=== PATIENT | male | born 1965 | race Caucasian/White ===

== ENCOUNTER 2017-04-25 07:21 | Day surgery (SDC) | payer MEDICAID, SELFPAY ==
[2017-04-25] VITALS (7 sets, daily range): BP systolic 104–134; BP diastolic 58–91; PULSE 74–91; RESP 16–19; TEMP 36.6–36.7; O2SAT 92–96; BMI 34.9
--- NOTE | 2017-04-25 | IMM_PTH ---
PATIENT: MARLINE KHAN LOC: EN U#:[id number] AGE/SX: 51/M ROOM: RE04/25/[address]: Dr. Chris Yanez MD : 1965 BED: DIS: 04/25/2017 SPEC #: [id number] RECD: 04/26/17 11:34 STATUS: LENNIE REKaroline #: [id number] JOSE: 04/25/17 00:[address]: Chris Yanez DEPT: IMMUNOHISTOCHEMISTRY RECD BY: Kaykay Real ENTERED: 04/26/17 11:36 SP TYPE: IMMUNO OTHR DR: No Primary Care Phys Tissues: B - Stomach, NOS Procedures: H Pylori (initial) PHYSICIAN & INSTITUTION [place] [id number] SPECIMEN INFORMATION: Tissue Source: B ? Biopsy of antrum Clinical Info: Duodenal ulcer Specimen Number: [id number] CPT code: 36394 METHODOLOGY: Deparaffinized sections of prefer/formalin-fixed tissue or PAP/DQ stained slides are incubated with monoclonal/polyclonal antibodies/oligonucleotide probes. Localization is made via biotin free immunoperoxidase method. Appropriate controls are performed and reacted as expected. Results on target cell population are indicated in the following table: RESULTS: ANTIBODY / CLONE RESULT Block B H Pylori (polyclonal) negative These tests were developed and their performance characteristics determined by [facility]. They may not have been cleared or approved by the U.S. Food and Drug Administration. The FDA has determined that such clearance or approval is not necessary. INTERPRETATION: B. Antrum, biopsy: Negative for Helicobacter pylori organisms. AM:temi 04/26/17
--- NOTE | 2017-04-25 08:46 | H&P.OPEN ---
Past Medical/Surgical History - Planned Operation Planned Operative Procedure/s: EGD Date of Operative Procedure: 04/25/17 Permit Signed: No S.O.S: No Is This Patient Having a Total Joint: No - Previous Hospitalizations/Surgeries HX Hospitalizations: Yes HX of Surgeries: HOSPITALIZED FOR LUNG COLLAPSE HAD CHEST TUBE 2014. ANAL CYST/FISSURE I&D X3. JAW FX 1998. COLONOSCOPY/EGD 02/19. LEFT KNEE ARTHROSCOPY, MENISCUS 04/07/2017, [facility] Any Problems With Anesthesia: No You/Your Family Experience Fever (Hyperthermia) With Anes: No Cholinesterase deficiency: No - Cardiovascular Hx Chest Pain within Last 2 months: No Hx of Irregular Heartbeat and/or Afib: No Hx Heart Attack: No Hx Congestive Heart Failure: No Hx Rheumatic Fever: No Hx Hypertension: No Hx Internal Defibrillator: No Hx Pacemaker: No Hx Cardiac Catheterization: No Hx Cardiac Surgery/Stents/Etc.: No Hx Stress Test: No HX Edema: No Hx Pain in Legs when Walking/Leg Cramps: No - . - Respiratory Chronic Cough: No HX of Shortness of Breath: Yes - SLIGHTLY SOB WITH 2 FLIGHTS OF STAIRS Hoarseness: No Hx Chronic Obstructive Pulmonary Disease (COPD): No Hx Asthma: No Hx Emphysema: No Hx Sleep Apnea: No CPAP: No Hx Oxygen Use at Home: No Hx Respiratory Tract Infection/Cold (presently): No Do You Snore Loudly (louder than talking or can be heard): No Do You Often Feel Tired/ Fatigued/ Sleepy Dring Daytime?: No Has Anyone Observed You Stop Breathing During Sleep?: No Result (for STOP score): Negative Hx Smoking: Yes - 1/2 PPD FOR 21 YRS Smoking Status: Current every day smoker - Gastrointestinal Hx Gastroesophageal Reflux: Yes Controlled With Meds: No - NO MEDS Hx Gastrointestinal Disorders: Yes - DIVERTICULITIS, POLYP Hx Gastrointestinal Bleed: No Hx Ulcer: Yes - 02/2017 Hx Hiatal Hernia: No Difficulty Chewing/Swallowing: No Recent Onset of Swallowing Problems: No Special diet followed at home: Yes - WT LOSS, Hx Unplanned Weight Loss of 20#: No HX Unplanned Weight Gain of 20#: No - Neurological Hx Seizures: No HX Syncope/Blackout Spells/Unconsciousness: No Hx CVA/Stroke: No Hx Transient Ischemic Attacks (TIA): No Hx Multiple Sclerosis: No Hx Parkinson's Disease: No Hx Head/Neck Injury: No Hx Headaches: No Hx Back Injury/Pain: Yes - LOWER BACK PAIN PRN Recent Onset of Speech Difficulty: No Restless Legs: No Does patient have nerve stimulator: No Patient instructed to have device shut off: No Rep notified?: No - Blood Disorder Hx Leukemia: No Bleeding Tendencies: No Hx Deep Vein Thrombosis: No Hx High Cholesterol: No Blood Transmitted Disease: No Hx Hepatitis: No Hx Cirrhosis: No Hx Anemia: No Hx Blood Disorders: No - Genitourinary Hx Renal Disease: No - Musculoskeletal Hx Arthritis: Yes - KNEES Hx Rheumatoid Arthritis: No Hx Gout: No Recent Onset of an Orthopedic Problem: Yes - RECENT SURGERY,KNEE - Endocrine Hx Diabetes: No Thyroid Disease: No Hx Steroid Therapy: Yes - INJECTION KNEE 5 MONTHS AGO - Psycho/Social Hx Substance Use: No - MARIJUNA USE IN THE PAST/LAST USED 2 YRS AGO Hx Alcohol Use: Yes - FORMER ALCOHOLIC , QUIT 2015 Hx Anxiety: Yes Hx Depression: Yes Mental Illness: No Hx Dementia: No - Miscellaneous Hx Cancer: No Recent Exposure to Contagious Disease: No Active MRSA: No Hx of C-Diff: No Any Loose Teeth: No Additional information pertinent to anesthesia:: PHONE INTERVIEW Allergies No Known Allergies Allergy (Verified 04/20/17 16:06) Home Medications Medication Instructions Recorded NK [NK] 04/20/17 - Discharge Is Pt Admitted From a Residential, or a Skilled Nursing: No Who Could Help: GIRLFRIEND After D/C, Where Do you Plan to Go: Return Home - Physical Exam General: Alert, Oriented x3 Neck: No JVD Lungs: Normal air movement Cardiovascular: Regular rate, Regular Rhythm Abdomen: Soft, Non Tender, Non-Distended Vital Signs Temp Pulse Resp BP Pulse Ox 97.8 F 91 18 134/85 H 96 04/25/17 07:39 04/25/17 07:39 04/25/17 07:39 04/25/17 07:39 04/25/17 07:39 Oxygen Delivery Method Room Air Weight: 286 lb 13.142 oz Body Mass Index (BMI) 34.9 Assessment/Plan 51-year-old male with duodenal ulcer 1. The patient had a recent EGD and during that EGD he was noted to have a duodenal ulcer. He was placed on PPI and Carafate and presents today for follow-up EGD to ensure that this ulcer has resolved. 2. I explained endoscopy in detail to the patient. I explained the risks including but not limited to stroke or heart attack with anesthesia, perforation of the GI tract, bleeding, infection. I explained that any of these could necessitate further emergency surgery. The patient understands and all questions were answered sufficiently. The patient wishes to proceed with procedure. Chris Yanez MD Pager: [facility] [address], [facility] [address] [place] [address] Office: Surgery Risks - Colonoscopy Risks Include but are not Limited To: Risks include but are not limited to: Bleeding, perforation requiring further surgery, inability to complete colonoscopy requiring barium enema.
--- NOTE | 2017-04-25 09:05 | EGD_PTH ---
PATIENT: MARLINE KHAN LOC: EN U#:[id number] AGE/SX: 51/M ROOM: RE04/25/[address]: Dr. Chris Yanez MD : 1965 BED: DIS: 04/25/2017 SPEC #: [id number] RECD: 04/25/17 15:06 STATUS: LENNIE VLADIMIR #: [id number] JOSE: 04/25/17 09:[address]: Chris Yanez DEPT: SURGICAL PATHOLOGY RECD BY: Uday Simon ENTERED: 04/25/17 15:07 SP TYPE: EGD BIOPSY OTHR DR: No Primary Care Phys Tissues: A - Duodenum, NOS B - Gastric mucous membrane Procedures: Surgery Specimen Level IV HEADER OPERATION: EGD with biopsy PRE-OP DIAGNOSIS: History of duodenal ulcer TISSUE SUBMITTED: A ? Biopsy of duodenum, B ? Biopsy of antrum for H. pylori and path MICROSCOPIC DIAGNOSIS A. Duodenum, biopsy: Focal acute duodenitis. B. Gastric antrum, biopsy: Gastritis. AM:temi 04/26/17 COMMENT A. There is focal duodenitis in an area suspicious for mucosal ulceration. There is no evidence of dysplasia. Clinical correlation is suggested. B. The results of immunohistochemistry for Helicobacter pylori will be reported separately ([id number]). MICROSCOPIC DESCRIPTION Slides are reviewed. B. Sections show small collections and groups of plasma cells in the mucosa. Active inflammation is not present. These findings are consistent with mild chronic gastritis. GROSS DESCRIPTION A - Received in fixative is one container labeled with the patient's name and designated duodenal biopsy. The specimen consists of multiple irregular fragments of light dawson soft tissue that in aggregate measure 1.5 x 0.5 x 0.1 cm. The specimen is totally submitted in one cassette. B - Received in fixative is one container labeled with the patient's name and designated biopsy of antrum for H. pylori and path. The specimen consists of multiple irregular fragments of light dawson soft tissue that in aggregate measure 0.5 x 0.3 x 0.1 cm. The specimen is totally submitted in one cassette. / JOSIANE:temi 04/25/17 TC:2 CPT: 22481 x2
--- NOTE | 2017-04-25 09:15 | OP.PCM_ITS ---
Problem List (1) Duodenal ulcer Status: Acute Report of Operation Date of Procedure: 04/25/17 Pre-Operative Diagnosis: History of duodenal ulcer Post-Operative Diagnosis: Duodenal ulcer Surgery/Procedure Performed:: EGD with biopsies Description of Surgical Findings:: The patient still had inflamed tissue in the second portion of duodenum but the base of the ulcer has healed. The patient also reports that he stopped taking his omeprazole after the first month and the discomfort has returned recently. Specimen's removed: 1. Biopsies of duodenal ulcer. 2. Antrum biopsy Description of Procedure: The major risks and benefits associated with the procedure were explained to the patient in detail. The patient verbalized understanding and agreement with the same. The patient was then placed in the left lateral decubitus position. IV sedation was started by anesthesia. The endoscope was then advanced under direct visualization over the tongue, into the esophagus , stomach and duodenum. It was slowly withdrawn and the mucosa was carefully evaluated. The second portion of the duodenum was evaluated and the ulcer was located. The base of the ulcer has fully healed but there was still some inflamed tissue in this area. This was biopsied several times with cold forceps. Antegrade and retrograde views of the stomach were normal and did not reveal a hiatal hernia or ulceration. Gastric folds were normal. A biopsy of the antrum was performed with cold forceps. The scope was then withdrawn through the GE junction and careful examination did not demonstrate any mucosal abnormalities. No evidence of Goodson's esophagus was apparent. Careful examination of the remainder of the esophagus was normal. The scope was then withdrawn from the patient and the procedure terminated. It was well tolerated and there were no immediate complications. Recommendations: I have recommended the patient continue his PPI for at least a year. I have sent a new prescription with several refills. The base of the ulcer is healing but I did biopsy the surrounding area. If this is normal he can continue PPIs.
== END 2017-04-25 10:00 | disposition home or self-care (01) ==
LOC: EN 07:22 → AC 07:23
PROVIDERS: Visit Provider Surgery
PROC: 0DJ08ZZ Inspection of Upper Intestinal Tract, Via Natural or Artificial Opening Endoscopic (ICD-10-PCS; CPT 43235; principal; 2017-04-25 08:25)
DX: K26.3 Acute duodenal ulcer without hemorrhage or perforation (principal); K29.80 Duodenitis without bleeding; K29.70 Gastritis, unspecified, without bleeding; R06.00 Dyspnea, unspecified; M17.0 Bilateral primary osteoarthritis of knee; F41.9 Anxiety disorder, unspecified; F32.9 Major depressive disorder, single episode, unspecified; K21.9 Gastro-esophageal reflux disease without esophagitis; Z87.19 Personal history of other diseases of the digestive system; Z87.898 Personal history of other specified conditions; F17.210 Nicotine dependence, cigarettes, uncomplicated
CPT/HCPCS: 43239; 88305; 88342; J7120

== ENCOUNTER → 2017-08-22 09:03 | Outpatient (CLI) | payer MEDICAID, SELFPAY ==
--- NOTE | 2017-08-22 09:06 | RAD_ITS ---
STUDY: X-RAY - LEFT KNEE REASON FOR EXAM: Pain, swelling. TECHNIQUE: 4 view(s) of the knee. COMPARISON: None. FINDINGS: Normal visualized distal femur. Normal visualized proximal tibia and fibula. Normal proximal tibiofibular articulation. There is joint space narrowing of the medial femorotibial compartment. Normal lateral femorotibial compartment. There is mild lateral tilt of the patella. There is a small joint effusion. RAD/Knee 4 or More Views IMPRESSION: Arthrosis of the medial femorotibial compartment. Mild lateral tilt of the patella. Small joint effusion. Electronically Signed: Josh Guo MD at 12:24 EDT Tel , Service support ,
== END ==
PROVIDERS: Visit Provider Orthopaedic Surgery
DX: M25.562 Pain in left knee (principal)
CPT/HCPCS: 73564

== ENCOUNTER → 2017-12-04 09:32 | Outpatient (CLI) | payer MEDICAID, SELFPAY ==
--- NOTE | 2017-12-04 09:35 | MRI_ITS ---
STUDY: MRI LEFT KNEE REASON FOR EXAM: Increased pain after arthroscopy 04/07/2017. TECHNIQUE: Standardized fat and water weighted pulse sequences were obtained in all 3 orthogonal planes. COMPARISON: Radiographs 08/22/2017. FINDINGS: There is attrition of the posterior horn of the medial meniscus consistent with partial medial meniscectomy with signal alteration of the posterior horn of the medial meniscus extending to the free margin (proton-density sagittal images 8-11), either scarring or recurrent medial meniscal tear, and a complex signal alteration of the body of the medial meniscus (T2 coronal images 13-17), suggestive of recurrent medial meniscal tear since this appears separate from the partial meniscectomy site. There is arthrosis of the medial femorotibial compartment with marginal osteophytes and chondral loss (T2 sagittal image 9). There is mild subchondral bone edema of the medial femoral condyle (T2 coronal images 13-16), a stress phenomenon. Normal medial collateral ligamentous complex (MCL). Normal distal semimembranosus, gracilis and semitendinosus tendons. Normal lateral meniscus. Normal hyaline cartilage of the lateral femorotibial compartment. Normal lateral femoral condyle and tibial plateau. Normal proximal tibiofibular articulation. Normal lateral collateral (fibular) ligament. Normal popliteus tendon. Normal biceps femoris tendon. Normal anterior cruciate ligament (ACL). Normal posterior cruciate ligament (PCL). There is mild lateral tilt of the patella without patellar subluxation (T2 axial image 12). Normal hyaline cartilage of the patellofemoral compartment. Normal medial and lateral patellar retinaculum. Normal visualized quadriceps tendon. There is mild proximal patellar tendinosis (T2 sagittal images 14, 15). Normal Hoffa's fat pad. There is a small joint effusion. There is a small popliteal cyst (T2 sagittal images 3-9). The otherwise visualized osseous structures are unremarkable. MRI/Lower Ext Joint Only (Routine) IMPRESSION: Partial medial meniscectomy with signal alteration of the body of the medial meniscus suggestive of recurrent medial meniscal tear. Arthrosis of the medial femorotibial compartment. Mild subchondral bone edema of the medial femoral condyle, a stress phenomenon. Mild proximal patellar tendinosis. Mild lateral tilt of the patella. Small joint effusion. Small popliteal cyst. Electronically Signed: Josh Guo MD at 10:03 EDT Tel , Service support ,
== END ==
PROVIDERS: Referring Provider Orthopaedic Surgery; Visit Provider Orthopaedic Surgery
DX: M23.307 Other meniscus derangements, unspecified meniscus, left knee (principal)
CPT/HCPCS: 73721

== ENCOUNTER 2017-12-12 12:53 | Outpatient (RCR) | payer MEDICAID, SELFPAY ==
--- NOTE | 2017-12-12 16:20 | HP.OTFCE_ITS ---
HP OT Functional Capacity Eval - Task Lift Floor (Occasional 1-33% of Day): 50 lbs Floor (Frequent 34-66% of Day): 10 lbs Floor (Constant 67-100% of Day): negligibe Floor PDL: Light Knee (Occasional 1-33% of Day): 50 lbs Knee (Frequent 34-66% of Day): 20 lbs Knee (Constant 67-100% of Day): negligible Knee PDL: Light Waist (Occasional 1-33% of Day): 50 Waist (Frequent 34-66% of Day): 25 lbs Waist (Constant 67-100% of Day): negligible Waist PDL: Light Shoulder (Occasional 1-33% of Day): 55 lbs Shoulder (Frequent 34-66% of Day): 25 lbs Shoulder (Constant 67-100% of Day): negligible Shoulder PDL: Light Overhead (Occasional 1-33% of Day): 40 Overhead (Frequent 34-66% of Day): 20 Overhead (Constant 67-100% of Day): negligible Overhead PDL: Sedentary-Light Comments: Due to increased compensations with higher weight and repetitive movements it would not be reccomened that Ab completes frequent lifting tasks at this time as body mechanics poor. - Work Activity/Posture Bending: Frequent Ability (34-66% of day) Squatting: Occasional Ability (1-33% of day) Kneeling: Occasional Ability (1-33% of day) Reaching out: Frequent Ability (34-66% of day) Reaching up: Frequent Ability (34-66% of day) Sitting: Frequent Ability (34-66% of day) Walking: Occasional Ability (1-33% of day) Comments: antaglic gait noted. Standing: Occasional Ability (1-33% of day) Comments: need for breaks. - Reference Duration Sedentary Sedentary Light Light Light Medium Medium Medium Heavy Very Heavy Heavy Occasional (0-33% of day) Frequent (34-66% of day) Constant (67-100% of day) 10 # Negligible Negligible 15 # 8 # Negligible 20 # 10# Negli. 35 # 18 # 7 # 50 # 25 # 10 # 75 # 100 # >100 # 38 # 50 # >50 # 15 # 20 # >20 # - Patient Information Height: 1.93 m Weight:: 294 kg Hand Dominance: R BP (Medication Use/Usual Values per pt report): no - Medical History Medical History Including Restrictions: Per Pt. report no medical restrictions given to get by her doctor. No paperwork provided from doctor. - Diagnoses Diagnoses: Current: L knee athroscopy in April 2017. PMHx: L knee pain, tobacco use, h/o DVT, ADHD, bipolar, vitamin D. - Symptoms Symptoms: Main symptoms include of pain with movement of eversion of ankle combined with internal roation of L foot. - Pain Pain: I take pain pills all the time.. Completed Destiny questionarrie in which Pt. scored a 62 which a score of 30 or higher indicates poor pyschodynamics. When provided with KitchIn faces chart he appears to more accurately rate pain. Pain testing indicates inconsistencies. - Work History Work History: Per Pt. report over the last few years months has help multiple jobs. 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 - Behavioral Behavioral: My knee not getting no better. It's like it detroiating.I'm supposed to prop my legs up but I don't. I'm supposed to take some special medications but haven't taken for like two years. I've had some anxiety attacks in the last couple months. ..I'm starting to get Alziheimer I think... Later discussed that he has plenty of pills but does not take many. Further noted that - ADLS ADLS: Lives with with apartment, on second floor, with 20 steps to get to top. Still completing all steps to caitlyn nd out of apartment. Noted completed steps at least 1x a day. Lives alone in apartment with [employer]. Completed all ADl and most IADLS including grocery shopping while at times riding scooter, driving. Drives with R LE. - Physical Examination Physical Examination: Resting. HR 85 bpm. O2 97%. calculated aerobic limiting factor: 143 bpm. ROM: Completed goniometer measurements of BUE: shoulder flexion: R 0-121, L 0- 151. Shoulder ext. R 0-37, L 0-36. Shoulder abduction: R 0-141, L 0-56. BLE Had to measure through jeans due to inability to Pt. to raise jeans about knees: Knee flexion: froms tanding position: R 0-90 - limited by weakness and soft tissue, L 0-94 limited by weakness and soft tissue. knee flexion in prone: R 0- 94, L 0-92. knee ext from sitting position: R 90-178, L 90-179. __vitals post laying in prone: -BP 152/100, easily came down after chaging psoitioning. Strength: Shoulder Flexion: R 5/5, L 5/5. shoulder ER : R 5/5, L 5/5. Shoulder IR : R 5/5, L 5/5. shoulder abduction:: R 5/5, L 5/5. biceps load:: R 5/5, L 5/5. LE. hip flexors: : R 5/5, L 5/5. knee flexion: : R 5/5, L 5/5. knee extension: : R 5/5, L 5/5. hip adduction: : R 5/5, L 5/5. hip Abduction: : R 5/5, L 5/5. plantar flexion: R 5/5, L 5/5 Right Welding Robot Operator Strength Average: 109.33 Left Welding Robot Operator Strength Average: 104.66 Right Lateral Pinch Average: 24.33 Left Lateral Pinch Average: 23.00 Right Tripod Pinch Average: 22.66 Left Tripod Pinch Average: 18.66 Sensation: B hands through monofilament is intact and results are as follows and WNL-WFL: R 2nd 3.22, 3rd 3.22, 4th 3.22, 5th 3.22, thumb 3.61. L 2nd 2.83, 3rd 2.83, 4th 283, 5th 2.83, thumb 2.83. No numbness or tingling noted around L knee. Noted some tenderness with palpation but no primance or jumping with palpation of L knee about lateral menicus and joint spaces to anterior knee. Fine Motor: Fine motor control is intact. Completed Purdue Pegboard test and results for an average of three trials is as follows: R : 11. L: 14. Both: 10. assembly: 4 Balance: Completed funtional gait assessment in which he score a 14/30 which is below lowest standard for age of 25/30. This potentially indicates a greater chance f falling. Completed assessment without use of cane. Antaglic gait noted throughout session and limited change in speed noted. Additionally, completed functional reach test with average of three trials averaging 43.5 inches. This indicates he is at less risk of fall than indicated through functional gait assessment. There is potentially that due to fear of further injury during gait Pt. was more cautious when completing dynamic test rather than staic assessment of fx reach test. HR 105. 02 95 - Non Material Handling Activities Bendinx, 10 x, 10 fast. Completed no cane with fair body mechanics. Decreased spinal alignment. Knees move from neutral to hyperext. position with movements. Did not not any grimace or verbalize additional pain. Percieved Pain: 3-4/10. Pain appeared to be accurate with use of scale rating. Squattinx, 10x, 10x fast. Completed with fair- poor body mechanics. With increased repitiation increased compensations noted of forward trunk flexion to offset L LE weakness and pain. Noted pain 5/10 going on 08/13. Increased SOB noted. Completed Vitals: HR 109, O2 95. Kneeling: completed 6 x. use of foam peice under R Reaching out/up: Reaching out: about to reach out with no stoping 70 seconds. Reaching up: 3x, about to reach up for 45 seconds for total of about 40 reps. Walking: Walked total 12 mins straight with period sof standing while completing various tasks around the gym. Completed almost all walking tasks with no use of cane. Antalgic gait noted and decrease speed of ambulation additionally noted. Standing: stood about 30 mins off/on with walking and balance related tasks throughout session. Sitting: Able to sit for 45 mins and noted sitting most comofrtable position. Pain 2/10 Climbing Stairs: 40 stairs with use of 1x handrails and mix between one foot to alternating foot pattern. Used a mix of B UE and L UE to promote ascending and decending of stairs. BP 123/89. HR 118. O2 96 %. Pain /10 - Dynamic Occasional Lifting Capacity Floor Lift: 5x 10 lbs - some compensations noted. Poor body mechanics of trunk and spinal alignment. No compliants or grimance noted during task. 1x 50 lbs - able to able completed weight but due to increased compensations would not reccommend to exceed frequent weight of 10 lbs. HR 118. 02 96. BP 151/86. Pain noted 3 going on . Knee Lift: freq 5x 20 lbs, 1x 50 lbs for occassional. Would not reccomend 50 lbs for occassional use as increased compensations noted and poor body mechnics displayed. Waist Lift: Max weight 50 lbs; frequent weight of. HR 110. 02 97. BP 130/83 Shoulder Lift: 55 lbs. fair mechanics Overhead Lift: 127/54. HR 121. 02 97 Carryin [address]. no reccommended due to safety concerns and antaglic gait. Comments: BP at end of session: BP 105/79. 02 97%
--- NOTE | 2017-12-12 16:20 | HP.OTFCE.D ---
FCE D/C Summary - Discharge MARLINE Ciro KHAN was seen for a one time visit for an FCE on 12/12/17 and is discharged.
--- NOTE | 2017-12-28 09:49 | HP.OTFCE_ITS ---
HP OT Functional Capacity Eval - Task Lift Floor (Occasional 1-33% of Day): 25 lbs Floor (Frequent 34-66% of Day): 10 lbs Floor (Constant 67-100% of Day): negligibe Floor PDL: Light Knee (Occasional 1-33% of Day): 40 lbs Knee (Frequent 34-66% of Day): 20 lbs Knee (Constant 67-100% of Day): 8 lbs Knee PDL: Light-Medium Waist (Occasional 1-33% of Day): 40 lbs Waist (Frequent 34-66% of Day): 20 lbs Waist (Constant 67-100% of Day): 8 lbs Waist PDL: Light-Medium Shoulder (Occasional 1-33% of Day): 40 lbs Shoulder (Frequent 34-66% of Day): 20 lbs Shoulder (Constant 67-100% of Day): 10 lbs Shoulder PDL: Light-Medium Overhead (Occasional 1-33% of Day): 40 lbs Overhead (Frequent 34-66% of Day): 20 lbs Overhead (Constant 67-100% of Day): 8 lbs Overhead PDL: Light-Medium Comments: Due to increased compensations with higher weight and repetitive movements it would not be recommended that Ab completes consisent repetitive lifting tasks at this time as compensations, mechanical deficits, and safety concerns are observed. - Work Activity/Posture Bending: Occasional Ability (1-33% of day) Squatting: Occasional Ability (1-33% of day) Kneeling: No Ablility (0% of day) Comments: Has able to complete but should avoid due to mechanical deficits observed. Reaching out: Frequent Ability (34-66% of day) Reaching up: Frequent Ability (34-66% of day) Sitting: Frequent Ability (34-66% of day) Walking: Occasional Ability (1-33% of day) Comments: antaglic gait noted. Standing: Occasional Ability (1-33% of day) Comments: need for breaks. - Reference Duration Sedentary Sedentary Light Light Light Medium Medium Medium Heavy Very Heavy Heavy Occasional (0-33% of day) Frequent (34-66% of day) Constant (67-100% of day) 10 # Negligible Negligible 15 # 8 # Negligible 20 # 10# Negli. 35 # 18 # 7 # 50 # 25 # 10 # 75 # 100 # >100 # 38 # 50 # >50 # 15 # 20 # >20 # - Patient Information Height: 1.93 m Weight:: 294 kg Hand Dominance: R BP (Medication Use/Usual Values per pt report): no - Medical History Medical History Including Restrictions: Per Pt. report no medical restrictions given to get by him by doctor. No paperwork provided from doctor or patient. - Diagnoses Diagnoses: Per Pt. Report: Current: L knee athroscopy in April 2017. Per Pt. report: PMHx: L knee pain, tobacco use, h/o DVT, ADHD, bipolar, vitamin D. - Symptoms Symptoms: Main symptoms include of pain with movement of eversion of ankle combined with internal rotation of L foot per Pt. report. Patient demonstrated movement and noted that movement a lot of pain. That movement is not typically movement needed for functional mobility tasks of walking. Pt. further noted increased pain with repetitive movement task of walking for sustain periods of time. These movements are necessary for functional movements need to complete mobility tasks. - Pain Pain: I take pain pills all the time.. Completed Destiny questionaries? in which Pt. scored a 62 which a score of 30 or higher indicates the risk of a higher potential of Pt. exhibiting poor psychodynamics. When provided with wongs zimmerman faces pain scale he appeared to more accurately rate pain. Pain testing indicates increased potential for inconsistencies. - Work History Work History: Per Pt. report over the last few years months has held multiple [email or web address] obs. He is currently unemployed. 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 - Behavioral Behavioral: My knee not getting no better. It's like it deteriorating. I'm supposed to prop my legs up but I don't. I'm supposed to take some special medications but haven't taken for like two years. I've had some anxiety attacks in the last couple months. ...I'm starting to get Alzheimer I think... Later discussed that he has plenty of pills but does not take many and then stated ? I have to take pain medications all the time because by knee gets so bad.? - ADLS ADLS: Lives with significant other in apartment. Significant other is currently getting CDL and often driving for work related tasks. Apartment is located on second floor, with 20 steps to get to door. When asked about stairs he noted very hard and I can hardly do them. He then explained he is still completing all steps in and out of apartment. Noted he is completing steps at least 1x a day and once in apartment he has FFSU. He is not exercising regularly and explained he has not regularly been completing past PT exercises from rehabilitation. He further explained he does not need to complete yardwork at this time. Completes all ADLs and most IADLS including grocery shopping while at times riding scooter. Exampled via Functional Activities Questionnaire he is unable to put groceries away but exhibited needed range of motion to place groceries overhead. Additionally, he noted on functional capacity questionnaire that he is able to drive for 1-2 hours. He notes he still is driving and drove himself to the appointment today. Drives with Johana PHAM. - Physical Examination Physical Examination: Satnam arrived for an FCE on 12/12/17. The purpose of this FCE was to determine the functional ability that Ab exhibits post arthroscopy of L knee. He arrived using assistive device of straight cane. This was deemed that this was not necessary throughout evaluation with OT present to help gain a more accurate understanding of correct functional ability. Ab started the evaluation with a resting HR 85 bpm, O2 97%. This further determines the aerobic limiting calculated of: 143 bpm. The aerobic limiting factor is the safe heart rate that Ab could obtain during session without of exerting himself to unsafe range. Therapist checked Ab?s heart rate throughout the session to ensure. His heart rate was consistent throughout session and did not exceed aerobic limiting factor. Please review the documentation provided for further detail on results of FCE. ROM: Completed goniometer measurements of BUE: shoulder flexion: R 0-121, L 0- 151. Shoulder ext. R 0-37, L 0-36. Shoulder abduction: R 0-141, L 0-56. BLE Had to measure through jeans due to inability to Pt. to raise jeans about knees: Knee flexion: from standing position: R 0-90 - limited by soft tissue, L 0-94 limited by weakness and soft tissue. knee flexion in prone: R 0-94, L 0-92. knee ext from sitting position: R 90-178, L 90-179. -vitals -BP 152/100, easily came down after changing positioning from prone to supine. Strength: Shoulder Flexion: R 5/5, L 5/5. shoulder ER : R 5/5, L 5/5. Shoulder IR : R 5/5, L 5/5. shoulder abduction: R 5/5, L 5/5. biceps load: R 5/5, L 5/5. LE. hip flexors: R 5/5, L 5/5. knee flexion: R 5/5, L 5/5. knee extension: R 5/5, L 5/5. hip adduction: R 5/5, L 5/5. hip Abduction: R 5/5, L 5/5. plantar flexion: R 5/5, L 5/5 Right Diesel Truck Technician Strength Average: 109.33 Right Diesel Truck Technician Strength Percentile: above 90th Left Diesel Truck Technician Strength Average: 104.66 Left Diesel Truck Technician Strength Percentile: above 90th Right Lateral Pinch Average: 24.33 Right Lateral Pinch Percentile: 90th Left Lateral Pinch Average: 23.00 Left Lateral Pinch Percentile: 90th Right Tripod Pinch Average: 22.66 Right Tripod Pinch Percentile: above 75th Left Tripod Pinch Average: 18.66 Left Tripod Pinch Percentile: above 50th Sensation: Completed testing touch sensation of B hands through monofilament test. Normal is 2.83, decreased light touch between 3.22-3.61. Sensation is intact and results are as follows: R 2nd 3.22, 3rd 3.22, 4th 3.22, 5th 3.22, thumb 3.61. L 2nd 2.83, 3rd 2.83, 4th 283, 5th 2.83, thumb 2.83. No numbness or tingling noted around L knee. Noted some tenderness with palpation but no grimance or jumping with palpation of L knee around lateral menicus and within joint spaces to anterior knee. Fine Motor: Fine motor control is intact. Completed Purdue Pegboard test and results for an average of three trials is as follows: R : 11 percentile: 1st. L: 14 percentile: 10th. Both: 10 percentile: 3rd. assembly: 4 percentile: Below 1st. Talked throughout entire task. Decreased attention to task with cues needed to maintain concentration. Balance: Static Balance: Completed functional reach test with average of three trials averaging 43.5 inches. Tjis indicated static functional balance is intact compared to same aged peers. Dynamic Balance: Completed funtional gait assessment in which he score a 14/30 which is below two standard deviations for age. This indicate the potentially of the patient having a greater risk of falling and some decreased dynamic balnce. No functional loss of balance noted during assessment. Completed assessment without use of a/d. Antaglic gait noted throughout session and limited change in speed observed. Noted is to be getting brace for knee but no brace on or brought to evaluation. HR 105. 02 95 - Non Material Handling Activities Bendinx, 10 x, 10 fast. Completed with no cane and with fair body mechanics. Decreased spinal alignment noted. Mechanical changes observed as knees move from neutral to hyperext. position with movements. No pain behaviors observed with no grimace or verbalization of change of pain or any additional pain. Pt. perceived Pain: 3-4/10. Pain appeared to be accurate with use of scale rating. Squattinx, 10x, 10x fast. Completed with fair- poor body mechanics. With increased repetition increased compensations noted of forward trunk flexion to offset L LE weakness and pain. Noted pain 5/10 going on 6/10. Increased SOB noted. Completed Vitals: HR 109, O2 95. Kneeling: completed 6 x kneels to L LE and need for UE assistance. Able to obtain full kneeling position. Requested for foam piece under R knee. Mechanical changes and deficits noted with lateral leaning to move from kneel to upright position. Compensations of holding breath and then need for foam piece under R knee. Due to mechanical changes he should not complete repetitive kneeling tasks. Reaching out/up: Reaching out: Able to complete reaching out with not stopping 70 seconds. No mechanical deficits noted. Some mechanical changes noted of decrease spinal alignment. Completed from standing position. Reaching up: 3x, about to reach up for 45 seconds for total of about 40 reps. Completed with no mechanical changes and ability to complete overhead reach. Increased SOB noted but increased exertion noted. Completed from standing position. Walking: Walked total 12 mins straight with brief, 10-15 seconds, periods of standing while completing various tasks around the gym. Per Functional Activities Questionnaire, Ab noted he can only complete standing/walking tasks 5-10 mins per day. Completed all ambulation tasks without use of a/d as observed that he was not continuously using straight cane during walk back to facility and likely would not be able to use if returning to work. Antalgic gait with R lateral lean noted and decrease speed during ambulation observed. Compensatory and mechanical deficits observed throughout task. He did use cane to walk 340 feet to and from therapy room. Antalgic gait noted with cane as well. HR 105 during task. Standing: Satnam completed 30 mins standing task with ambulation tasks completed throughout standing ability. Per Functional Activities Questionnaire, Ab noted he can only complete standing/walking tasks 5-10 mins per day. Completed equal weight bearing throughout tasks but observable weight shifting to R and L LE when needed was observed. No increase in pain noted by Pt. and pain remain 3-4/10. Sitting: Satnam exhibited the ability to sit for 45 mins during FCE session and noted sitting is most comfortable position. Pt. perceived pain 2/10. Climbing Stairs: Satnam completed 40 stairs with use of 1x handrails and mix between two foot step to alternating foot pattern for ascending and descending of stairs. Less than 7 mins to complete task. Antalgic gait noted to R LE. Exhibited some increased in SOB. Required UE assistance for task. Slight increase in pain from 3 to 4/10 pain per Pt. report with use of functional pain scale. No pain behaviors of grimace of wincing noted during task. BP 123/89. HR 118. O2 96 %. Pain 4/10 - Dynamic Occasional Lifting Capacity Floor Lift: 1x 50 lbs -peak weight. Able to able completed weight but due to increased compensations would not recommend completing due to increased mechanical deficits and changes. 1x25 lbs with minimal compensations. Some mechanical deficits observed. Compensations of holding breath noted. . 5x 10 lbs - some compensations noted. Poor body mechanics of decreased trunk and spinal alignment. No complaints or grimace noted during task. No a/d used for task. HR 118. 02 96. BP 151/86. Pain noted 3 going on 10. Knee Lift: 1x 50 lbs for peak weight. Would not recommend 50 lbs for occasional use as increased compensations noted and poor body mechanics displayed. 1x 40 lbs. For occasional weight. Some mechanical changes noted. Mechanical changes of decreased spinal alignment noted. 5x 20 lbs. Completed at frequent level. Some mechanical changes noted. Increased compensations. No a/d used for task. Waist Lift: 1x50 lbs max weight. 1x40 occasional. Increased SOB noted. Mechanical changes observed. No additional pain behaviors of grimace noted. 5x20 lbs frequent. Increased SOB noted. Minimal mechanical deficits and changes observed. No a/d used for task. HR 110. 02 97. BP 130/83 Shoulder Lift: 1x 55 lbs peak weight. 1x40 lbs - occasional. Fair body mechanics observed. Slight mechanical changes and compensations noted. 5x 20 lbs. Fair body mechanics observed. Slight mechanical deficits noted as fatigue increased throughout session. Increased compensations of decreased spinal alignment. No a/d used for task. Overhead Lift: 1x 40 lbs occasional lift. Increased mechanical changes and deficits noted. Increased holding breath as well as cervical flexion to complete task. Pain rated 4/10. . 5x 20 lbs frequently. Fair body mechanics. Mechanical changes noted with decrease spinal alignment. No a/d used for task. . 127/54. HR 121. 02 97 Carrying: Carried 10 ft but increased compensations noted with box. No a/d used for task. Increased lateral leaning and shift to hold box over R LE. Need to stop prior to completing 20 feet due to safety concerns and increasing antalgic gait noted to both L and R. This would not be recommended due to safety concerns at this time. Comments: BP at end of session: BP 105/79. 02 97%. Pt. rated pain at 3-4/10.
== END 2017-12-12 19:00 | disposition home or self-care (01) ==
LOC: OT 12:53
PROVIDERS: Family Provider Internal Medicine; PCP Internal Medicine; Visit Provider Orthopaedic Surgery
DX: M25.562 Pain in left knee (principal); Z98.890 Other specified postprocedural states
CPT/HCPCS: 97750

== ENCOUNTER → 2019-09-24 13:04 | Outpatient (CLI) | payer MEDICAID, SELFPAY ==
[2018-11-19 10:37] VITALS: BMI 36.1
--- NOTE | 2019-09-24 13:04 | RAD_ITS ---
STUDY: X-RAY - RIGHT KNEE REASON FOR EXAM: Pain. TECHNIQUE: 4 view(s) of the knee. COMPARISON: None. FINDINGS: Normal visualized distal femur. Normal visualized proximal tibia and fibula. Normal proximal tibiofibular articulation. There is mild joint space narrowing of the medial femorotibial compartment. Normal lateral femorotibial compartment. Normal patellofemoral articulation. The soft tissue structures are unremarkable. RAD/Knee 4 or More Views IMPRESSION: Mild arthrosis of the medial femorotibial compartment. Electronically Signed: Josh Guo MD at 15:07 EDT Tel , Service support ,
--- NOTE | 2019-09-24 13:04 | RAD_ITS ---
STUDY: X-RAY - LEFT KNEE REASON FOR EXAM: Pain. TECHNIQUE: 4 view(s) of the knee. COMPARISON: Radiographs 08/22/2017. FINDINGS: Normal visualized distal femur. Normal visualized proximal tibia and fibula. Normal proximal tibiofibular articulation. There is severe joint space narrowing of the medial femorotibial compartment, increased since the prior study. Normal lateral femorotibial compartment. There are minimal marginal osteophytes of the patella without joint space narrowing of the patellofemoral articulation. The soft tissue structures are unremarkable. RAD/Knee 4 or More Views IMPRESSION: Arthrosis of the medial femorotibial compartment. Electronically Signed: Josh Guo MD at 15:07 EDT Tel , Service support ,
== END ==
PROVIDERS: PCP Internal Medicine; Referring Provider Orthopaedic Surgery; Visit Provider Orthopaedic Surgery
DX: M25.561 Pain in right knee (principal); M25.562 Pain in left knee
CPT/HCPCS: 73564

== ENCOUNTER → 2019-09-25 10:56 | Outpatient (CLI) | payer MEDICAID, SELFPAY ==
[2019-09-25 10:34] VITALS: BMI 36.1
[2019-09-25 12:39] LABS: Absolute Lymphocyte Count 1.49 X10^3/uL (0.83-4.51); Absolute Neutrophil Count 6.1 X10^3/uL (2.0-7.7); Basophil# 0.03 X10^3/uL; Basophil% 0.4 % (0-1); Eosinophils% 2.4 % (0-5); Hemoglobin 16.1 g/dL (13.0-16.5); Lymphocyte # 1.49 X10^3/ul (4.0); Lymphocyte % 17.5 % (19-41); Mean Corp Hgb Conc 31.6 g/dL (32-36); Mean Corpuscular Hgb 27.9 pg (27.0-32.0); Mean Corpuscular Volume 88.2 fL (80-94); Mean Platelet Vol. 11.5 fl (6.2-12.0); Monocyte# 0.65 X10^3/uL; Monocyte% 7.6 % (0-10); NRBC Flagged by Analyzer 0 % (0-5); Neutrophil # 6.07 X10^3/uL (2.7-7.7); Neutrophil % 71.3 % (47-70); Platelet Count 194 K/mm3 (150-450); RBC Distribution Width CV 13.9 % (11.6-14.6); RBC Distribution Width SD 44.7 fl (35.1-43.9); Red Blood Count 5.78 M/mm3 (4.6-6.2); White Blood Count 8.5 K/mm3 (4.4-11.0)
[2019-09-25 13:03] LABS: ALB/GLOB Ratio 0.8 RATIO (0.9-2.4); AST(SGOT) 17 U/L (15-37); Alanine Aminotransfer ALT/SGPT 45 U/L (16-61); Albumin, Serum 3.3 g/dL (3.2-5.0); Alkaline Phosphatase 124 U/L (45-117); Anion Gap 1 (5-15); BUN 18 mg/dL (7-18); BUN/Creat Ratio 19.9 RATIO (10-20); Calcium,Total 8.9 mg/dL (8.5-10.1); Chloride 104 mmol/L (98-107); Cholesterol 193 mg/dL (200); Creatinine, Serum 0.91 mg/dL (0.70-1.30); EST Glomerular Filtration Rate 93 mL/min (>60); Est Glom Filt Rate - Afr Amer 113 mL/min (>60); Globulin 3.9 g/dL (2.2-4.2); Glucose 131 mg/dL (74-106); High Density Lipoprotein 50 mg/dL; Potassium 4.1 mmol/L (3.5-5.1); Protein, Total 7.2 g/dL (6.4-8.2); Sodium Level 137 mmol/L (136-145); T4 Free Direct 1.14 ng/dL (0.76-1.46); Thyroid Stim Hormone (TSH) 1.19 uIU/mL (0.358-3.74); Triglycerides 153 mg/dL; Very Low Density Lipoprotein 31 mg/dL (5-40)
== END ==
PROVIDERS: PCP Internal Medicine; Referring Provider Internal Medicine; Visit Provider Internal Medicine
DX: F41.9 Anxiety disorder, unspecified (principal); F31.9 Bipolar disorder, unspecified; E78.5 Hyperlipidemia, unspecified; I10 Essential (primary) hypertension
CPT/HCPCS: 36415; 80053; 80061; 84439; 84443; 85025

== ENCOUNTER 2019-10-15 11:39 | Outpatient (RCR) | payer MEDICAID, SELFPAY ==
[2019-09-24 13:40] VITALS: BMI 36.1
[2019-09-25 10:34] VITALS: BMI 36.1
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
--- NOTE | 2020-01-06 18:12 | HP.PT.NRP ---
MARLINE KHAN was seen in my office for initial evaluation on 10/15/19. The following Plan of Care was established for this patient: Initial Frequency: 2-3x /Week Initial Duration: 4-6 Weeks Patient/Client Instruction: Educate patient on: Condition, Plan of Care, Risk Factors, Benefits of Fitness Program For the Purpose of:: To improve self management Therapeutic Exercise to Include: Strength training, Endurance training, Coordination, Flexibilty training, Gait and locomotor training, Neuromotor development, In an aquatic setting, Dynamic Lumbar Stabilization For the Purpose of:: To decrease pain, To increase ROM, To improve muscle performance and motor function, To increase tolerance to activity/condition/position, To improve ability of physical actions for home/community/work/leisure, To improve gait and locomotor functions This patient was last seen in our office 10/15/19. Pertinent comments regarding their Physical therapy will appear below: This patient has not returned to Physical Therapy and is appropriate to return to MD for further follow-up as needed. At this point I will be discontinuing this patient from physical therapy. I would be happy to see this patient again in the future if found appropriate by the physician. Thank you! Savannah Wang, PT, Cert MDT
== END 2019-10-15 19:00 | disposition home or self-care (01) ==
LOC: PT 11:39
PROVIDERS: PCP Internal Medicine; Referring Provider Orthopaedic Surgery; Visit Provider Orthopaedic Surgery
DX: M17.0 Bilateral primary osteoarthritis of knee (principal)
CPT/HCPCS: 97162

== ENCOUNTER → 2020-04-02 10:43 | Outpatient (CLI) | payer MEDICAID, SELFPAY ==
[2020-04-02 10:03] VITALS: BMI 39.8
[2020-04-02 10:46] LABS: Bacteria 0 SEEN /hpf (None Seen); Mucous, Urine 0 SEEN /hpf (<or=2+); Red Blood Cells-Urine 0 SEEN /hpf (0-5); Squamous Epithelial Cells - UA 0 SEEN /hpf (0-5); White Blood Cells 0 SEEN /hpf (0-5)
--- NOTE | 2020-04-02 11:45 | RAD_ITS ---
STUDY: X-RAY CHEST REASON FOR EXAM: Male, 54 years old. Trouble breathing for months -- hx collapsed lung 2018 TECHNIQUE: PA and lateral views of the chest. COMPARISON: None. FINDINGS: The lungs are clear and expanded. There is no demonstrated pleural abnormality. Normal size heart. Normal mediastinum and marianela. Normal visualized pulmonary arteries. Normal visualized aortic arch and descending thoracic aorta. There are degenerative changes of the visualized thoracic spine. Normal visualized ribs, clavicles, and shoulders. There is no demonstrated abnormality of the visualized soft tissue structures of the upper abdomen. RAD/Chest PA and Lateral IMPRESSION: No acute abnormality is seen. Electronically Signed: Medardo Boudreaux MD at 15:06 EST , Service support ,
[2020-04-02 12:22] LABS: Color, Urine Yellow (Yellow); Glucose, Dipstick 1000 mg/dl (Normal); Ketone-Dipstick 5 mg/dl (Negative); Leukocyte Esterase-Dipstick Negative /ul (Negative); Nitrite-Dipstick Negative (Negative); Occult Blood-Urine Negative /ul (Negative); Protein-Dipstick Negative (Negative); Specific Gravity, Urine 1.015 (1.002-1.030); Urine Bilirubin Dipstick Negative (Negative); Urine Clarity Clear (Clear); Urine Urobilinogen Normal (Normal)
[2020-04-02 12:25] LABS: Absolute Lymphocyte Count 1.59 X10^3/uL (0.83-4.51); Absolute Neutrophil Count 6.1 X10^3/uL (2.0-7.7); Basophil# 0.03 X10^3/uL; Basophil% 0.3 % (0-1); Eosinophil# 0.17 X10^3/uL; Hemoglobin 16.9 g/dL (13.0-16.5); Lymphocyte # 1.59 X10^3/ul (4.0); Lymphocyte % 18.4 % (19-41); Mean Corp Hgb Conc 32.5 g/dL (32-36); Mean Corpuscular Hgb 27.8 pg (27.0-32.0); Mean Corpuscular Volume 85.5 fL (80-94); Mean Platelet Vol. 11.8 fl (6.2-12.0); Monocyte# 0.67 X10^3/uL; Monocyte% 7.8 % (0-10); NRBC Flagged by Analyzer 0 % (0-5); Neutrophil % 70.8 % (47-70); Platelet Count 241 K/mm3 (150-450); RBC Distribution Width CV 13.3 % (11.6-14.6); RBC Distribution Width SD 41.1 fl (35.1-43.9); Red Blood Count 6.08 M/mm3 (4.6-6.2); White Blood Count 8.6 K/mm3 (4.4-11.0)
[2020-04-02 12:58] LABS: ALB/GLOB Ratio 0.9 RATIO (0.9-2.4); AST(SGOT) 20 U/L (15-37); Alanine Aminotransfer ALT/SGPT 46 U/L (16-61); Albumin, Serum 3.6 g/dL (3.2-5.0); Alkaline Phosphatase 161 U/L (45-117); Anion Gap 6 (5-15); BUN 22 mg/dL (7-18); BUN/Creat Ratio 17.7 RATIO (10-20); Calcium,Total 9.1 mg/dL (8.5-10.1); Chloride 103 mmol/L (98-107); Cholesterol 223 mg/dL (200); Creatinine, Serum 1.24 mg/dL (0.70-1.30); EST Glomerular Filtration Rate 65 mL/min (>60); Est Glom Filt Rate - Afr Amer 78 mL/min (>60); Globulin 4.2 g/dL (2.2-4.2); Glucose 397 mg/dL (74-106); High Density Lipoprotein 47 mg/dL; PSA,Total - Annual Screen 0.32 ng/mL (0.00-4.00); Potassium 4.5 mmol/L (3.5-5.1); Protein, Total 7.8 g/dL (6.4-8.2); Sodium Level 135 mmol/L (136-145); Thyroid Stim Hormone (TSH) 0.69 uIU/mL (0.358-3.74); Triglycerides 328 mg/dL; Very Low Density Lipoprotein 66 mg/dL (5-40)
[2020-04-03 09:29] LABS: Hemoglobin A1c 8.6 % (3.8-5.6)
== END ==
PROVIDERS: PCP Internal Medicine; Referring Provider Nurse Practitioner Family; Visit Provider Nurse Practitioner Family
DX: R06.00 Dyspnea, unspecified (principal); R30.0 Dysuria; R35.0 Frequency of micturition; R73.09 Other abnormal glucose
CPT/HCPCS: 71046; 80053; 80061; 81001; 83036; 84153; 84443; 85025; 87086; 87088; 87635; U0005; G0103; U0003

== ENCOUNTER 2020-06-07 11:37 | Inpatient (IN) | payer MEDICAID, SELFPAY ==
[2020-04-28 09:25] VITALS: BMI 37.8
[2020-06-07] VITALS (7 sets, daily range): BP systolic 126–152; BP diastolic 65–110; PULSE 82–112; RESP 13–19; TEMP 35.7–36.9; O2SAT 98–100; BMI 34.1; BMI 34.8; BMI 34.9
--- NOTE | 2020-06-07 12:02 | ED.VIS.GEN ---
History of Present Illness Chief Complaint: Shortness of Breath Informant: Patient Narrative: 54-year-old male with history of diabetes which was recently diagnosed and is on Metformin presenting with scrotal infection. He states this has been present for about a month but has been getting worse. Patient was seen by his primary doctor previously when he was started on diabetic medication. He has not told his primary physician that he had scrotal pain. Patient's A1c was over 8. Patient states that he has been taking his Metformin at home. He states his glucometer is not working and always reads high. He states he has plans to have this replaced. Patientn states he does have polyuria and polydipsia. Patient states that he was started on Chantix about a month ago and is now not smoking any cigarettes. He states that his leg swelling and shortness of breath have improved dramatically. Patient denies of fever, chills. He does admit to some nausea and difficulty eating. He is able to tolerate soup and some fluids. Past Medical History - Allergies and Home Meds Allergies/Adverse Reactions: Allergies No Known Allergies Allergy (Verified 06/07/20 11:40) Past Medical History: - - Diabetes, bipolar disorder, ADHD, anxiety, hyperlipidemia, hypertension, alcohol abuse, vascular disease, DVT, adrenal disorder, diverticulitis Surgical History: - - Anal fistula, history of mandibular surgery, pneumothorax Lives: Spouse/ Significant Other Smoking Status: Former smoker Alcohol: None Drugs: None - Family History Maternal Family History: Family History (Last Reviewed 04/28/20 @ 09:24 by Martha Olson) Father Diabetes Alcohol abuse Hypertension Sister Diabetes Review of Systems General: Denies: Chills, Fever, Sweats Eyes: Denies: Visual changes - bilaterally, Diplopia ENT: Denies: Rhinorrhea, Sore throat Cardiovascular: Denies: Chest pain, Palpitations Respiratory: Reports: Dyspnea - Improved. Denies: Cough Gastrointestinal: Reports: Nausea. Denies: Abdominal pain, Vomiting Genitourinary: Denies: Dysuria, Hematuria Musculoskeletal: Denies: Myalgias, Arthralgias Skin: Reports: Rash - Scrotum Neurological: Denies: Headache, Weakness, Numbness Endocrine: Reports: Polyuria, Polydipsia Hematologic: Denies: Easy bruising, Easy bleeding Physical Exam Vital Signs/Narrative: Vital Signs Temp Pulse Resp BP Pulse Ox 06/07/20 11:38 96.3 F L 112 H 19 H 134/110 H 98 Inital Vital Signs reviewed: Yes General: Well nourished, No Acute Distress Head: Normocephalic, Atraumatic Eyes: Perrl, EOMI ENT: Moist mucous membranes, No rhinorrhea Cardiovascular: Regular rhythm, Tachycardia Abdomen: Soft, Nontender Extremities: Nontender. Negative for: No edema Skin: Normal color, - - Scrotal erythema and edema. Penis is also erythematous and slightly swollen. Minimally tender to palpation. No crepitance needed. Neurological: Alert, Oriented x3, Cranial nerves II-XII grossly intact Psychological: Normal affect, Normal Mood Diagnostic/Tx/Re-eval Clinical Impression(s) from Imaging Studies Chest X-Ray 06/07/20 12:09 IMPRESSION: Normal x-ray examination of the chest. Electronically Signed: Jesus Castillo MD at 14:14 EDT , Service support , Abdomen/Pelvis CT 06/07/20 12:10 IMPRESSION: No acute or significant abnormality in the abdomen and pelvis. No gross scrotal abnormality. No gross abscess or inflammatory process. See comments above regarding atypical findings related to the left posterior perineum beyond the anus. Electronically Signed: Jesus Castillo MD at 14:13 EDT , Service support , Laboratory Data 06/07/20 06/07/20 06/07/20 12:15 12:20 12:20 WBC 7.4 RBC 5.50 Hgb 16.0 Hct 46.6 MCV 84.7 MCH 29.1 MCHC 34.3 RDW Std Deviation 42.6 RDW Coeff of Lauro 13.8 Plt Count 194 MPV 11.2 Immature Gran % (Auto) 0.900 Neut % (Auto) 66.7 Lymph % (Auto) 19.1 [place] % (Auto) 11.7 H Eos % (Auto) 0.8 Baso % (Auto) 0.8 Absolute Neuts (auto) 4.9 Absolute Lymphs (auto) 1.42 Nucleated RBC % 0 Sodium 133 L Potassium 3.8 Chloride 97 L Carbon Dioxide 17.0 L Anion Gap 19 H BUN 15 Creatinine 1.21 Estim Creat Clear Calc 86.68 Est GFR (MDRD) Af Amer 80 Est GFR (MDRD) Non-Af 67 BUN/Creatinine Ratio 12.4 Glucose 474 H* Lactic Acid Calcium 9.6 Magnesium 2.3 Total Bilirubin 0.70 AST 8 L ALT 24 Alkaline Phosphatase 154 H Troponin I < 0.015 Total Protein 7.3 Albumin 3.3 Globulin 4.0 Albumin/Globulin Ratio 0.8 L Urine Color Urine Clarity Urine pH Ur Specific [place] Urine Protein Urine Glucose (UA) Urine Ketones Urine Occult Blood Urine Nitrite Urine Bilirubin Urine Urobilinogen Ur Leukocyte Esterase Urine RBC Urine WBC Ur Squamous Epith Cells Urine Bacteria Urine Mucus Ethyl Alcohol Acetone Level POC Glucose 476 H* 06/07/20 06/07/20 06/07/20 12:20 12:20 12:20 WBC RBC Hgb Hct MCV MCH MCHC RDW Std Deviation RDW Coeff of Lauro Plt Count MPV Immature Gran % (Auto) Neut % (Auto) Lymph % (Auto) [place] % (Auto) Eos % (Auto) Baso % (Auto) Absolute Neuts (auto) Absolute Lymphs (auto) Nucleated RBC % Sodium Potassium Chloride Carbon Dioxide Anion Gap BUN Creatinine Estim Creat Clear Calc Est GFR (MDRD) Af Amer Est GFR (MDRD) Non-Af BUN/Creatinine Ratio Glucose Lactic Acid 0.2 L Calcium Magnesium Total Bilirubin AST ALT Alkaline Phosphatase Troponin I Total Protein Albumin Globulin Albumin/Globulin Ratio Urine Color Urine Clarity Urine pH Ur Specific [place] Urine Protein Urine Glucose (UA) Urine Ketones Urine Occult Blood Urine Nitrite Urine Bilirubin Urine Urobilinogen Ur Leukocyte Esterase Urine RBC Urine WBC Ur Squamous Epith Cells Urine Bacteria Urine Mucus Ethyl Alcohol < 3.0 Acetone Level LARGE H POC Glucose 06/07/20 12:26 WBC RBC Hgb Hct MCV MCH MCHC RDW Std Deviation RDW Coeff of Lauro Plt Count MPV Immature Gran % (Auto) Neut % (Auto) Lymph % (Auto) [place] % (Auto) Eos % (Auto) Baso % (Auto) Absolute Neuts (auto) Absolute Lymphs (auto) Nucleated RBC % Sodium Potassium Chloride Carbon Dioxide Anion Gap BUN Creatinine Estim Creat Clear Calc Est GFR (MDRD) Af Amer Est GFR (MDRD) Non-Af BUN/Creatinine Ratio Glucose Lactic Acid Calcium Magnesium Total Bilirubin AST ALT Alkaline Phosphatase Troponin I Total Protein Albumin Globulin Albumin/Globulin Ratio Urine Color Yellow Urine Clarity Clear Urine pH 6.0 Ur Specific [place] 1.015 Urine Protein 15 H Urine Glucose (UA) 1000 H Urine Ketones 150 H Urine Occult Blood Negative Urine Nitrite Negative Urine Bilirubin Negative Urine Urobilinogen Normal Ur Leukocyte Esterase Negative Urine RBC 0 SEEN Urine WBC 0 SEEN Ur Squamous Epith Cells 0 SEEN Urine Bacteria 0 SEEN Urine Mucus 0 SEEN Ethyl Alcohol Acetone Level POC Glucose - Medical Decision Making 54-year-old male with new onset of diabetes recently this month presenting with scrotal erythema and pain. Patient states this is been worsening over the last month. He has not seen his PCP. He states that his glucometer is broken and only reads high. Patient does admit to polyuria and polydipsia. Patient states his shortness of breath and leg edema has improved. He is also states he quit smoking and is not drinking alcohol anymore. On exam patient does have erythema and slight edema to the perineum, scrotum, penis. CT of the abdomen pelvis does not show any sign of Cristhian's gangrene. Patient's lab work shows white blood cell count 7.4, hemoglobin 16, hematocrit 46.6, platelets 194. Sodium 133, potassium 3.8, CO2 17, anion gap 19, GFR normal. Lactic acid 0.2. UA shows 1000 glucose as well as 150 urine ketones. Patient has serum acetone that is large. CT abdomen pelvis does also identify possible thickening of the bowels and radiopaque densities in the left perineum of uncertain significance. Patient was given a liter of fluids and his blood second blood glucose was still he did elevated at 476. His only dropped from 486. Patient was discussed with hospitalist and he recommended 10 units of insulin lispro which was given. Patient was also given another liter of IV fluids. For patient's scrotal erythema and swelling he was given a dose of Ancef 2 mg IV as well as ketoconazole to the area. At this time I do not believe the patient would benefit from an insulin drip and neither does the hospitalist. The hospitalist will follow his blood sugars and anion gap on the floor. Blood cultures are pending. Patient is in stabilized condition on admission. Impression: 1. Scrotal cellulitis 2. Diabetic ketoacidosis ED Disposition - Plan for ED Patient: Disposition: Acute Care [facility]
--- NOTE | 2020-06-07 12:09 | RAD_ITS ---
STUDY: X-RAY CHEST REASON FOR EXAM: Male, 54 years old. dyspnea TECHNIQUE: Single AP portable view of the chest. COMPARISON: 03/25/2020 FINDINGS: The lungs are clear and expanded. There is no demonstrated pleural abnormality. Normal size heart. Normal mediastinum and marianela. Normal visualized pulmonary arteries. Normal visualized aortic arch and descending thoracic aorta. Normal visualized thoracic spine. Normal visualized ribs, clavicles, and shoulders. There is no demonstrated abnormality of the visualized soft tissue structures of the upper abdomen. RAD/Chest 1 View (Portable) IMPRESSION: Normal x-ray examination of the chest. Electronically Signed: Jesus Castillo MD at 14:14 EDT , Service support ,
--- NOTE | 2020-06-07 12:09 | EKG12_ITS ---
Test Reason : Blood Pressure : / mmHG Vent. Rate : 094 BPM Atrial Rate : 094 BPM P-R Int : 144 ms QRS Dur : 090 ms QT Int : 328 ms P-R-T Axes : -16 -18 043 degrees QTc Int : 410 ms Normal sinus rhythm Normal ECG Confirmed by MEHRDAD RIOS MD ([id number]), restaurant expeditor PRIYANKA TAYLOR ([id number] on 06/10/2020 7:51:46 AM Referred By: ADRIAN Confirmed By:MEHRDAD RIOS MD
--- NOTE | 2020-06-07 12:10 | CT_ITS ---
STUDY: CT ABDOMEN AND PELVIS WITH CONTRAST REASON FOR EXAM: Male, 54 years old. scrotal pain RADIATION DOSAGE (If Supplied By Facility): CTDIvol = ( 16.20 ) mGy, DLP = ( 1623.61 ) mGycm TECHNIQUE: Transaxial images were obtained from the dome of the diaphragm to the symphysis pubis without oral contrast. IV 100mL Isovue-370 was administered. Sagittal and coronal images were reconstructed. Individualized dose optimization techniques were used for this CT. COMPARISON: None. FINDINGS: The visualized lung bases are unremarkable. The visualized portions of the heart are within normal limits. Normal liver. Normal gallbladder and extrahepatic biliary system. There are multiple benign calcified granulomata of the spleen. Normal pancreas. Normal bilateral adrenal glands. Normal right kidney. Normal left kidney. Evaluation of the GI tract is limited by absence of oral contrast. Cannot exclude stomach wall thickening. No dilated loops of bowel or evidence for obstruction. Cannot exclude segmental thickening of the sun of the small or large bowel. Cannot exclude enteritis or colitis. Moderate diffuse fecal retention. Appendix within normal limits. Normal abdominal aorta. Normal inferior vena cava. Normal retroperitoneum. Normal urinary bladder. Normal visualized prostate gland. There is a left-sided inguinal hernia containing adipose tissue. No gross abnormality seen of the visualized scrotum or anterior peritoneum however, radiopaque densities are seen extending into the left posterior perineum, and dorsal to the anus, of uncertain origin or significance-visualization by physical exam recommended-foreign bodies not excluded. Normal osseous structures. CT/Abdomen/Pelvis W IV Cont ONLY IMPRESSION: No acute or significant abnormality in the abdomen and pelvis. No gross scrotal abnormality. No gross abscess or inflammatory process. See comments above regarding atypical findings related to the left posterior perineum beyond the anus. Electronically Signed: Jesus Castillo MD at 14:13 EDT , Service support ,
[2020-06-07 12:20] LABS: Bedside Glucose 476 mg/dL (70-110)
[2020-06-07 12:30] LABS: Bacteria 0 SEEN /hpf (None Seen); Mucous, Urine 0 SEEN /hpf (<or=2+); Red Blood Cells-Urine 0 SEEN /hpf (0-5); Squamous Epithelial Cells - UA 0 SEEN /hpf (0-5); White Blood Cells 0 SEEN /hpf (0-5)
[2020-06-07] MEDS: 0.9% Normal Saline 1,000 ML 999 ML IV ×3 (12:32→14:44)
[2020-06-07 12:36] LABS: Absolute Lymphocyte Count 1.42 X10^3/uL (0.83-4.51); Absolute Neutrophil Count 4.9 X10^3/uL (2.0-7.7); Basophil# 0.06 X10^3/uL; Basophil% 0.8 % (0-1); Eosinophil# 0.06 X10^3/uL; Eosinophils% 0.8 % (0-5); Hematocrit 46.6 % (40-54); Lymphocyte # 1.42 X10^3/ul (4.0); Lymphocyte % 19.1 % (19-41); Mean Corp Hgb Conc 34.3 g/dL (32-36); Mean Corpuscular Hgb 29.1 pg (27.0-32.0); Mean Corpuscular Volume 84.7 fL (80-94); Mean Platelet Vol. 11.2 fl (6.2-12.0); Monocyte# 0.87 X10^3/uL; Monocyte% 11.7 % (0-10); NRBC Flagged by Analyzer 0 % (0-5); Neutrophil # 4.94 X10^3/uL (2.7-7.7); Neutrophil % 66.7 % (47-70); Platelet Count 194 K/mm3 (150-450); RBC Distribution Width CV 13.8 % (11.6-14.6); RBC Distribution Width SD 42.6 fl (35.1-43.9); White Blood Count 7.4 K/mm3 (4.4-11.0)
[2020-06-07 12:36] LABS: Color, Urine Yellow (Yellow); Glucose, Dipstick 1000 mg/dl (Normal); Leukocyte Esterase-Dipstick Negative /ul (Negative); Nitrite-Dipstick Negative (Negative); Occult Blood-Urine Negative /ul (Negative); Protein-Dipstick 15 mg/dl (Negative); Specific Gravity, Urine 1.015 (1.002-1.030); Urine Bilirubin Dipstick Negative (Negative); Urine Clarity Clear (Clear); Urine Urobilinogen Normal (Normal)
[2020-06-07 12:39] LABS: Ketone-Dipstick 150 mg/dl (Negative)
[2020-06-07 12:56] LABS: Alcohol, Blood (Medical)-Serum < 3.0 mg/dL
[2020-06-07 13:02] LABS: ALB/GLOB Ratio 0.8 RATIO (0.9-2.4); AST(SGOT) 8 U/L (15-37); Alanine Aminotransfer ALT/SGPT 24 U/L (16-61); Albumin, Serum 3.3 g/dL (3.2-5.0); Alkaline Phosphatase 154 U/L (45-117); Anion Gap 19 (5-15); BUN 15 mg/dL (7-18); BUN/Creat Ratio 12.4 RATIO (10-20); Calcium,Total 9.6 mg/dL (8.5-10.1); Chloride 97 mmol/L (98-107); Creatinine, Serum 1.21 mg/dL (0.70-1.30); EST Glomerular Filtration Rate 67 mL/min (>60); Est Glom Filt Rate - Afr Amer 80 mL/min (>60); Estimated Creatinine Clearance 86.68 ml/min; Glucose 474 mg/dL (74-106); Lactic Acid 0.2 mmol/L (0.4-1.9); Magnesium 2.3 mg/dL (1.6-2.6); Potassium 3.8 mmol/L (3.5-5.1); Protein, Total 7.3 g/dL (6.4-8.2); Sodium Level 133 mmol/L (136-145)
[2020-06-07] MEDS: Cefazolin 1 GM/50 ML BAG IV ×2 (13:46→22:02)
[2020-06-07 13:55] LABS: Bedside Glucose 486 mg/dL (70-110)
--- NOTE | 2020-06-07 13:55 | CON.PCM_ITS ---
Reason for Consult Date of Consultation: 06/07/20 Reason for Consultation: Scrotal redness History of Present Illness: The patient is a 54 year old M with PMH as below presents from home with scrotal redness. This been going on for about a month but he came in today because it was not getting any better. He denies any pain or excoriation or purulence. He denies any fevers or chills at home or shortness of breath. Does have some polydipsia and polyuria secondary to his new onset diabetes that he has been started on Metformin for as an outpatient. Despite having this issue for about a month he has not followed up with his PCP as an outpatient for it and decided to come to the ER instead. Lab work in the ER demonstrates no leukocytosis and he remains afebrile while I am he does have a blood sugar of 474 with an anion gap of 19 and a CO2 of 17. Past Medical History Past Medical History (Chronic Problems): Chronic Problems (Last Reviewed 04/28/20 @ 09:24 by Martha Olson) Shortness of breath (Chronic) Type 2 diabetes mellitus (Chronic) Anxiety and depression (Chronic) Hyperlipidemia (Chronic) Left knee pain (Chronic) Bipolar 1 disorder (Chronic) ADHD (Chronic) ADD (attention deficit disorder) (Chronic) Anxiety (Chronic) High cholesterol (Chronic) High blood pressure (Chronic) Alcohol abuse (Chronic) Vascular disease (Chronic) Back problem (Chronic) Arthritis (Chronic) Adrenal disorder (Chronic) Diverticulitis of duodenum (Chronic) Diverticular disease (Chronic) Medical History: Medical History (Last Reviewed 04/28/20 @ 09:24 by Martha Olson) Bipolar 1 disorder (Chronic) F31.9 ADHD (Chronic) F90.9 ADD (attention deficit disorder) (Chronic) F98.8 Anxiety (Chronic) F41.9 High cholesterol (Chronic) E78.00 High blood pressure (Chronic) I10 Alcohol abuse (Chronic) F10.10 Vascular disease (Chronic) I99.9 Blood clot in vein (Resolved) I82.90 Back problem (Chronic) M53.9 Arthritis (Chronic) M19.90 Adrenal disorder (Chronic) E27.9 Diverticulitis of duodenum (Chronic) K57.12 EUA (Acute) 11/26/2015 ligation of intershincteric tract (Acute) Diverticular disease (Chronic) K57.90 Allergies No Known Allergies Allergy (Verified 06/07/20 11:40) Home Medications: Ambulatory Orders Medication Instructions Recorded aspirin 81 mg tablet,delayed 81 mg PO QDAY 08/22/17 release acetaminophen 325 mg capsule 325 mg PO Q6H 11/19/18 cholecalciferol (vitamin D3) 50 2,000 unit PO DAILY 11/19/18 mcg (2,000 unit) capsule multivitamin 1 cap PO DAILY 11/19/18 trazodone 100 mg tablet 300 mg PO DAILY PRN tab 09/24/19 aripiprazole 5 mg tablet 10 mg PO DAILY tab 09/25/19 duloxetine 30 mg capsule,delayed 30 mg PO BID #180 cap 09/25/19 release omeprazole 20 mg capsule,delayed 20 mg PO DAILY #90 cap 09/25/19 release losartan 50 mg tablet See Rx Instructions .ROUTE 03/18/20 .COMPLEX #90 tab albuterol sulfate 90 mcg/actuation 2 puff INHALATION Q6H PRN #8.5 g 04/02/20 aerosol inhaler tamsulosin 0.4 mg capsule 0.4 mg PO QHS #90 cap 04/02/20 varenicline 0.5 mg (11)-1 mg (42) See Rx Instructions PO PER PKG DIR 04/02/20 tablets in a dose pack #53 tab rosuvastatin 20 mg tablet 20 mg PO DAILY #90 tab 04/03/20 blood sugar diagnostic See Rx Instructions .MEDSUPPLY 04/28/20 #100 ea blood-glucose meter See Rx Instructions .MEDSUPPLY #1 04/28/20 ea cane See Rx Instructions .ROUTE 04/28/20 .MEDSUPPLY #1 ea lancets 28 gauge See Rx Instructions .MEDSUPPLY 04/28/20 #200 ea metformin 750 mg tablet,extended 750 mg PO BID #180 tab 04/28/20 release 24 hr blood-glucose meter See Rx Instructions .ROUTE 05/08/20 .MEDSUPPLY #1 ea Surgical History: Surgical History (Last Reviewed 04/28/20 @ 09:24 by Martha Olson) [id number] K60.3 History of mandibular surgery Z98.890 Pneumothorax J93.9 Surgical History: - - Anal fistula, history of mandibular surgery, pneumothorax Lives: Spouse/ Significant Other Smoking Status: Former smoker Alcohol: None Drugs: None Review of Systems Constitutional: Denies: Chills, Fever, Weight Change HEENT: Denies: Head Aches, Sinus Congestion, Sinus Drainage Cardiovascular: Denies: Chest Pain, Palpitations Respiratory: Denies: Cough, Shortness of breath at rest, Sputum production Gastrointestinal: Denies: Abdominal Pain, Nausea, Vomiting Genitourinary: Reports: - - Scrotal redness. Denies: Dysuria Musculoskeletal: Denies: Joint Pain, Joint Tenderness Skin: Denies: Rash, Wounds Neurological: Denies: Numbness, Tingling, Focal weakness Psychiatric: Denies: Anxiety, Depression Endocrine: Reports: Polydipsia, Polyuria Hematologic/ Lymphatic: Denies: Easy Bruising, Easy Bleeding - Physical Exam Vitals/I&O's: Vital Signs Temp Pulse Resp BP Pulse Ox 96.3 F L 112 H 19 H 134/110 H 98 06/07/20 12:08 06/07/20 12:08 06/07/20 12:08 06/07/20 12:08 06/07/20 12:08 Oxygen Delivery Method Room Air Weight: 280 lb 3.32 oz Body Mass Index (BMI) 34.1 Finger Stick Blood Glucose 486 Intake and Output for Last 24 Hours 06/05/20 06/06/20 06/07/20 23:59 23:59 23:59 Intake Total 1000 / 1000 Balance 1000 / 1000 General: Alert, Oriented x3, Cooperative, No apparent distress HEENT: Atraumatic, PERRLA, EOMI, Normocephalic Oral: Moist Mucosa Neck: Supple, No JVD Lungs: Clear to auscultation, Normal air movement, No rhonchi, No wheeze, No rales Cardiovascular: Regular rate, Regular Rhythm, Normal S1, Normal S2, No murmurs Abdomen: Soft, Non Tender, Non-Distended, No Hepato-splenomegaly, Obese Extremities: No edema, Capillary Refill Less than 3 Seconds Skin: No breakdown, - - Scrotal redness with no excoriation, no open wounds or purulence, no abscesses noted Neurological: Neuro grossly intact, Sensory exam intact to light touch and pain Psych/Mental Status: Normal Affect, Appropriate Laboratory Results 06/07/20 12:15: POC Glucose 476 H* 06/07/20 12:20: WBC 7.4, RBC 5.50, Hgb 16.0, Hct 46.6, MCV 84.7, MCH 29.1, MCHC 34.3, RDW Std Deviation 42.6, RDW Coeff of Lauro 13.8, Plt Count 194, MPV 11.2, Immature Gran % (Auto) 0.900, Neut % (Auto) 66.7, Lymph % (Auto) 19.1, [place] % (Auto) 11.7 H, Eos % (Auto) 0.8, Baso % (Auto) 0.8, Absolute Neuts (auto) 4.9, Absolute Lymphs (auto) 1.42, Nucleated RBC % 0 06/07/20 12:20: Sodium 133 L, Potassium 3.8, Chloride 97 L, Carbon Dioxide 17.0 L, Anion Gap 19 H, BUN 15, Creatinine 1.21, Estim Creat Clear Calc 86.68, Est GFR (MDRD) Af Amer 80, Est GFR (MDRD) Non-Af 67, BUN/Creatinine Ratio 12.4, Glucose 474 H*, Calcium 9.6, Magnesium 2.3, Total Bilirubin 0.70, AST 8 L, ALT 24, Alkaline Phosphatase 154 H, Troponin I < 0.015, Total Protein 7.3, Albumin 3.3, Globulin 4.0, Albumin/Globulin Ratio 0.8 L 06/07/20 12:20: Acetone Level LARGE H 06/07/20 12:20: Lactic Acid 0.2 L 06/07/20 12:20: Ethyl Alcohol < 3.0 06/07/20 12:26: Urine Color Yellow, Urine Clarity Clear, Urine pH 6.0, Ur Specific [place] 1.015, Urine Protein 15 H, Urine Glucose (UA) 1000 H, Urine Ketones 150 H, Urine Occult Blood Negative, Urine Nitrite Negative, Urine Bilirubin Negative, Urine Urobilinogen Normal, Ur Leukocyte Esterase Negative, Urine RBC 0 SEEN, Urine WBC 0 SEEN, Ur Squamous Epith Cells 0 SEEN, Urine Bacteria 0 SEEN, Urine Mucus 0 SEEN 06/07/20 13:43: POC Glucose Pending Current Medications Cefazolin Sodium () 1 gm in 50 mls @ 100 mls/hr IV X1 ONE Stop: 06/07/20 13:59 Last Admin: 06/07/20 13:46 Dose: 100 mls/hr Documented by: Sodium Chloride () 1,000 mls @ 999 mls/hr IV .Q1H1M ONE Stop: 06/07/20 14:47 Assessment/Plan All Active Problems (Last Reviewed 04/28/20 @ 09:24 by Martha Olson) Blood clot in vein (Resolved) Duodenal ulcer (Acute) Screen for colon cancer (Acute) EUA (Acute) ligation of intershincteric tract (Acute) 1. Scrotal cellulitis versus fungal infection -Continue with Ancef as well as topical nystatin cream -CT of the abdomen and pelvis is pending read by radiology though per my evaluation it appears normal with no signs of abscess or intra-abdominal process 2. Hyperglycemia setting of type 2 diabetes/obesity -We will start him on sliding scale insulin, I did request that the ER give him 10 units of insulin -Continue with Accu-Cheks AC at bedtime and a sliding scale insulin. We will also start him on long-acting insulin this evening -Continue with IV fluids -Did have a discussion with him about lifestyle modification, will likely need to be consulted with a dietitian as he still drinks soda -Stated that his glucometer was broken because it kept reading high 3. HTN/HLD -Blood pressure is stable -We will continue with his home blood pressure medication -Continue with statin -Continue with aspirin 4. Anxiety/depression -Stable -Continue with Abilify and Cymbalta 5. GERD -Stable -Continue with PPI 6. BPH -Stable -Continue with Flomax DVT: Lovenox
[2020-06-07] MEDS: Insulin Lispro 100 UNIT/ML INSULN.PEN 10 UNIT SC (14:03)
[2020-06-07] MEDS: Ketoconazole Cream 1 APPLIC TOPICAL (14:04)
--- NOTE | 2020-06-07 14:25 | PCM.HP.STD ---
History of Present Illness Date of Admission: 06/07/20 Chief Complaint: Scrotal redness The patient is a 54 year old M with PMH as below presents from home with scrotal redness. This been going on for about a month but he came in today because it was not getting any better. He denies any pain or excoriation or purulence. He denies any fevers or chills at home or shortness of breath. Does have some polydipsia and polyuria secondary to his new onset diabetes that he has been started on Metformin for as an outpatient. Despite having this issue for about a month he has not followed up with his PCP as an outpatient for it and decided to come to the ER instead. Lab work in the ER demonstrates no leukocytosis and he remains afebrile while I am he does have a blood sugar of 474 with an anion gap of 19 and a CO2 of 17. Past Medical History Past Medical History (Chronic Problems): Chronic Problems (Last Reviewed 04/28/20 @ 09:24 by Martha Olson) Shortness of breath (Chronic) Type 2 diabetes mellitus (Chronic) Anxiety and depression (Chronic) Hyperlipidemia (Chronic) Left knee pain (Chronic) Bipolar 1 disorder (Chronic) ADHD (Chronic) ADD (attention deficit disorder) (Chronic) Anxiety (Chronic) High cholesterol (Chronic) High blood pressure (Chronic) Alcohol abuse (Chronic) Vascular disease (Chronic) Back problem (Chronic) Arthritis (Chronic) Adrenal disorder (Chronic) Diverticulitis of duodenum (Chronic) Diverticular disease (Chronic) Medical History: Medical History (Last Reviewed 04/28/20 @ 09:24 by Martha Olson) Bipolar 1 disorder (Chronic) F31.9 ADHD (Chronic) F90.9 ADD (attention deficit disorder) (Chronic) F98.8 Anxiety (Chronic) F41.9 High cholesterol (Chronic) E78.00 High blood pressure (Chronic) I10 Alcohol abuse (Chronic) F10.10 Vascular disease (Chronic) I99.9 Blood clot in vein (Resolved) I82.90 Back problem (Chronic) M53.9 Arthritis (Chronic) M19.90 Adrenal disorder (Chronic) E27.9 Diverticulitis of duodenum (Chronic) K57.12 EUA (Acute) 11/26/2015 ligation of intershincteric tract (Acute) Diverticular disease (Chronic) K57.90 Allergies No Known Allergies Allergy (Verified 06/07/20 11:40) Home Medications: Ambulatory Orders Medication Instructions Recorded aspirin 81 mg tablet,delayed 81 mg PO QDAY 08/22/17 release acetaminophen 325 mg capsule 325 mg PO Q6H 11/19/18 cholecalciferol (vitamin D3) 50 2,000 unit PO DAILY 11/19/18 mcg (2,000 unit) capsule multivitamin 1 cap PO DAILY 11/19/18 trazodone 100 mg tablet 300 mg PO DAILY PRN tab 09/24/19 aripiprazole 5 mg tablet 10 mg PO DAILY tab 09/25/19 duloxetine 30 mg capsule,delayed 30 mg PO BID #180 cap 09/25/19 release omeprazole 20 mg capsule,delayed 20 mg PO DAILY #90 cap 09/25/19 release losartan 50 mg tablet See Rx Instructions .ROUTE 03/18/20 .COMPLEX #90 tab albuterol sulfate 90 mcg/actuation 2 puff INHALATION Q6H PRN #8.5 g 04/02/20 aerosol inhaler tamsulosin 0.4 mg capsule 0.4 mg PO QHS #90 cap 04/02/20 varenicline 0.5 mg (11)-1 mg (42) See Rx Instructions PO PER PKG DIR 04/02/20 tablets in a dose pack #53 tab rosuvastatin 20 mg tablet 20 mg PO DAILY #90 tab 04/03/20 blood sugar diagnostic See Rx Instructions .MEDSUPPLY 04/28/20 #100 ea blood-glucose meter See Rx Instructions .MEDSUPPLY #1 04/28/20 ea cane See Rx Instructions .ROUTE 04/28/20 .MEDSUPPLY #1 ea lancets 28 gauge See Rx Instructions .MEDSUPPLY 04/28/20 #200 ea metformin 750 mg tablet,extended 750 mg PO BID #180 tab 04/28/20 release 24 hr blood-glucose meter See Rx Instructions .ROUTE 05/08/20 .MEDSUPPLY #1 ea Surgical History: Surgical History (Last Reviewed 04/28/20 @ 09:24 by Martha Olson) [id number] K60.3 History of mandibular surgery Z98.890 Pneumothorax J93.9 Surgical History: - - Anal fistula, history of mandibular surgery, pneumothorax Lives: Spouse/ Significant Other Smoking Status: Former smoker Tobacco Use: Cigarettes Alcohol: None Drugs: None - *Family History Maternal Family History: Family History (Last Reviewed 04/28/20 @ 09:24 by Martha Olson) Father Diabetes Alcohol abuse Hypertension Sister Diabetes Review of Systems Constitutional: Denies: Chills, Fever, Weight Change HEENT: Denies: Head Aches, Sinus Congestion, Sinus Drainage Cardiovascular: Denies: Chest Pain, Palpitations Respiratory: Denies: Cough, Shortness of breath at rest, Sputum production Gastrointestinal: Denies: Abdominal Pain, Nausea, Vomiting Genitourinary: Reports: - - Scrotal redness. Denies: Dysuria Musculoskeletal: Denies: Joint Pain, Joint Tenderness Skin: Denies: Rash, Wounds Neurological: Denies: Numbness, Tingling, Focal weakness Psychiatric: Denies: Anxiety, Depression Endocrine: Reports: Polydipsia, Polyuria Hematologic/ Lymphatic: Denies: Easy Bruising, Easy Bleeding VTE Information - Inpt Only VTE Present on Admission: No - Physical Exam Vitals/I&O's: Vital Signs Temp Pulse Resp BP Pulse Ox 98.5 F 87 14 126/79 H 100 06/07/20 14:00 06/07/20 14:00 06/07/20 14:00 06/07/20 14:00 06/07/20 14:00 Oxygen Delivery Method Room Air Weight: 280 lb 3.32 oz Body Mass Index (BMI) 34.1 Finger Stick Blood Glucose 486 Intake and Output for Last 24 Hours 06/05/20 06/06/20 06/07/20 23:59 23:59 23:59 Intake Total 1000 / 1000 Balance 1000 / 1000 General: Alert, Oriented x3, Cooperative, No apparent distress HEENT: Atraumatic, PERRLA, EOMI, Normocephalic Oral: Moist Mucosa Neck: Supple, No JVD Lungs: Clear to auscultation, Normal air movement, No rhonchi, No wheeze, No rales Cardiovascular: Regular rate, Regular Rhythm, Normal S1, Normal S2, No murmurs Abdomen: Soft, Non Tender, Non-Distended, No Hepato-splenomegaly, Obese Extremities: No edema, Capillary Refill Less than 3 Seconds Skin: No breakdown, - - Scrotal redness with no excoriation, no open wounds or purulence, no abscesses noted Neurological: Neuro grossly intact, Sensory exam intact to light touch and pain Psych/Mental Status: Normal Affect, Appropriate Laboratory Results 06/07/20 12:15: POC Glucose 476 H* 06/07/20 12:20: WBC 7.4, RBC 5.50, Hgb 16.0, Hct 46.6, MCV 84.7, MCH 29.1, MCHC 34.3, RDW Std Deviation 42.6, RDW Coeff of Lauro 13.8, Plt Count 194, MPV 11.2, Immature Gran % (Auto) 0.900, Neut % (Auto) 66.7, Lymph % (Auto) 19.1, [place] % (Auto) 11.7 H, Eos % (Auto) 0.8, Baso % (Auto) 0.8, Absolute Neuts (auto) 4.9, Absolute Lymphs (auto) 1.42, Nucleated RBC % 0 06/07/20 12:20: Sodium 133 L, Potassium 3.8, Chloride 97 L, Carbon Dioxide 17.0 L, Anion Gap 19 H, BUN 15, Creatinine 1.21, Estim Creat Clear Calc 86.68, Est GFR (MDRD) Af Amer 80, Est GFR (MDRD) Non-Af 67, BUN/Creatinine Ratio 12.4, Glucose 474 H*, Calcium 9.6, Magnesium 2.3, Total Bilirubin 0.70, AST 8 L, ALT 24, Alkaline Phosphatase 154 H, Troponin I < 0.015, Total Protein 7.3, Albumin 3.3, Globulin 4.0, Albumin/Globulin Ratio 0.8 L 06/07/20 12:20: Acetone Level LARGE H 06/07/20 12:20: Lactic Acid 0.2 L 06/07/20 12:20: Ethyl Alcohol < 3.0 06/07/20 12:26: Urine Color Yellow, Urine Clarity Clear, Urine pH 6.0, Ur Specific [place] 1.015, Urine Protein 15 H, Urine Glucose (UA) 1000 H, Urine Ketones 150 H, Urine Occult Blood Negative, Urine Nitrite Negative, Urine Bilirubin Negative, Urine Urobilinogen Normal, Ur Leukocyte Esterase Negative, Urine RBC 0 SEEN, Urine WBC 0 SEEN, Ur Squamous Epith Cells 0 SEEN, Urine Bacteria 0 SEEN, Urine Mucus 0 SEEN 06/07/20 13:43: POC Glucose 486 H* Current Medications Sodium Chloride () 1,000 mls @ 999 mls/hr IV .Q1H1M ONE Stop: 06/07/20 14:47 Assessment/Plan All Active Problems (Last Reviewed 04/28/20 @ 09:24 by Martha Olson) Blood clot in vein (Resolved) Duodenal ulcer (Acute) Screen for colon cancer (Acute) EUA (Acute) ligation of intershincteric tract (Acute) 1. Scrotal cellulitis versus fungal infection -Continue with Ancef as well as topical nystatin cream -CT of the abdomen and pelvis is pending read by radiology though per my evaluation it appears normal with no signs of abscess or intra-abdominal process 2. Hyperglycemia with anion gap metabolic acidosis in the setting of type 2 diabetes/obesity -We will start him on sliding scale insulin, I did request that the ER give him 10 units of insulin -Continue with Accu-Cheks AC at bedtime and a sliding scale insulin. We will also start him on long-acting insulin this evening -Continue with IV fluids -Did have a discussion with him about lifestyle modification, will likely need to be consulted with a dietitian as he still drinks soda -Stated that his glucometer was broken because it kept reading high 3. HTN/HLD -Blood pressure is stable -We will continue with his home blood pressure medication -Continue with statin -Continue with aspirin 4. Anxiety/depression -Stable -Continue with Abilify and Cymbalta 5. GERD -Stable -Continue with PPI 6. BPH -Stable -Continue with Flomax DVT: Lovenox Inpatient E&M: 37951 Init Hosp L3
[2020-06-07] MEDS: 0.9% Normal Saline 1,000 ML 125 ML IV (16:08)
[2020-06-07] MEDS: Insulin Lispro 100 UNIT/ML INSULN.PEN SC ×2 (16:12→21:55)
[2020-06-07 17:45] LABS: Bedside Glucose 229 mg/dL (70-110)
[2020-06-07] MEDS: DULoxetine Hcl 30 MG Capsule PO (21:52)
[2020-06-07] MEDS: Tamsulosin HCl 0.4 MG Capsule PO (21:52)
[2020-06-07] MEDS: Atorvastatin Calcium 40 MG Tablet PO (21:53)
[2020-06-07] MEDS: Nystatin/Triamcin Cream Tube 1 APPLIC TOPICAL (21:57)
[2020-06-07] MEDS: traZODone 100 MG Tablet 300 MG PO (22:06)
[2020-06-07 22:11] LABS: Bedside Glucose 337 mg/dL (70-110)
[2020-06-08] MEDS: 0.9% Normal Saline 1,000 ML 125 ML IV ×2 (01:09→09:22)
[2020-06-08 02:51] VITALS: BP 111/63; PULSE 77; RESP 18; TEMP 37; O2SAT 97
[2020-06-08] MEDS: Cefazolin 1 GM/50 ML BAG IV ×2 (06:17→13:28)
[2020-06-08] MEDS: Insulin Lispro 100 UNIT/ML INSULN.PEN SC (06:19)
[2020-06-08 06:41] LABS: Bedside Glucose 307 mg/dL (70-110)
[2020-06-08 06:43] LABS: Absolute Lymphocyte Count 1.43 X10^3/uL (0.83-4.51); Absolute Neutrophil Count 2.7 X10^3/uL (2.0-7.7); Basophil# 0.03 X10^3/uL; Basophil% 0.6 % (0-1); Eosinophil# 0.14 X10^3/uL; Eosinophils% 2.8 % (0-5); Hematocrit 37.7 % (40-54); Hemoglobin 12.8 g/dL (13.0-16.5); Lymphocyte # 1.43 X10^3/ul (4.0); Mean Corpuscular Hgb 29.3 pg (27.0-32.0); Mean Corpuscular Volume 86.3 fL (80-94); Mean Platelet Vol. 11.1 fl (6.2-12.0); Monocyte# 0.58 X10^3/uL; Monocyte% 11.8 % (0-10); NRBC Flagged by Analyzer 0 % (0-5); Neutrophil # 2.71 X10^3/uL (2.7-7.7); Platelet Count 133 K/mm3 (150-450); RBC Distribution Width CV 14.3 % (11.6-14.6); RBC Distribution Width SD 43.9 fl (35.1-43.9); Red Blood Count 4.37 M/mm3 (4.6-6.2); White Blood Count 4.9 K/mm3 (4.4-11.0)
[2020-06-08 07:03] LABS: Anion Gap 13 (5-15); BUN 10 mg/dL (7-18); BUN/Creat Ratio 11.5 RATIO (10-20); Calcium,Total 8.3 mg/dL (8.5-10.1); Chloride 102 mmol/L (98-107); Creatinine, Serum 0.87 mg/dL (0.70-1.30); EST Glomerular Filtration Rate 97 mL/min (>60); Est Glom Filt Rate - Afr Amer 118 mL/min (>60); Estimated Creatinine Clearance 120.56 ml/min; Glucose 293 mg/dL (74-106); Potassium 3.3 mmol/L (3.5-5.1); Sodium Level 137 mmol/L (136-145)
[2020-06-08] MEDS: Pantoprazole Sodium 20 MG Tablet PO (08:23)
[2020-06-08] MEDS: Aspirin E.C. 81 MG Tablet PO (08:24)
[2020-06-08] MEDS: DULoxetine Hcl 30 MG Capsule PO (08:24)
[2020-06-08] MEDS: Losartan Potassium 50 MG Tablet PO (08:24)
[2020-06-08] MEDS: ARIPiprazole 10 MG Tablet PO (08:24)
[2020-06-08] MEDS: Enoxaparin 40 MG/0.4 ML Syringe SC (08:24)
[2020-06-08] MEDS: Nystatin/Triamcin Cream Tube 1 APPLIC TOPICAL (08:32)
[2020-06-08 08:34] VITALS: BP 114/71; PULSE 94; RESP 16; TEMP 36.4; O2SAT 93
[2020-06-08 11:00] LABS: Bedside Glucose 457 mg/dL (70-110)
--- NOTE | 2020-06-08 11:04 | CASEMGMT ---
KAYLIE ALVARENGA Assessment: Face to Face with pt for initial transition planning/care coordination assessment. RN COLETTE introduced self and role at [facility], pt voices understanding and consents to assessment. Pt is A/O x4 and answers all questions appropriately at this time. Pt lying in bed in no distress.Care providers, pharmacy, and demographics verified/updated. Admitting Dx: Hyperglycemia and scrotal cellulitis PCP: [facility]: Pt states he does not have any specialists but needs one so he/she can write that the patient cannot work. Pt requests list of doctors. Provided pt with this at this time. [facility]erred [facility]acy: [facility] Insurance: [facility] Prescription Benefit: yes LW/HPOA: Pt denies having and denies information regarding AD. LNOK: Sig other Danni Snow Living Arrangements: Pt lives with sig other in a second story apt with greater than 10 steps to enter with railing. Pt is I in ADL's and denies concerns at home. Transportation: Pt states he does drive, denies concerns with transportation. DME/HHC/SNF: Pt states he has a BGM and his sig other is bringing it in today. Pt requesting a cane, spoke with Dr. Philip who states has already gave script for rx. Pt states he has had HH in [facility] in the past but no SNF stays. Spoke with patient regarding if he was to be sent home on insulin if he would like SN to come to his home for education. Pt states he cannot do this as his sig other is a intermodal truck driver and he is not ever home. Pt denies need for instructions. States his sig other used to work at a [employer]. Pt states he is I in BGM but it is reading [place]. Pt states no concerns with going home at time of dc. Pt states no further concerns/needs. CM to follow. Advised pt to ask CM if any further question/concerns/needs arise, voices understanding. Pt Goal: Plan:
[2020-06-08] MEDS: Insulin Lispro 100 UNIT/ML INSULN.PEN 20 UNIT SC (11:13)
--- NOTE | 2020-06-08 13:48 | PCM.DC ---
You will use the following diet at home:: Calorie/Carbohydrate Controlled (specify 1200, 1400, etc) - 1800 adriana Your food should be the consistency of: Regular Your liquids should be the consistency of: Regular/Thin Discharge Activity: Return to Normal Activity Weight Bearing Status: Full weight bearing Allergies/Adverse Reactions: Allergies No Known Allergies Allergy (Verified 06/07/20 11:40) Medications to take at Discharge aspirin 81 mg tablet,delayed release 81 mg PO QDAY 08/22/17 acetaminophen 325 mg capsule 325 mg PO Q6H 11/19/18 cholecalciferol (vitamin D3) 50 mcg (2,000 unit) capsule 2,000 unit PO DAILY 11/19/18 multivitamin 1 cap PO DAILY 11/19/18 trazodone 100 mg tablet 300 mg PO DAILY PRN tab 09/24/19 aripiprazole 5 mg tablet 10 mg PO DAILY tab 09/25/19 duloxetine 30 mg capsule,delayed release 30 mg PO BID #180 cap 09/25/19 omeprazole 20 mg capsule,delayed release 20 mg PO DAILY #90 cap 09/25/19 losartan 50 mg tablet See Rx Instructions .ROUTE .COMPLEX #90 tab 03/18/20 albuterol sulfate 90 mcg/actuation aerosol inhaler 2 puff INHALATION Q6H PRN #8.5 g 04/02/20 tamsulosin 0.4 mg capsule 0.4 mg PO QHS #90 cap 04/02/20 varenicline 0.5 mg (11)-1 mg (42) tablets in a dose pack See Rx Instructions PO PER PKG DIR #53 tab 04/02/20 rosuvastatin 20 mg tablet 20 mg PO DAILY #90 tab 04/03/20 blood sugar diagnostic See Rx Instructions .MEDSUPPLY #100 ea 04/28/20 blood-glucose meter See Rx Instructions .MEDSUPPLY #1 ea 04/28/20 cane See Rx Instructions .ROUTE .MEDSUPPLY #1 ea 04/28/20 lancets 28 gauge See Rx Instructions .MEDSUPPLY #200 ea 04/28/20 blood-glucose meter See Rx Instructions .ROUTE .MEDSUPPLY #1 ea 05/08/20 Fluconazole [Diflucan] 100 mg PO DAILY #7 tab 06/08/20 Insulin Glargine [Lantus (BKC)] 20 units SC BIDCM #5 pen 06/08/20 Metformin HCl 1,000 mg PO BID #60 tablet 06/08/20 Nystatin/Triamcin Cream [Mycolog] 1 applic TOPICAL BID #30 gm 06/08/20 Pen Needle, Diabetic [Pen [place]] 1 each MC BID #100 dis.needle 06/08/20 The following prescriptions were given: Fluconazole [Diflucan] 100 mg PO DAILY #7 tab Transmission Status: Pending to [facility] Insulin Glargine [Lantus (BKC)] 20 units SC BIDCM #5 pen Transmission Status: Pending to [facility] Metformin HCl 1,000 mg PO BID #60 tablet Transmission Status: Pending to [facility] Nystatin/Triamcin Cream [Mycolog] 1 applic TOPICAL BID #30 gm Transmission Status: Received by [facility] Pen Needle, Diabetic [Pen [place]] 1 each MC BID #100 dis.needle Transmission Status: Pending to [facility] Primary Care Physician: Alexandre Don MD [Primary Care Provider] - Please follow up with your Primary Care Physician in: in one week-call for appointment Test Results: Test results from this visit will be discussed in further detail at your follow-up appointment, if applicable.
[2020-06-08] MEDS: Potassium Chloride Oral Tablet 20 MEQ PO (13:50)
[2020-06-08 13:52] VITALS: BP 121/63; PULSE 89; RESP 16; TEMP 36.9; O2SAT 94
--- NOTE | 2020-06-08 14:54 | NURSING ---
showed sig other and pt how to give insulin injection. pt sog other did give this injection.
--- NOTE | 2020-06-08 18:32 | PCM.DC.SUM ---
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 #3 bipolar disorder #4 chronic depression Cellulitis of the scrotum was ruled out - Secondary Discharge Diagnosis Chronic Problems: Chronic Problems (Last Reviewed 04/28/20 @ 09:24 by Martha Olson) Shortness of breath (Chronic) Type 2 diabetes mellitus (Chronic) Anxiety and depression (Chronic) Hyperlipidemia (Chronic) Left knee pain (Chronic) Bipolar 1 disorder (Chronic) ADHD (Chronic) ADD (attention deficit disorder) (Chronic) Anxiety (Chronic) High cholesterol (Chronic) High blood pressure (Chronic) Alcohol abuse (Chronic) Vascular disease (Chronic) Back problem (Chronic) Arthritis (Chronic) Adrenal disorder (Chronic) Diverticulitis of duodenum (Chronic) Diverticular disease (Chronic) Hospital Course and Treatment Operations: None Procedures: None Summary of Care Provided: The patient is a 54 year old M was seen in the emergency room at [facility] with a chief complaint of scrotal erythema and pain, he complained it had been worsening over the past month, he has not seen his PCP. Patient was recently diagnosed as having type [address] of the abdomen pelvis does not show any sign of significant abnormality in the abdomen and pelvis, no gross scrotal abnormality was noted, there is no evidence of abscess or inflammatory process going on scrotum. Patient's blood sugar was elevated at 474, anion gap was elevated at 19, patient had a large amount of acetone present. Patient's urinalysis was remarkable for a high level of glucose and ketones. There was also noted to be urine protein present. Patient was admitted to [facility], he was placed on IV antibiotics due to concerns of cellulitis of the scrotum, blood sugars were addressed with sliding scale insulin, patient was however only placed on a small amount of Lantus insulin initially. During the time of my examination on 06/08/2020, I did not feel the patient had scrotal cellulitis, I felt that his scrotal redness and odor was more due to mycotic infection of the scrotum and perineal area. Patient was not able to be trained to give himself insulin injections, his significant other was trained however and she appeared comfortable with this. On 06/08/2020, patient was seen and examined: On examination he appeared his stated age. Vital signs as documented. Skin warm and dry, there is noted to be some redness over the scrotum and evidence of an odor on examination from the area. There did not appear to be any severe edema in the scrotal area.. Neck without JVD, neck was supple, trachea midline, thyroid was normal. Lungs clear bilaterally, normal air movement was noted. Heart exam notable for regular rhythm, normal sounds and absence of murmurs, rubs or gallops. Abdomen unremarkable and without evidence of organomegaly, masses, or abdominal aortic enlargement. Bowel sounds are present, abdomen is not distended. Extremities nonedematous, no cyanosis was noted, no clubbing was noted. Neuro: Cranial nerves II through XII are grossly intact, no focal motor deficits were noted, sensation to light touch and pinprick intact, motor exam 5/5 throughout. Psych: Patient is alert and oriented x3, he does not appear anxious or depressed, he does not appear agitated. Patient was felt to be stable for discharge on 06/08/2020, I contacted his PCPs office and they stated that the patient had not been following up at the office and had been missing appointments. Patient was instructed to see his PCP within a week of discharge. - Physical Exam Vitals/I&O's: Vital Signs Temp Pulse Resp BP Pulse Ox 98.4 F 89 16 121/63 H 94 06/08/20 13:52 06/08/20 13:52 06/08/20 13:52 06/08/20 13:52 06/08/20 13:52 Oxygen Delivery Method Room Air Weight: 129.9 kg Body Mass Index (BMI) 34.8 Finger Stick Blood Glucose 486 Intake and Output for Last 24 Hours 06/06/20 06/07/20 06/08/20 23:59 23:59 23:59 Intake Total 3100 / 4600 5833.33 / 5833.33 Output Total 450 / 950 1750 / 1750 Balance 2650 / 3650 4083.33 / 4083.33 Laboratory Results 06/07/20 21:49: POC Glucose 337 H 06/08/20 06:10: WBC 4.9, RBC 4.37 L, Hgb 12.8 L, Hct 37.7 L, MCV 86.3, MCH 29.3, MCHC 34.0, RDW Std Deviation 43.9, RDW Coeff of Lauro 14.3, Plt Count 133 L, MPV 11.1, Immature Gran % (Auto) 0.800, Neut % (Auto) 55.0, Lymph % (Auto) 29.0, [place] % (Auto) 11.8 H, Eos % (Auto) 2.8, Baso % (Auto) 0.6, Absolute Neuts (auto) 2.7, Absolute Lymphs (auto) 1.43, Nucleated RBC % 0 06/08/20 06:10: Sodium 137, Potassium 3.3 L, Chloride 102, Carbon Dioxide 22.0, Anion Gap 13, BUN 10, Creatinine 0.87, Estim Creat Clear Calc 120.56, Est GFR (MDRD) Af Amer 118, Est GFR (MDRD) Non-Af 97, BUN/Creatinine Ratio 11.5, Glucose 293 H, Calcium 8.3 L 06/08/20 06:15: POC Glucose 307 H 06/08/20 10:54: POC Glucose 457 H* Discharge Activity: Return to Normal Activity Weight Bearing Status: Full weight bearing Home Medications: Medications to take at Discharge aspirin 81 mg tablet,delayed release 81 mg PO QDAY 08/22/17 acetaminophen 325 mg capsule 325 mg PO Q6H 11/19/18 cholecalciferol (vitamin D3) 50 mcg (2,000 unit) capsule 2,000 unit PO DAILY 11/19/18 multivitamin 1 cap PO DAILY 11/19/18 trazodone 100 mg tablet 300 mg PO DAILY PRN tab 09/24/19 aripiprazole 5 mg tablet 10 mg PO DAILY tab 09/25/19 duloxetine 30 mg capsule,delayed release 30 mg PO BID #180 cap 09/25/19 omeprazole 20 mg capsule,delayed release 20 mg PO DAILY #90 cap 09/25/19 losartan 50 mg tablet See Rx Instructions .ROUTE .COMPLEX #90 tab 03/18/20 albuterol sulfate 90 mcg/actuation aerosol inhaler 2 puff INHALATION Q6H PRN #8.5 g 04/02/20 tamsulosin 0.4 mg capsule 0.4 mg PO QHS #90 cap 04/02/20 varenicline 0.5 mg (11)-1 mg (42) tablets in a dose pack See Rx Instructions PO PER PKG DIR #53 tab 04/02/20 rosuvastatin 20 mg tablet 20 mg PO DAILY #90 tab 04/03/20 blood sugar diagnostic See Rx Instructions .MEDSUPPLY #100 ea 04/28/20 blood-glucose meter See Rx Instructions .MEDSUPPLY #1 ea 04/28/20 cane See Rx Instructions .ROUTE .MEDSUPPLY #1 ea 04/28/20 lancets 28 gauge See Rx Instructions .MEDSUPPLY #200 ea 04/28/20 blood-glucose meter See Rx Instructions .ROUTE .MEDSUPPLY #1 ea 05/08/20 Fluconazole [Diflucan] 100 mg PO DAILY #7 tab 06/08/20 Insulin Glargine [Lantus (BKC)] 20 units SC BIDCM #5 pen 06/08/20 Metformin HCl 1,000 mg PO BID #60 tablet 06/08/20 Nystatin/Triamcin Cream [Mycolog] 1 applic TOPICAL BID #30 gm 06/08/20 Pen Needle, Diabetic [Pen [place]] 1 each MC BID #100 dis.needle 06/08/20 Following Prescriptions Were Given to Patient: Fluconazole [Diflucan] 100 mg PO DAILY #7 tab Transmission Status: Received by [facility] Insulin Glargine [Lantus (BKC)] 20 units SC BIDCM #5 pen Transmission Status: Received by [facility] Metformin HCl 1,000 mg PO BID #60 tablet Transmission Status: Received by [facility] Nystatin/Triamcin Cream [Mycolog] 1 applic TOPICAL BID #30 gm Transmission Status: Received by [facility] Pen Needle, Diabetic [Pen [place]] 1 each MC BID #100 dis.needle Transmission Status: Received by [facility] Primary Care Physician: Alexandre Don MD [Primary Care Provider] - Please follow up with your Primary Care Physician in: in one week-call for appointment Disposition: Home Minutes spent on discharge:: 32 Patient Condition:: Stable Medical Necessity - Tobacco Use Smoking Status: Former smoker Tobacco Use: Cigarettes Meaningful Use Info Meaningful Use Diagnoses (Choose all that apply): None applicable Inpatient E&M: 76206 [facility]
== END 2020-06-08 15:10 | disposition home or self-care (01) | DRG 420 ==
LOC: ED 12:53 → MS3 14:07
PROVIDERS: Admitting Provider Family Medicine; Emergency Provider Student in an Organized Health Care Education/Training Program; PCP Internal Medicine; Visit Provider Internal Medicine
DX: E11.10 Type 2 diabetes mellitus with ketoacidosis without coma (principal); E78.00 Pure hypercholesterolemia, unspecified; E66.9 Obesity, unspecified; Z68.34 Body mass index [BMI] 34.0-34.9, adult; B48.8 Other specified mycoses; E78.5 Hyperlipidemia, unspecified; F31.9 Bipolar disorder, unspecified; F98.8 Other specified behavioral and emotional disorders with onset usually occurring in childhood and adolescence; F41.9 Anxiety disorder, unspecified; I10 Essential (primary) hypertension; K21.9 Gastro-esophageal reflux disease without esophagitis; I99.9 Unspecified disorder of circulatory system; N40.0 Benign prostatic hyperplasia without lower urinary tract symptoms; F90.9 Attention-deficit hyperactivity disorder, unspecified type; E27.9 Disorder of adrenal gland, unspecified; F10.10 Alcohol abuse, uncomplicated; K57.90 Diverticulosis of intestine, part unspecified, without perforation or abscess without bleeding; M19.90 Unspecified osteoarthritis, unspecified site; Z87.19 Personal history of other diseases of the digestive system; Z79.899 Other long term (current) drug therapy; Z79.84 Long term (current) use of oral hypoglycemic drugs; Z79.82 Long term (current) use of aspirin; Z86.718 Personal history of other venous thrombosis and embolism
CPT/HCPCS: 36415; 71045; 74177; 80048; 80053; 81001; 82009; 82077; 82962; 83605; 83735; 84484; 85025; 87040; 93005; 99284; J7030; Q9967; A4216

== ENCOUNTER 2020-06-10 13:55 | Outpatient (RCR) | payer MEDICAID, SELFPAY ==
[2020-06-07 15:09] VITALS: BMI 34.8
== END 2020-08-11 23:59 ==
LOC: IMMUN 13:55
PROVIDERS: PCP Internal Medicine; Visit Provider Family Medicine
DX: Z23 Encounter for immunization (principal)
CPT/HCPCS: 0001A; 0002A; 91300

== ENCOUNTER → 2020-09-21 10:36 | Outpatient (CLI) | payer MEDICAID, SELFPAY ==
[2020-09-21 10:21] VITALS: BMI 35.3
[2020-09-21 12:27] LABS: Absolute Lymphocyte Count 1.62 X10^3/uL (0.83-4.51); Absolute Neutrophil Count 6.7 X10^3/uL (2.0-7.7); Basophil# 0.04 X10^3/uL; Basophil% 0.4 % (0-1); Eosinophil# 0.21 X10^3/uL; Eosinophils% 2.3 % (0-5); Hematocrit 51.7 % (40-54); Hemoglobin 16.7 g/dL (13.0-16.5); Lymphocyte # 1.62 X10^3/ul (0.83-4.51); Lymphocyte % 17.5 % (19-41); Mean Corp Hgb Conc 32.3 g/dL (32-36); Mean Corpuscular Volume 86.6 fL (80-94); Mean Platelet Vol. 11.4 fl (6.2-12.0); Monocyte# 0.67 X10^3/uL; Monocyte% 7.2 % (0-10); NRBC Flagged by Analyzer 0 % (0-5); Neutrophil % 72.2 % (47-70); Platelet Count 242 K/mm3 (150-450); RBC Distribution Width SD 40.6 fl (35.1-43.9); Red Blood Count 5.97 M/mm3 (4.6-6.2); White Blood Count 9.3 K/mm3 (4.4-11.0)
[2020-09-21 12:37] LABS: Anion Gap 7 (5-15); BUN 16 mg/dL (7-18); BUN/Creat Ratio 16.4 RATIO (10-20); Calcium,Total 9.5 mg/dL (8.5-10.1); Chloride 108 mmol/L (98-107); Creatinine, Serum 0.97 mg/dL (0.70-1.30); EST Glomerular Filtration Rate 85 mL/min (>60); Est Glom Filt Rate - Afr Amer 103 mL/min (>60); Glucose 110 mg/dL (74-106); Potassium 4.4 mmol/L (3.5-5.1); Sodium Level 140 mmol/L (136-145)
[2020-09-21 12:50] LABS: Hemoglobin A1c 5.7 % (3.8-5.6)
[2020-09-21 15:40] LABS: Microalbumin:Creatinine Ratio 53.2 mg/g CRE (<30 mg/g CRE)
== END ==
PROVIDERS: PCP Internal Medicine; Visit Provider Internal Medicine
DX: L02.91 Cutaneous abscess, unspecified (principal); E11.9 Type 2 diabetes mellitus without complications
CPT/HCPCS: 36415; 80048; 82043; 82570; 83036; 85025

== ENCOUNTER → 2021-09-16 | Outpatient (CLI) | payer MEDICAID, SELFPAY ==
[2021-09-16 12:01] LABS: Absolute Lymphocyte Count 1.61 X10^3/uL (0.83-4.51); Absolute Neutrophil Count 6.4 X10^3/uL (2.0-7.7); Basophil# 0.03 X10^3/uL; Basophil% 0.3 % (0-1); Eosinophils% 2.2 % (0-5); Hematocrit 49.4 % (40-54); Hemoglobin 16.3 g/dL (13.0-16.5); Lymphocyte # 1.61 X10^3/ul (0.83-4.51); Mean Corpuscular Hgb 27.8 pg (27.0-32.0); Mean Corpuscular Volume 84.3 fL (80-94); Mean Platelet Vol. 11.8 fl (6.2-12.0); Monocyte# 0.69 X10^3/uL; Monocyte% 7.7 % (0-10); NRBC Flagged by Analyzer 0 % (0-5); Neutrophil # 6.39 X10^3/uL (2.7-7.7); Neutrophil % 71.4 % (47-70); Platelet Count 188 K/mm3 (150-450); RBC Distribution Width CV 13.2 % (11.6-14.6); Red Blood Count 5.86 M/mm3 (4.6-6.2)
[2021-09-16 12:39] LABS: ALB/GLOB Ratio 0.9 RATIO (0.9-2.4); AST(SGOT) 16 U/L (15-37); Alanine Aminotransfer ALT/SGPT 37 U/L (16-61); Albumin, Serum 3.6 g/dL (3.2-5.0); Alkaline Phosphatase 111 U/L (45-117); Anion Gap 5 (5-15); BUN 20 mg/dL (7-18); BUN/Creat Ratio 19.6 RATIO (10-20); Calcium,Total 9.3 mg/dL (8.5-10.1); Chloride 108 mmol/L (98-107); Cholesterol 153 mg/dL (200); Creatinine, Serum 1.02 mg/dL (0.70-1.30); EST Glomerular Filtration Rate 81 mL/min (>60); Est Glom Filt Rate - Afr Amer 98 mL/min (>60); Globulin 3.8 g/dL (2.2-4.2); Glucose 107 mg/dL (74-106); High Density Lipoprotein 54 mg/dL; Potassium 4.2 mmol/L (3.5-5.1); Protein, Total 7.4 g/dL (6.4-8.2); Sodium Level 140 mmol/L (136-145); Thyroid Stim Hormone (TSH) 1.03 uIU/mL (0.358-3.74); Triglycerides 144 mg/dL; Very Low Density Lipoprotein 29 mg/dL (5-40)
== END | disposition home or self-care (01) ==
LOC: BIMLAB 10:09
PROVIDERS: PCP Internal Medicine; Referring Provider Physician Assistant; Visit Provider Physician Assistant
DX: I10 Essential (primary) hypertension (principal); E11.9 Type 2 diabetes mellitus without complications; E78.5 Hyperlipidemia, unspecified
CPT/HCPCS: 36415; 80053; 80061; 84443; 85025

== ENCOUNTER → 2021-09-17 | Outpatient (CLI) | payer MEDICAID, SELFPAY ==
--- NOTE | 2021-09-17 08:20 | RAD_ITS ---
STUDY: X-RAY - RIGHT KNEE REASON FOR EXAM: Male, 56 years old. Right knee pain anteromedial TECHNIQUE: 4 view(s) of the knee. 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 Normal visualized proximal tibia and fibula. Normal proximal tibiofibular articulation. There is severe degenerative arthrosis of the medial femorotibial compartment with severe joint space narrowing. Normal lateral femorotibial compartment. Normal patellofemoral articulation. The soft tissue structures are unremarkable. RAD/Knee 4 or More Views IMPRESSION: Severe medial compartment arthrosis with a new subchondral defect in the articular surface of the medial femur not seen on the previous study suggesting osteochondritis dissecans. No demonstrated fracture Electronically Signed: Nitin Carroll MD at 10:00 EDT ,
== END | disposition home or self-care (01) ==
LOC: RAD 08:14
PROVIDERS: PCP Internal Medicine; Referring Provider Internal Medicine; Visit Provider Internal Medicine
DX: M25.561 Pain in right knee (principal)
CPT/HCPCS: 73564

== ENCOUNTER 2021-11-29 11:49 | Outpatient (RCR) | payer MEDICAID, SELFPAY ==
--- NOTE | 2021-11-29 14:05 | HP.PTEVAL_ITS ---
Patient's Visit Information MARLINE KHAN is a 56 year old M referred to Physical Therapy by LUKE Goins with a diagnosis of R knee pain. Date of Evaluation: 11/29/21 Physical Therapist: Howie Powers PT, ATC - Visit Plan Frequency: 2-3x /Week Duration: 4-6 Weeks Plan: R LE stretching and strengthening, balance and prorio, core stab ex', bike, and HEP - Subjective Pt reports his R knee has been sore for 2-3 years. Pt reports his pain had an insidious onset in nature. Pt notes he has had no Dx tests. Pt reports he has had no treatments for his R knee at this time. Pt reports his R LE often goes numb from the knee down which he believes is due to LBP. Pt notes his R knee occasionally will lock up on him, or give out on him. Pt reports he has stairs that lead up to his apartment, approximately 20 of them, which are very difficult to negotiate. 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 3/10 pain at rest, 9/10 pain at worst - Pain R knee Pain Intensity (Out of 10): 3 Pain Intensity Range: 9 - Objective Neuro: B LE sensation is WNL to light touch. B patellar reflex= 1/3. Girth at joint line: L knee 50 cm, R knee 51 cm. Palpation: sig crepitus with AROM. No pain upon palpation. ROM: L knee 0-10-125; R knee 0-15-115 degrees. MMT: L kne e flex= 30, ext= 33 #F; R knee flex= 20, ext= 34 #F. Special testing: pos apley compression test - Balance/Special Test Scores Lower Extremity Functional Score: 25 - Goals Goal 1:: Decrease R knee pain x 50% to aid with sleep Goal Time Frame: 4-6 Weeks Goal 2:: Increase R knee strength x 5#F to aid with stair negotiation Goal Time Frame: 4-6 Weeks Goal 3:: I with HEP Goal Time Frame: 4-6 Weeks - Rehabilitation Potential Physical Therapy Diagnosis: Pt has R knee pain, weakness, and limited ROM secondary to DJD Rehabilitation Potential: Good - Anticipated Interventions Patient/Client Instruction: Educate patient on: Condition, Plan of Care For the Purpose of:: To improve self management Therapeutic Exercise to Include: Strength training, Endurance training, Balance training, Dynamic Lumbar Stabilization, Holley Exercises For the Purpose of:: To decrease pain, To increase ROM, To improve muscle performance and motor function Thank you for the opportunity to evaluate your patient. For Medicare and Medicare HMO plans, please review the plan of care and approve it. It will need to be FAXED BACK to us at [phone] for Medicare purposes. For Medicare only, by signing this I certify the plan of care. Please let me know if there are questions or concerns regarding this plan of care. Physician Signature: Date:
== END 2021-11-29 19:00 | disposition home or self-care (01) ==
LOC: PT 11:49
PROVIDERS: PCP Internal Medicine; Referring Provider Physician Assistant; Visit Provider Physician Assistant
DX: M25.561 Pain in right knee (principal)
CPT/HCPCS: 97161

== ENCOUNTER → 2022-06-14 | Outpatient (CLI) | payer MEDICAID, SELFPAY ==
--- NOTE | 2022-06-14 14:25 | PFTCOMP ---
COMPLETE PULMONARY FUNCTION TEST INTERPRETATION Brief HPI: Patient is a 56-year-old male, currently under the care of Debby Martinez, who presents to [facility] for complete pulmonary function tests secondary to diagnosis of dyspnea. Respiratory therapist reports good effort and reproducible results. Interpretation: Forced expiration spirometry shows a moderate large airways obstructive ventilatory defect with an FEV1 of 60% predicted. There is a significant bronchodilator response in FVC and FEV1 by strict ATS criteria. Spirograms are of good quality and plateau slowly, indicating slowly emptying areas of the lungs. The respiratory flow volume loop shows decreased expiratory flow rates at all lung volumes consistent with airway obstruction. Lung volumes by body plethysmography show a normal total lung capacity at 9.09 L, 111% predicted. All other lung volumes are increased symmetrically. Diffusion capacity by carbon monoxide is normal at 100% predicted. The airway resistance is elevated. No previous pulmonary function tests were available for review. Impression: Partially reversible moderate large airways obstructive ventilatory defect with relatively preserved lung volumes and diffusion capacity
== END | disposition home or self-care (01) ==
LOC: PSN 07:46
PROVIDERS: PCP Internal Medicine; Referring Provider Physician Assistant; Visit Provider Physician Assistant
DX: R06.02 Shortness of breath (principal); Z72.0 Tobacco use
CPT/HCPCS: 94060; 94726; 94729

== ENCOUNTER 2022-09-13 13:29 | Outpatient (RCR) | payer MEDICAID, SELFPAY | END 2022-10-03 23:59 | LOC: NS 13:29 | PROVIDERS: PCP Internal Medicine; Referring Provider Orthopaedic Surgery; Visit Provider Orthopaedic Surgery | DX: Z71.3 Dietary counseling and surveillance (principal); E11.9 Type 2 diabetes mellitus without complications; E66.01 Morbid (severe) obesity due to excess calories; Z68.41 Body mass index [BMI] 40.0-44.9, adult | CPT/HCPCS: 97802 ==

== ENCOUNTER → 2023-08-24 | Outpatient (CLI) | payer MEDICAID, SELFPAY ==
[2023-08-24 12:23] LABS: Absolute Lymphocyte Count 1.29 X10^3/uL (0.83-4.51); Basophil# 0.04 X10^3/uL; Basophil% 0.4 % (0-1); Eosinophil# 0.28 X10^3/uL; Eosinophils% 2.7 % (0-5); Hematocrit 53.6 % (40-54); Hemoglobin 17.4 g/dL (13.0-16.5); Lymphocyte # 1.29 X10^3/ul (0.83-4.51); Lymphocyte % 12.4 % (19-41); Mean Corp Hgb Conc 32.5 g/dL (32-36); Mean Corpuscular Hgb 27.6 pg (27.0-32.0); Mean Corpuscular Volume 85.1 fL (80-94); Mean Platelet Vol. 11.6 fl (6.2-12.0); Monocyte# 0.77 X10^3/uL; Monocyte% 7.4 % (0-10); NRBC Flagged by Analyzer 0 % (0-5); Neutrophil # 7.99 X10^3/uL (2.7-7.7); Neutrophil % 76.4 % (47-70); Platelet Count 226 K/mm3 (150-450); RBC Distribution Width CV 13.9 % (11.6-14.6); RBC Distribution Width SD 42.7 fl (35.1-43.9); White Blood Count 10.4 K/mm3 (4.4-11.0)
[2023-08-24 12:42] LABS: Vitamin B12 420 pg/mL (211-911); Vitamin D,25 Hydroxy 45.6 ng/mL
[2023-08-24 13:15] LABS: Microalbumin,Random Urine 78.3 mg/L (NO RANGE EST.)
[2023-08-24 13:38] LABS: ALB/GLOB Ratio 0.9 RATIO (0.9-2.4); AST(SGOT) 21 U/L (15-37); Alanine Aminotransfer ALT/SGPT 31 U/L (16-61); Albumin, Serum 3.7 g/dL (3.2-5.0); Alkaline Phosphatase 136 U/L (45-117); Anion Gap 10 (5-15); BUN 22 mg/dL (7-18); BUN/Creat Ratio 16.3 RATIO (10-20); Calcium,Total 9.4 mg/dL (8.5-10.1); Chloride 106 mmol/L (98-107); Cholesterol 222 mg/dL (200); Creatinine, Serum 1.35 mg/dL (0.70-1.30); EST Glomerular Filtration Rate 58 mL/min (>60); Est Glom Filt Rate - Afr Amer 70 mL/min (>60); Glucose 117 mg/dL (74-106); High Density Lipoprotein 49 mg/dL; Protein, Total 7.7 g/dL (6.4-8.2); Sodium Level 137 mmol/L (136-145); Thyroid Stim Hormone (TSH) 2.02 uIU/mL (0.358-3.74); Triglycerides 251 mg/dL; Very Low Density Lipoprotein 50 mg/dL (5-40)
== END | disposition home or self-care (01) ==
PROVIDERS: PCP Nurse Practitioner Family; Visit Provider Nurse Practitioner Family
DX: E11.9 Type 2 diabetes mellitus without complications (principal); Z13.220 Encounter for screening for lipoid disorders; E55.9 Vitamin D deficiency, unspecified; E53.8 Deficiency of other specified B group vitamins
CPT/HCPCS: 36415; 80053; 80061; 82043; 82306; 82607; 84443; 85025

== ENCOUNTER → 2024-12-02 | Outpatient (CLI) | payer MEDICAID, SELFPAY ==
--- OUTSIDE RECORDS SUMMARY | 2024-11-28 09:34 | XMS RPT_ITS ---
Author Name Auto Generated Organization [facility] Care Team Providers Care Rn Coronary Care [facility] Name Role Phone BEN F[employer] SERVICE VENDING DRIVER-PHOTO COLORER, JANNET Primary Care Unavai lable MICHAEL JOEL DO Attending Unavailable BEN F[employer] SERVICE VENDING DRIVER-PHOTO COLORER, JANNET Primary Care Unavai lable [facility] , JANNET Attending MICHAEL Frias DO Attending Unavailable BEN F[employer] SERVICE VENDING DRIVER-PHOTO COLORER, JANNET Primary Care Unavai lable BEN F[employer] SERVICE VENDING DRIVER-PHOTO COLORER, JANNET Attending Unavai lable BEN F[employer] SERVICE VENDING DRIVER-PHOTO COLORER, JANNET Primary Care Unavai lable BEN F[employer] SERVICE VENDING DRIVER-PHOTO COLORER, JANNET Attending Unavai lable BEN F[employer] SERVICE VENDING DRIVER-PHOTO COLORER, JANNET Primary Care Unavai lable BEN F[employer] SERVICE VENDING DRIVER-PHOTO COLORER, JANNET Attending Unavai lable BEN F[employer] SERVICE VENDING DRIVER-PHOTO COLORER, JANNET Primary Care Unavai lable PROBLEMS DATE TYPE CONDITION / CODE ATTENDING STATUS [facility] 10/14/2024 Unknown Chronic obstruct santino pulmonary disease with (acute) exacerbation / J44.1(ICD-10) [facility] DO, JANNET Active [facility] PROCEDURES No Procedure Records Found RESULTS XR CHEST 1 VIEW Observed: 10/14/2024 10:57 AM Status: F Source: [facility] ORIGINAL EXAMINATION: ONE XRAY VIEW OF THE CHEST 10/14/2024 10:58 am COMPARISON: None. HISTORY: ORDERING SYSTEM PROVIDED HISTORY: Reason for Exam: coug, sob FINDINGS: The heart is normal in size and there is no vascular congestion present. No infiltrate or pleural fluid seen. No acute osseous finding. IMPRESSION: No acute process. Interpreted by: Mauricio Sutton MD Preliminary Report By: Mauricio Sutton MD Electronically signed By Mauricio Sutton MD Dictated Date: 10/14/2024 11:21:37 AM Prelim Date: 10/14/2024 11:22:24 AM Sign Date: 10/14/2024 11:22:24 AM Ordering Provider[facility]/O CONTRAST Observed: 08/19/2024 4:00 PM Status: F Source: [facility] ORIGINAL EXAMINATION: LOW DOSE SCREENING CT OF THE CHEST WITHOUT CONTRAST08/19/2024 4:33 pm TECHNIQUE: Low dose lung cancer screening CT of the chest was performed without the administration of intravenous contrast. Multiplanar reformatted images are provided for review. Automated exposure control, iterative reconstruction, and/or weight based adjustment of the mA/kV was utilized to reduce the radiation dose to as low as reasonably achievable. COMPARISON: None. HISTORY: ORDERING SYSTEM PROVIDED HISTORY: Reason for Exam: 44-ioqm-cxen history. 6FT 2IN 290LB WHITE MALE. FORMER SMOKER. 27 PACK YEARS. SOB, NO FAMILY HX FINDINGS: The heart is normal in size. Mild coronary artery atherosclerotic calcifications. Nonaneurysmal thoracic aorta with normal branch pattern of the great vessels. The main pulmonary artery is dilated and measures 3.0 cm. No lymphadenopathy is visible on this unenhanced exam. Calcified mediastinal and right hilar lymph nodes likely sequela of granulomatous disease. No suspicious findings seen in the visualized portion of the abdomen. The abdomen is not evaluated in detail. The trachea and mainstem bronchi are patent. No pulmonary consolidation. Moderate upper lobe predominant centrilobular emphysema. There are scattered areas of mild pleural and parenchymal scarring especially at the anterior portion of the right middle lobe.. There is minimal bronchial wall thickening seen within the bilateral lower lobe bronchi. No focal consolidation. There is a 2 mm right middle lobe nodule (series 3, image 88). There is a 2 mm nodule seen abutting the right minor fissure in the right middle lobe (series 3, image 57). Subpleural right middle lobe nodule anteriorly measures 3 mm (series 3, image 57). Calcified granulomas seen within the right middle lobe. No pneumothorax or pleural effusion. No aggressive osseous lesions visible. Multiple remote appearing right rib deformities. Mild degenerative changes are present in the spine. No acute soft tissue abnormality. IMPRESSION: Small right middle lobe nodules measuring up to 3 mm.. For patients with appropriate lung cancer risk, annual CT screening is recommended. Minimal bilateral lower lobe bronchial wall thickening, findings may be seen with bronchiolitis. Moderate emphysema. Coronary artery atherosclerosis. Information below is for Lung nodule tracking purposes: Nodule: S3 BLN Other Findings: P-CAC Change: Na Recall : 1yr scr Recall Type: LDCT LungRads: 2s I have personally reviewed the images of this examination and agree with the resident's findings and interpretation. Interpreted by: Mg Mccoy Preliminary Report By: Valencia Colin Electronically signed By Mg Mccoy Dictated Date: 08/21/2024 8:33:34 AM Prelim Date: 08/21/2024 9:04:02 AM Sign Date: 08/21/2024 9:04:02 AM Ordering Provider: JANNET CONTRERAS [facility] Collected: 07/30/2024 3:52 PM Status: F Source: [facility] TYPE CODE TESTS RESULT OUT OF RANGE REFERENCE UNITS LAB GLU(LOINC) Glucose Level 114 High 70-105 mg/dL LAB NA(LOINC) Sodium Level 141 136-145 mmol/L LAB K(LOINC) Potassium Level 4.3 3.5-5.1 mmol/L LAB CL(LOINC) Chloride 106 98-107 mmol/L LAB CO2(LOINC) CO2 25 22-29 mmol/L LAB EBAL(LOINC) Electrolyte Balance 10.0 4.0-15.0 mEq/L LAB BUN(LOINC) BUN 23 High 7-18 mg/dL LAB CRE(LOINC) Creatinine Lvl (s) 1.08 0.67-1.17 mg/dL LAB BC(LOINC) BUN/Creatinine Ratio 21 7-27 ratio LAB CA(LOINC) Calcium Lvl 9.4 8.4-10.2 mg/dL LAB PROT(LOINC) Total Protein 7.0 6.4-8.2 G/dL LAB ALB(LOINC) Albumin Level 3.6 3.5-5.0 G/dL LAB GLB(LOINC) Globulin 3.4 2.7-4.4 G/dL LAB AG(LOINC) A/G Ratio 1.1 1.1-2.5 ratio LAB BILT(LOINC) Bili Total 0.2 0.2-1.0 mg/dL Result Comment: Use of this assay is not recommended for patients undergoing treatment with eltrombopag due to the potential for falsely elevated results. LAB AP(LOINC) Alk Phos 135 40-135 U/L LAB AST(LOINC) AST/SGOT 13 10-40 U/L LAB ALT(LOINC) ALT/SGPT 23 16-63 U/L Performed By: #### CMP, GFR, LIPID, A1C #### [address] [address] .GFR Collected: 07/30/2024 3:52 PM Status: F Source: [facility] TYPE CODE TESTS RESULT OUT OF RANGE REFERENCE UNITS LAB eGFR(LOINC) Estimated Glomerular Filtration Rate 80 ml/min/1. 73sqm Result Comment: Stages of Chronic Kidney Disease (CKD) Stage Description eGFR(ml/min/1.73 sq.m.) CKD 1 Normal kidney function or >=90 normal kindney function with possible kidney damage (ex. Proteinuria) CKD 2 Kidney damage with mild loss 60-89 of kidney function CKD 3a Mild to moderate loss of kidney 45-59 function CKD 3b Moderate to severe loss of 30-44 of kindey function CKD 4 Severe loss of kidney function 15-29 CKD 5 Kidney failure <15 Note: (go live 2024) the eGFR calculation was updated to the 2020 CKD-EPI creatinine equation without a race factor to calculate the eGFR results. Performed By: #### CMP, GFR, LIPID, A1C #### [address] [address] LIPID Collected: 07/30/2024 3:52 PM Status: F Source: [facility] TYPE CODE TESTS RESULT OUT OF RANGE REFERENCE UNITS LAB CHOL(LOINC) Cholesterol 179 0-200 mg/dL Result Comment: Cholesterol Reference Interval: Less than 200 Desirable 200-239 Borderline high risk 240 and above High risk LAB TRIG(LOINC) Triglycerides 246 High 0-150 mg/dL Result Comment: Triglyceride Reference Interval: Less than 150 Normal 150-199 Borderline high risk 200-499 High risk 500 or higher Very high risk LAB HD(LOINC) HDL Cholesterol 50 40-60 mg/dL LAB LDL(LOINC) LDL Cholesterol 80 0-130 mg/dL Performed By: #### CMP, GFR, LIPID, A1C #### [address] [address] A1C Collected: 3:52 PM Status: F Source: [facility] TYPE CODE TESTS RESULT OUT OF RANGE REFERENCE UNITS LAB A1C(LOINC) Hgb A1c 6.4 4.3-6.4 % LAB eAG(LOINC) Est Avg Glucose 137 mg/dL Result Comment: Estimated Av erage Glucose calculated by equation ((28.7xA1C)- 46.7) Estimated average glucose (eAG) is a calculated value from Hemoglobin A1C and is ambulatory services representative of the average blood glucose level in the last 2-3 month period. Normal range: less than 114 mg/dL Performed By: #### CMP, GFR, LIPID, A1C #### [address] [address] PSA Collected: 02/26/2024 11:08 AM Status: F Source: [facility] TYPE CODE TESTS RESULT OUT OF RANGE REFERENCE UNITS LAB PSA(LOINC) Prostate Specific Antigen 0.91 0.00-4.00 ng/mL Performed By: #### LIPID, GF R, PSA, CMP #### [address] [address] CMP Collected: 02/26/2024 11:08 AM Status: F Source: [facility] TYPE CODE TESTS RESULT OUT OF RANGE REFERENCE UNITS LAB GLU(LOINC) Glucose Level 219 High 70-105 mg/dL LAB NA(LOINC) Sodium Level 134 Low 136-145 mmol/L LAB K(LOINC) Potassium Level 4.5 3.5-5.1 mmol/L LAB CL(LOINC) Chloride 101 98-107 mmol/L LAB CO2(LOINC) CO2 22 22-29 mmol/L LAB EBAL(LOINC) Electrolyte Balance 11.0 4.0-15.0 mEq/L LAB BUN(LOINC) BUN 20 High 7-18 mg/dL LAB CRE(LOINC) Creatinine Lvl (s) 1.28 0.70-1.30 mg/dL Result Comment: Testing perf ormed on Siemens Dimension EXL analyzer using a modified kinetic Tanya technique. LAB BC(LOINC) BUN/Creatinine Ratio 16 7-27 ratio LAB CA(LOINC) Calcium Lvl 9.4 8.4-10.2 mg/dL LAB PROT(LOINC) Total Protein 7.4 6.4-8.2 G/dL LAB ALB(LOINC) Albumin Level 3.9 3.5-5.0 G/dL LAB GLB(LOINC) Globulin 3.5 G/dL LAB AG(LOINC) A/G Ratio 1.1 1.1-2.5 ratio LAB BILT(LOINC) Bili Total 0.6 0.2-1.0 mg/dL Result Comment: Use of this assay is not recommended for patients undergoing treatment with eltrombopag due to the potential for falsely elevated results. LAB AP(LOINC) Alk Phos 158 High 40-135 U/L LAB AST(LOINC) AST/SGOT 10 10-40 U/L LAB ALT(LOINC) ALT/SGPT 21 16-63 U/L Performed By: #### LIPID, GF R, PSA, CMP #### [address] [address] .GFR Collected: 4 11:08 AM Status: F Source: [facility] TYPE CODE TESTS RESULT OUT OF RANGE REFERENCE UNITS LAB GFRAA(LOINC) GFR 70 ml/min/1. 73sqm Result Comment: GFR Population mean for , Non- Americans Ages 20-29 = 116 mL/min/1.73 sq.m. Ages 30-39 = 107 mL/min/1.73 sq.m. Ages 40-49 = 99 mL/min/1.73 sq.m. Ages 50-59 = 93 mL/min/1.73 sq.m. Ages 60-69 = 85 mL/min/1.73 sq.m. Ages 70+ = 75 mL/min/1.73 sq.m. Chronic Kidney Disease: Less than 60 mL/min/1.73 square meters End Stage Renal Disease: Less than 15 mL/min/1.73 square meters LAB GFRNO(LOINC) GFR Non- 58 ml/min/1. 73sqm Result Comment: GFR Population mean for , Non- Americans Ages 20-29 = 116 mL/min/1.73 sq.m. Ages 30-39 = 107 mL/min/1.73 sq.m. Ages 40-49 = 99 mL/min/1.73 sq.m. Ages 50-59 = 93 mL/min/1.73 sq.m. Ages 60-69 = 85 mL/min/1.73 sq.m. Ages 70+ = 75 mL/min/1.73 sq.m. Chronic Kidney Disease: Less than 60 mL/min/1.73 square meters End Stage Renal Disease: Less than 15 mL/min/1.73 square meters Performed By: #### LIPID, GF R, PSA, CMP #### [address] [address] LIPID Collected: 02/26/2024 11:08 AM Status: F Source: [facility] TYPE CODE TESTS RESULT OUT OF RANGE REFERENCE UNITS LAB CHOL(LOINC) Cholesterol 189 0-200 mg/dL Result Comment: Cholesterol Reference Interval: Less than 200 Desirable 200-239 Borderline high risk 240 and above High risk LAB TRIG(LOINC) Triglycerides 160 High 0-150 mg/dL Result Comment: Triglyceride Reference Interval: Less than 150 Normal 150-199 Borderline high risk 200-499 High risk 500 or higher Very high risk LAB HD(LOINC) HDL Cholesterol 61 High 40-60 mg/dL LAB LDL(LOINC) LDL Cholesterol 96 0-130 mg/dL Performed By: #### LIPID, GF R, PSA, CMP #### [address] [place], [place] [address] ALLERGIES No Allergies Records Found ENCOUNTERS ADMIT/DISCHARGE ACCOUNT NUMBER ADMITTING ENCOUNTER CLASS LOC ATION SOURCE 11/28/2024 [id number] [facility] 10/14/2024/ 5 [id number] [facility] 09/23/2024/ 5 [id number] [facility] 08/19/2024/ 5 [id number] [facility] 07/30/2024/ 5 [id number] [facility] 02/26/2024/ 4 [id number] [facility] PAYERS ENCOUNTER GUARANTOR PAYER SUBSCRIBER SOURCE 11/28/2024 MARLINE CARD: [id number] [address] [address]~[email or web address]-SULLIVANel: () Primary Insurance:[facility]y Number: [id number] Date:3432-64-80Gukr Name:O [address] [address]AQ: MARLINE SCHAEFERB: [id number] [address]Rlc: (HP) () [facility] 10/14/2024 MARLINE SCHAEFERB: [id number] [address] [address]~[email or web address]: (HP) Primary Insurance:[facility] HOSPITALE INSOHIO STATE EAST HOSPITALolicy Number: [id number] Date:2988-41-52Yxoh Name:[address] [place] [address]HC: MARLINE SCHAEFERB: [id number] [address]Nnz: (HP) (WP) [facility] 09/23/2024 MARLINE Tanner SILVANOB: [address] [address]~[email or web address] [email or web address]: (HP) Primary Insurance:CARESOURCE INSCOPolicy Number: [id number] Date:7561-46-00Rjzs Name:PADILLA SUN [address] [place] [address]TV: MARLINE Tanner ERINDOB: [id number] [address] [address]Zjd: (HP) (WP) [facility] 08/19/2024 MARLINE Tanner ERINDOB: [address] [address]Kuw: (HP) Primary Insurance:CARESOURCE INSCOPolicy Number: [id number] Date:3718-33-62Tgnz Name:PADILLA SUN [address] [place] [address]TW: MARLINE Tanner ERINDOB: [id number] [address] [address]Tjm: (HP) (WP) [facility] 07/30/2024 MARLINE Tanner ERINDOB: [address] [address]Heh: (HP) Primary Insurance:CARESOURCE INSCOPolicy Number: [id number] Date:9936-26-17Wzpb Name:PADILLA SUN [address] [place] [address]BY: MARLINE Tanner SILVANOB: [id number] [address]Ddt: (HP) (WP) [facility] 02/26/2024 MARLINE CARD: [id number] [address] [address]Efx: (HP) Primary Insurance:MCFARLAND INSCOPolicy Number: [id number] Date:4296-81-56Xopy Name:[employer] P[employer] [address] [address] [address]ZS: MARLINE CARD: [id number] [address] [address]Jmp: (HP) () [facility] 02/26/2024 Secondary Insurance:CARESOURCE MEDICAIDPolicy Number: [id number] Date:7226-41-11Bhcw Name:[address], [place] [address]YY: MARLINE CARD: [id number] [address] [address]Qcl: (HP) () [facility]
== END | disposition home or self-care (01) ==
PROVIDERS: PCP Nurse Practitioner Family; Referring Provider Internal Medicine Critical Care Medicine; Visit Provider Internal Medicine Critical Care Medicine
DX: J44.9 Chronic obstructive pulmonary disease, unspecified (principal)
CPT/HCPCS: 94060; 94726; 94729

== ENCOUNTER 2025-01-18 13:13 | Observation (INO) | payer MEDICAID, SELFPAY ==
[2025-01-18] VITALS (14 sets, daily range): BP systolic 123–143; BP diastolic 77–119; PULSE 86–103; RESP 12–22; TEMP 36.6–36.9; O2SAT 88–96; BMI 35.4; BMI 36.3
--- NOTE | 2025-01-18 13:41 | EKG12_ITS ---
Test Reason : Blood Pressure : */* mmHG Vent. Rate : 92 BPM Atrial Rate : 92 BPM P-R Int : 198 ms QRS Dur : 84 ms QT Int : 348 ms P-R-T Axes : 63 -9 53 degrees QTcB Int : 430 ms Normal sinus rhythm Normal ECG Confirmed by GABRIEL SMALL, MEHRDAD ([id number]), managing editor AMBAR ROSADO ([id number]) on 01/20/2025 9:09:31 AM Referred By: Confirmed By: MEHRDAD RIOS MD
--- NOTE | 2025-01-18 13:42 | EX.ED.DYSGE1 ---
HPI History of Present Illness Chief Complaint: General Illness Detail of Chief Complaint: Thirst and frequent urination Informant: patient Narrative Narrative: Patient presents with thirst and frequent urination ongoing for at least 2 months. Patient now concerned because he has poor memory and has lost his wallet. He has had some intermittent nausea and vomiting. Patient states he is passed out from time to time. States that he recently saw his urologist and told him he was spilling large amounts of glucose in his urine. Patient is a known diabetic and takes metformin 1000 mg daily and takes Trulicity once a week. Denies fever or recent illness. [facility] Medical History (Updated 01/18/25 @ 15:[address] Jj Garcias, DO) Depression Diabetes Former smoker Bilateral primary osteoarthritis of knee Chronic knee pain Hypertension Abscess Bipolar 1 disorder ADHD ADD (attention deficit disorder) Anxiety High cholesterol High blood pressure Alcohol abuse Vascular disease Blood clot in vein Back problem Arthritis Adrenal disorder Diverticulitis of duodenum EUA ligation of intershincteric tract Diverticular disease Home Medications ?Medication ?Instructions ?Recorded ?Last Taken ?Type aspirin 81 mg tablet,delayed 81 mg PO QDAY 08/22/17 01/17/25 History release (Yohan Low Dose Aspirin) blood sugar diagnostic (FreeStyle #100 ea 04/28/20 Unknown Rx Lite Strips) cane #1 ea 04/28/20 Unknown Rx Onetouch verio flex strips #200 ea 06/24/20 Unknown Rx tamsulosin 0.4 mg capsule (Flomax) 0.4 mg PO QHS #90 caps 10/01/20 01/17/25 Rx lancets 28 gauge (FreeStyle #200 ea 06/08/21 Unknown Rx Lancets) lancets 33 gauge (OneTouch Delica #200 ea 06/08/21 Unknown Rx Lancets) pen needle, diabetic 32 gauge x #200 ea 09/16/21 Unknown Rx rosuvastatin 20 mg tablet 20 mg PO DAILY #90 tabs 09/16/21 01/17/25 Rx losartan 50 mg tablet See Rx Instructions .Route 02/22/22 01/17/25 Rx .COMPLEX #90 tabs omeprazole 20 mg capsule,delayed See Rx Instructions .Route 08/04/22 01/17/25 Rx release .COMPLEX #90 caps metformin 1,000 mg tablet 1,000 mg PO BID #180 tabs 08/15/22 01/17/25 Rx bupropion HCl 150 mg tablet,12 hr 150 mg PO BID #180 TABLETS 08/16/22 01/17/25 Rx sustained-release dulaglutide 1.5 mg/0.5 mL 1.5 mg (0.5 mL) subcut QWEEK #2 mL 08/19/22 01/17/25 Rx subcutaneous pen injector duloxetine 60 mg capsule,delayed 60 mg PO QDAY 09/04/24 01/17/25 History release hydroxyzine HCl 50 mg tablet 50 mg PO QDAY PRN anxiety 09/04/24 01/17/25 History budesonide-formoterol HFA 160 2 puff inhalation BID 01/18/25 01/17/25 History mcg-4.5 mcg/actuation aerosol inhaler (Symbicort) dulaglutide subcut QWEEK 01/18/25 01/17/25 History Allergy/AdvReac Type Severity Reaction Status Date / Time No Known Allergies Allergy Verified 01/18/25 13:14 Family History Father Diabetes Alcohol abuse Hypertension Sister Diabetes Surgical History History of mandibular surgery Pneumothorax [id number] Social History Smoking Status: Former smoker alcohol intake: current alcohol intake frequency: a few times a month substance use type: does not use ROS ROS ED Review of Systems ROS Unobtainable: other Constitutional Constitutional ED: Reports lethargy; Denies chills, fever(s), sweats or weight loss Eyes Eyes: Denies blurry vision, change in vision or diplopia ENT ENT ED: Denies rhinorrhea or sore throat Cardiovascular Cardiovascular: Reports chest pain and racing heartbeat; Denies orthopnea Respiratory/Chest Respiratory/Chest: Denies cough, dyspnea, dyspnea on exertion, orthopnea or sputum Gastrointestinal Gastrointestinal: Reports nausea, vomiting and other Details: Increased thirst ; Denies abdominal pain or diarrhea Genitourinary Genitourinary ED: Reports urinary frequency; Denies dysuria or hematuria Musculoskeletal Musculoskeletal: Denies arthralgias, back pain, myalgias or neck pain Integumentary Denies abscess, Abrasions or rash Neurologic Neurologic: Denies headache(s) or weakness Psychiatric Psychiatric: Denies anxiety, depression or suicidal thoughts Endocrine Endocrinology: Denies polydipsia, polyphagia or polyuria Hematologic/Lymphatic Hematologic/Lymphatic: Denies easy bleeding, easy bruising or lymphadenopathy Allergic/Immunologic Allergic/Immunologic ED: Denies mouth swelling, tongue swelling or urticaria EXAM Physical Exam Const Vital Signs: 01/18/25 13:14 01/18/25 13:34 Temperature 98.1 F Temperature Source Oral Pulse Rate 103 H Respiratory Rate 22 H Respiratory Pattern Normal Blood Pressure 132/77 H Blood Pressure Mean 95 Pulse Ox 96 Oxygen Delivery Method Room Air Positive well nourished and well developed General Appearance ED: well developed and NAD HEENT Reports TM's clear and moist mucous membranes normocephalic and atraumatic; Negative for trauma or tenderness Tympanic Membrane ED: Yes TM's clear Eyes PERRL and EOMs intact bilaterally General Eye ED: Negative for pale conjunctiva or scleral icterus Neck no lymphadenopathy, supple and no JVD General: Negative for tenderness Chest Wall inspection of chest normal and palpation of chest normal Chest: Negative for tenderness Resp normal respiratory effort and clear to auscultation bilaterally Effort and Inspection: Negative for respiratory distress or pain with movement Auscultation: Negative for rhonchi, wheezes or diminished lung sounds Cardio regular rhythm, S1 normal heart sound, S2 normal heart sound and no murmurs; Negative for regular rate Rate: tachycardic Peripheral Pulses: pulses 2+ throughout GI normal to inspection, nondistended, normoactive bowel sounds, soft to palpation, non-tender, non-distended and no masses Back/Spine no CVA tenderness and no thoracic nor lumbar tenderness Extremity normal to inspection General Extremety ED: Negative for edema General Extremity: Negative for edema Neuro oriented x3, CN's II-XII intact bilaterally, no sensory deficits noted and gait normal Sensorium / Orientation: awake, alert, oriented to person, oriented to place and oriented to time Motor Exam: strength 5/5 throughout and strength abnormal Psych mental status grossly normal Skin no rashes or lesions noted and no wounds MDM MDM MDM Narrative Medical decision making narrative: Patient presents with increased thirst and increased urination. He is a type II diabetic. He has been taking his metformin and Trulicity apparently. He denies recent illness otherwise. CBC with differential obtained showed a white count of 9.7. Hemoglobin was 16 and platelet count was 219. Chemistries showed a low sodium of 125 with potassium 5.6 and chloride of 88. BUN was 37 and creat 1.21. Glucose was 807. LFTs were normal. Beta hydroxybutyrate was elevated 0.8. Urinalysis without signs of infection but did show 1000 glucose being spilled. Initial fingerstick blood sugar on arrival just read high. Patient was ordered 15 units of regular insulin subcu. Lab Data Attestation: I reviewed the patient's lab results. Labs: Laboratory Results - last 24 hr 01/18/25 01/18/25 01/18/25 13:34 13:45 13:50 WBC 9.7 RBC 5.72 Hgb 16.0 Hct 45.8 MCV 80.1 MCH 28.0 MCHC 34.9 RDW Std Deviation 36.5 RDW Coeff of Lauro 12.7 Plt Count 219 MPV 11.1 Immature Gran % (Auto) 0.700 Neut % (Auto) 66.7 Lymph % (Auto) 18.2 L [place] % (Auto) 9.2 Eos % (Auto) 4.7 Baso % (Auto) 0.5 Absolute Neuts (auto) 6.4 Absolute Lymphs (auto) 1.76 Nucleated RBC % 0 Sodium 125 L Potassium 5.6 H Chloride 88 L Carbon Dioxide 21.6 Anion Gap 15 BUN 37 H Creatinine 1.21 H Estim Creat Clear Calc 98.71 Est GFR (MDRD) Non-Af 69 BUN/Creatinine Ratio 30.2 H Glucose 807 H* Calcium 10.2 Total Bilirubin 0.46 AST 22 ALT 28 Alkaline Phosphatase 173 H Total Protein 7.2 Albumin 4.2 Globulin 3.1 Albumin/Globulin Ratio 1.4 b-Hydroxybutyric mmol/L 0.8 H Urine Color Yellow Urine Clarity Clear Urine pH 6.0 Ur Specific [place] 1.010 Urine Protein Negative Urine Glucose (UA) 1000 H Urine Ketones 5 H Urine Occult Blood Negative Urine Nitrite Negative Urine Bilirubin Negative Urine Urobilinogen Normal Ur Leukocyte Esterase Negative Urine RBC 0 SEEN Urine WBC 0 SEEN Ur Squamous Epith Cells 0 SEEN Urine Bacteria 0 SEEN Urine Mucus 0 SEEN POC Glucose > 500 H* EKG Initial EKG: Attestation: I personally reviewed and interpreted this EKG as follows: Comments: Sinus rhythm with rate of 92 bpm with no acute ST segment change Discharge Plan Dx/Rx/DC Orders Clinical Impression: Hyperglycemia, Dehydration, Hyponatremia, Hyperkalemia Disposition Disposition: Acute Care Hospital [facility]
[2025-01-18] MEDS: 0.9% Normal Saline (1000mL) 1,000 ML 1000 ML IV (13:43)
[2025-01-18 13:55] LABS: Hematocrit 45.8 % (40-54); Hemoglobin 16.0 g/dL (13.0-16.5); Immature Granulocytes Count 0.070 X10^3/uL (0.0-0.0); Mean Corp Hgb Conc 34.9 g/dL (32-36); Mean Corpuscular Volume 80.1 fL (80-94); Mean Platelet Vol. 11.1 fl (6.2-12.0); NRBC Flagged by Analyzer 0 % (0-5); Platelet Count 219 K/mm3 (150-450); RBC Distribution Width CV 12.7 % (11.6-14.6); RBC Distribution Width SD 36.5 fl (35.1-43.9); Red Blood Count 5.72 M/mm3 (4.6-6.2); White Blood Count 9.7 K/mm3 (4.4-11.0)
[2025-01-18 13:55] LABS: Mucous, Urine 0 SEEN /hpf (<or=2+); Red Blood Cells-Urine 0 SEEN /hpf (0-5); Squamous Epithelial Cells - UA 0 SEEN /hpf (0-5)
[2025-01-18 13:56] LABS: Color, Urine Yellow (Yellow); Glucose, Dipstick 1000 mg/dl (Normal); Ketone-Dipstick 5 mg/dl (Negative); Leukocyte Esterase-Dipstick Negative /ul (Negative); Nitrite-Dipstick Negative (Negative); Occult Blood-Urine Negative /ul (Negative); Protein-Dipstick Negative (Negative); Specific Gravity, Urine 1.010 (1.002-1.030); Urine Bilirubin Dipstick Negative (Negative)
--- OUTSIDE RECORDS SUMMARY | 2025-01-18 14:05 | XMS RPT_ITS | CCD ---
Author Organization [facility]ini[facility] Care Team Providers Care Stewardesses Teacher Name Role Phone JACK AGUIAR Unavailable Unavailable JACK AGUIAR Unavailable Unavailable WILVER ORONA Unavailable Unavailable IMCA Unavailable Unavailable ISHMAEL SALVADOR Unavailable Unavailable NO FAMILY DOCTOR, NO FAMILY DOCTOR Primary Care Unavailable ARLEEN FULLER Attending Unavailable NICK BRADSHAW Attending Unavailable NO FAMILY DOCTOR, NO FAMILY DOCTOR Primary Care Unavailable NICK BRADSHAW Attending Unavailable NO FAMILY DOCTOR, NO FAMILY DOCTOR Primary Care Unavailable Abdon Dugan Primary Care Unav ailable Nick Bradshaw Attending MarybethvaAbdon Collado Primary Care Unav ailable Alexandre Don Primary Care Provider Dr. Alexandre Don Primary Care Provider [phone] Dr. Alexandre Don Referring Provider [phone] John PAREDES NP-C Roxanne Attending Provider [phone] LUKE Martinez Attending Provider Unavailab Dr. Alexandre Suarez Primary Care Provider [phone] Dr. Alexandre Don Referring Provider [phone] John PAREDES NP-C Roxanne Attending Provider [phone] Dr. Alexandre Don Primary Care Provider [phone] LUKE Martinez Referring Provider Unavailab LUKE Esparza Other Provider Unavailable Dr. Washington Addison Attending Provider Dr. Alexandre Don Referring Provider Clark PRODUCTION CONTROL PEGBOARD CLERK, PRODUCTION CONTROL PEGBOARD CLERK-C Roxanne Attending Provider Dr. Abdon Joseph Attending Provider Dr. Paul Rich Attending Provider 1([facility])[phone] ROXANNE CLARK Primary Care Physician Nuria PT, Verito Unavailable Unavailable CHRIS HERNANDEZ MD Attending Unavailable CLARK, SENIOR ORACLE DBA-C ROXANNE Primary Care Unavailable BEN FISHER SPEAR-CEMENT KILN OPERATOR, JANNET Primary Care Physician Clark PRODUCTION CONTROL PEGBOARD CLERK-C, Roxanne Primary Care Provider Clark PRODUCTION CONTROL PEGBOARD CLERK-C, Roxanne Referring Provider 1([facility])[phone] Juliocesar Quinones DO Attending Provider John PRODUCTION CONTROL PEGBOARD CLERK-C, Roxanne Primary Care Physician 1([facility])[phone] Dr. Juliocesar Quinones DO Attending Physician 1([facility])[phone] Dr. Juliocesar Quinones DO Referring Provider 1([facility])[phone] BEN PRODUCTION CONTROL PEGBOARD CLERK-C, JANNET Primary Care Physician BEN FISHER SPEAR-CEMENT KILN OPERATOR, JANNET Primary Care Unavai lable ZINA ESTEVES DO Attending Unavailable BEN FISHER SPEAR-CEMENT KILN OPERATOR, JANNET Primary [facility] Attending Unavailable ZINA ESTEVES DO Attending Unavailable BEN FISHER SPEAR-CEMENT KILN OPERATOR, JANNET Primary Care Unavai lable BEN FISHER SPEAR-CEMENT KILN OPERATOR, JANNET Attending Unavai lable BEN FISHER SPEAR-CEMENT KILN OPERATOR, JANNET Primary Care Unavai lable BEN FISHER SPEAR-CEMENT KILN OPERATOR, JANNET Attending Unavai lable BEN FISHER SPEAR-CEMENT KILN OPERATOR, JANNET Primary Care Unavai lable BEN FISHER SPEAR-CEMENT KILN OPERATOR, JANNET Attending Unavai lable BEN FISHER SPEAR-CEMENT KILN OPERATOR, JANNET Primary Care Unavai lable ANNIE LEWIS Attending Unavailab le John, Roxanne Referring Unavailable Juliocesar Quinones Attending Unavailable John, Roxanne Primary Care Unavailable BEN, JANNET Primary Care Unavailable Juliocesar Quinones Attending Unavailable Juliocesar Quinones Referring Unavailable JANNET CONTRERAS Primary Care Unavailable Juliocesar Quinones Attending Unavailable Juliocesar Quinones Referring Unavailable Allergies Allergy Classification Reported Allergen(s) Allergy Type Date of Onset Reaction(s) Facility (3 sources) QUEtiapine; Translations: [QUETIAPINE FUMARATE] Drug Allergy 12-15-2017 [facility], [place] Medications Current Medications Medication Drug Class(es) Dates Sig (Normalized) Sig (Original) 0.5 ML tirzepatide 10 MG/ML Auto-Injector [Mounjaro] (1 source) Start: 02-26-2024 inject 1 dose by subcutaneous injection every week Mounjaro 5 mg/0.5 mL subcutaneous solution Dose : 5 mg =, Subcutaneous, qWeek, rotate injection sites, # 2 mL, 1 Refill(s), Pharmacy: [facility] [place], 192.7, cm, 02/26/24 9:56:00 EST, Height, kg, 02/26/24 9:56:00 EST, Dosing Weight Start Date: 02/26/24 Status: Ordered Quantity: 2.0 Unit: mL Repeat number: 2 Tylenol (13 sources) Start: 02-26-2024 Tylenol Oral, 0 Refill(s) Start Date: 02/26/24 Status: Ordered Medication Dispense Status: Completed Total Allowed Fills: 1 Fills Dispensed: 0 Start: 02-26-2024 Tylenol Oral, 0 Refill(s) Start Date: 02/26/24 Status: Ordered Repeat number: 1 Start: 07-28-2022 End: 09-04-2024 take 1 tablet by mouth every eight hours as needed for pain Acetaminophen (Pain Relief (Acetaminophen)) 650 mg tablet extended release Discontinued 650 mg PO Q8H as needed for fever or pain 90 July 28, 2022 12:00am September 04, 2024 11:06am Start: 11-19-2018 take 1 capsule by mo uth every six hours acetaminophen 325 mg / oxyCODONE hydrochloride 5 mg oral tablet (1 source) Opioid Agonist Start: 09-24-2023 End: 09-26-2023 take 1 tablet by mouth every six hours as needed for pain Percocet 5 mg-325 mg oral tablet Dose = 1 tab(s), Oral, q6h, PRN for pain, X 2 day(s), # 8 tab(s), 0 Refill(s), Closed blow-out fracture of left orbital floor, 135.8 Start Date: 09/24/23 Stop Date: 09/26/23 Status: Ordered [id number] 200 actuat albuterol 0.09 mg/actuat metered dose inhaler (20 sources) beta2-Adrenergi c Agonist Start: 09-04-2024 Start: 09-16-2021 End: 12-21-2021 Start: 09-16-2021 End: 12-21-2021 take 1 puff(s) by inhalation every six hours Albuterol Sulfate (Ventolin Hfa) 90 mcg/actuation HFA aerosol inhaler Active 2 PUFF INHALATION EVERY 6 HOURS 8.December 21, 2021 11:12am Start: 11-19-2018 End: 07-21-2020 Albuterol Sulfate (Ventolin Hfa) 90 mcg/actuation HFA aerosol inhaler Discontinued 2 NMA INHALATION EVERY 6 HOURS as needed for shortness of breath or wheezing 8.5 April 02, 2020 11:29am July 21, 2020 2:23pm Start: 11-19-2018 End: 07-21-2020 take 1 puff(s) by inhalation every six hours Albuterol Sulfate (Ventolin Hfa) 90 mcg/actuation HFA aerosol inhaler Discontinued 2 PUFF INHALATION EVERY 6 HOURS 8.5 April 02, 2020 11:29am July 21, 2020 2:23pm albuterol MDI (90 mcg/inh) CFC free inhalation aerosol (1 source) Start: 10-14-2024 take 2 puff(s) by inhalation every six hours as needed for wheezing albuterol MDI (90 mcg/inh) CFC free inhalation aerosol 2 puff(s), Inhalation, q6hr, PRN as needed for wheezing, # 18 gram(s), 0 Refill(s) Start Date: 10/14/24 Status: Ordered Medication Dispense Status: Completed Quantity: 18.0 Unit: g Total Allowed Fills: 1 Fills Dispensed: 0 ARIPiprazole 10 mg oral tablet (12 sources) Atypical Antipsychotic Start: 11-18-2019 take 1 tablet by mouth once daily ARIPiprazole (ABILIFY) 10 MG tablet Take 10 mg by mouth daily 0 11/18/2019 Active Start: 09-25-2019 take 2 tablets by mo uth once daily Start: 09-25-2019 take 10 mg by mouth once daily Aripiprazole Active 10 MG PO DAILY September 25, 2019 10:28am Start: 01-02-2018 End: 09-25-2019 take 1 tablet by mouth once daily Aripiprazole 5 mg tablet Discontinued 5 mg PO DAILY January 02, 2018 12:00am September 25, 2019 10:30am Aspirin (13 sources) Platelet Aggregation Inhibitor, Nonsteroidal Anti-inflammatory Drug Start: 02-26-2024 aspirin 0 Refill( s) Start Date: 02/26/24 Status: Ordered Medication Dispense Status: Completed Total Allowed Fills: 1 Fills Dispensed: 0 Start: 02-26-2024 aspirin 0 Refi ll(s) Start Date: 02/26/24 Status: Ordered Repeat number: 1 Start: 08-22-2017 take 81 mg by mouth once daily A SPIRIN 81 PO Take 81 mg by mouth daily Leg pain 0 Active Budesonide-Formoterol (3 sources) Corticosteroid, beta2-Adrenergic Agonist Start: 07-28-2022 Start: 07-28-2022 Budesonide-For moterol (Symbicort) 80-4.5 mcg/actuation HFA aerosol inhaler Active 2 NMA INHALATION TWICE A DAY 10.2 2 July 28, 2022 12:00am Start: 07-28-2022 take 1 puff(s) by in halation twice daily Budesonide-Formoterol (Symbicort) 80-4.5 mcg/actuation HFA aerosol inhaler Active 2 PUFF INHALATION TWICE A DAY 10.2 July 28, 2022 12:00am 12 hr buPROPion hydrochlorid e 150 mg extended release oral tablet (14 sources) Aminoketone Start: 08-16-2022 take 1 tablet by oleksandr th twice daily Start: 05-23-2022 End: 08-16-2022 take 1 tablet by mouth once daily, then take 1 tablet by mouth twice daily, then take 1 tablet by mouth every eight hours, then take 6 tablets by mouth once in the evening Bupropion Hcl 150 mg tablet sustained-release 12 hr Discontinued 0 .ROUTE .COMPLEX 180 0 May 23, 2022 8:45am August 16, 2022 12:02pm Tobacco abuse Tobacco use take 1 tablet by mouth daily for 3 days then INCREASE to 1 twice a day --SEPARATE DOSE BY AT LEAST 8 HOURS WITH SECOND DOSE NO LATER THAN 6 PM. STOP SMOKING AFTER FIRST WEEK OF TREATMENT. Start: 05-23-2022 End: 08-16-2022 take 1 tablet by mouth once daily, then take 1 tablet by mouth twice daily, then take 1 tablet by mouth every eight hours, then take 6 tablets by mouth once in the evening Bupropion Hcl Discontinued 0 .ROUTE .COMPLEX 180 May 23, 2022 8:45am August 16, 2022 12:02pm take 1 tablet by mouth daily for 3 days then INCREASE to 1 twice a day --SEPARATE DOSE BY AT LEAST 8 HOURS WITH SECOND DOSE NO LATER THAN 6 PM. STOP SMOKING AFTER FIRST WEEK OF TREATMENT. Start: 12-21-2021 End: 05-23-2022 Bupropion Hcl (Wellbutrin Sr ) 150 mg tablet sustained-release 12 hr Discontinued 150 mg PO TWICE A DAY 180 0 February 24, 2022 12:13pm May 23, 2022 8:46am Tobacco abuse Tobacco use Smoking Cessation Start 150mg for 3 day then increase to twice a day. Separate dose by at least 8 hours, second dose no later than 6pm. Stop smoking after first week of treatment. BuPROPion (Eqv-Wellbutrin SR ) 150 mg/12 hours oral tablet, extended release (5 sources) Start: 07-31-2024 End: 01-27-2025 BuPROPion (Eqv-Wellbutrin SR ) 150 mg/12 hours oral tablet, extended release Dose : 150 mg = 1 tab(s), Oral, BID, # 180 tab(s), 1 Refill(s), Pharmacy: [facility] [place], 188, cm, 07/31/24 14:53:00 EDT, Height, kg, 07/31/24 14:53:00 EDT, Dosing Weight Start Date: 07/31/24 Stop Date: 01/27/25 Status: Ordered Medication Dispense Status: Completed Quantity: 180.0 Unit: tab(s) Total Allowed Fills: 2 Fills Dispensed: 0 Start: 07-31-2024 End: 01-27-2025 BuPROPion (Eqv-Wellbutrin SR ) 150 mg/12 hours oral tablet, extended release Dose : 150 mg = 1 tab(s), Oral, BID, # 180 tab(s), 1 Refill(s), Pharmacy: [facility] [place], 188, cm, 07/31/24 14:53:00 EDT, Height, kg, 07/31/24 14:53:00 EDT, Dosing Weight Start Date: 07/31/24 Stop Date: 01/27/25 Status: Ordered Quantity: 180.0 Unit: tab(s) Repeat number: 2 Start: 05-06-2024 End: 08-04-2024 BuPROPion (Eqv-Wellbutrin SR ) 150 mg/12 hours oral tablet, extended release Dose : 150 mg = 1 tab(s), Oral, BID, # 180 tab(s), 0 Refill(s), Pharmacy: [facility] [place], 190, cm, 05/06/24 10:11:00 EST, Height, kg, 05/06/24 10:11:00 EST, Dosing Weight Start Date: 05/06/24 Stop Date: 08/04/24 Status: Ordered Quantity: 180.0 Unit: tab(s) Repeat number: 1 Start: 02-26-2024 End: 05-26-2024 BuPROPion (Eqv-Wellbutrin SR ) 150 mg/12 hours oral tablet, extended release Dose : 150 mg = 1 tab(s), Oral, BID, # 180 tab(s), 0 Refill(s), Pharmacy: [facility] [place], 192.7, cm, 02/26/24 9:56:00 EST, Height, kg, 02/26/24 9:56:00 EST, Dosing Weight Start Date: 02/26/24 Stop Date: 05/26/24 Status: Ordered Quantity: 180.0 Unit: tab(s) Repeat number: 1 Cane (3 sources) Start: 04-28-2020 Cane Active 0 .ROUTE .MEDSUPPLY 1 April 28, 2020 1:00am As directed Cane device (2 sources) Start: 04-28-2020 Cane device Active 0 .ROUTE .MEDSUPPLY 1 0 April 28, 2020 1:00am Pain in left knee As directed cholecalciferol 0.05 mg oral capsule (5 sources) Vitamin D Start: 11-19-2018 take 1 capsule by mouth once daily diclofenac sodium 0.01 mg/mg topical gel (3 sources) Nonsteroidal Anti-inflammatory Drug Start: 07-28-2022 DULoxetine 60 mg delayed release oral capsule (20 sources) Serotonin and Norepinephrine Reuptake Inhibitor Start: 02-26-2024 End: 01-27-2025 take 1 capsule by mouth once daily Start: 09-25-2019 End: 09-04-2024 take 1 capsule by mouth twice daily Duloxetine 30 mg capsule,delayed release(DR/EC) Discontinued 30 mg PO TWICE A DAY 180 3 September 25, 2019 10:49am September 04, 2024 11:07am Start: 04-04-2018 End: 09-25-2019 take 1 capsule by mouth once daily Duloxetine 30 mg capsule,delayed release(DR/EC) Discontinued 30 mg PO DAILY April 04, 2018 1:00am September 25, 2019 10:51am Fish Oils (1 source) Start: 02-26-2024 End: 05-26-2024 Fish Oil 1000 mg oral capsule Dose : 1,000 mg = 1 cap(s), Oral, Daily, # 90 cap(s), 0 Refill(s), Pharmacy: [facility] [place], 192.7, cm, 02/26/24 9:56:00 EST, Height, kg, 02/26/24 9:56:00 EST, Dosing Weight Start Date: 02/26/24 Stop Date: 05/26/24 Status: Ordered Quantity: 90.0 Unit: cap(s) Repeat number: 1 Fluticasone-Umeclidin -Vilanter (2 sources) Anticholinergic, Corticosteroid, beta2-Adrenergic Agonist Start: 09-04-2024 Start: 09-04-2024 Fluticasone-Um eclidin-Vilanter (Trelegy Ellipta) 100-62.5-25 mcg blister with device Active 1 NMA INHALATION daily September 04, 2024 12:00am 120 actuat formoterol fumarate 0.005 mg/actuat / mometasone furoate 0.1 mg/actuat metered dose inhaler (1 source) Corticosteroid, beta2-Adrenergic Agonist Start: 09-04-2024 hydrOXYzine hydrochloride 50 mg oral tablet (7 sources) Antihistamine Start: 08-13-2024 take 1 tablet by mouth once daily as needed for anxiety Start: 05-06-2024 hydrOXYzine hy drochloride 50 mg oral tablet Dose : 50 mg = 1 tab(s), Oral, Daily, PRN as needed for anxiety, # 30 tab(s), 1 Refill(s), Pharmacy: [facility] [place], Anxiety, 190, cm, 05/06/24 10:11:00 EST, Height, kg, 05/06/24 10:11:00 EST, Dosing Weight Start Date: 05/06/24 Status: Ordered Quantity: 30.0 Unit: tab(s) Repeat number: 2 Indications: Anxiety disorder, unspecified; Start: 02-26-2024 hydrOXYzine hy drochloride 50 mg oral tablet Dose : 50 mg = 1 tab(s), Oral, Daily, PRN as needed for anxiety, # 30 tab(s), 1 Refill(s), Pharmacy: [facility] [place], Anxiety, 192.7, cm, 02/26/24 9:56:00 EST, Height, kg, 02/26/24 9:56:00 EST, Dosing Weight Start Date: 02/26/24 Status: Ordered Quantity: 30.0 Unit: tab(s) Repeat number: 2 Indication: Anxiety disorder, unspecified loratadine 10 mg oral tablet (13 sources) Start: 07-31-2024 End: 10-29-2024 take 1 tablet by mouth once daily Start: 02-26-2024 End: 05-26-2024 Claritin 24 Hour Allergy 10 mg oral tablet Dose : 10 mg = 1 tab(s), Oral, qDay, # 90 tab(s), 0 Refill(s), Pharmacy: [facility] [place], 192.7, cm, 02/26/24 9:56:00 EST, Height, kg, 02/26/24 9:56:00 EST, Dosing Weight Start Date: 02/26/24 Stop Date: 05/26/24 Status: Ordered Quantity: 90.0 Unit: tab(s) Repeat number: 1 Start: 06-01-2017 End: 09-24-2019 take 1 tablet by mouth once daily Loratadine 10 mg tablet Discontinued 10 mg PO DAILY January 02, 2018 12:00am September 24, 2019 1:38pm meloxicam 15 mg oral tablet (3 sources) Nonsteroidal Anti-inflammatory Drug Start: 08-15-2022 take 1 tablet by mouth once daily Mometasone-Formote rol (Dulera) 100-5 mcg/actuation HFA aerosol inhaler (1 source) Start: 09-04-2024 Mometasone-Formot ur (Dulera) 100-5 mcg/actuation HFA aerosol inhaler Active 2 NMA INHALATION TWICE A DAY September 04, 2024 12:00am Multiple Vitamins-Minerals (MULTIVITAMIN ADULT PO) (3 sources) take 1 tablet by mouth once daily Multiple Vitamins-Minerals (MULTIVITAMIN ADULT PO) Take 1 tablet by mouth daily supplement 0 Active multivitamin capsule (3 sources) Start: 11-19-2018 take 1 capsule by mouth once daily multivitamin capsule Active 1 CAP PO DAILY November 19, 2018 12:00am Multivitamin capsule (2 sources) Start: 11-19-2018 Start: 11-19-2018 Multivitamin c apsule Active 1 NMA PO DAILY November 19, 2018 12:00am 24 hr nicotine 0.875 mg/hr transdermal system (2 sources) Cholinergic Nicotinic Agonist Start: 02-26-2024 apply 1 dose transdermal route once daily Nicoderm CQ patch 14-7mg TAPER (Disch Rx) Dose = 1 patch(es), Transdermal, Daily, # 56 patch(es), 0 Refill(s), see Order Comments for use directions, Pharmacy: [facility], Smoker, 192.7, cm, 02/26/24 9:56:00 EST, Height, kg, 02/26/24 9:56:00 EST, Dosing Weight Start Date: 02/26/24 Status: Ordered Quantity: 56.0 Unit: patch(es) Repeat number: 1 Indication: Nicotine dependence, unspecified, uncomplicated Start: 02-26-2024 End: 03-04-2024 apply 1 dose transdermal route once daily NicoDerm CQ 21 mg/24 hr transdermal patch Dose = 1 patch(es), Transdermal, Daily, Begin 14 mg taper after 1 week., X 7 day(s), # 7 patch(es), 0 Refill(s), Pharmacy: [facility], Smoker, 192.7, cm, 02/26/24 9:56:00 EST, Height, kg, 02/26/24 9:56:00 EST, Dosing Weight Start Date: 02/26/24 Stop Date: 03/04/24 Status: Ordered Quantity: 7.0 Unit: patch(es) Repeat number: 1 Indication: Nicotine dependence, unspecified, uncomplicated Pen Needle, Diabetic (15 sources) Start: 09-16-2021 Pen Needle, Di abetic Active 1 EACH MC TWICE A DAY September 16, 2021 9:38am use with insulin twice a day Start: 06-08-2021 End: 09-16-2021 Pen Needle, Diabetic Discont inued 1 EACH MC TWICE A DAY June 08, 2021 10:18am September 16, 2021 9:38am use with insulin twice a day Start: 11-18-2020 End: 06-08-2021 Pen Needle, Diabetic Discont inued 1 EACH MC TWICE A DAY November 18, 2020 12:02pm June 08, 2021 10:18am use with insulin twice a day Start: 06-24-2020 End: 11-18-2020 Pen Needle, Diabetic Discont inued 1 EACH MC TWICE A DAY June 24, 2020 12:27pm November 18, 2020 12:02pm use with insulin twice a day Start: 06-08-2020 End: 06-24-2020 Pen Needle, Diabetic Discont inued 1 EACH MC TWICE A DAY June 08, 2020 12:00am June 24, 2020 12:27pm use with insulin twice a day predniSONE 50 mg oral tablet (6 sources) Start: 10-15-2024 End: 10-20-2024 predniSONE 50 mg oral tablet Dose : 50 mg = 1 tab(s), Oral, qDay, Take with food, X 5 day(s), # 5 tab(s), 0 Refill(s), 10/20/24 7:00:00 AM EDT Start Date: 10/15/24 Stop Date: 10/20/24 Status: Ordered Medication Dispense Status: Completed Quantity: 5.0 Unit: tab(s) Total Allowed Fills: 1 Fills Dispensed: 0 Start: 01-02-2018 End: 11-19-2018 take 1 tablet by mouth once daily Prednisone 20 mg tablet Discontinued 20 mg PO DAILY January 02, 2018 12:00am November 19, 2018 10:35am Symbicort 160 mcg-4.5 mcg/inh Inhaler (1 source) Start: 09-26-2024 End: 03-20-2026 take 1 dose by inhalation twice daily Symbicort 160 mcg-4.5 mcg/inh Inhaler Dose = 2 puff(s), Inhalation, BID, # 10.3 gram(s), 5 Refill(s), Pharmacy: [facility] [place], 188, cm, 09/23/24 7:07:00 EDT, Height, kg, 09/23/24 7:07:00 EDT, Dosing Weight Start Date: 09/26/24 Stop Date: 03/20/26 Status: Ordered Medication Dispense Status: Completed Quantity: 10.3 Unit: g Total Allowed Fills: 6 Fills Dispensed: 0 traMADol hydrochloride 50 mg oral tablet (3 sources) Opioid Agonist Start: 07-28-2022 take 1 tablet by mouth every twelve hours as needed for pain Trelegy Ellipta 100 mcg-62.5 mcg-25 mcg/inh inhalation powder (5 sources) Start: 09-25-2024 take 1 dose by inhalation once daily Trelegy Ellipta 100 mcg-62.5 mcg-25 mcg/inh inhalation powder Dose = 1 puff(s), Inhalation, qDay, at the same time every day, # 1 EA, 5 Refill(s), Pharmacy: [facility] [place], COPD without exacerbation, 188, cm, 09/23/24 7:07:00 EDT, Height, kg, 09/23/24 7:07:00 EDT, Dosing Weight Start Date: 09/25/24 Status: Ordered Medication Dispense Status: Completed Quantity: 1.0 Unit: EA Total Allowed Fills: 6 Fills Dispensed: 0 Indications: Chronic obstructive pulmonary disease, unspecified; Start: 09-23-2024 take 1 dose by inhal ation once daily Trelegy Ellipta 100 mcg-62.5 mcg-25 mcg/inh inhalation powder Dose = 1 puff(s), Inhalation, qDay, at the same time every day, # 1 EA, 5 Refill(s), Pharmacy: [facility] [place], COPD without exacerbation, 188, cm, 09/23/24 7:07:00 EDT, Height, kg, 09/23/24 7:07:00 EDT, Dosing Weight Start Date: 09/23/24 Status: Ordered Quantity: 1.0 Unit: EA Repeat number: 6 Indications: Chronic obstructive pulmonary disease, unspecified; Start: 05-06-2024 take 1 dose by inhal ation once daily Trelegy Ellipta 100 mcg-62.5 mcg-25 mcg/inh inhalation powder Dose = 1 puff(s), Inhalation, qDay, at the same time every day, # 1 EA, 5 Refill(s), Pharmacy: [facility], COPD without exacerbation, 190, cm, 05/06/24 10:11:00 EST, Height, kg, 05/06/24 10:11:00 EST, Dosing Weight Start Date: 05/06/24 Status: Ordered Quantity: 1.0 Unit: EA Repeat number: 6 Indications: Chronic obstructive pulmonary disease, unspecified; Start: 02-26-2024 take 1 dose by inhal ation once daily Trelegy Ellipta 100 mcg-62.5 mcg-25 mcg/inh inhalation powder Dose = 1 puff(s), Inhalation, qDay, at the same time every day, # 1 EA, 5 Refill(s), Pharmacy: [facility], COPD without exacerbation, 192.7, cm, 02/26/24 9:56:00 EST, Height, kg, 02/26/24 9:56:00 EST, Dosing Weight Start Date: 02/26/24 Status: Ordered Quantity: 1.0 Unit: EA Repeat number: 6 Indication: Chronic obstructive pulmonary disease, unspecified Zinc (5 sources) Start: 02-26-2024 Zinc 0 Refill( s) Start Date: 02/26/24 Status: Ordered Medication Dispense Status: Completed Total Allowed Fills: 1 Fills Dispensed: 0 Start: 02-26-2024 Zinc 0 Refill( s) Start Date: 02/26/24 Status: Ordered Repeat number: 1 Completed/Discontinued Medications Medication Drug Class(es) Dates Sig (Normalized) Sig (Original) acetaminophen 325 mg / HYDROcodone bitartrate 5 mg oral tablet (5 sources) Opioid Agonist Start: 01-02-2018 End: 02-21-2018 Hydrocodone-Acetami nophen 5-325 mg tablet Discontinued 1 {tbl} PO Q4H 0 January 02, 2018 12:00am February 21, 2018 11:05am Start: 01-02-2018 End: 02-21-2018 take 1 tablet by mouth every four hours Hydrocodone-Acetaminophen Discontinued 1 TABLET PO Q4H January 02, 2018 12:00am February 21, 2018 11:05am amoxicillin 875 mg oral tablet (5 sources) Penicillin-class Antibacterial Start: 01-02-2018 End: 02-21-2018 take 1 tablet by mouth twice daily Amoxicillin 875 mg tablet Discontinued 875 mg PO TWICE A DAY January 02, 2018 12:00am February 21, 2018 11:04am Blood-Glucose Meter (3 sources) Start: 05-08-2020 End: 06-24-2020 Blood-Glucose Meter Discontinued 0 .ROUTE .MEDSUPPLY 1 May 08, 2020 1:00am June 24, 2020 9:06am Check blood glucose daily for type 2 diabetes mellitus Blood-Glucose Meter (Freestyle Lite Meter) kit (5 sources) Start: 04-28-2020 End: 06-24-2020 Blood-Glucose Meter (Freestyle Lite Meter) kit Discontinued 0 .MEDSUPPLY 1 0 April 28, 2020 1:00am June 24, 2020 9:06am Type 2 diabetes mellitus with hyperglycemia As directed, check blood glucose daily for type 2 DM Start: 04-28-2020 End: 06-24-2020 Blood-Glucose Meter (Freesty le Lite Meter) kit Discontinued 0 .MEDSUPPLY 1 April 28, 2020 1:00am June 24, 2020 9:06am As directed, check blood glucose daily for type 2 DM Blood-Glucose Meter kit (2 sources) Start: 05-08-2020 End: 06-24-2020 Blood-Glucose Meter kit Discontinued 0 .ROUTE .MEDSUPPLY 1 0 May 08, 2020 1:00am June 24, 2020 9:06am Type 2 diabetes mellitus without complications Check blood glucose daily for type 2 diabetes mellitus cephalexin 500 mg oral tablet (5 sources) Cephalosporin Antibacterial Start: 09-21-2020 End: 12-15-2020 take 1 tablet by mouth three times daily Cephalexin 500 mg tablet Discontinued 500 mg PO THREE TIMES A DAY 21 September 21, 2020 12:00am December 15, 2020 9:57am doxycycline hyclate 100 mg oral tablet (5 sources) Tetracycline-class Drug Start: 09-21-2020 End: 12-15-2020 take 1 tablet by mouth twice daily Doxycycline Hyclate 100 mg tablet Discontinued 100 mg PO TWICE A DAY 14 September 21, 2020 12:00am December 15, 2020 9:57am 0.5 ml dulaglutide 3 mg/ml auto-injector (20 sources) GLP-1 Receptor Agonist Start: 07-31-2024 inject 0.5 mL by subcutaneous injection every week Trulicity Pen 1.5 mg/0.5 mL subcutaneous solution Dose : 1.5 mg = 0.5 mL, Subcutaneous, qWeek, rotate injection sites, # 2 mL, 5 Refill(s), Pharmacy: [facility], Type 2 diabetes mellitus, 188, cm, 07/31/24 14:53:00 EDT, Height, kg, 07/31/24 14:53:00 EDT, Dosing Weight Start Date: 07/31/24 Status: Ordered Medication Dispense Status: Completed Quantity: 2.0 Unit: mL Total Allowed Fills: 6 Fills Dispensed: 0 Indications: Type 2 diabetes mellitus without complications; Start: 05-22-2024 inject 0.5 mL by sub cutaneous injection every week Trulicity Pen 0.75 mg/0.5 mL subcutaneous solution Dose : 0.75 mg = 0.5 mL, Subcutaneous, qWeek, # 2 mL, 2 Refill(s), 0.5 mL/Pen, Pharmacy: [facility] [place], 188, cm, 07/31/24 14:53:00 EDT, Height, kg, 07/31/24 14:53:00 EDT, Dosing Weight Start Date: 07/31/24 Status: Ordered Medication Dispense Status: Completed Quantity: 2.0 Unit: mL Total Allowed Fills: 3 Fills Dispensed: 0 Start: 02-24-2022 End: 08-19-2022 Start: 12-15-2020 End: 02-24-2022 Dulaglutide 0.75 mg/0.5 mL p en injector Discontinued 0.75 mg SC EVERY WEEK 2 October 08, 2021 2:51pm February 24, 2022 12:13pm Start: 06-24-2020 End: 12-15-2020 Dulaglutide (Trulicity) 1.5 mg/0.5 mL pen injector Discontinued 1.5 mg SC EVERY WEEK 2 October 22, 2020 1:17pm December 15, 2020 10:26am fluconazole 100 mg oral tablet (5 sources) Azole Antifungal Start: 06-08-2020 End: 07-21-2020 take 1 tablet by mouth once daily Fluconazole 100 MG tablet Discontinued 100 mg PO DAILY 7 0 June 08, 2020 12:00am July 21, 2020 2:24pm gabapentin 300 mg oral capsule (5 sources) Anti-epileptic Agent Start: 01-02-2018 End: 09-24-2019 take 1 capsule by mouth three times daily Gabapentin 300 mg capsule Discontinued 300 mg PO THREE TIMES A DAY January 02, 2018 12:00am September 24, 2019 1:38pm glimepiride 2 mg oral tablet (10 sources) Sulfonylurea Start: 06-24-2020 End: 03-16-2021 take 1 tablet by mouth once daily Glimepiride 2 mg tablet Discontinued 2 mg PO DAILY 60 1 October 12, 2020 10:55am March 16, 2021 11:14am 3 ml insulin glargine 100 unt/ml pen injector (20 sources) Insulin Analog Start: 08-04-2022 End: 09-04-2024 Insulin Glargine (Lantus Solostar U-100 Insulin) 100 unit/mL (3 mL) insulin pen Discontinued 0 .ROUTE .COMPLEX 12 0 August 04, 2022 11:28am September 04, 2024 11:07am inject 15 units subcutaneously once daily Start: 02-24-2022 End: 08-04-2022 Insulin Glargine 100 unit/mL (3 mL) insulin pen Discontinued 15 U SC DAILY 13.5 90 1 February 24, 2022 12:12pm August 04, 2022 11:28am Start: 12-21-2021 End: 02-24-2022 Insulin Glargine 100 unit/mL (3 mL) insulin pen Discontinued 15 U SC TWICE DAILY WITH MEALS 27 90 1 December 21, 2021 10:55am February 24, 2022 12:13pm Start: 12-21-2021 End: 12-21-2021 Insulin Glargine 100 unit/mL (3 mL) insulin pen Discontinued 18 U SC TWICE DAILY WITH MEALS December 21, 2021 10:42am December 21, 2021 10:56am Start: 06-08-2020 End: 07-01-2020 Insulin Glargine 100 UNITS/M L insulin pen Discontinued 20 U SC TWICE DAILY WITH MEALS 5 0 June 08, 2020 12:00am July 01, 2020 12:45pm start on 06/09/20 Start: 06-08-2020 End: 12-21-2021 Insulin Glargine 100 unit/mL (3 mL) insulin pen Discontinued 20 U SC TWICE DAILY WITH MEALS 36 90 3 December 02, 2021 12:08pm December 21, 2021 10:42am losartan potassium 50 mg oral tablet (20 sources) Angiotensin 2 Receptor Nicholas Start: 09-25-2019 End: 01-27-2025 take 1 tablet by mouth once daily Losartan 50 mg tablet Discontinued 0 .ROUTE .COMPLEX 90 1 August 31, 2021 5:57pm February 22, 2022 12:18pm take 1 tablet by mouth once daily Melox/Doxepin/[place] nta/Dextro/Lid (5 sources) Start: 02-28-2018 End: 11-07-2018 Melox/Doxepin/Amant a/Dextro/Lid Discontinued TD 0 February 28, 2018 1:00am November 07, 2018 5:51pm Start: 02-28-2018 End: 11-07-2018 Melox/Doxepin/Amanta/Dextro/ Lid Discontinued TD February 28, 2018 1:00am November 07, 2018 5:51pm Meloxicam 0.5%/Doxepin 3%/Amantadine 3%/ Dextromethorphan 2%/Lidocaine 2% (5 sources) Start: 11-07-2018 End: 09-24-2019 Meloxicam 0.5%/Doxepin 3%/Amantadine 3%/ Dextromethorphan 2%/Lidocaine 2% Discontinued TOPICAL 0 November 07, 2018 12:00am September 24, 2019 1:38pm Start: 11-07-2018 End: 09-24-2019 Meloxicam 0.5%/Doxepin 3%/Am antadine 3%/ Dextromethorphan 2%/Lidocaine 2% Discontinued TOPICAL November 07, 2018 12:00am September 24, 2019 1:38pm metFORMIN hydrochloride 1000 mg oral tablet (20 sources) Biguanide Start: 06-08-2020 End: 01-27-2025 take 1 tablet by mouth twice daily Metformin 1,000 mg tablet Discontinued 1000 mg PO TWICE A DAY 180 3 July 12, 2021 9:35am August 15, 2022 9:28am Start: 04-28-2020 End: 06-08-2020 take 1 tablet by mouth twice daily Metformin 750 mg tablet extended release 24 hr Discontinued 750 mg PO TWICE A DAY 180 April 28, 2020 10:43am June 08, 2020 1:17pm Start: 04-03-2020 End: 04-28-2020 take 1 tablet by mouth twice daily Metformin 500 mg tablet extended release 24 hr Discontinued 500 mg PO TWICE A DAY 180 April 03, 2020 1:00am April 28, 2020 10:44am take 1 tablet by oleksandr th twice daily at mealtime metFORMIN (GLUCOPHAGE) 500 MG tablet Indications: DM Take 500 mg by mouth 2 times daily (with meals) Indications: DM 0 Active nystatin 347909 unt/ml / triamcinolone acetonide 1 mg/ml topical cream (10 sources) Polyene Antifungal, Corticosteroid Start: 06-08-2020 End: 07-21-2020 Nystatin-Triamcinolone 100,000-0.1 unit/g-% cream Discontinued 1 NMA TOPICAL TWICE A DAY 30 0 June 24, 2020 12:26pm July 21, 2020 2:26pm apply to scrotal areas twice a day for one week Please contact the information source for Protocol details. Start: 06-08-2020 End: 07-21-2020 Nystatin-Triamcinolone Disco ntinued 1 APPLIC TOPICAL TWICE A DAY June 24, 2020 12:26pm July 21, 2020 2:26pm apply to scrotal areas twice a day for one week omeprazole 20 mg delayed release oral capsule (20 sources) Proton Pump Inhibitor Start: 04-25-2017 End: 01-27-2025 take 1 capsule by mouth once daily Omeprazole 20 mg capsule,delayed release(DR/EC) Discontinued 20 mg PO DAILY 90 3 June 08, 2021 10:19am August 04, 2022 11:28am take 20 mg by mouth once daily O MEPRAZOLE PO Take 20 mg by mouth daily GERD- whole in stomach 0 Active Pen Needle, Diabetic 1 EACH needle (2 sources) Start: 06-08-2020 End: 06-24-2020 Pen Needle, Diabetic 1 EACH needle Discontinued 1 NMA MC TWICE A DAY 100 0 June 08, 2020 12:00am June 24, 2020 12:27pm use with insulin twice a day QUEtiapine 50 mg oral tablet (5 sources) Atypical Antipsychotic Start: 01-02-2018 End: 11-19-2018 take 1 tablet by mouth twice daily Quetiapine 50 mg tablet Discontinued 50 mg PO TWICE A DAY January 02, 2018 12:00am November 19, 2018 10:35am rosuvastatin calcium 20 mg oral tablet (20 sources) HMG-CoA Reductase Inhibitor Start: 04-03-2020 End: 01-27-2025 take 1 tablet by mouth once daily Rosuvastatin 20 mg tablet Discontinued 20 mg PO DAILY 90 October 01, 2020 10:17am September 16, 2021 10:03am simvastatin 40 mg oral tablet (8 sources) HMG-CoA Reductase Inhibitor Start: 11-19-2018 End: 09-22-2020 take 1 tablet by mouth at bedtime Simvastatin 40 mg tablet Discontinued 40 mg PO AT BEDTIME November 19, 2018 12:00am April 03, 2020 11:14am tamsulosin hydrochloride 0.4 mg oral capsule (12 sources) alpha-Adrenergic Nicholas Start: 07-01-2019 End: 10-01-2020 take 1 capsule by mouth at bedtime Tamsulosin (Flomax) 0.4 mg capsule Discontinued 0.4 mg PO AT BEDTIME 90 April 02, 2020 1:00am October 01, 2020 10:17am Tirzepatide (2 sources) Start: 07-28-2022 End: 08-19-2022 Tirzepatide (Mounjaro) 5 mg/0.5 mL pen injector Discontinued 5 mg SC EVERY WEEK 2 July 28, 2022 4:13pm August 19, 2022 3:54pm Type 2 diabetes mellitus Type 2 diabetes mellitus without complications Start: 07-01-2022 End: 07-28-2022 Tirzepatide (Mounjaro) 5 mg/ 0.5 mL pen injector Discontinued 5 mg SC EVERY WEEK 2 July 01, 2022 12:00am July 28, 2022 4:16pm Type 2 diabetes mellitus Type 2 diabetes mellitus without complications Tirzepatide (Mounjaro) 5 mg/ 0.5 mL pen injector (4 sources) Start: 07-28-2022 End: 08-19-2022 Tirzepatide (Mounjaro) 5 mg/ 0.5 mL pen injector Discontinued 5 mg SC EVERY WEEK 2 1 July 28, 2022 4:13pm August 19, 2022 3:54pm Type 2 diabetes mellitus Type 2 diabetes mellitus without complications Start: 07-28-2022 End: 08-19-2022 Tirzepatide (Mounjaro) 5 mg/ 0.5 mL pen injector Discontinued 5 MG SC EVERY WEEK 2 July 28, 2022 4:13pm August 19, 2022 3:54pm Start: 07-01-2022 End: 07-28-2022 Tirzepatide (Mounjaro) 5 mg/ 0.5 mL pen injector Discontinued 5 mg SC EVERY WEEK 2 July 01, 2022 12:00am July 28, 2022 4:16pm Type 2 diabetes mellitus Type 2 diabetes mellitus without complications Start: 07-01-2022 End: 07-28-2022 Tirzepatide (Mounjaro) 5 mg/ 0.5 mL pen injector Discontinued 5 MG SC EVERY WEEK 2 July 01, 2022 12:00am July 28, 2022 4:16pm traZODone hydrochloride 100 mg oral tablet (7 sources) Serotonin Reuptake Inhibitor Start: 09-24-2019 End: 09-04-2024 take 3 tablets by mouth once daily as needed Trazodone 100 mg tablet Discontinued 300 mg PO DAILY as needed for Insomnia September 24, 2019 12:00am September 04, 2024 11:08am Start: 09-24-2019 take 300 mg by mouth once linda y Trazodone Active 300 MG PO DAILY September 24, 2019 12:00am take 1 tablet by oleksandr th once daily traZODone (DESYREL) 100 MG tablet Take 100 mg by mouth nightly 0 Active varenicline 1 mg oral tablet (20 sources) Partial Cholinergic Nicotinic Agonist Start: 04-02-2020 End: 06-24-2020 take 1 tablet by mouth once Varenicline Tartrate (Chantix Starting Month Box) 0.5 mg (11)- 1 mg (42) tablets,dose pack Discontinued 0 PO per package directions 53 0 April 02, 2020 1:00am June 24, 2020 8:48am PO PER PKG DIR Start: 10-21-2019 End: 11-19-2019 take 1 tablet by mouth twice daily, then take 1 tablet by mouth once Varenicline Tartrate (Chantix Continuing Month Box) 1 mg tablet Discontinued 1 mg PO TWICE A DAY 56 October 21, 2019 12:00am November 19, 2019 9:09am Start: 09-25-2019 End: 11-19-2019 take 1 tablet by mouth once Varenicline Tartrate (Pettit tix Starting Month Box) 0.5 mg (11)- 1 mg (42) tablets,dose pack Discontinued 0 PO per package directions 53 September 25, 2019 12:47pm November 19, 2019 9:09am PO PER PKG DIR Problems Active Problems Problem Classification Problem Date Documented Da te Episodic/Chronic Alcohol-related disorders (5 sources) Alcohol abuse; Translations: [Alcohol abuse, uncomplicated] 06-07-2020 Chronic Anxiety disorders (17 sources) Anxiety; Translations: [Anxiety disorder, unspecified] Chronic Attention-deficit, conduct, and disruptive behavior disorders (5 sources) Attention deficit hyperactivity disorder; Translations: [Attention-deficit hyperactivity disorder, unspecified type] 06-07-2020 Chronic Chronic obstructive pulmonary disease and bronchiectasis (15 sources) Chronic obstructive lung disease; Translations: [Chronic obstructive pulmonary disease, unspecified] Onset: 07-28-2022 Chronic Diabetes mellitus without complication (15 sources) Type 2 diabetes mellitus; Translations: [Type 2 diabetes mellitus without complications] Chronic Disorders of lipid metabolism (19 sources) Hypercholesterolemia; Translations: [Pure hypercholesterolemia, unspecified] 12-18-2019 Chronic Disorders usually diagnosed in infancy, childhood, or adolescence (5 sources) Attention deficit hyperactivity disorder, predominantly inattentive type; Translations: [Other specified behavioral and emotional disorders with onset usually occurring in childhood and adolescence] 06-07-2020 Chronic Diverticulosis and diverticulitis (10 sources) Diverticula of intestine; Translations: [Diverticulosis of intestine, part unspecified, without perforation or abscess without bleeding] 01-02-2018 Chronic Esophageal disorders (8 sources) Gastroesophageal reflux disease; Translations: [GERD (gastroesophageal reflux disease)] 12-18-2019 Chronic Essential hypertension (20 sources) Hypertensive disorder; Translations: [Essential (primary) hypertension] Chronic Gastroduodenal ulcer (except hemorrhage) (5 sources) Ulcer of duodenum; Translations: [Duodenal ulcer, unspecified as acute or chronic, without hemorrhage or perforation] 04-25-2017 Chronic Hyperplasia of prostate (1 source) Benign prostatic hyperplasia with lower urinary tract symptoms; Translations: [BPH with obstruction/lower urinary tract symptoms] Onset: 5 Chronic Mood disorders (12 sources) Bipolar disorder; Translations: [Bipolar I disorder] Onset: 8 01-24-2020 Chronic Osteoarthritis (12 sources) Osteoarthritis; Translations: [Arthritis] Onset: 0 01-24-2020 Chronic Osteoarthritis (2 sources) Osteoarthritis of left knee joint; Translations: [Unilateral primary osteoarthritis, left knee] Onset: 9 01-24-2020 Other circulatory disease (5 sources) Vascular disorder; Translations: [Unspecified disorder of circulatory system] 06-07-2020 Episodic Other diseases of kidney and ureters (1 source) Other obstructive and reflux uropathy; Translations: [BPH with obstruction/lower urinary tract symptoms] Onset: 5 Episodic Other endocrine disorders (5 sources) Disorder of adrenal gland; Translations: [Disorder of adrenal gland, unspecified] 06-07-2020 Chronic Other injuries and conditions due to external causes (1 source) Injury of head; Translations: [Unspecified injury of head, initial encounter] Onset: 4 Episodic Other lower respiratory disease (5 sources) Dyspnea; Translations: [Shortness of breath] 04-28-2020 Episodic Other nervous system disorders (1 source) Other chronic pain Onset: 8 Chronic Other non-traumatic joint disorders (9 sources) Pain in unspecified knee; Translations: [Chronic knee pain] 03-16-2021 Episodic Other non-traumatic joint disorders (6 sources) Knee pain 09-22-2016 Episodic Other non-traumatic joint disorders (1 source) Pain in left knee; Translations: [Left knee pain] 01-02-2018 Episodic Other non-traumatic joint disorders (2 sources) Pain in left knee; Translations: [Pain in left knee] Onset: 8 01-24-2020 Other nutritional; endocrine; and metabolic disorders (3 sources) Morbid obesity; Translations: [Morbid obesity due to excess calories] 12-16-2019 Chronic Other nutritional; endocrine; and metabolic disorders (3 sources) Severe obesity; Translations: [Class 3 severe obesity due to excess calories without serious comorbidity with body mass index (BMI) of 40.0 to 44.9 in adult] Onset: 0 12-18-2019 Chronic Other nutritional; endocrine; and metabolic disorders (5 sources) Body mass index 30+ - obesity 02-26-2024 Chronic Other screening for suspected conditions (not mental disorders or infectious disease) (5 sources) Patient encounter status; Translations: [Encounter for screening for malignant neoplasm of colon] 04-25-2017 Episodic Phlebitis; thrombophlebitis and thromboembolism (5 sources) Venous thrombosis; Translations: [Acute embolism and thrombosis of unspecified vein] 06-07-2020 Episodic Pleurisy; pneumothorax; pulmonary collapse (6 sources) Pneumothorax 09-22-2016 Episodic Residual codes; unclassified (2 sources) Other general symptoms and signs; Translations: [Other general symptoms and signs] Onset: 9 Episodic Residual codes; unclassified (1 source) Tobacco use; Translations: [Tobacco use disorder] 02-24-2022 Episodic Screening and history of mental health and substance abuse codes (4 sources) Ex-smoker 05-06-2024 Episodic Skin and subcutaneous tissue infections (5 sources) Abscess; Translations: [Cutaneous abscess, unspecified] 09-21-2020 Episodic Skull and face fractures (3 sources) Closed fracture of orbital floor; Translations: [Fracture of orbital floor, left side, initial encounter for closed fracture] Onset: 4 Episodic Spondylosis; intervertebral disc disorders; other back problems (9 sources) Dorsalgia, unspecified; Translations: [Low back pain] Onset: 8 12-18-2019 Episodic Sprains and strains (1 source) Sprain of right ankle; Translations: [Sprain of unspecified ligament of right ankle, initial encounter] Onset: 4 Episodic Substance-related disorders (6 sources) Nicotine dependence, unspecified, uncomplicated; Translations: [Nicotine dependence] Onset: 8 01-24-2020 Chronic Unclassified (1 source) Unknown / UNK(Unknown) Onset: 7 Unclassified (3 sources) Unilateral primary osteoarthritis, left knee; Translations: [Unilateral primary osteoarthritis, left knee] Onset: 9 Unclassified (2 sources) Effusion, left knee; Translations: [Effusion, left knee] Onset: 8 Unclassified (1 source) Oth tear of medial meniscus, current injury, r knee, init Onset: 9 Unclassified (1 source) Varus deformity, not elsewhere classified, left knee Onset: 8 Unclassified (3 sources) Pain in left knee; Translations: [Pain in left knee] Onset: 8 Unclassified (14 sources) Patient encounter status 02-26-2024 Past or Other Problems Problem Classification Problem Date Documented Date Episodic/Chronic Joint disorders and dislocations; trauma-related (3 sources) Other tear of medial meniscus, current injury, left knee, sequela; Translations: [Tear of medial meniscus of knee] Onset: 04-07-2017 01-24-2020 Episodic Other aftercare (1 source) assisted (current) use of aspirin Onset: 08-01-2017 Episodic Other injuries and conditions due to external causes (1 source) Personal history of other (healed) physical injury and trauma Onset: 02-13-2018 Episodic Other nervous system disorders (1 source) Other acute postprocedural pain Onset: 08-01-2017 Episodic Residual codes; unclassified (2 sources) Insomnia; Translations: [Insomnia] Onset: 01-24-2020 01-24-2020 Episodic Unclassified (1 source) LEFT KNEE PROBLEMS/CAR Onset: 12-18-2016 Unclassified (5 sources) [facility] 10-04-2021 Comment on above: 11/26/2015 Unclassified (5 sources) ligation of intershincteric tract 10-04-2021 Results Test Name Value Interpretation Reference Range Facility [facility] 12-30-2024 CNOV Office Visit (GRAY ) MARLINE KHAN ([id number]) 1965 M Date Time Provider Department 12/30/24 1:45 PM ANNIE LEWIS During your visit today, we recorded the following information about you: Weight Height 131.5 kg 1.905 m Annie Lewis MD 12/30/2024 1:37 PM Signed Marline Khan is a 59 year old male who presents with follow-up he has a lot of the frequency and urgency to go every 10 minutes sometimes 5 times at night says the flow is good he has no incontinence his glucose is over thousand there is no blood in his urine no white cells. Prostate is pretty small 10 g we will go ahead and get a PSA free PSA last when I see was in 2019 he was 0.51 we will also do a flow test then decide he may need a cystoscopy etc. Review of Systems- Reviewed and otherwise non-contributory. Ht 190.5 cm (6' 3) Wt 131.5 kg (290 lb) BMI 36.25 kg/m? PAST MEDICAL HISTORY Diagnosis Date Abnormal foot finding Podiatry Bipolar disorder (HCC) [facility] Cyst of skin Sebaceous, hx/infection Diverticulitis Duodenal ulcer Dr. 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 Salmeron (Neurology) Tobacco use Varicose veins Dr. Ferreira (Vasc Surgeon-[facility]) PAST SURGICAL HISTORY Procedure Laterality Date PAST SURGICAL HISTORY OF 1998 metal plate chin PAST SURGICAL HISTORY OF 1997 pilonidal cyst PAST SURGICAL HISTORY OF 2013 right cheek cystic mass excision PAST SURGICAL HISTORY OF 07/2013 fistulomoty for perirectal fistula PAST SURGICAL HISTORY OF 04/07/2017 left knee arthroscopy, medial menisectomy and chondroplasty TONSILLECTOMY HX Current Outpatient Medications Medication Sig Dispense Refill simvastatin (ZOCOR) 40 mg tablet Take 1 tablet by mouth daily at bedtime. For cholesterols. 90 tablet 3 omeprazole (PRILOSEC) 20 mg capsule Take 1 capsule by mouth once daily. 30 capsule 11 tamsulosin ER (FLOMAX) 0.4 mg Take 1 capsule by mouth daily at bedtime. 30 capsule 5 ferrous sulfate (IRON) 325 mg (65 mg iron) tablet Take 325 mg by mouth daily with breakfast. cholecalciferol (VITAMIN D-3) 2,000 unit tablet Take 2,000 Units by mouth once daily. OTC NUTRITIONAL SUPPLEMENT White kidney palacios OTC NUTRITIONAL SUPPLEMENT Bladder formula COMPOUNDED PRESCRIPTION Regamol 500mg Take 1 tablet once daily. 1 Each 0 ARIPiprazole (ABILIFY) 5 mg tablet Take 1 tablet by mouth once daily. albuterol HFA (VENTOLIN HFA) 90 mcg/actuation inhaler Inhale 2 Puffs as instructed every 4 hours as needed. 1 Inhaler 1 traZODone (DESYREL) 100 mg tablet Take 100 mg by mouth daily at bedtime. DULoxetine (CYMBALTA) 30 mg capsule Take 30 mg by mouth once daily. c.vinegr/ap.pect/gymn/B6/min32 (APPLE CIDER VINEGAR DIET ORAL) Take 1 capsule by mouth once daily. cyanocobalamin, vitamin B-12, (VITAMIN B12 ORAL) Take 1 capsule by mouth once daily. qivzwgld-kyl-FM-lycopen-lutein (CENTRUM SILVER MEN) 300-600-300 mcg tab Take 1 tablet by mouth once daily. aspirin, enteric coated (ASPIRIN, ENTERIC COATED) 81 mg EC tablet Take 81 mg by mouth once daily. acetaminophen (TYLENOL) 325 mg cap Take by mouth. No current facility-administered medications for this visit. 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 Annie Lewis MD This note was generated with voice recognition software and may contain errors, including spelling, grammar, syntax and misrecognition of what was dictated, that are not fully corrected. Allergies As of Date: 12/30/2024 Noted Allergy Reaction SEROQUEL (QUETIAPINE FUMARATE) 12/15/2017 14 - Other: See Comments Comments: Drowsy Date Reviewed: 12/30/2024 Reviewed by: Tana Ramires LPN - Fully Assessed Reason for Visit: Urinary Frequency [1086] Primary Visit Diagnosis:BPH with obstruction/lower urinary tract symptoms [N40.1, N13.8] Order(s):UA DIP, URINE (POC) [5597004] Order #: [id number]. #:[id number] SPECIFIC ANTIGEN, FREE AND TOTAL [SQPSATF] Order #: [id number] FUTURE Prescriptions as of 12/30/2024 - simvastatin (ZOCOR) 40 mg tablet Take 1 tablet by mouth daily at bedtime. For cholesterols. - omeprazole (PRILOSEC) 20 mg capsule Take 1 capsule by mouth once daily. - tamsulosin ER (FLOMAX) 0.4 mg Take 1 capsule by mouth daily at bedtime. - ferrous sulfate (IRON) 325 mg (65 mg iron) tablet Take 325 mg by mouth daily with breakfast. - cholecalciferol (VITAMIN D-3) 2,000 unit tablet Take 2,000 Units by mouth once daily. - OTC NUTRITIONAL SUPPLEMENT White kidney palacios - OTC NUTRITIONAL SUPPLEMENT Bladder formula - (more content not included)... [facility] XR CHEST 1 VIEWon 10-14-2024 XR CHEST 1 VIEW ORIGINAL EXAMINATION: ONE XRAY VIEW OF THE CHEST 10/14/2024 10:58 am COMPARISON: None. HISTORY: ORDERING SYSTEM PROVIDED HISTORY: Reason for Exam: coug, sob FINDINGS: The heart is normal in size and there is no vascular congestion present. No infiltrate or pleural fluid seen. No acute osseous finding. IMPRESSION: No acute process. Interpreted by: Nicky Sutton MD Preliminary Report By: Nicky Sutton MD Electronically signed By Nicky Sutton MD Dictated Date: 10/14/2024 11:21:37 AM Prelim Date: 10/14/2024 11:22:24 AM Sign Date: 10/14/2024 11:22:24 AM Ordering Provider: JANNET MEHTA [facility] Pulmonary Visit Reporton Pulmonary Visit Report [facility] of [address] [place] [address] OFFICE VISIT Date of Service: 09/04/24 MR#: [id number] Acct: [id number] Name: MARLINE KHAN Rep #: [id number] : 1965 Provider: Dr. Juliocesar Quinones DO Age/Sex: 59/M Location: [facility] [place].PMW Status: Signed Assessment and Plan Assessment and Plan (1) COPD (chronic obstructive pulmonary disease): Status: Chronic Plan: The patient did have pulmonary function studies in June 2022 which demonstrated a partially reversible moderate large airways obstructive ventilatory defect. The patient has smoked cigarettes since that time, indicating that he quit completely 1 month ago. At this time, recommend obtaining follow-up PFTs along with a 6-minute walk test. However, the patient is already on a triple therapy inhaler regimen, which will be continued without change. He will be provided with an albuterol rescue inhaler to be utilized every 4 hours as needed for additional symptom relief. (2) Nicotine dependence in remission: Status: Chronic Plan: Ongoing tobacco cessation is strongly recommended. The patient indicated that he had a recent CAT scan of his chest completed at [facility] within the last 1 month, which apparently demo nstrated a small 3 to 4 mm nodule. That imaging study was never forwarded to our office. Therefore, we will reach out to obtain the outside imaging study, which will be reviewed at his follow-up visit. Regardless, the patient is a candidate for yearly low-dose CT imaging of the chest. Orders: Orders Simple Pulmonary Exercise Test 09/17/24 J44.9 - Chronic obstructive pulmonary disease, unspecified PFT Complete - DLCO, Spirometry b/a bronchodilators, lung volumes 09/11/24 J44.9 - Chronic obstructive pulmonary disease, unspecified Medications: New albuterol sulfate 90 mcg/actuation administer with spacer 2 puffs inhalation Q4H PRN 8.5 grams 3RF shortness of breath or wheezing HPI HPI Comments Details: The patient is a 59-year-old male who presents to the clinic today in referral for the evaluation of COPD. The patient has an approximate [id number]-yews smoking history, but indicated that he quit completely approximately 1 month ago. In addition, the patient readily admitted that he was vaping as well for the last 2 to 3 years, in addition to smoking combustible cigarettes. The patient did not grow up in a smoking household. He does report the presence of exertional shortness of breath, but denies any chest tightness, wheezing or cough. 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 He does not currently keep any animals as pets in his home environment. Pulmonary function studies completed in June 2022 demonstrated the presence of a partially reversible moderate large airways obstructive ventilatory defect. Accordingly, the patient is currently being maintained on Trelegy Ellipta. He does not have access to an albuterol rescue inhaler. He indicated that his PCP recently completed a CT scan of his chest through [facility], which apparently demonstrated a small, 3 to 4 mm nodule. However, that imaging study was never forwarded to our office for review. Intake Vital Signs 09/13/22 14:46 09/04/24 06:56 Height 6 ft 4 in 6 ft 4 in Weight: 298 lb BMI 36.2 BP 145/72 H Blood Pressure Location Lt brachial Position Sitting Respiration 18 Pulse 90 Pulse Source Monitor Temp 97.4 F L Temperature Source Temporal Artery Pulse Oximetry (%) 95 Oxygen Delivery Method room air Intake Visit Reasons: COPD Chief Complaint: bilateral knees Cost Recovery Technician Required: No Accompanied by: Self Allergies No Known Allergies Allergy (Verified 07/28/22 15:36) Medications ???Medication ???Instructions ???Recorded ???Confirmed ???Type aspirin 81 mg tablet,delayed 81 mg PO QDAY 08/22/17 09/04/24 Hi story release (Yohan Low Dose Aspirin) acetaminophen 325 mg capsule 325 mg PO Q6H 11/19/18 09/04/24 Hi story cholecalciferol (vitamin D3) 50 2,000 unit PO DAILY 11/19/1809/04 History mcg (2,000 unit) capsule multivitamin 1 cap PO DAILY 11/19/18 09/04/24 H istory aripiprazole 5 mg tablet 10 mg PO DAILY 09/25/19 09/04/24 H istory blood sugar diagnostic (FreeStyle #100 ea 04/28/20 08/15/22 Rx Lite Strips) cane #1 ea 04/28/20 08/15/22 Rx Onetouch verio flex strips #200 ea 06/24/20 08/15/22 Rx tamsulosin 0.4 mg capsule (Flomax) 0.4 mg PO QHS #90 caps 10/01/20 09/04/24 Rx lancets 28 gauge (FreeStyle #200 ea 06/08/21 08/15/22 Rx Lancets) lancets 33 gauge (OneTouch Delica #200 ea 06/08/21 08/15/22 Rx Lancets) pen needle, diabetic 32 gauge x #200 ea 09/16/21 08/15/22 Rx rosuvastatin 20 mg tablet 20 mg PO DAILY #90 tabs 09/16/21 0 09/04/ (more content not included)... Normal [facility] CT THORAX SCREENING W/O CONT RASTon 08-21-2024 CT THORAX SCREENING W/O CONTRAST ORIGINAL EXAMINATION: LOW DOSE SCREENING CT OF [...] ORDERING SYSTEM PROVIDED HISTORY: Reason for Exam: 96-[id number]-rnmc history. 6FT 2IN 290LB WHITE MALE. FORMER [...] 08/21/2024 9:04:02 AM Ordering Provider: JANNET CONTRERAS [facility] .GFRon 07-30-2024 Estimated Glomerular Filtration Rate 80 ml/min/1.73sqm [facility] Comment on above: Result Comment: Stages of Chronic Kidney Disease [...] calculate the eGFR results. Performed By: #### C MP, GFR, LIPID, A1C #### [address] [address] A1Con 07-30-2024 Glucose [Mass/Vol] 137 mg/dL Normal [facility] Comment on above: Result Comment: Sharyn mated Average Glucose calculated by equation ((28.7xA1C)-46.7) Estimated average glucose (eAG) is a calculated value from Hemoglobin A1C and is territory service representative of the average blood glucose level in the last 2-3 month period. Normal range: less than 114 mg/dL Performed By: #### C MP, GFR, LIPID, A1C #### [address] [address] HbA1c (Bld) [Mass fraction] 6.4 % Normal 4.3-6.4 [facility] Comment on above: Performed By: #### C MP, GFR, LIPID, A1C #### [address] [address] CMPon 07-30-2024 Albumin Level 3.6 G/dL Normal 3.5-5.0 [facility] Comment on above: Performed By: #### C MP, GFR, LIPID, A1C #### [address] [address] Albumin/Globulin [Mass ratio] 1.1 {ratio} Normal 1.1-2.5 [facility] Comment on above: Performed By: #### C MP, GFR, LIPID, A1C #### [address] [address] ALP [Catalytic activity/Vol] 135 U/L Normal 40-135 [facility] Comment on above: Performed By: #### C MP, GFR, LIPID, A1C #### [address] [address] ALT [Catalytic activity/Vol] 23 U/L Normal 16-63 [facility] Comment on above: Performed By: #### C MP, GFR, LIPID, A1C #### [address] [address] AST [Catalytic activity/Vol] 13 U/L Normal 10-40 [facility] Comment on above: Performed By: #### C MP, GFR, LIPID, A1C #### [address] [address] Bili Total 0.2 mg/dL Normal 0.2-1.0 [facility] Comment on above: Result Comment: Use of this assay is not recommended for patients undergoing treatment with eltrombopag due to the potential for falsely elevated results. Performed By: #### C MP, GFR, LIPID, A1C #### [address] [address] BUN/Creatinine Ratio 21 ratio Normal 7-27 [facility] Comment on above: Performed By: #### C MP, GFR, LIPID, A1C #### [address] [address] Calcium [Mass/Vol] 9.4 mg/dL Normal 8.4-10.2 [facility] Comment on above: Performed By: #### C MP, GFR, LIPID, A1C #### [address] [address] Chloride [Moles/Vol] 106 mmol/L Normal 98-107 [facility] Comment on above: Performed By: #### C MP, GFR, LIPID, A1C #### [address] [address] CO2 [Moles/Vol] 25 mmol/L Normal 22-29 [facility] Comment on above: Performed By: #### C MP, GFR, LIPID, A1C #### [address] [address] Creatinine [Mass/Vol] 1.08 mg/dL Normal 0.67-1.17 [facility] Comment on above: Performed By: #### C MP, GFR, LIPID, A1C #### [address] [address] Electrolyte Balance 10.0 mEq/L Normal 4.0-15.0 [facility] Comment on above: Performed By: #### C MP, GFR, LIPID, A1C #### [address] [address] Globulin 3.4 G/dL Normal 2.7-4.4 [facility] Comment on above: Performed By: #### C MP, GFR, LIPID, A1C #### [address] [address] Glucose [Mass/Vol] 114 mg/dL High 70-105 [facility] Comment on above: Performed By: #### C MP, GFR, LIPID, A1C #### [address] [address] Potassium [Moles/Vol] 4.3 mmol/L Normal 3.5-5.1 [facility] Comment on above: Performed By: #### C MP, GFR, LIPID, A1C #### [address] [address] Sodium [Moles/Vol] 141 mmol/L Normal 136-145 [facility] Comment on above: Performed By: #### C MP, GFR, LIPID, A1C #### [facility] [address] [place], [place] [address] Total Protein 7.0 G/dL Normal 6.4-8.2 [facility] Comment on above: Performed By: #### C MP, GFR, LIPID, A1C #### [facility] [address] [place], [place] [address] Urea nitrogen [Mass/Vol] 23 mg/dL High 7-18 [facility] Comment on above: Performed By: #### C MP, GFR, LIPID, A1C #### [facility] [address] [place], [place] [address] LABORATORYOrdered By: SYSTEM SYSTEM on 07-30-2024 Albumin BCP dye [Mass/Vol] 3.6 G/dL Normal 3.5 - 5.0 G/dL AO ADM SS Albumin/Globulin [Mass ratio] 1.1 {ratio} Normal 1.1 - 2.5 ratio AO ADM SS ALP [Catalytic activity/Vol] 135 U/L Normal 40 - 135 U/L AO ADM SS ALT With P-5'-P [Catalytic activity/Vol] 23 U/L Normal 16 - 63 U/L AO ADM SS AST With P-5'-P [Catalytic activity/Vol] 13 U/L Normal 10 - 40 U/L AO ADM SS Bilirubin [Mass/Vol] 0.2 mg/dL Normal 0.2 - 1.0 mg/dL AO ADM SS Comment on above: Interpretive Data: U se of this assay is not recommended for patients undergoing treatment with eltrombopag due to the potential for falsely elevated results. Calcium [Mass/Vol] 9.4 mg/dL Normal 8.4 - 10. 2 mg/dL AO ADM SS Chloride [Moles/Vol] 106 mmol/L Normal 98 - 107 mmol/L AO ADM SS CO2 [Moles/Vol] 25 mmol/L Normal 22 - 29 mmol/L AO ADM SS Creatinine [Mass/Vol] 1.08 mg/dL Normal 0.67 - 1.17 mg/dL AO ADM SS Electrolyte Balance 10.0 mEq/L Normal 4.0 - 15.0 mEq/L AO ADM SS Estimated Glomerular Filtration Rate 80 ml/min/1.73sqm Invalid Interpretation Code AO Chemistry S Comment on above: Interpretive Data: Stages of Chronic Kidney Disease (CKD) Stage [...] race factor to calculate the eGFR results. Globulin 3.4 G/dL Normal 2.7 - 4.4 G/dL AO ADM SS Glucose [Mass/Vol] 114 mg/dL High 70 - 105 mg/dL AO ADM SS Glucose [Mass/Vol] 137 mg/dL Invalid Interpretation Code AO Chemistry S Comment on above: Interpretive Data: E stimated average glucose (eAG) is a calculated value from Hemoglobin A1C and is territory service representative of the average blood glucose level in the last 2-3 month period. Normal range: less than 114 mg/dL HbA1c (Bld) [Mass fraction] 6.4 % Normal 4.3 - 6.4 % AO ADM SS Potassium [Moles/Vol] 4.3 mmol/L Normal 3.5 - 5.1 mmol/L AO ADM SS Protein [Mass/Vol] 7.0 G/dL Normal 6.4 - 8.2 G/dL AO ADM SS Sodium [Moles/Vol] 141 mmol/L Normal 136 - 145 mmol/L AO ADM SS Urea nitrogen [Mass/Vol] 23 mg/dL High 7 - 18 mg/dL AO ADM SS Urea nitrogen/Creatinin e [Mass ratio] 21 ratio Normal 7 - 27 ratio AO ADM SS LABORATORYOrdered By: Agapito Michele on 07-30-2024 Cholesterol [Mass/Vol] 179 mg/dL Normal 0 - 200 mg/dL AO ADM SS Comment on above: Interpretive Data: C holesterol Reference Interval: Less than 200 Desirable 200-239 Borderline high risk 240 and above High risk Cholesterol in HDL [Mass/Vol] 50 mg/dL Normal 40 - 60 mg/dL AO ADM SS Cholesterol in LDL [Mass/Vol] 80 mg/dL Normal 0 - 130 mg/dL AO ADM SS Triglyceride [Mass/Vol] 246 mg/dL High 0 - 150 mg/dL AO ADM SS Comment on above: Interpretive Data: T riglyceride Reference Interval: Less than 150 Normal 150-199 Borderline high risk 200-499 High risk 500 or higher Very high risk LIPIDon 07-30-2024 Cholesterol [Mass/Vol] 179 mg/dL Normal 0-200 [facility] Comment on above: Result Comment: Chol esterol Reference Interval: Less than 200 Desirable 200-239 Borderline high risk 240 and above High risk Performed By: #### C MP, GFR, LIPID, A1C #### [address] [address] Cholesterol in HDL [Mass/Vol] 50 mg/dL Normal 40-60 [facility] Comment on above: Performed By: #### C MP, GFR, LIPID, A1C #### [address] [address] Cholesterol in LDL [Mass/Vol] 80 mg/dL Normal 0-130 [facility] Comment on above: Performed By: #### C MP, GFR, LIPID, A1C #### [address] [address] Triglyceride [Mass/Vol] 246 mg/dL High 0-150 [facility] Comment on above: Result Comment: Trig lyceride Reference Interval: Less than 150 Normal 150-199 Borderline high risk 200-499 High risk 500 or higher Very high risk Performed By: #### C MP, GFR, LIPID, A1C #### [address] [address] .GFRon 02-26-2024 GFR 70 ml/min/1.73sqm Normal [facility] Comment on above: Result Comment: GFR Population mean for , [...] 15 mL/min/1.73 square meters Performed By: #### L IPID, GFR, PSA, CMP #### [address] [address] GFR Non- 58 ml/min/1.73sqm Normal [facility] Comment on above: Result Comment: GFR Population mean for , [...] 15 mL/min/1.73 square meters Performed By: #### L IPID, GFR, PSA, CMP #### [address] [address] CMPon 02-26-2024 Albumin Level 3.9 G/dL Normal 3.5-5.0 [facility] Comment on above: Performed By: #### L IPID, GFR, PSA, CMP #### [address] [address] Albumin/Globulin [Mass ratio] 1.1 {ratio} Normal 1.1-2.5 [facility] Comment on above: Performed By: #### L IPID, GFR, PSA, CMP #### [address] [address] ALP [Catalytic activity/Vol] 158 U/L High 40-135 [facility] Comment on above: Performed By: #### L IPID, GFR, PSA, CMP #### [address] [address] ALT [Catalytic activity/Vol] 21 U/L Normal 16-63 [facility] Comment on above: Performed By: #### L IPID, GFR, PSA, CMP #### [address] [address] AST [Catalytic activity/Vol] 10 U/L Normal 10-40 [facility] Comment on above: Performed By: #### L IPID, GFR, PSA, CMP #### [address] [address] Bili Total 0.6 mg/dL Normal 0.2-1.0 [facility] Comment on above: Result Comment: Use of this assay is not recommended for patients undergoing treatment with eltrombopag due to the potential for falsely elevated results. Performed By: #### L IPID, GFR, PSA, CMP #### [place] [address] BUN/Creatinine Ratio 16 ratio Normal 7-27 [facility] Comment on above: Performed By: #### L IPID, GFR, PSA, CMP #### [address] [address] Calcium [Mass/Vol] 9.4 mg/dL Normal 8.4-10.2 [facility] Comment on above: Performed By: #### L IPID, GFR, PSA, CMP #### [address] [address] Chloride [Moles/Vol] 101 mmol/L Normal 98-107 [facility] Comment on above: Performed By: #### L IPID, GFR, PSA, CMP #### [address] [address] CO2 [Moles/Vol] 22 mmol/L Normal 22-29 [facility] Comment on above: Performed By: #### L IPID, GFR, PSA, CMP #### [address] [address] Creatinine [Mass/Vol] 1.28 mg/dL Normal 0.70-1.30 [facility] Comment on above: Result Comment: Test ing performed on Siemens Dimension EXL analyzer using a modified kinetic Tanya technique. Performed By: #### L IPID, GFR, PSA, CMP #### [address] [address] Electrolyte Balance 11.0 mEq/L Normal 4.0-15.0 [facility] Comment on above: Performed By: #### L IPID, GFR, PSA, CMP #### [address] [address] Globulin 3.5 G/dL Normal [facility] Comment on above: Performed By: #### L IPID, GFR, PSA, CMP #### [address] [address] Glucose [Mass/Vol] 219 mg/dL High 70-105 [facility] Comment on above: Performed By: #### L IPID, GFR, PSA, CMP #### [address] [address] Potassium [Moles/Vol] 4.5 mmol/L Normal 3.5-5.1 [facility] Comment on above: Performed By: #### L IPID, GFR, PSA, CMP #### [address] [address] Sodium [Moles/Vol] 134 mmol/L Low 136-145 [facility] Comment on above: Performed By: #### L IPID, GFR, PSA, CMP #### [address] [address] Total Protein 7.4 G/dL Normal 6.4-8.2 [facility] Comment on above: Performed By: #### L IPID, GFR, PSA, CMP #### [address] [address] Urea nitrogen [Mass/Vol] 20 mg/dL High 7-18 [facility] Comment on above: Performed By: #### L IPID, GFR, PSA, CMP #### [address] [address] LABORATORYOrdered By: SYSTEM SYSTEM on 02-26-2024 Albumin BCP dye [Mass/Vol] 3.9 G/dL Normal 3.5 - 5.0 G/dL AO ADM SS Albumin/Globulin [Mass ratio] 1.1 {ratio} Normal 1.1 - 2.5 ratio AO ADM SS ALP [Catalytic activity/Vol] 158 U/L High 40 - 135 U/L AO ADM SS ALT With P-5'-P [Catalytic activity/Vol] 21 U/L Normal 16 - 63 U/L AO ADM SS AST With P-5'-P [Catalytic activity/Vol] 10 U/L Normal 10 - 40 U/L AO ADM SS Bilirubin [Mass/Vol] 0.6 mg/dL Normal 0.2 - 1.0 mg/dL AO ADM SS Comment on above: Interpretive Data: U se of this assay is not recommended for patients undergoing treatment with eltrombopag due to the potential for falsely elevated results. Calcium [Mass/Vol] 9.4 mg/dL Normal 8.4 - 10. 2 mg/dL AO ADM SS Chloride [Moles/Vol] 101 mmol/L Normal 98 - 107 mmol/L AO ADM SS CO2 [Moles/Vol] 22 mmol/L Normal 22 - 29 mmol/L AO ADM SS Creatinine [Mass/Vol] 1.28 mg/dL Normal 0.70 - 1.30 mg/dL AO ADM SS Comment on above: Interpretive Data: T esting performed on Siemens Dimension EXL analyzer using a modified kinetic Tayna technique. Electrolyte Balance 11.0 mEq/L Normal 4.0 - 15.0 mEq/L AO ADM SS GFR/1.73 sq M.predicted among blacks MDRD (S/P/Bld) [Vol rate/Area] 70 ml/min/1.73sqm Invalid Interpretation Code AO Chemistry S Comment on above: Interpretive Data: GFR Population mean for , Non- Americans Ages 20-29 = 116 mL/min/1.73 sq.m. Ages 30-39 = 107 mL/min/1.73 sq.m. Ages 40-49 = 99 mL/min/1.73 sq.m. Ages 50-59 = 93 mL/min/1.73 sq.m. Ages 60-69 = 85 mL/min/1.73 sq.m. Ages 70+ = 75 mL/min/1.73 sq.m. Chronic Kidney Disease: Less than 60 mL/min/1.73 square meters End Stage Renal Disease: Less than 15 mL/min/1.73 square meters GFR/1.73 sq M.predicted among non-blacks MDRD (S/P/Bld) [Vol rate/Area] 58 ml/min/1.73sqm Invalid Interpretation Code AO Chemistry S Comment on above: Interpretive Data: GFR Population mean for , Non- Americans Ages 20-29 = 116 mL/min/1.73 sq.m. Ages 30-39 = 107 mL/min/1.73 sq.m. Ages 40-49 = 99 mL/min/1.73 sq.m. Ages 50-59 = 93 mL/min/1.73 sq.m. Ages 60-69 = 85 mL/min/1.73 sq.m. Ages 70+ = 75 mL/min/1.73 sq.m. Chronic Kidney Disease: Less than 60 mL/min/1.73 square meters End Stage Renal Disease: Less than 15 mL/min/1.73 square meters Globulin 3.5 G/dL Invalid Interpretation Code AO ADM SS Glucose [Mass/Vol] 219 mg/dL High 70 - 105 mg/dL AO ADM SS Potassium [Moles/Vol] 4.5 mmol/L Normal 3.5 - 5.1 mmol/L AO ADM SS Prostate specific Ag [Mass/Vol] 0.91 ng/mL Normal 0.00 - 4.00 ng/mL AO ADM SS Protein [Mass/Vol] 7.4 G/dL Normal 6.4 - 8.2 G/dL AO ADM SS Sodium [Moles/Vol] 134 mmol/L Low 136 - 145 mmol/L AO ADM SS Urea nitrogen [Mass/Vol] 20 mg/dL High 7 - 18 mg/dL AO ADM SS Urea nitrogen/Creatinin e [Mass ratio] 16 ratio Normal 7 - 27 ratio AO ADM SS LABORATORYOrdered By: Afua Espinoza on 02-26-2024 Cholesterol [Mass/Vol] 189 mg/dL Normal 0 - 200 mg/dL AO ADM SS Comment on above: Interpretive Data: C holesterol Reference Interval: Less than 200 Desirable 200-239 Borderline high risk 240 and above High risk Cholesterol in HDL [Mass/Vol] 61 mg/dL High 40 - 60 mg/dL AO ADM SS Cholesterol in LDL [Mass/Vol] 96 mg/dL Normal 0 - 130 mg/dL AO ADM SS Triglyceride [Mass/Vol] 160 mg/dL High 0 - 150 mg/dL AO ADM SS Comment on above: Interpretive Data: T riglyceride Reference Interval: Less than 150 Normal 150-199 Borderline high risk 200-499 High risk 500 or higher Very high risk LIPIDon 02-26-2024 Cholesterol [Mass/Vol] 189 mg/dL Normal 0-200 [facility] Comment on above: Result Comment: Chol esterol Reference Interval: Less than 200 Desirable 200-239 Borderline high risk 240 and above High risk Performed By: #### L IPID, GFR, PSA, CMP #### [address] [address] Cholesterol in HDL [Mass/Vol] 61 mg/dL High 40-60 [facility] Comment on above: Performed By: #### L IPID, GFR, PSA, CMP #### [address] [address] Cholesterol in LDL [Mass/Vol] 96 mg/dL Normal 0-130 [facility] Comment on above: Performed By: #### L IPID, GFR, PSA, CMP #### [address] [address] Triglyceride [Mass/Vol] 160 mg/dL High 0-150 [facility] Comment on above: Result Comment: Trig lyceride Reference Interval: Less than 150 Normal 150-199 Borderline high risk 200-499 High risk 500 or higher Very high risk Performed By: #### L IPID, GFR, PSA, CMP #### [address] [address] PSAon 02-26-2024 Prostate Specific Antigen 0.91 ng/mL Normal 0.00-4.00 [facility] Comment on above: Performed By: #### L IPID, GFR, PSA, CMP #### [address] [address] [address] HEAD OR BRAIN W/O CONTRAS Ton 09-24-2023 CT HEAD OR BRAIN W/O CONTRAST ORIGINAL EXAMINATION: CT OF THE HEAD WITHOUT CONTRAST 09/24/2023 8:37 am TECHNIQUE: CT of the head was performed without the administration of intravenous contrast. Automated exposure control, iterative reconstruction, and/or weight based adjustment of the mA/kV was utilized to reduce the radiation dose to as low as reasonably achievable. COMPARISON: None. HISTORY: ORDERING SYSTEM PROVIDED HISTORY: Reason for Exam: INJURY FINDINGS: BRAIN/VENTRICLES: There is no acute intracranial hemorrhage, mass effect or midline shift. No abnormal extra-axial fluid collection. The gustafson-white differentiation is maintained without evidence of an acute infarct. There is no evidence of hydrocephalus. ORBITS: The visualized portion of the orbits demonstrate no acute abnormality. SINUSES: The visualized paranasal sinuses and mastoid air cells demonstrate no acute abnormality. SOFT TISSUES/SKULL: No acute abnormality of the visualized skull or soft tissues. IMPRESSION: No acute intracranial abnormality. Interpreted by: Nicky Ramey MD Preliminary Report By: Nicky Ramey MD Electronically signed By Nicky Ramey MD Dictated Date: 09/24/2023 8:45:12 AM Prelim Date: 09/24/2023 8:45:37 AM Sign Date: 09/24/2023 8:45:37 AM Ordering Provider: CHRIS HERNANDEZ [facility] (CT) CT MAXILLOFACIAL W/O CONTRAS Ton 09-24-2023 CT MAXILLOFACIAL W/O CONTRAST ORIGINAL EXAMINATION: CT OF THE FACE WITHOUT CONTRAST 09/24/2023 8:37 am TECHNIQUE: CT of the face was performed without the administration of intravenous contrast. Multiplanar reformatted images are provided for review. Automated exposure control, iterative reconstruction, and/or weight based adjustment of the mA/kV was utilized to reduce the radiation dose to as low as reasonably achievable. COMPARISON: None HISTORY: ORDERING SYSTEM PROVIDED HISTORY: Reason for Exam: INJURY FINDINGS: FACIAL BONES: There is an inferior orbital wall blowout fracture with multiple fragments which are depressed, this measures 1.2 in the transverse dimension by 2 cm in the AP dimension, there is 6 mm of depression, there are no visible trapped intraorbital contents but the inferior rectus muscle is displaced inferiorly. There is blood in the left maxillary sinus. There is left orbital soft tissue swelling and some soft tissue air but no orbital hematoma. ORBITAL CONTENTS: The globes appear intact. The extraocular muscles, optic nerve sheath complexes and lacrimal glands appear unremarkable. No retrobulbar hematoma or mass is seen. SINUSES: There is no evidence of acute sinusitis, such as air fluid level. The mastoid air cells are clear. SOFT TISSUES: No superficial facial soft tissue swelling is seen. IMPRESSION: Inferior left orbital wall blowout fracture and soft tissue injury. Interpreted by: Nicky Ramey MD Preliminary Report By: Nicky Ramey MD Electronically signed By Nicky Ramey MD Dictated Date: 09/24/2023 8:45:53 AM Prelim Date: 09/24/2023 8:50:47 AM Sign Date: 09/24/2023 8:50:47 AM Ordering Provider: CHRISLIDA HERNANDEZ [facility] ([place]) XR ANKLE MINIMUM 3 VIEWS RIG HTon 09-24-2023 XR ANKLE MINIMUM 3 VIEWS RIGHT ORIGINAL EXAMINATION: THREE XRAY VIEWS OF THE RIGHT ANKLE 09/24/2023 8:36 am COMPARISON: None HISTORY: ORDERING SYSTEM PROVIDED HISTORY: Reason for Exam: injury FINDINGS: There is a tiny osseous fragment at the tip of the medial malleolus. No additional fractures or dislocation. There are mild scattered degenerative change, including calcaneal enthesopathy. There is soft tissue swelling about the ankle. No unexpected radiopaque foreign body. IMPRESSION: Question tiny avulsion fracture off the tip of the medial malleolus. Soft tissue swelling. Interpreted by: Rebeka Whalen MD Preliminary Report By: Rebeka Whalen MD Electronically signed By Rebeka Whalen MD Dictated Date: 09/24/2023 8:48:36 AM Prelim Date: 09/24/2023 8:51:21 AM Sign Date: 09/24/2023 8:51:21 AM Ordering Provider: CHRIS HERNANDEZ [facility] ([place]) Laboratory - Hematology and Cell countson 07-01-2022 HbA1c (Bld) [Mass fraction] 6.8 % 4.2-6.3 [facility] Laboratory - Hematology and Cell countson 02-24-2022 HbA1c (Bld) [Mass fraction] 6.1 % 4.2-6.3 [facility] Absolute lymphocyte counton 09-16-2021 Lymphocytes Auto (Unsp spec) [#/Vol] 1.61 10*3/uL 0.83-4.51 [facility] Work Phone: Basophil percentageon 2021 Basophils/100 WBC (Bld) 0.3 % 0-1 [facility] Work Phone: Bilirubin [Mass/Vol] 0.30 mg/dL 0.20-1.00 [facility] Work Phone: Comment on above: For patients on eltr ombopag therapy, use of Dimension [place] TBIL is not recommended. Chloride [Moles/Vol] 108 mmol/L 98-107 [facility] Work Phone: Cholesterol [Mass/Vol] 153 mg/dL <200 [facility] Work Phone: Comment on above: <200 mg/dL Desirable 200-240 mg/dL Borderline >240 mg/dL High Risk Eosinophils/100 WBC (Bld) 2.2 % 0-5 [facility] Work Phone: Glucose [Mass/Vol] 107 mg/dL 74-106 [facility] Work Phone: Comment on above: Fasting Glucose resu lt from 100 to 125 mg/dL suggests IMPAIRED HOMEOSTASIS per A.D.A. criteria. Neutrophils (Bld) [#/Vol] 6.4 10*3/uL 2.0-7.7 [facility] Work Phone: Neutrophils/100 WBC (Bld) 71.4 % 47-70 [facility] Work Phone: Potassium [Moles/Vol] 4.2 mmol/L 3.5-5.1 [facility] Work Phone: Protein [Mass/Vol] 7.4 g/dL 6.4-8.2 [facility] Work Phone: Sodium [Moles/Vol] 140 mmol/L 136-145 [facility] Work Phone: Triglyceride [Mass/Vol] 144 mg/dL <199 [facility] Work Phone: Comment on above: The drugs N-Acetylcy steine and Metamizole may falsely depress this assay.Serum Triglycerides Reference Interval Normal <150 mg/dL Borderline high 150 - 199 mg/dL High 200 - 499 mg/dL Very High > or = 500 mg/dL WBC (Bld) [#/Vol] 9.0 10*3/uL 4.4-11.0 [facility] Work Phone: Blood erythrocytes count (nu mber/volume)on 09-16-2021 RBC (Bld) [#/Vol] 5.86 10*6/uL 4.6-6.2 [facility] Work Phone: Blood hemoglobin measurement (mass/volume)on 09-16-2021 Hemoglobin (Bld) [Mass/Vol] 16.3 g/dL 13.0-16.5 [facility] Work Phone: Blood lymphocytes/100 leukoc yteson 09-16-2021 Lymphocytes/100 WBC (Bld) 18.0 % 19-41 [facility] Work Phone: Blood monocytes/100 leukocyt eson 09-16-2021 Monocytes/100 WBC (Bld) 7.7 % 0-10 [facility] Work Phone: Blood platelet mean volumeon 09-16-2021 Platelet mean volume (Bld) [Entitic vol] 11.8 fL 6.2-12.0 [facility] Work Phone: Determination of erythrocyte mean corpuscular volume (MCV)on 09-16-2021 MCV (RBC) [Entitic vol] 84.3 fL 80-94 [facility] Work Phone: Hematocrit Auto (Bld) [Volum e fraction]on 09-16-2021 Hematocrit (Bld) [Volume fraction] 49.4 % 40-54 [facility] Work Phone: [phone] Laboratory - Chemistry and C hemistry - challengeon 09-16-2021 ALP [Catalytic activity/Vol] 111 U/L 45-117 [facility] Work Phone: ALT [Catalytic activity/Vol] 37 U/L 16-61 [facility] Work Phone: CO2 [Moles/Vol] 27.0 mmol/L 21.0-32.0 [facility] Work Phone: Globulin (S) [Mass/Vol] 3.8 g/dL 2.2-4.2 [facility] Work Phone: Urea nitrogen/Creatinin e [Mass ratio] 19.6 mg/mg 10-20 [facility] Work Phone: Laboratory - Hematology and Cell countson 09-16-2021 Erythrocyte distribution width (RBC) [Entitic vol] 41.0 fL 35.1-43.9 [facility] Work Phone: Erythrocyte distribution width (RBC) [Ratio] 13.2 % 11.6-14.6 [facility] Work Phone: Immature granulocytes/100 WBC (Bld) 0.400 % 0.0-0.9 [facility] Work Phone: Comment on above: IG% - Immature Granu locytes (promyelocytes, myelocytes and metamyelocytes) > 1% indicates that a LEFT SHIFT is Present. MCH (RBC) [Entitic mass] 27.8 pg 27.0-32.0 [facility] Work Phone: Nucleated RBC/100 WBC (Bld) [Ratio] 0 % 0-5 [facility] Work Phone: HbA1c (Bld) [Mass fraction] 5.7 % 4.2-6.3 [facility] Work Phone: MCHC Auto (RBC) [Mass/Vol]on 09-16-2021 MCHC (RBC) [Mass/Vol] 33.0 g/dL 32-36 [facility] Work Phone: No Panel Informationon 09-16 Estimated GFR (MDRD) Amer 98 mL/min >60 [facility] Work Phone: Comment on above: GFR Calc Estimated GFR (MDRD) Non-Af Amer 81 mL/min >60 [facility] Work Phone: Comment on above: Non- GFR Calc Thyroid Stimulating Hormone (TSH) 1.03 uIU/mL 0.358-3.74 [facility] Work Phone: Platelets bldon 09-16-2021 Platelets (Bld) [#/Vol] 188 10*3/uL 150-450 [facility] Work Phone: Serum or plasma albumin donna urement (mass/volume)on 09-16-2021 Albumin [Mass/Vol] 3.6 g/dL 3.2-5.0 [facility] Work Phone: Serum or plasma albumin/glob ulin mass ratioon 09-16-2021 Albumin/Globulin [Mass ratio] 0.9 {ratio} 0.9-2.4 [facility] Work Phone: Serum or plasma calcium donna urement (mass/volume)on 09-16-2021 Calcium [Mass/Vol] 9.3 mg/dL 8.5-10.1 [facility] Work Phone: Serum or plasma cholesterol in HDL measurement (mass/volume)on 09-16-2021 Cholesterol in HDL [Mass/Vol] 54 mg/dL >40 [facility] Work Phone: Comment on above: The drugs N-Acetylcy steine and Metamizole may falsely depress this assay. Reference Range HDL <40 mg/dL Low HDL Cholesterol HDL >or= 60 mg/dL High HDL Cholesterol Serum or plasma cholesterol in VLDL measurement (mass/volume)on 09-16-2021 Cholesterol in VLDL [Mass/Vol] 29 mg/dL 5-40 [facility] Work Phone: Serum or plasma creatinine m easurement (mass/volume)on 09-16-2021 Creatinine [Mass/Vol] 1.02 mg/dL 0.70-1.30 [facility] Work Phone: Comment on above: The validity of the calculated GFR & GFRAA in patients over 70 years has not been determined. Clinical correlation is essential. Serum or plasma low density lipoprotein (LDL) cholesterol measurement (mass/volume)on 09-16-2021 Cholesterol in LDL [Mass/Vol] 70 mg/dL 0-130 [facility] Work Phone: Serum or plasma urea nitroge n measurement (mass/volume)on 09-16-2021 Urea nitrogen [Mass/Vol] 20 mg/dL 7-18 [facility] Work Phone: Thin prep Papanicolaou smear with manual screeningon 09-16-2021 Thin prep Papanicolaou smear with manual screening 16 U/L 15-37 [facility] Work Phone: Thin prep Papanicolaou smear with manual screening 5 5-15 [facility] Work Phone: Laboratory - Hematology and Cell countson 06-08-2021 HbA1c (Bld) [Mass fraction] 5.8 % 4.2-6.3 [facility] Work Phone: KNEE CMPLT, 4 OR MORE VIEWSo n 09-03-2019 KNEE CMPLT, 4 OR MORE VIEWS Patient Name: MARLINE KHAN STUDY: KNEE; COMPLT, 4 OR MORE VIEWS; Right; 09/03/2019 1:27 pm INDICATION: pain. ACCESSION NUMBER(S): [id number] ORDERING CLINICIAN: NICK BRADSHAW FINDINGS: Right knee weightbearing four views moderate medial joint space narrowing as well as patellofemoral arthritis no signs of fracture dislocation or other bony abnormalities Electronically signed by: NICK BRADSHAW MD [facility] 07-19-2019 [employer] (FAMPWS) MARLINE KHAN ([id number]) 1965 M Date Time Provider Department 07/19/19 ISHMAEL SALVADOR) [facility] During your visit today, we recorded the following information about you: Nicolasa Ward RN 07/19/2019 12:07 PM Signed Pt called, verified by name and birthdate. Pt wanted to make apt with nutritional therapist and wanted to know if he had referral. Verified referral is in [facility]. Transferred pt to [facility] to make apt Nicolasa Ward RN Allergies As of Date: 07/19/2019 Noted Allergy Reaction SEROQUEL (QUETIAPINE FUMARATE) 12/15/2017 14 - Other: See Comments Comments: Drowsy Date Reviewed: 01/02/2019 Reviewed by: Gloria Melo Ma - Fully Assessed Reason for Visit: Patient Question [8087] Prescriptions as of 07/19/2019 Sig: OMEPRAZOLE 20 MG CAPSULE,JAYSHREE* Take 1 capsule by mouth once * TAMSULOSIN 0.4 MG CAPSULE Take 1 capsule by mouth daily* FERROUS SULFATE 325 MG (65 MG* Take 325 mg by mouth daily wi* CHOLECALCIFEROL (VITAMIN D3) * Take 2,000 Units by mouth onc* OTC NUTRITIONAL SUPPLEMENT White kidney palacios OTC NUTRITIONAL SUPPLEMENT Bladder formula COMPOUNDED PRESCRIPTION Regamol 500mg Take 1 tablet o* ARIPIPRAZOLE 5 MG TABLET Take 1 tablet by mouth once d* ALBUTEROL SULFATE HFA 90 MCG/* Inhale 2 Puffs as instructed * SIMVASTATIN 40 MG TABLET Take 1 tablet by mouth daily * TRAZODONE 100 MG TABLET Take 100 mg by mouth daily at* DULOXETINE 30 MG CAPSULE,JAYSHREE* Take 30 mg by mouth once linda* APPLE CIDER VINEGAR DIET ORAL Take 1 capsule by mouth once * VITAMIN B12 ORAL Take 1 capsule by mouth once * FSBKXIGN-VDT-JRAKZ ACID 300 M* Take 1 tablet by mouth once d* ASPIRIN 81 MG TABLET,DELAYED * Take 81 mg by mouth once linda* ACETAMINOPHEN 325 MG CAPSULE Take by mouth. Problem List As Of Date 07/19/2019 Noted Resolved Varicose veins of both lower extremities [I83.9*11/20/2012 Unspecified venous (peripheral) insufficiency [*11/20/2012 Pain in limb [M79.609] 11/20/2012 03/31/2017 Callus of foot [L84] 03/20/2013 MMT (medial meniscus tear) [S83.249A] 04/23/2015 03/31/2017 Tear of PCL (posterior cruciate ligament) of kn*09/02/2015 Medial meniscus tear [S83.249A] 03/23/2017 More... Non morbid obesity [E66.9] 04/03/2017 Bipolar disorder (HCC) [F31.9] 04/03/2017 More... Tobacco use [Z72.0] Syncope [R55] More... Osteoarthritis [M19.90] Insomnia [G47.00] Duodenal ulcer [K26.9] More... Frequent urination [R35.0] Encounter Status:Closed by NICOLASA WARD RN on 07/19/19 Normal [facility] Established Visit (Orthopaed ic Surgery)on 07-09-2019 Established Visit (Orthopaedic Surgery) Chief Complaint LT knee Gelsyn #3 Patient here for his third Jellison injection left knee Before aspiration/injection, the risks and benefits of this procedure including infection, local skin irritation, skin atrophy, calcification, continued pain or discomfort, elevated blood sugar, burning failure to relieve pain, possible late infection were all discussed with the patient Postprocedure discomfort can be alleviated with additional medication, ice, elevation, and rest over the first 24 hours as recommended The patient verbalized understanding and wanted to proceed with planned procedure After informed consent was provided patient identification was confirmed and allergies were verified, the patient was appropriately as efficient on the hospital bed. The joint was prepped and draped in the usual sterile manner to provide a sterile environment. The skin was anesthetized with ethyl chloride spray. The aspiration/injection was performed with standard technique. The joint was injected with Jellison the left knee. The needle was withdrawn and the puncture site was secured with a Band-Aid The patient tolerated procedure well without complication Patient tolerated the injection well he is to follow-up in 6 weeks Active Problems Knee osteoarthritis (715.36) (M17.10) Rectal fissure (565.0) (K60.2) Surgical History History of Anal Fissurectomy Family History Denied: Family history of malignant neoplasm Social History Current smoker (305.1) (F17.200) Currently working No drug use Occasional alcohol use Allergies No Known Drug Allergies Recorded By: Bozena Bustamante; 12/23/2015 11:57:33 AM Animal dander Itching; Recorded By: Mayra Hernandez MA; 06/19/2019 12:09:15 PM Orders Knee osteoarthritis Administered: Gelsyn-3 16.8 MG/2ML Intra-articular Solution Prefilled Syringe Rx By: Nick Bradshaw;For: Knee osteoarthritis; Dose of 2 ML; Intra-articular; JUAN MANUEL = N; Administered by: Amarilis Lai INSPECTOR SEMICONDUCTOR WAFER: 07/09/2019 12:50:00 PM; Last Updated By: Amarilis Lai; 07/09/2019 12:50:24 PM Signatures Electronically signed by : Nick Bradshaw MD; Jul 09 2019 1:12PM EST (Author) Normal [employer] Initial Visit (Orthopaedic S urgery)on 07-02-2019 Initial Visit (Orthopaedic Surgery) Chief Complaint LT knee Gelsyn #2 Before aspiration/injection, the risks and benefits of this procedure including infection, local skin irritation, skin atrophy, calcification, continued pain or discomfort, elevated blood sugar, burning failure to relieve pain, possible late infection were all discussed with the patient Postprocedure discomfort can be alleviated with additional medication, ice, elevation, and rest over the first 24 hours as recommended The patient verbalized understanding and wanted to proceed with planned procedure After informed consent was provided patient identification was confirmed and allergies were verified, the patient was appropriately as efficient on the hospital bed. The joint was prepped and draped in the usual sterile manner to provide a sterile environment. The skin was anesthetized with ethyl chloride spray. The aspiration/injection was performed with standard technique. The joint was injected with Jellison the left knee. The needle was withdrawn and the puncture site was secured with a Band-Aid The patient tolerated procedure well without complication This note was prepared using voice recognition software. The details of this note are correct and have been reviewed, and corrected to the best of my ability. Some grammatical areas may persist related to the [employer] software Nick Bradshaw MD Active Problems Knee osteoarthritis (715.36) (M17.10) Rectal fissure (565.0) (K60.2) Surgical History History of Anal Fissurectomy Family History Denied: Family history of malignant neoplasm Social History Current smoker (305.1) (F17.200) Currently working No drug use Occasional alcohol use Allergies No Known Drug Allergies Recorded By: Bozena Bustamante; 12/23/2015 11:57:33 AM Animal dander Itching; Recorded By: Mayra Hernandez MA; 06/19/2019 12:09:15 PM Orders Knee osteoarthritis Administered: Gelsyn-3 16.8 MG/2ML Intra-articular Solution Prefilled Syringe Rx By: Nick Bradshaw;For: Knee osteoarthritis; Dose of 2 ML; Intra-articular; JUAN MANUEL = N; Administered by: Amarilis Lai INSPECTOR SEMIC[employer]UCTOR WAFER: 07/02/2019 12:52:00 PM; Last Updated By: Amarilis Lai; 07/02/2019 12:52:51 PM Signatures Electronically signed by : Nick Bradshaw MD; Jul 02 2019 1:11PM EST (Author) Normal [facility] [facility] Established Visit (Orthopaed ic Surgery)on 06-25-2019 Established Visit (Orthopaedic Surgery) Chief Complaint LT knee Gelsyn #1 Before aspiration/injection, the risks and benefits of this procedure including infection, local skin irritation, skin atrophy, calcification, continued pain or discomfort, elevated blood sugar, burning failure to relieve pain, possible late infection were all discussed with the patient Postprocedure discomfort can be alleviated with additional medication, ice, elevation, and rest over the first 24 hours as recommended The patient verbalized understanding and wanted to proceed with planned procedure After informed consent was provided patient identification was confirmed and allergies were verified, the patient was appropriately as efficient on the hospital bed. The joint was prepped and draped in the usual sterile manner to provide a sterile environment. The skin was anesthetized with ethyl chloride spray. The aspiration/injection was performed with standard technique. The joint was injected with Jellison the left knee. The needle was withdrawn and the puncture site was secured with a Band-Aid The patient tolerated procedure well without complication Patient tolerated the injection well return next week for repeat injection Active Problems Rectal fissure (565.0) (K60.2) Surgical History History of Anal Fissurectomy Family History Denied: Family history of malignant neoplasm Social History Current smoker (305.1) (F17.200) Currently working No drug use Occasional alcohol use Allergies No Known Drug Allergies Recorded By: Bozena Bustamante; 12/23/2015 11:57:33 AM Animal dander Itching; Recorded By: Mayra Hernandez MA; 06/19/2019 12:09:15 PM Orders Knee osteoarthritis Administered: Gelsyn-3 16.8 MG/2ML Intra-articular Solution Prefilled Syringe Rx By: Nick Bradshaw;For: Knee osteoarthritis; Dose of 2 ml; Intra-articular; JUAN MANUEL = N; Administered by: Amarilis Lai INSPECTOR SEMIC[employer]UCTOR WAFER: 06/25/2019 12:57:00 PM; Last Updated By: Amarilis Lai; 06/25/2019 12:58:16 PM Signatures Electronically signed by : Nick Bradshaw MD; Jun 25 2019 1:01PM EST (Author) Normal [facility] [employer] CNCOon 11-30-2017 CNCO Letter Text Wilver corey MDDes[place] Primary Fodj5294 [facility], [address] [place] [address] [phone] (fax)Member of [facility] Employer11/30/2017Abhenry Tanner [employer] [facility] [address] [address] are sending this letter in regards to your missed patient appointmentscheduled with Dr. Orona on November 30.Please contact our office at Option 1 (for appointmentrescheduling)Thank you,[facility] Normal [facility] Basic Metabolic Panelon 05-2 Anion gap molar conc 13 mmol/L Normal 10-20 [facility] Healthcare Comment on above: Performed By: #### 1 [id number] #### [facility] [address] [place] [address] Calcium mass conc 9.3 mg/dL Normal 8.6-10.3 [facility] Healthcare Comment on above: Performed By: #### 1 [id number] #### [facility] [address] [place] [address] Chloride molar conc 106 mmol/L Normal 98-107 [facility] Healthcare Comment on above: Performed By: #### 1 [id number] #### [facility] [address] [place] [address] Creatinine mass conc 0.96 mg/dL Normal 0.50-1.30 [facility] Comment on above: Performed By: #### 1 [id number] #### [facility] [address] [place] [address] GFR/1.73 sq M.predicted MDRD vol rate/area mL/min/{1.73_m2} Normal [facility] Healthcare Comment on above: Result Comment: Inte rpretation for Chronic Kidney Disease: Stages 1&2 >60 Healthy or potential kidney damage. Mild decrease of GFR. Stage 3 30-59 Moderate decrease of GFR. Stage 4 15-29 Severe decrease of GFR. Stage 5 <15 Kidney failure or on dialysis. Performed By: #### 1 [id number] #### [facility] [address] [place] [address] Glucose mass conc 85 mg/dL Normal 70-100 [facility] Comment on above: Performed By: #### 1 [id number] #### [facility] [address] [place] [address] HCO3 molar conc (Bld) 25 mmol/L Normal 21-32 [facility] Comment on above: Performed By: #### 1 [id number] #### [facility] [address] [place] [address] Potassium molar conc 4.0 mmol/L Normal 3.5-5.1 [facility] Comment on above: Performed By: #### 1 [id number] #### [facility] [address] [place] [address] Sodium molar conc 140 mmol/L Normal 136-145 [facility] Comment on above: Performed By: #### 1 [id number] #### [facility] [address] [place] [address] Urea nitrogen mass conc 17 mg/dL Normal 6-23 [facility] Comment on above: Performed By: #### 1 [id number] #### [facility] [address] [place] [address] Urea nitrogen/Creatinin e mass ratio 18 mg/mg Normal 5-25 [facility] Comment on above: Performed By: #### 1 [id number] #### [facility] [address] [place] [address] CBC With Differentialon - Basophils #/vol (Bld) 0.04 10*3/uL Normal 0.01-0.09 [facility] Comment on above: Performed By: #### 2 [id number] #### [facility] [address] [place] [address] Basophils/100 WBC (Bld) 0.4 % Normal 0.0-1.3 [facility] Comment on above: Performed By: #### 2 [id number] #### [facility] [address] [place] [address] Eosinophils #/vol (Bld) 0.17 10*3/uL Normal 0.01-0.46 [facility] Comment on above: Performed By: #### 2 [id number] #### [facility] [address] [place] [address] Eosinophils/100 WBC (Bld) 1.6 % Normal 0.0-6.7 [facility] Comment on above: Performed By: #### 2 [id number] #### [facility] [address] [place] [address] Erythrocyte distribution width Ratio (RBC) 13.8 % Normal 12.0-15.4 [facility] Comment on above: Performed By: #### 2 [id number] #### [facility] [address] [place] [address] Hematocrit Volume Fraction (Bld) 49.1 % Normal 38.4-54.9 [facility] Comment on above: Performed By: #### 2 [id number] #### [facility] [address] [place] [address] Hemoglobin mass conc (Bld) 16.5 g/dL Normal 12.8-17.7 [facility] Healthcare Comment on above: Performed By: #### 2 [id number] #### [facility] [address] [place] [address] Imm Grans Absolute 0.06 10*3/uL Normal 0.00-0.21 [facility] Comment on above: Performed By: #### 2 [id number] #### [facility] [address] [place] [address] Immature granulocytes #/vol (Bld) 0.6 % Normal [facility] Comment on above: Performed By: #### 2 [id number] #### [facility] [address] [place] [address] Lymphocytes #/vol (Bld) 1.85 10*3/uL Normal 0.40-2.84 [facility] Comment on above: Performed By: #### 2 [id number] #### [facility] [address] [place] [address] Lymphocytes/100 WBC (Bld) 17.3 % Normal 9.4-41.1 [facility] Comment on above: Performed By: #### 2 [id number] #### [facility] [address] [place] [address] MCH Entitic mass (RBC) 27.9 pg Normal 27.5-32.9 [facility] Healthcare Comment on above: Performed By: #### 2 [id number] #### [facility] [address] [place] [address] MCHC mass conc (RBC) 33.6 g/dL Normal 30.5-35.4 [facility] Healthcare Comment on above: Performed By: #### 2 [id number] #### [facility] [address] [place] [address] MCV Entitic volume (RBC) 83.1 fL Low 83.3-98.2 [facility] Healthcare Comment on above: Performed By: #### 2 [id number] #### [facility] [address] [place] [address] Monocytes #/vol (Bld) 0.99 10*3/uL Normal 0.25-1.33 [facility] Healthcare Comment on above: Performed By: #### 2 [id number] #### [facility] [address] [place] [address] Monocytes/100 WBC (Bld) 9.3 % Normal 3.0-16.2 [facility] Healthcare Comment on above: Performed By: #### 2 [id number] #### [facility] [address] [place] [address] Neutrophils Absolute 7.56 10*3/uL High 2.22-7.53 [facility] Healthcare Comment on above: Performed By: #### 2 [id number] #### [facility] [address] [place] [address] Neutrophils/100 WBC (Bld) 70.8 % Normal 46.2-79.1 [facility] Healthcare Comment on above: Performed By: #### 2 [id number] #### [facility] [address] [place] [address] NRBC Absolute 0.00 10*3/uL Normal [facility] Healthcare Comment on above: Performed By: #### 2 [id number] #### [facility] [address] [place] [address] NRBC Automated 0.0 /100{WBCs} Normal [facility] Healthcare Comment on above: Performed By: #### 2 [id number] #### [facility] [address] [place] [address] Platelet mean volume Entitic volume (Bld) 11.4 fL Normal 9.9-12.1 [facility] Healthcare Comment on above: Performed By: #### 2 [id number] #### [facility] [address] [place] [address] Platelets #/vol (Bld) 211 10*3/uL Normal 155-404 [facility] Healthcare Comment on above: Performed By: #### 2 [id number] #### [facility] [address] [place] [address] RBC #/vol (Bld) 5.91 10*6/uL Normal 4.08-6.37 [facility] Healthcare Comment on above: Performed By: #### 2 [id number] #### [facility] [address] [place] [address] RDW SD 41.8 fL Normal 39.3-48.6 [facility] Healthcare Comment on above: Performed By: #### 2 [id number] #### [facility] [address] [place] [address] WBC #/vol (Bld) 10.7 10*3/uL Normal 4.2-11.0 [facility] Healthcare Comment on above: Performed By: #### 2 [id number] #### [facility] [address] [place] [address] Culture, Blood Bacterialon 0 08-01-2017 Culture, Blood Bacterial BILL#: [id number] : 67 AGE: SEX: M AMBULATORY SOURCE: Blood COLLECTED: 08/01/17 18:21 ANTIBIOTICS AT JOSE.: RECEIVED : 08/01/17 23:26 SITE: SAME SOURCE R E S U L T S BLOOD CULTURE, BACTERIAL FINAL 08/06/17 23:42 No Growth at 1 days No Growth at 2 days No Growth at 3 days No Growth at 4 days NO GROWTH - FINAL REPORT Normal [facility] Healthcare Comment on above: Performed By: #### C XBLB #### [facility] [address] [place] [address] Culture, Blood Bacterial BILL#: [id number] : 67 AGE: SEX: M AMBULATORY SOURCE: Blood COLLECTED: 08/01/17 17:10 ANTIBIOTICS AT JOSE.: RECEIVED : 08/01/17 23:26 SITE: SAME SOURCE R E S U L T S BLOOD CULTURE, BACTERIAL FINAL 08/06/17 23:42 No Growth at 1 days No Growth at 2 days No Growth at 3 days No Growth at 4 days NO GROWTH - FINAL REPORT Normal [facility] Comment on above: Performed By: #### C XBLB #### [facility] [address] [place] [address] [id number] D Dimeron 08-01-2017 D Dimer 252 ng/mL FEU Normal =500 [facility] Comment on above: Result Comment: NOTE NEW REFERENCE RANGE AND UNITS OF 04/06/2017 The VTE Exclusion D-dimer assay is reported in ng/mL Fibrinogen Equivalent Units (FEU). This assay is indicated for use in conjunction with the Guidelines for Emergency Department Use of the VTE Exclusion D-Dimer clinical pretest probability assessment model to exclude deep vein thrombosis (DVT) and pulmonary embolism (PE) disease in outpatients suspected of DVT or PE. Per financial compliance manager's instructions for use, a value of less than 500 ng/mL (FEU) may help to exclude DVT and/or PE in outpatients when the assay is used with a clinical pretest probability assessment. Performed By: #### D DIMR #### [facility] [address] [place] [id number] ESR, Westergrenon 08-01-2017 ESR, Westergren 1 mm/h Normal 0-15 [facility] Comment on above: Performed By: #### 2 [id number] #### [facility] [address] [place] [address] [id number] KNEE 3 VIEWS LTon 08-01-2017 KNEE 3 VIEWS LT DATE OF EXAM: Aug 01 2017 5:32PM CLINICAL HISTORY/ Patient Name: MARLINE KHAN STUDY: KNEE 3 VIEWS LT; 08/01/2017 5:32 pm INDICATION: Non Trauma. Pain across the left knee anteriorly. COMPARISON: 01/23/2015 ACCESSION NUMBER(S): [id number] ORDERING CLINICIAN: RACHELLE LANDAVERDE FINDINGS: There is a small knee effusion, not significantly changed from 01/23/2015. No acute fracture or malalignment. There is mild tricompartmental osteoarthrosis, slightly progressed. CONCLUSION: IMPRESSION: Minimal progression of tricompartmental osteoarthrosis without acute osseous abnormality. Normal [facility] Uric Acidon 08-01-2017 Urate mass conc 6.7 mg/dL Normal 4.0-7.5 [facility] Comment on above: Performed By: #### 1 [id number] #### [facility] [address] [place] [address] ANES [place] 04-07-2017 ANES POST HNO ID: [id number] thor: Joe BenavidezSerruize: AnesthesiologyAuthor Type: AnesthesiologistType: Anesthesia PostOpFiled: 04/07/2017 1:05 PMNote Text:POST ANESTHESIA EVALUATION NOTESERVICE DATE: 04/07/2017SERVICE TIME: 1230DOB: 1965Vitals: 04/07/1809Temp: 36.5 ?C (97.7 ?F) 36.7 ?C (98.1 ?F) 36.5 ?C (97.7 ?F) 36.4 ?C (97.5?F) 04/07/1810P: 116/60 122/76 134/75 124/78 04/07/1810ulse: 77 79 79 76 04/07/1810Resp: 16 16 16 18 04/07/1810SpO2: 96% 96% 95% 98%Validated Vital Signs: YesPOST ANES STATUS: No apparent anesthetic complications. The patient isappropriately hydrated with stable respiratory and cardiovascular status.Patient has safe and adequate airway control. The patient has appropriatepain relief and no significant post operative nausea or vomiting. Thepatient has achieved baseline mental status.Further assessment by Anesthesia Service: NoneOther Remarks:SIGNATURE: Joe Benavidez MD PATIENT NAME: Marline KhanDATE: April 07, 2017 : 1:05 PM PAGER/CONTACT #: [phone] [facility] ANES PREOPon 04-07-2017 ANES PREOP HNO ID: [id number] thor: Joe BenavidezService: AnesthesiologyAuthor Type: AnesthesiologistType: Anesthesia PreOpFiled: 04/07/2017 8:43 AMNote Text: ANESTHESIOLOGY DAY OF SURGERY NOTESERVICE DATE: 04/07/2017SERVICE TIME: 8:42 AMDOB: 1965Procedure(s) (LRB):ARTHROSCOPY KNEE MENISCECTOMY MEDIAL OR LATERAL (Left)Surgeon(s):Jack AguiarEstimated body mass index is 35.34 kg/(m2) as calculated from thefollowing: Height as of this encounter: 193 cm (6' 3.98). Weight as of this encounter: 131.6 kg (290 lb 3.2 oz).Most recent hematocrit and potassium results:Hematocrit 47.8 03/31/2017Potassium 4.4 03/31/2017ANES DOS/PREOP NOTE: Vitals: 206797BG: 147/93Pulse: 96Resp: 18Temp: 36.5 ?C (97.7 ?F)TempSrc: Temporal ArterySpO2: 97%Weight: 131.6 kg (290 lb 3.2 oz)Height: 193 cm (6' 3.98)ACTIVE PROBLEM LISTVaricose Symptomatic [454.8]Unspecified Venous (Peripheral) InsufficiencyCallus of FootTear of Pcl (Posterior Cruciate Ligament) of KneeMedial Meniscus TearNon Morbid ObesityBipolar Disorder (Hcc)Tobacco UseSyncopeOsteoarthritisInsomni aPAST MEDICAL HISTORYDiagnosis Date- Abnormal foot finding Podiatry- Bipolar disorder (HCC) Was previously seen at [facility] in [place]- Cyst of skin Sebaceous, hx/infection- Diverticulitis- Tzughkn-er-dxx- HSV (herpes simplex virus) infection type 1/2- Insomnia- Non morbid obesity 04/03/2017- Osteoarthritis- Periodontal disease 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 Salmeron (Neurology)- Tobacco use- Varicose veins Dr. Ferreira ([facility] Surgeon-[facility])PAST SURGICAL HISTORYProcedure Laterality Date- PAST SURGICAL HISTORY OF 1998 metal plate chin- PAST SURGICAL HISTORY OF 1997 pilonidal cyst- PAST SURGICAL HISTORY OF 2013 right cheek cystic mass excision- PAST SURGICAL HISTORY OF 07/2013 fistulomoty for perirectal fistula- TONSILLECTOMY HXFAMILY HISTORYProblem Relation Age of Onset- pneumonia [OTHER] Father- varicose veins [OTHER] Father- Diabetes Sister- Congenital heart disease [OTHER] Sister- unknown [OTHER] MotherSocial History:Social HistorySubstance Use Topics- Smoking status: Current Every Day Smoker Packs/day: 0.50 Years: 21.00 Types: Cigarettes Start date: 03/06/1996- Smokeless tobacco: Never Used Comment: smokes E-cig AND cigarettes- Alcohol use No Comment: Jan current facility-administered medications on file prior to encounter.Current Outpatient Prescriptions on File Prior to Encounter:traZODone (DESYREL) 100 mg tablet Take 1 tablet by mouth daily at bedtime.Current Facility-Administered Medications:lactated ringers infusion 5-30 mL/hr INTRAVENOUS CONTINUOUS Yaz (Pa)Vetovitz Last Rate: 30 mL/hr at 04/07/17 0800 30 mL/hr at 04/07/17 0800ceFAZolin 3 g in sterile water 30 mL (ANCEF) 3 g INTRAVENOUS ONCE Yaz(Pa) VetovitzAllergies: ALLERGIESNo Known AllergiesDOS EXAM: Adequate NPO status: YesAnesthetic risks, benefits, alternatives, personnel and consent discussed:YesPatient agrees to proceed: YesPrevious Anesthesia: No history of adverse event.Airway Assessment: MP 2; Neck ROM: Full ROM without neurologic symptoms;Airway Evaluation: No significant abnormalitiesSymptoms of Sleep Apnea: NoneDentition: Teeth intactAdditional Physical Exam:Lungs: Patient health status unchanged since recent history and physical.See history and physical for exam findings.Cardiac: Patient health status unchanged since recent history andphysical. See history and physical for exam findings.Additional Pertinent Findings: N/ABlood Products: Not anticipated for this procedure.Anesthetic Plan: GenPain Management Plan: Parenteral or OralASA Class: 2Other Medical Problems:Chronic Beta Nicholas medication administered within 24 hours: N/AI have interviewed and examined the patient. I have reviewed the medicalrecord and/or the pre-anesthesia evaluation, pertinent labs, and testresults.Significant changes in the patient's condition since the History andPhysical, not otherwise documented in primary service progress notes: NoThis contains updated information obtained within 48 hours ofSurgery/Procedure.SIGNATURE: Joe Benavidez MD PATIENT NAME: Marline KhanDATE: April 07, 2017 : 8:42 AM CSN: [id number] [facility] NURSING PROGon 04-07-2017 NURSING PROG HNO ID: [id number] Author: Damien (Rn) KAYLIE Sheehan Service: Nursing Author Type: Registered Nurse Type: Nursing Progress Note Filed: 04/07/2017 8:06 AM Note Text: Pt ready for procedure. [facility] OPERATIVE NOon 04-07-2017 OPERATIVE NO HNO ID: [id number] thor: Jack Whitleye: Orthopaedic SurgeryAuthor Type: PhysicianType: Operative ReportFiled: 04/07/2017 10:44 AMNote Text:OPERATIVE/PROCEDURE REPORTLOG ID: [id number]/Procedure Date: 04/07/2017Incision/Procedure Start Time: 9:47 AMIncision Close/Procedure End Time: 10:30 AMSurgeon(s)/Proceduralist(s) and Chief Minister(s):Surgeon(s) and Role: * Jack Aguiar - PrimaryPhysician Chief Minister: Yaz Gunderson) VishalRegistered Nurse Shipping/Receiving Manager: Alix (Rn) BARBARA Carrrocedure(s):left knee, arthroscopic medial meniscectomy and chondroplasty, lateralproximal tibial chondroplasty.Anesthesia: General with Intraarticular analgesia.OPERATIVE INDICATIONS: This is a pleasant 51 year old year-old male, whohad an injury to the knee causing mechanical symptoms, recurrent swellingand pain. Patient attempted conservative management with activitymodification, medications, and an MRI reported a meniscus tear mediallywith some diffuse OA medially. I discussed with him multiple optionsincluding the risks, benefits, alternatives, and potential complicationsinvolving surgery and he wished to pursue surgical intervention.Procedure Details:On 04/07/2017, the patient was clearly identified in the preoperative areaand marked accordingly on the left knee by myself. He received 3g of Ancefin the IV within 1 hour incision or tourniquet. Patient was taken to theoperative suite and placed in the supine position. Anesthesia assumed careof the head and neck for the remainder of the case and began a generalanesthetic. All other bony landmarks were appropriately padded in standardfashion. The well lower extremity was placed in a semi-lithotomy position,again with neurovascular bundles appropriately padded. The surgical lowerextremity had a well-padded upper thigh tourniquet placed with Webrilpadding and set at 300 mmHg, but not yet inflated. After a betadine swab,the patient was provided a intra-articular injection with 50 mL of 0.2%ropivacaine plain and 2 mg of morphine sulfate at the superior lateralknee joint. Patient was then placed in a well-padded arthroscopic legholder. Patient was sterilely prepped and draped in standard fashion.Appropriate time-out was conducted and all in the room were in agreement,signed consent form was on the chart and images were available forviewing. The lower extremity was then exsanguinated with an Esmarchbandage and the tourniquet was applied at 300 mmHg. Next, the portalincisions were injected with 1% lidocaine with 1:100,000 epinephrine and0.2% ropivacaine for total of 10 mL. A stab incision was then made with an#11 blade at the inferolateral, parapatellar area and I entered into thejoint atraumatically with 1 pass with blunt trocar and camera. A stabincision was made at the superomedial joint for placement of an outflowcannulae. Arthroscopic diagnostic exam was completed that showed Pristinecartilage on the undersurface of the both medial and lateral patellarfacets as well as in the trochlea. I came down in the medial and lateralgutters, which were free of any debris. I entered into the medial jointline and under spinal needle identification, made my standard workingportal at the inferomedial, parapatellar tendon location. I entered inwith a hooked probe and explored the joint. The medial distal femoralcondyle was showing Grade I chondrosis and Grade II chondrosis. The medialtibial plateau surface appeared with Grade I chondrosis. The ACL and PCLwere found to be intact and rather campos. The lateral joint line showedPristine cartilage of the lateral distal femoral condyle. The lateraltibial plateau surface appeared with a large, full thickness flap off themedial side of the lateral joint surface. The remaining cartilageappeared in excellent shape. . I next identified a tear of the medialmeniscus; characterized as medial, chronic, complex, and through the midbody I worked my way with both arthroscopic biter tools as well as the4.5mm resector shaver and made a stable rim in the meniscus, without anyfragments or flaps noted. Again, the entire meniscus was taken to a stablebase without any further concerns. I did an appropriate chondroplasty ofthe medial compartment to smoothen out any areas of fibrillation andsmaller flaps which appeared unstable. The lateral, proximal tibia flapwas then shaved back to a stable shelf with excellent transition to thenormal surface. I then explored the three compartments one last time forany loose debris and suction irrigated.The arthroscopic fluid was suctioned out through the outflow cannula andthe arthroscopic portals were closed with 4-0 Biosyn suture in buriedfashion. Steri-Strips were applied to all 3 incision sites. Xeroformgauze, sterile 4 x 4 gauze, ABD and a thigh-high RADHA hose was applied forfinal bandage. Tourniquet was taken down. There were no complicationsduring the procedure. The patient was safely awoken and transferred to thePostanesthetic Care Unit in stable condition.Pre-Op/Pre-Procedure Diagnosis: Left knee, medial meniscus tear, medialjoint chondrosis.Post-Op/Post-Procedu re Diagnosis: Left knee, medial meniscus tear, medialjoint chondrosis, lateral tibial plateau chondrosis.Estimated Blood Loss: None.Specimens: NoneImplantable Devices: NoneDrains: NoneComplications: NoneI performed the entire procedure.SIGNATURE: Jack Aguiar MD PATIENT NAME: Marline WatersTE: April 07, 2017 : 10:37 AM PAGER/CONTACT #: [facility] PLAN OF CAREon 04-07-2017 PLAN OF CARE HNO ID: [id number] thor: Adele Hinton (Laboratory Asst)Service: (none)Author Type: TechnicianType: Plan of CareFiled: 04/07/2017 12:07 PMNote Text:LEAN COACH BEDSIDE DELIVERY SURVEY1. Patient to use [facility] Bedside Delivery - YES2. If fax, patient would like us to fax prescriptions to Pharmacy ofchoice a. Pharmacy: b. Location: c. Phone:3. Insurance card on file - YES4. Credit card for payment - YESPHARMACY BEDSIDE DELIVERY SERVICEPatient Name: Marline KhanMRN: [id number] marked outpatient medications were Filled at: [place] and delivered tothe patient's bedside to pharm p/uMedication ListSTART taking these medicationsX oxyCODONE-acetaminophen 5-325 mg tabletCommonly known as: PERCOCETTake 1 tablet by mouth every 4 hours as needed for Pain for up to 7 days.CONTINUE taking these medications MULTIVITAMIN ORAL * nicotine 14 mg/24 hrCommonly known as: NICODERMApply 1 Patch as directed every 24 hours. No smoking with patch. * nicotine 7 mg/24 hrCommonly known as: NICODERMApply 1 Patch as directed every 24 hours. traZODone 100 mg tabletCommonly known as: DESYRELTake 1 tablet by mouth daily at bedtime. * Notice: This list has 2 medication(s) that are the same as othermedications prescribed for you. Read the directions carefully, and askyour doctor or other care provider to review them with you.Adele Hinton (Laboratory Asst)PAGER: [phone] 2017 12:07 PM Normal [facility] PT EDon 04-07-2017 PT ED HNO ID: [id number] thor: Patricia (Rn) Ryan, RNService: (none)Author Type: Registered NurseType: Patient EducationFiled: 04/07/2017 12:14 PMNote Text:POST OP LEARNING RESPONSEINSTRUCTION PROVIDED TO: PatientMETHOD OF INSTRUCTION: Teach Back .Individual instructionWritten instruction - handoutsVerbal instructionPATIENT / FAMILY RESPONSE: Verbalizes understanding of: INFECTIONMANAGEMENT-Signs and symptoms of an infection and importance ofcontacting the physicianMEDICAL REGIMEN-Importance of following prescribed medical regimenMEDICATION PRESCRIBED-Accurate knowledge of prescribed medication prior todischargeMEDICATION SIDE EFFECTS-Side effects associated with the medication thatwarrant a call to the physicianPHYSICAL RESTRICTIONS-Physical restrictions and recommendations afterdischarge from the hospitalPOST-OPERATIVE INSTRUCTIONS-Correct actions to take to reducepostoperative complicationsFOLLOW-UP PLAN: Patient instructed to call with any further issuesFollow-up with Primary CareSUPPLEMENTAL MATERIAL: NoneREFERRAL (RECOMMENDATION): NoneElectronically Signed By: Patricia Davis, RN, BSN [facility] PT ED HNO ID: [id number] thor: Damien JohnsonRn) YG Sheehanervice: NursingAuthor Type: Registered NurseType: Patient EducationFiled: 04/07/2017 8:06 AMNote Text:PRE OP LEARNING ASSESSMENTPROCEDURE/SURGERY: SURGERY: Left knee arthroscopyREADINESS TO LEARNCOGNITIVE ABILITY: Alert and orientedMOTIVATION TO LEARN: EagerFAMILY SUPPORT: High - Very involved in pt carePATIENT LEARNS BEST BY: Written Instruction - Hand-outsVerbal InstructionFACTORS AFFECTING LEARNING: NonePHYSICAL LIMITATIONS AFFECTING LEARNING: NoneElectronically Signed By: Damien Sheehan RN In Department: [facility] NURSING PROGon 04-03-2017 NURSING PROG HNO ID: [id number] thor: Ramila English (Rn) YG Reyeservice: (none)Author Type: Registered NurseType: Nursing Progress NoteFiled: 04/03/2017 11:52 AMNote Text:PACC Nurse Progress NoteHistory AND Physical:PACC Visit Date: 03/31/17Labs Within Last 6 Months:CBC: Date 03/31/17BMP/CMP: Date 03/31/17Imaging Within Last 12 Months:MRIX-rayCardiac Testing:N/ANarrative:BMI 35Pre-op Considerations:N/AChart Check:Teena Reyes RNJanuary 2017 11:50 AM [facility] HOSPon 03-23-2017 HOSP Patient:Ab Khan AMRN: Height:6' 3.25(1.911 m)Weight:282 lb (127.914 kg)Outpatient Medications as of 04/07/17:MULTIVITAMIN ORALtraZODone (DESYREL) 100 mg tabletnicotine (NICODERM) 14 mg/24 hrnicotine (NICODERM) 7 mg/24 hrAdmission/Clinic Administered Medications as of 04/07/17:lactated ringers infusionceFAZolin 3 g in sterile water 30 mL (ANCEF)Problem List:Varicose Symptomatic [454.8] [I83.893]Unspecified venous (peripheral) insufficiency [I87.2]Callus of foot [L84]Tear of PCL (posterior cruciate ligament) of knee [S83.529A]Medial meniscus tear [S83.249A]Non morbid obesity [E66.9]Bipolar disorder (HCC) [F31.9]Tobacco use [Z72.0]Syncope [R55]Osteoarthritis [M19.90]Insomnia [G47.00]Allergies:No Known AllergiesDate Verified:04/07/17Lab ValuesLab Value Units Date High LowPOTA* 4.4 mmol/L 03/31/2017 5.1 3.7HEMA* 47.8 % 03/31/2017 51.0 39.0Progress Notes ([facility]):Ishmael Salvador MD 04/05/2017 1:43 PM SignedChief ComplaintPatient presents with:Jett Tanner Erin is a 51 year old male who presents here today for establishcare visit. Patient was previously seeing PCP at [facility]. Lastappointment was 2-3 months ago. Prior to that was seen in [place] by Dr. Smallwood.Was also seen yesterday by LENA Peña Podlogaugust for complaint of weight gain andwas advised to work on improved diet and exercise, referred to vault clerk, andordered thyroid studies.Patient has history of bipolar disorder and was being seen at the [facility], but has not been seen in years. Was on Invega and Depakote, but is nottaking now. Denies manic symptoms, patient states symptoms were typicallydepression. Denies thoughts of harming self or others at this time. 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 Aguiar on 04/07 for repair of lefttorn meniscus. Has already been cleared for procedure.Smokes 1/2 pack of cigarettes per day and would like help with cessation at thistime. Has failed chantix, nicotine patches, and gum in the past. 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 Salmeron (Neurology)- Tobacco use- Varicose veins Dr. Ferreira ([facility] Surgeon-[facility])Previous Surgical HistoryPAST SURGICAL HISTORYProcedure Laterality Date- PAST SURGICAL HISTORY OF 1998 metal plate chin- PAST SURGICAL HISTORY OF 1997 pilonidal cyst- PAST SURGICAL HISTORY OF 2013 right cheek cystic mass excision- PAST SURGICAL HISTORY OF 07/2013 fistulomoty for perirectal fistula- TONSILLECTOMY HXFamily HistoryFAMILY HISTORYProblem Relation Age of Onset- pneumonia [OTHER] Father- varicose veins [OTHER] Father- Diabetes Sister- Congenital heart disease [OTHER] Sister- unknown [OTHER] MotherPatient AllergiesALLERGIESNo Known AllergiesCurrent MedicationsCurrent Outpatient Prescriptions on File Prior to Visit:MULTIVITAMIN ORAL Take by mouth once daily.traZODone (DESYREL) 100 mg tablet Take 1 tablet by mouth daily at bedtime.No current facility-administered medications on file prior to visit.Social HistorySocial History Marital status: Single Spouse name: Years of education: Number of children:Social History Main Topics Smoking status: Current Every Day Smoker Packs/day: 0.50 Years: 21.00 Types: Cigarettes Start date: 03/06/1996 Smokeless status: Never Used Comment: smokes E-cig AND cigarettes Alcohol use: No Comment: Jan 2016 Drug use: Yes Special: Marijuana Comment: last used 2015 Sexual activity: Yes Partners with: Female control/protection: NoneReview of SymptomsREVIEW OF SYSTEMSGENERAL: No weight loss, malaise or feversNECK: Negative for lumps, goiter, pain and significant neck swellingRESPIRATORY: Negative for cough, hemoptysis, wheezing, COPD, dyspnea orshortness of breathCARDIOVASCULAR: Negative for chest pain, leg swelling, hypertension, CHF orpalpitationsGI: No nausea, vomiting, or diarrheaSKIN: Negative for lesions, rash, and itchingEXAM:BP 128/86 Pulse 88 Resp 16 Ht 191.1 cm (6' 3.25) Wt 127.9 kg (282 lb) BMI 35.01 kg/p1Eduktzn Appearance: Well appearing, alert, in no acute distress, well-hydrated,well nourished..Skin: Skin color, texture, turgor normal, no suspicious rashes or lesions.Lungs: Lungs clear to auscultation. No wheezing, rhonchi, rales.Heart: RRR without murmur, gallop, or rubs. No ectopy.Abdomen: Normal abdominal exam, Abdomen soft, non-tender. Bowel sounds normal.No masses, organomegaly.Extremities: varicose veins bilaterally, left worse than right.Health Maintenance ListPROSTATE CANCER SCREENING DISCUSSION due on 2016COLORECTAL CANCER SCREENING,SEE MODIFIER due on 2016DIABETES SCREEN due on 03/31/2020IPID SCREEN due on 01/11/2021TETANUS due on 02/12/2025ONE PNEUMOVAX PRIOR TO AGE 65 CompletedINFLUENZA CompletedData reviewedComponent Latest Ref Rng AND Units 03/31/2017WBC 3.70 - 11.00 k/uL 7.61RBC 4.20 - 6.00 m/uL 5.53Hemoglobin 13.0 - 17.0 g/dL 15.4Hematocrit 39.0 - 51.0 % 47.8MCV 80.0 - 100.0 fL 86.4MCH 26.0 - 34.0 pG 27.8MCHC 30.5 - 36.0 g/dL 32.2RDW-CV 11.5 - 15.0 % 13.4Platelet Count 150 - 400 k/uL 219MPV 9.0 - 12.7 fL 12.0Neut% % 69.9Abs Neut (ANC) 1.45 - 7.50 k/uL 5.32Lymph% % 17.2Abs Lymph 1.00 - 4.00 k/uL 1.31Mono% % 9.7Abs [place] <0.87 k/uL 0.74Eosin% % 2.8Abs Eosin <0.46 k/uL 0.21Baso% % 0.4Abs Baso <0.11 k/uL 0.03Nucleated Reds 0 /100 WBC 0.0Absolute nRBC <0.01 k/uL <0.01Diff Type Auto DiffProtein, Total 6.3 - 8.0 g/dL 6.9Albumin 3.9 - 4.9 g/dL 4.2Calcium 8.5 - 10.2 mg/dL 9.3Bilirubin, Total 0.2 - 1.3 mg/dL <0.2 (L)Alkaline Phosphatase 36 - 108 U/L 80AST 14 - 40 U/L 29Glucose 74 - 99 mg/dL 105 (H)BUN 9 - 24 mg/dL 20Creatinine 0.73 - 1.22 mg/dL 0.85Sodium 136 - 144 mmol/L 140Potassium 3.7 - 5.1 mmol/L 4.4Chloride 97 - 105 mmol/L 103CO2 22 - 30 mmol/L 26Anion Gap 9 - 18 mmol/L 11ALT 10 - 54 U/L 34eGFR- >60eGFR-All Other Races . >60ASSESSMENT/PLAN:1. Bipolar affective disorder, remission status unspecified (HCC) - ICD9:296.80, ICD10: F31.9 (primary diagnosis)Will obtain records from previous psychiatry to review previous treatment anddosage. Will refer to psych in the area and will see back in 4-5 weeks tofurther discuss symptoms. Contracted for safety prior to leaving office.- CONSULT TO PSYCHIATRY2. Tear of medial meniscus of left knee, unspecified tear type, unspecifiedwhether old or current tear, sequela - ICD9: 905.7, ICD10: S83.242SPatient to undergo repair on 04/[address] Aguiar. Will follow orthorecommendations.3. Non morbid obesity - ICD9: 278.00, ICD10: E66.9Will discuss further at future visit.- HGB A1C- LIPID PANEL BASIC4. Tobacco use - ICD9: 305.1, ICD10: Z72.0- Cessation encouraged.- Physiologic and physical aspects of tobacco addiction as well as strategiesfor quitting were discussed.- Counseling was given focusing on the harmful effects of this addictionespecially given the patient's medical condition(s) which will be worsenedbecause of the chemicals in tobacco.- NICOTINE 14 MG/24 HR DAILY TRANSDERMAL PATCH- NICOTINE 7 MG/24 HR DAILY TRANSDERMAL PATCH5. Syncope, unspecified syncope type - ICD9: 780.2, ICD10: W00Ubipsmvnhzechdw per neurology.6. Osteoarthritis of both knees, unspecified osteoarthritis type - ICD9: 715.96,ICD10: M17.0Following up with ortho.7. Insomnia, unspecified type - ICD9: 780.52, ICD10: G47.00Continue trazodone PRN.8. Varicose veins of both lower extremities - ICD9: 454.9, ICD10: I83.93Patient states he has compression stockings at home, will be using them after hehas surgery on knee.Ishmael Salvador, MDProgress Notes ([facility]):Mariana Ramoslogaugust, SLY 04/04/2017 10:41 AM Signed04/04/2017Patient presents with:Weight Problem: pt states weight gain over a yearSUBJECTIVE: This is a 51 year old that is here today for above. Over the lastyear has noticed his pants feeling tighter and his last couple of appointmentshis weight has increased.Denies starting new medications, fatigue, hair loss, brittle nails, dry skin, orcold intolerance.Typical dietBreakfast: Doesn't eat usuallyLunch: eats all the leftoversDinner: Fast foodDrinks Patel's iced coffee 2 a day. Drinks several cokes a day.Does not exercise- plays x-box all day.Vitals 03/31/2016 03/31/2016 06/28/2016 07/14/2016 2016 03/17/201704/04/2017WEIGHT in POUNDS 232 lb 3.2 oz 232 lb 3.2 oz 241 lb 12.8 oz 241 lb 241 lb 284 lb9.6 oz 287 lb 6.4 oz 290 lb 3.2 oz 286 lb 1.9 ozPatient was seen on 03/17/[address] Seals a general surgeon for diverticulitisand there are several medications that is on her visit that patient says he isnot taking. See medication reviewPateint is to have arthroscopic surgery to left knee for torn meniscus on Dr. 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 Salmeron (Neurology)- Varicose veins Dr. Ferreira ([facility] Surgeon-[facility])ALLERGIES Review of patient's allergies indicates no known allergies.MEDICATIONSCurrent Outpatient Prescriptions:MULTIVITAMIN ORAL Take by mouth once daily.traZODone (DESYREL) 100 mg tablet Take 1 tablet by mouth daily at bedtime.No current facility-administered medications for this visit.Medications and allergies reviewed by this provider.SOCIAL HISTORYSocial History Marital status: Single Spouse name: Years of education: Number of children:Social History Main Topics Smoking status: Current Every Day Smoker Packs/day: 0.50 Years: 0.00 Types: Cigarettes Start date: 03/06/1996 Smokeless status: Never Used Comment: smokes E-cig AND cigarettes Alcohol use: No Comment: Jan 2016 Drug use: Yes Special: Marijuana Comment: last used 2015REVIEW OF SYSTEMSGENERAL: No weight loss, malaise or feversNECK: Negative for lumps, goiter, pain and significant neck swellingRESPIRATORY: Negative for cough, hemoptysis, wheezing, COPD, dyspnea orshortness of breathCARDIOVASCULAR: Negative for chest pain, leg swelling, hypertension, CHF orpalpitationsSKIN: Negative for lesions, rash, and itchingENDOCRINE: See HPIAll other reviewed and negative other than HPI.OBJECTIVE:BP 130/78 (BP Site: Left Arm, BP Position: Sitting, BP Cuff Size: Regular Adult) Pulse 68 Resp 18 Wt 129.8 kg (286 lb 1.9 oz) BMI 34.83 kg/m2. Vitalsigns reviewed by this provider.APPEARANCE Well appearing, alert, in no acute distress, well-hydrated, wellnourished.NECK Supple, no adenopathy; thyroid symmetric, normal size, no bruitsHEART RRR with normal S1 and S2, no murmurs, no gallops, no JVD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 [facility] [address]. Alcazar MEDICAL REC #: [id number], [place] [address] DEPARTMENT CHART EMERGENCY DEPARTMENT PHYSICIANprescriptions.9. For your safety, we do not:a. Routinely give narcoticpain medication injections (shots or IV) forflare-ups of chronic pain; b. Refill stolen or lostrescriptions for narcotics or controlledsubstances; c. Provide missing Subutex, Suboxone, orMethadone doses; or, d. Prescribe longacting or controlled release pain medications such asOxyContin, MS Contin, Duragesics, Methadone,Exalgo, and Opana ER.10. Frequent users of the EmergencyDepartment / Urgent Care facility may have careplans developed to assist in improving their care. Theplans may include avoiding medicines likelyto be abused or addictive.11. If you need help with substance abuse or addiction,please call this toll-free number forconfidential referral to treatment between the hours of8:00 AM and 5:00 PM Monday through Monday: .It is against the law to attempt to obtain controlledsubstance pain medicines by deceiving the healthcare provider caring for you. This can include gettingmultiple prescriptions from more than one provideror using someone elses name to obtain a prescription.REFERRALYour regular doctor(s)Please call the above number to schedule a follow-upappointment.MEDICATION SWe have given you these prescriptions that you must filland start taking:[place] 5 mg-325 mg tablet, count:12, Dose = 1, count:12,q8h, count:12, Number of Refills = 0, count:12My signature below indicates that I have received andunderstand the oral instructions regarding mymedical problem. I also acknowledge receipt of this written [facility] PATIENT NAME: MARLINE KHAN A[address] Al[address] MEDICAL REC #: [id number], [place] [address] DEPARTMENT CHART EMERGENCY DEPARTMENT PHYSICIANinstruction sheet including a list of majortests and procedures ordered during my visit. I willarrange for follow-up care as indicated by theseinstructions and referrals.This signed original will be kept in my medical record.Your signature below indicates consent for Case Managementto contact [facility] providers in [facility] to meet your ongoing healthcare needs. This willallow forcontinuity of care once you [facility] the[facility]. This exchange of informationwillinclude, but not be limited to, disclosure of yourpatient information and possible release ofrecords. D [employer] Patient: MARLINE Woodardglenn: MDOB: 1965Age: 51 yrAccount No: [id number]: [id number] Date: 12/18/2016Address: [address] [facility] [address]: [place] [address] EDEGBE RATION ED Number: [id number]: Marital Status: SFinancial Class: CAIDHMO TRIA GE Priority: 4 - Semi UrgentComplaint: Knee pain: InjuryStated Complaint: LEFT KNEE PAIN AND NO REPORTEDINJURY PAIN FOR THE PAST 2 WEEKSArrival Date: 12/18/2016 09:26Triage Date: 12/18/2016 09:29Mode of Arrival: *Privately Owned VehicleTransfer From: * Home [facility] PATIENT NAME: MARLINE KHAN A[address] [facility] [address] Alcazar MEDICAL REC #: [id number], [place] [address] DEPARTMENT CHART EMERGENCY DEPARTMENT PHYSICIANWC: Rossuage: EnglishTransport: Ambulatory/Walk In BED====== A03 In: 12/18/2016 09:34:04 12/18/201609:34:04 DGPA03 (Removed From) Out: 12/18/2016 10:31: 10:31:21 RAN PROVIDER S MIKEY Villalobos Provider Contact: 12/18/201609:35:27 Sajan:MD Sagar Easley Provider Contact: 12/18/201609:35:30 MREnd: TRIAG E HISTORY KISHAN RGIESAllergic To: No Known Allergies 12/18/2016 09:34 DGPCURRENT MEDSName: None 12/18/2016 09:34 DGPName: VERIFIED 12/18/16 12/18/2016 09:34 DGPILLNESSIllness: *None 12/18/2016 09:34 DGPPAST SURGERY HISTSurgery: JAW SURGERY 12/18/2016 09:34 DGPSurgery: PNEUMOTHORAX 12/18/2016 09:34 DGPPAST SOCIAL HIST [facility] PATIENT NAME: MARLINE KHAN [id number] Al[address] MEDICAL REC #: [id number], [place] [address] DEPARTMENT CHART EMERGENCY DEPARTMENT PHYSICIANSocial History: Behavior age appropriate 12/18/201609:34 DGPSocial History: Communicates without uxzgkpcktf61/15/2017 09:34 DGPSocial History: Lives with family or significant other12/18/2016 09:34 DGPSocial History: Smoker-1 PPD 12/18/2016 09:34 DGPSocial History: Denies Domestic Violence 12/18/201609:34 DGPSocial History: Denies thoughts of self harm.12/18/2016 09:34 DGPIMMUNIZATIONSImmunization: Flu Vaccine-yes 12/18/2016 09:34 DGP NURSING ASSESSMENT ASSESSMENT NOTES 2016 10:15 Patient has had left knee pain forover a week. No known injury. No obvious swelling. Hedenies nay recent prolonged travel, surgeries, or dyspnea.Exposed skin warm and dry. Respirations even andunlabored. Call light in reach. Bed in low and lockedposition. 12/18/2016 10:19 RAN TREATMEN T 12/18/2016 10:19 Primary DOC Guide - A. 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 Fall RiskAssessment (Age andlt;65) 12/18/2016 10:20 RANFall Risk Score 1-2 Points = Low Risk. 3-4 Points =Moderate Risk. 5 or more points = High Risk. 0Fall Score Greater andgt;= 3? No12/18/2016 10:20 Primary DOC Guide - E. Family ViolenceAssessment 12/18/2016 10:20 RANClinical Observation Note: patient does not express anyDV, suicidal, or homicidal oosyxxmi50/15/2017 10:30 Admit/Discharge - Discharge infomationreviewed with pt 12/18/2016 11:05 12/18/2016 10:30 Admit/Discharge - Dischargeprescriptions given to patient 12/18/2016 11:05 12/18/2016 10:30 Admit/Discharge - Med list given, andreviewed with ED changes/additions with pt/care giver1 11:05 12/18/2016 10:30 Admit/Discharge - Ambulated withsteady gait home 12/18/2016 11:05 RAN MEDICATI ONS IV I AND O VITALS =====VS-ROUTINE Time: 12/18/2016 09:29B/P: 136/95 - Right Upper Arm - Sitting - MachinePulse: 88 - Apical Resp: 16 [facility] PATIENT NAME: MARLINE KHAN [id number] [facility] [address] Alcazar MEDICAL REC #: [id number], [place] [address] DEPARTMENT CHART EMERGENCY DEPARTMENT QRCCPDHJSGm39: 97 Room Air Temp: 98.00 F - Auasqjfx93/15/2017 09:34 DGPVS-Pain Time: 12/18/2016 09:29 Pain Level: 101 09:34 DGPVS-GCS Time: 12/18/2016 09:29 Visual: 4 Verbal: 5 Motor:6 GCS Total: 15 12/18/2016 09:34 DGPVS-HT/WT Time: 12/18/2016 09:29 Ht: 76 in. ActualWeight: 275 lbs Actual 12/18/2016 09:34 DGPVS-Visual Time: 12/18/2016 09:29 12/18/2016 09:34 DGPVS-FHT Time: 12/18/2016 09:29 12/18/2016 09:34DGPVS-Notes Time: 12/18/2016 09:29 MAP 111 12/18/201609:34 DGP ORDERS== Discharge patient 12/18/2016 10:26N/AOrdered: 12/18/2016 10:23 By . OtherReviewed: 12/18/2016 10:26 By Ferdinand Shukla (PO)*(5/325) DOSE: 1 tabsPO 12/18/2016 10:11N/AOrdered: 12/18/2016 09:54 By Mg VillalobosCompleted Time: 12/18/2016 10:10 By Mg VillalobosNotalison Time: 12/18/2016 09:57 RANKnee series (left) 12/18/2016 10:16N/AOrdered: 12/18/2016 09:46 By Mg Bernardpleted Time: 12/18/2016 10:16 By Mg VillalobosIndication: Knee painNoted Time: 12/18/2016 10:10Question: How is patient transported? (A = Ambulatory, B =Bed, C = Carry, CR = Crib, P = Portable, S = Stretcher, W =Wheelchair, X = Wide Wheelchair, XT = Trauma X RM17 (EDOnly))Answer: STRETCHER DI SCHARGE Diag nosis: chronic left knee pain with joint effusionon x-ray 12/18/2016 10:25 [facility] PATIENT NAME: MARLINE KHAN [id number] Al[address] MEDICAL REC #: [id number], [place] [address] DEPARTMENT CHART EMERGENCY DEPARTMENT PHYSICIANDisposition: Time: 12/18/2016 10:23Discharge Time: 12/18/2016 10:31Type: DischargeCondition: Stable for admission/discharge/transferaft er emergency evaluation/treatment Category: *NOTAPPLICABLEReferral: 12/18/2016 10:25Admit Physician: . Other PRESCR IPTIONS Norc o 5 mg-325 mg tablet 12/18/2016 10:23SI q8h painDispense: 12 / Refills: NORA RGES SIGNATURE========= Sagar CARBONE [facility] PATIENT NAME: MARLINE KHAN [id number] [facility] [address] Alcazar MEDICAL REC #: [id number], [place] [address] DEPARTMENT CHART EMERGENCY DEPARTMENT PHYSICIAN Normal [facility] ED Documentation This is a preliminar y report only, as the practitioner review and authentication has not occurred. [facility] KNEE COMP 4 OR MORE VWS LTon 12-18-2016 KNEE COMP 4 OR MORE VWS LT KNEE COMP 4 OR MORE VWS LTOrdering Physician: BRANDY Cooper12/18/2016 9:46 AMLEFT KNEE FIVE VIEWSClinical Statement: Knee painComparison: NoneFINDINGS: There are mild degenerative changes. No fracture ordislocation is seen. There is a tiny effusionIMPRESSION:No acute osseous abnormality. Joint effusion. ---- Electronic Signature on File ----Signed By: Elena Frey [email or web address]: 12/18/2016 10:13 AMSigned: 12/18/2016 10:14 AM Reported By: ELENA FREY M.D. Signed By: ELENA FREY M.D. [facility] Vital Signs Date Time Vital Sign Value Performing Clinician Edwardo husain 09-04-2024 06:56-0400 Body height 193.04 cm Roxanne Clark PRODUCTION CONTROL PEGBOARD CLERK-C Work Phone: 7(812)[phone] [place] [address] 09-04-2024 06:56-0400 Body mass index (BMI) [Ratio] 36.2 kg/m2 Roxanne Clark PRODUCTION CONTROL PEGBOARD CLERK-C Work Phone: 0(891)[phone] [place] [address] 09-04-2024 06:56-0400 Body temperature 97.4 [degF] Roxanne Clark PRODUCTION CONTROL PEGBOARD CLERK-C Work Phone: 2(079)255-431941 [place] [address] 09-04-2024 06:56-0400 Body weight 135.17 kg Roxanne Clark PRODUCTION CONTROL PEGBOARD CLERK-C Work Phone: 8(473)995-415041 [place] [address] 09-04-2024 06:56-0400 Diastolic blood pressure 72 mm[Hg] Roxanne Clark PRODUCTION CONTROL PEGBOARD CLERK-C Work Phone: 5(610)178-815741 [place] [address] 09-04-2024 06:56-0400 Heart rate 90 /min Roxanne Clark PRODUCTION CONTROL PEGBOARD CLERK-C Work Phone: 9(406)286-628541 [place] [address] 09-04-2024 06:56-0400 Respiratory rate 18 /min Roxanne Clark PRODUCTION CONTROL PEGBOARD CLERK-C Work Phone: 6(819)[phone] [place] [address] 09-04-2024 06:56-0400 SaO2% (BldA) [Mass fraction] 95 % Roxanne Clark PRODUCTION CONTROL PEGBOARD CLERK-C Work Phone: 9(217)113-043241 [place] [address] 09-04-2024 06:56-0400 Systolic blood pressure 145 mm[Hg] Roxanne Clark PRODUCTION CONTROL PEGBOARD CLERK-C Work Phone: 7(237)179-839341 [place] [address] 09-24-2023 07:55-0400 Blood Pressure Cuff Size CHRIS HERNANDEZ MD [facility] 09-24-2023 07:55-0400 Blood Pressure Location CHRIS HERNANDEZ MD [facility] 09-24-2023 07:55-0400 Blood Pressure Method CHRIS HERNANDEZ MD [facility] 09-24-2023 07:55-0400 Body temperature 98.6 [degF] CHRIS HERNANDEZ MD [facility] 09-24-2023 07:55-0400 Diastolic Blood Pressure Non-Invasive 90 mm[Hg] CHRIS HERNANDEZ MD [facility] 09-24-2023 07:55-0400 Heart rate 98 /min CHRIS HERNANDEZ MD [facility] 09-24-2023 07:55-0400 Respiratory rate 16 /min CHRIS HERNANDEZ MD [facility] 09-24-2023 07:55-0400 Systolic Blood Pressure Non-Invasive 135 mm[Hg] CHRIS HERNANDEZ MD [facility] 09-13-2022 14:46-0400 Body height 193.[address] Alexandre Don Work Phone: [facility] 09-13-2022 14:46-0400 Body weight 153.[address] Alexandre Don Work Phone: [facility] 08-15-2022 13:04-0400 Body mass index (BMI) [Ratio] 41.2 kg/m2 Dr. Alexandre Don Work Phone: [facility] 08-15-2022 13:04-0400 Body weight 153.[address] Alexandre Don Work Phone: [facility] 07-28-2022 15:39-0400 Body mass index (BMI) [Ratio] 41.1 kg/m2 Dr. Alexandre Don Work Phone: [facility] 07-28-2022 15:39-0400 Body temperature 96.4 [degF] Dr. Alexandre Don Work Phone: [facility] 07-28-2022 15:39-0400 Body weight 153.[address] Alexandre Don Work Phone: [facility] 07-28-2022 15:39-0400 Diastolic blood pressure 80 mm[Hg] Dr. Alexandre Don Work Phone: [facility] 07-28-2022 15:39-0400 Heart rate 102 /min Dr. Alexandre Don Work Phone: [facility] 07-28-2022 15:39-0400 Respiratory rate 16 /min Dr. Alexandre Don Work Phone: [facility] 07-28-2022 15:39-0400 SaO2% (BldA) [Mass fraction] 96 % Dr. Alexandre Don Work Phone: [facility] 07-28-2022 15:39-0400 Systolic blood pressure 120 mm[Hg] Dr. Alexandre Don Work Phone: [facility] 07-01-2022 13:03-0400 Body mass index (BMI) [Ratio] 41.2 kg/m2 Dr. Alexandre Don Work Phone: [facility] 07-01-2022 13:03-0400 Body temperature 95.6 [degF] Dr. Alexandre Don Work Phone: [facility] 07-01-2022 13:03-0400 Body weight 153.[address] Alexandre Don Work Phone: [facility] 07-01-2022 13:03-0400 Diastolic blood pressure 76 mm[Hg] Dr. Alexandre Don Work Phone: [facility] 07-01-2022 13:03-0400 Heart rate 104 /min Dr. Alexandre Don Work Phone: [facility] 07-01-2022 13:03-0400 Respiratory rate 18 /min Dr. Alexandre Don Work Phone: [facility] 07-01-2022 13:03-0400 SaO2% (BldA) [Mass fraction] 96 % Dr. Alexandre Don Work Phone: [facility] 07-01-2022 13:03-0400 Systolic blood pressure 124 mm[Hg] Dr. Alexandre Don Work Phone: [facility] 02-24-2022 11:03-0500 Body temperature 96.6 [degF] Dr. Alexandre Don Work Phone: [facility] 02-24-2022 11:03-0500 Body weight 144.[address] Alexandre Don Work Phone: [facility] 02-24-2022 11:03-0500 Diastolic blood pressure 84 mm[Hg] Dr. Alexandre Don Work Phone: [facility] 02-24-2022 11:03-0500 Heart rate 87 /min Dr. Alexandre Don Work Phone: [facility] 02-24-2022 11:03-0500 Respiratory rate 16 /min Dr. Alexandre Don Work Phone: [facility] 02-24-2022 11:03-0500 SaO2% (BldA) [Mass fraction] 93 % Dr. Alexandre Don Work Phone: [facility] 02-24-2022 11:03-0500 Systolic blood pressure 116 mm[Hg] Dr. Alexandre Don Work Phone: [facility] 09-16-2021 09:39-0400 Body height 193.[address] Alexandre Don Work Phone: [facility] Work Phone: 09-16-2021 09:39-0400 Body mass index (BMI) [Ratio] 39 kg/m2 Dr. Alexandre Don Work Phone: [facility] Work Phone: 09-16-2021 09:39-0400 Body temperature 97.5 [degF] Dr. Alexandre Don Work Phone: [facility] Work Phone: 09-16-2021 09:39-0400 Body weight 145.[address] Alexandre Don Work Phone: [facility] Work Phone: 09-16-2021 09:39-0400 Diastolic blood pressure 84 mm[Hg] Dr. Alexandre Don Work Phone: [facility] Work Phone: 09-16-2021 09:39-0400 Heart rate 71 /min Dr. Alexandre Don Work Phone: [facility] Work Phone: 09-16-2021 09:39-0400 Respiratory rate 14 /min Dr. Alexandre Don Work Phone: [facility] Work Phone: 09-16-2021 09:39-0400 SaO2% (BldA) [Mass fraction] 96 % Dr. Alexandre Don Work Phone: [facility] Work Phone: 09-16-2021 09:39-0400 Systolic blood pressure 122 mm[Hg] Dr. Alexandre Don Work Phone: [facility] Work Phone: 06-08-2021 10:05-0400 Body mass index (BMI) [Ratio] 39 kg/m2 Dr. Alexandre Don Work Phone: [facility] Work Phone: 06-08-2021 10:05-0400 Body temperature 96.9 [degF] Dr. Alexandre oDn Work Phone: [facility] Work Phone: 06-08-2021 10:05-0400 Body weight 145.[address] Alexandre Don Work Phone: [facility] Work Phone: 06-08-2021 10:05-0400 Diastolic blood pressure 70 mm[Hg] Dr. Alexandre Don Work Phone: [facility] Work Phone: 06-08-2021 10:05-0400 Heart rate 71 /min Dr. Alexandre Don Work Phone: [facility] Work Phone: 06-08-2021 10:05-0400 Respiratory rate 14 /min Dr. Alexandre Don Work Phone: [facility] Work Phone: 06-08-2021 10:05-0400 SaO2% (BldA) [Mass fraction] 96 % Dr. Alexandre Don Work Phone: [facility] Work Phone: 06-08-2021 10:05-0400 Systolic blood pressure 116 mm[Hg] Dr. Alexandre Don Work Phone: [facility] Work Phone: Encounters Encounter Date Encounter Type Care Provider Facility Start: 01-21-2025 ambulatory JANNET Carson y:[facility] Start: 12-30-2024 End: 12-30-2024 ambulatory ANNIE LEWIS Facility:[id number] Start: 12-02-2024 End: 12-02-2024 ambulatory Roxanne Clrak PRODUCTION CONTROL PEGBOARD CLERK-C Work Phone: -Pulmonary Services/Neurology Start: 12-02-2024 End: 12-02-[address] Juliocesar Quinones DO -Pulmonary Services/Neurology Work Phone: Start: 12-02-2024 End: 12-02-2024 ambulatory JANNET BEN Facility:[facility] Start: 11-28-2024 ambulatory JANNET ETANKIT R FISHER SPEAR-CEMENT KILN OPERATOR Facility:[facility] Start: 10-14-2024 End: 10-14-2024 Emergency department patient visit JANNET MEHTA DO [facility] Start: 09-23-2024 End: 09-23-2024 ambulatory ZINA ESTEVES DO Facility:[facility] Start: 09-23-2024 End: 09-23-2024 Minor Procedure ZINA ESTEVES DO [facility] Start: 09-04-2024 End: 09-04-[address] Juliocesar Quinones DO -[facility] Work Phone: Start: 09-04-2024 End: 09-04-2024 ambulatory Roxanne Clark PRODUCTION CONTROL PEGBOARD CLERK-C Work Phone: -[facility] Start: 08-19-2024 End: 08-19-2024 ambulatory JANNET BEN FISHER SPEAR-CEMENT KILN OPERATOR Facility:[facility] Start: 08-19-2024 End: 08-19-2024 Patient encounter procedure JANNET BEN FISHER SPEAR-CEMENT KILN OPERATOR [facility] Start: 07-30-2024 End: 07-30-2024 ambulatory JANNET BEN FISHER SPEAR-CEMENT KILN OPERATOR Facility:[facility] Start: 07-30-2024 End: 07-30-2024 Patient encounter procedure JANNET BEN FISHER SPEAR-CEMENT KILN OPERATOR [facility] Start: 02-26-2024 End: 02-26-2024 ambulatory JANNET CONTRERAS FISHER SPEAR-CEMENT KILN OPERATOR Facility:[facility] Start: 02-26-2024 End: 02-26-2024 Patient encounter procedure JANNET CONTRERAS APRN-CEMENT KILN OPERATOR [facility] Start: 09-24-2023 End: 09-24-2023 Emergency department patient visit CHRIS HERNANDEZ MD [facility] Start: 09-13-2022 End: 10-03-[address] Alexandre Don Work Phone: [facility] Work Phone: Start: 09-13-2022 End: 10-03-[address] Alexand[facility] Work [facility]: Start: 08-15-2022 End: 08-15-[address] Alexandre Don Work Phone: [facility] Work Phone: Start: 07-28-2022 End: 07-28-[address] Alexandre Don Work Phone: [facility] Work Phone: Start: 07-01-2022 End: 07-01-[address] Alexandre Don Work Phone: [facility] Work Phone: Start: 06-14-2022 Non-patient / Non-visit Dr. Alexandre Don Work Phone: [facility] Start: 06-14-2022 End: 04-11-[address] Alexandre Don Work Phone: [facility]/Neurology Work Phone: Start: 02-24-2022 End: 02-24-[address] Aleaxndre Don Work Phone: [facility] Internal Medicine Start: 09-17-[address] Alexandre Don Work Phone: [facility]-Radiology, [facility] Start: 09-16-2021 End: 09-16-[address] Alexandre Don Work Phone: [facility] Internal [facility] Start: 06-08-2021 End: 06-08-[address] Alexandre Don Work Phone: [facility] Internal [facility] Start: 04-29-2020 End: 04-29-2020 Subsequent hospital visit by physician Ryann Lai Work Phone: [facility] Start: 02-26-2020 End: 02-26-2020 Subsequent hospital visit by physician Ryann Lai Work Phone: [facility] Start: 12-18-2019 End: 12-18-2019 Subsequent hospital visit by physician Brenden Lozada Work Phone: [facility] Start: 06-21-2018 Patient encounter procedure Nick Caroaden Bradshaw Facility:[facility] Start: 05-29-2018 Patient encounter procedure NICK BRADSHAW Facility:8 Start: 02-13-2018 Patient encounter procedure NICK BRADSHAW Facility:8 Start: 11-30-2017 Patient encounter WILVER Brooke lity:[facility] Start: 08-01-2017 End: 08-01-2017 Emergency department patient visit NO FAMILY DOCTOR NO FAMILY DOCTOR Facility:[facility] Start: 08-01-2017 Patient encounter procedure Abdon Mary AliceDavidmaddie Joness Facility:[id number] Start: 04-07-2017 End: 04-07-2017 Ambulatory [facility] Start: 12-18-2016 Emergency department patient visit Facility:[facility] Procedures Date Procedure Procedure Detail Performing Clinician Start: 08-15-2022 Radiologic examinati on of knee Dr. Alexandre Don Work Phone: Start: 09-17-2021 Radiologic examinati on of knee Dr. Alexandre Don Work Phone: Colonoscopy ZINA WISAM DO Jaw (surface region) (body structure) CHRIS HERNANDEZ MD Comment on above: wired for fx Thoracic structure ( body structure) CHRIS HERNANDEZ MD Comment on above: chest tube for pneum o Plan of Treatment Date Care Activity Detail Author Start: 02-12-2025 DTaP/Tdap/Td vaccine (2 - Td) DTaP/Tdap/Td vaccine (2 - Td) [place] Start: 09-11-2024 Measurement of respiratory function [facility] Start: 08-15-2022 Patient referral [facility] Work Phone: Start: 07-28-2022 Patient referral [facility] Work Phone: Start: 02-24-2022 Patient referral [facility] Work Phone: Start: 09-16-2021 Patient referral [facility] Work Phone: Start: 05-15-2020 End: 05-15-2020 Office Visit 05/15/2020 Office Visit Weight Management Ryann Lai MD [address] [place] [address] [phone] [facility] Start: 04-01-2020 End: 04-01-2020 Office Visit 04/01/2020 Office Visit Weight Management Ryann Lai MD [address] [place] [address] [phone] [facility] Start: 11-05-2019 Influenza vaccination Flu vaccine (# 1) [place], [place] Start: 2016 Screening for malign ant neoplasm of colon Colon cancer screen colonoscopy [place], [place] Start: 2016 Shingles Vaccine (1 of 2) Shingles Vaccine (1 of 2) [place] Start: 2006 Diabetes screen Diabetes screen [place], [place] Start: 1985 DTaP/Tdap/Td vaccine (1 - Tdap) DTaP/Tdap/Td vaccine (1 - Tdap) [place], [place] Start: 1981 HIV screening HIV screen [place], [place] Start: 1976 Lipid panel Lipid screen [place], [place] Start: 1966 Creatinine measurement Creatinine mo nitoring [place], [place] Start: 1966 Hepatitis C screening Hepatitis C sc reen [place], [place] Start: 1966 Potassium monitoring Potassium monit oring [place] Measurement of respiratory function [facility] Work Phone: Measurement of respiratory function [facility] Patient referral [facility] Work Phone: Walking distance 6 minutes [facility] Walking distance 6 minutes [facility] Immunizations Immunization Date Immunization Notes Care Provider Alice silverman 07-31-2024 zoster vaccine recombinant; Translations: [Shingrix] JANNET CONTRERAS FISHER SPEAR-CEMENT KILN OPERATOR [facility] 12-21-2021 influenza, injectabl e, quadrivalent, preservative free Roxanne Clark PRODUCTION CONTROL PEGBOARD CLERK-Brisa Work Phone: [facility] 12-21-2021 influenza, seasonal, injectable Dr. Alexandre Don Work Phone: [facility] 06-20-[address] Alexandre Don Work Phone: [facility] 01-26-2021 Covid (Moderna) Dr. Valentina Don Work Phone: [facility] 07-01-2020 Covid (Pfizer) Dr. Alexandre Don Work Phone: [facility] 06-10-2020 Covid (Pfizer) Dr. Alexandre Don Work Phone: [facility] 11-20-2018 influenza virus vacc ine, unspecified formulation [facility] [place] [facility] [place] 12-15-2017 influenza virus vacc ine, unspecified formulation [facility] [place] [facility] [place] 02-13-2017 Influenza, injectabl e, Madin Bonneau Canine Kidney, preservative free, quadrivalent [facility] [place] [place] 01-18-2017 Influenza Vaccine, unspecified formulation [facility] [place] [facility] [place] 01-18-2017 influenza virus vacc ine, unspecified formulation [facility] [place] [facility] [place] 01-12-2016 influenza virus vacc ine, unspecified formulation [facility] [place] [facility] [place] 02-12-2015 tetanus toxoid, redu mya diphtheria toxoid, and acellular pertussis vaccine, adsorbed [facility] 02-11-2015 Influenza Vaccine, unspecified formulation [facility] [place] [facility] [place] 02-11-2015 influenza virus vacc ine, unspecified formulation [facility] [place] [facility] [place] 02-11-2015 pneumococcal polysaccharide vaccine, 23 valent [facility] Payers Date Payer Category Payer Self-pay [id number] 2023 Unknown [id number] 2023 Medicaid [id number] 2023 Unknown [id number] 2022 Medicaid [id number] 2015 Unknown [id number] 1966 Unknown [id number] 2.16.8 [id number] 1966 Unknown [id number] 2.16.8 [id number] 1966 Unknown [id number] 2.16.8 [id number] 1966 Unknown [id number] 2.16. [id number] 1966 Unknown [id number] 2.16. [id number] 1966 Unknown [id number] 2.16.8 [id number] 1966 Unknown [id number] 2.16. [id number] 1966 Unknown [id number] 2.16. [id number] 1966 Unknown [id number] 2.16. [id number] 1966 Unknown [id number] 2.16. [id number] 1966 Unknown [id number] 2.16.8 [id number] 1966 Unknown [id number] 2.16.8 [id number] Unknown [id number] 2.16.8 [id number] Unknown [id number] 2.16.8 [id number] Unknown [id number] 2.16.8 [id number] Social History Date Type Detail Facility Start: 12-18-2019 End: 02-26-2020 Tobacco smoking status NHIS Current every day smoker [place], [place] History of tobacco use Cigarette Smoker [place] Start: 12-18-2019 End: 02-26-2020 Cigarettes smoked current (pack per day) - Reported [place] Start: 12-18-2019 End: 02-26-2020 Tobacco use and exposure Never used [facility] DEBORAH HIDALGO Start: 12-18-2019 End: 02-26-2020 Alcohol intake Ex-drinker (finding) [facility] Nawaf HIDALGO Y Sex Assigned At Not on file [facility] DEBORAH HIDALGO Start: 09-16-2021 End: 08-15-2022 Tobacco smoking status NHIS Unknown if ever smoked [facility] Start: 06-07-2020 None [facility] Start: 06-07-2020 Spouse/ Signif icant Other [facility] Start: 06-07-2020 Cigarettes [facility] Start: 1965 Sex Assigned At Male W [facility] Tobacco Nicotine Use: Va ping Product in Last 90 Days. Type: Electronic Cigarettes (Vaping). Ready to change: Yes. [facility] Sexual Orientation [facility] Start: 08-29-2018 Sex Male (finding) [facility] Start: 08-15-2022 End: 07-31-2024 Tobacco smoking status Ex-smoker (finding) [facility] Sex Male [facility] Medical Equipment Procedure Code Equipment Code Equipment Origin al Text Equipment Identifier Dates Blood Sugar Diagnostic (Freestyle Lite Strips) strip Start: 04-28-2020 Lancets (Freesty le Lancets) 28 gauge misc Start: 06-08-2021 Lancets (Onetouc h Delica Lancets) 33 gauge misc Start: 06-08-2021 Onetouch verio f wendy strips Start: 06-24-2020 Lancets (Freesty le Lancets) 28 gauge misc Start: 04-28-2020 End: 06-08-2021 Lancets (Onetouc h Delica Lancets) 33 gauge misc Start: 06-24-2020 End: 06-08-2021 Blood Sugar Diagnostic (Freestyle Lite Strips) strip Start: 04-28-2020 Lancets (Freesty le Lancets) 28 gauge misc Start: 06-08-2021 Lancets (Onetouc h Delica Lancets) 33 gauge misc Start: 06-08-2021 Onetouch verio f wendy strips Start: 06-24-2020 Lancets (Freesty le Lancets) 28 gauge misc Start: 04-28-2020 End: 06-08-2021 Lancets (Onetouc h Delica Lancets) 33 gauge misc Start: 06-24-2020 End: 06-08-2021 Blood Sugar Diagnostic (Freestyle Lite Strips) strip Start: 04-28-2020 Lancets (Freesty le Lancets) 28 gauge misc Start: 06-08-2021 Lancets (Onetouc h Delica Lancets) 33 gauge misc Start: 06-08-2021 Onetouch verio f wendy strips Start: 06-24-2020 Lancets (Freesty le Lancets) 28 gauge misc Start: 04-28-2020 End: 06-08-2021 Lancets (Onetouc h Delica Lancets) 33 gauge misc Start: 06-24-2020 End: 06-08-2021 Blood Sugar Diagnostic (Freestyle Lite Strips) strip Start: 04-28-2020 Lancets (Freesty le Lancets) 28 gauge misc Start: 06-08-2021 Lancets (Onetouc h Delica Lancets) 33 gauge misc Start: 06-08-2021 Onetouch verio f wendy strips Start: 06-24-2020 Pen Needle, Diab etic 32 gauge x 5/32 needle Start: 09-16-2021 Lancets (Freesty le Lancets) 28 gauge misc Start: 04-28-2020 End: 06-08-2021 Lancets (Onetouc h Delica Lancets) 33 gauge misc Start: 06-24-2020 End: 06-08-2021 Pen Needle, Diab etic 32 gauge x 5/32 needle Start: 06-24-2020 End: 11-18-2020 Pen Needle, Diab etic 32 gauge x 5/32 needle Start: 06-08-2021 End: 09-16-2021 Pen Needle, Diab etic 32 gauge x 5/32 needle Start: 11-18-2020 End: 06-08-2021 Blood Sugar Diagnostic (Freestyle Lite Strips) strip Start: 04-28-2020 Lancets (Freesty le Lancets) 28 gauge misc Start: 06-08-2021 Lancets (Onetouc h Delica Lancets) 33 gauge misc Start: 06-08-2021 Onetouch verio f wendy strips Start: 06-24-2020 Pen Needle, Diab etic 32 gauge x 5/32 needle Start: 09-16-2021 Lancets (Freesty le Lancets) 28 gauge misc Start: 04-28-2020 End: 06-08-2021 Lancets (Onetouc h Delica Lancets) 33 gauge misc Start: 06-24-2020 End: 06-08-2021 Pen Needle, Diab etic 32 gauge x 5/32 needle Start: 06-24-2020 End: 11-18-2020 Pen Needle, Diab etic 32 gauge x 5/32 needle Start: 06-08-2021 End: 09-16-2021 Pen Needle, Diab etic 32 gauge x 5/32 needle Start: 11-18-2020 End: 06-08-2021 Functional Status Date Assessment Result Facility 09-24-2023 Functional Status Independent [facility] 09-24-2023 Functional Status Ambulation in [place], Ambulation in Room [facility] Mental Status Date Assessment Result Facility 09-24-2023 Mental Status Orientation Oriented x 4 [facility] 09-24-2023 Mental Status [facility] Clinical Notes 01-30-2020 to 12-30-2024 Note Date & Type Note Facility 12-30-2024 Note HNO ID: [id number] Author: ANNIE LEWIS MD Service: ? Author Type: Physician Type: Progress Notes Filed: 12/30/2024 13:37 Note Text: Marline Khan is a 59 year old male who presents with follow-up he has a lot of the frequency and urgency to go every 10 minutes sometimes 5 times at night says the flow is good he has no incontinence his glucose is over thousand there is no blood in his urine no white cells. Prostate is pretty small 10 g we will go ahead and get a PSA free PSA last when I see was in 2019 he was 0.51 we will also do a flow test then decide he may need a cystoscopy etc. Review of Systems- Reviewed and otherwise non-contributory. Ht 190.5 cm (6' 3) Wt 131.5 kg (290 lb) BMI 36.25 kg/m? PAST MEDICAL HISTORY Diagnosis Date Abnormal foot finding Podiatry Bipolar disorder (HCC) [facility] Cyst of skin Sebaceous, hx/infection Diverticulitis Duodenal ulcer Dr. 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 Salmeron (Neurology) Tobacco use Varicose veins Dr. Ferreira (Vasc Surgeon-[facility]) PAST SURGICAL HISTORY Procedure Laterality Date PAST SURGICAL HISTORY OF 1998 metal plate chin PAST SURGICAL HISTORY OF 1997 pilonidal cyst PAST SURGICAL HISTORY OF 2013 right cheek cystic mass excision PAST SURGICAL HISTORY OF 07/2013 fistulomoty for perirectal fistula PAST SURGICAL HISTORY OF 04/07/2017 left knee arthroscopy, medial menisectomy and chondroplasty TONSILLECTOMY HX Current Outpatient Medications Medication Sig Dispense Refill simvastatin (ZOCOR) 40 mg tablet Take 1 tablet by mouth daily at bedtime. For cholesterols. 90 tablet 3 omeprazole (PRILOSEC) 20 mg capsule Take 1 capsule by mouth once daily. 30 capsule 11 tamsulosin ER (FLOMAX) 0.4 mg Take 1 capsule by mouth daily at bedtime. 30 capsule 5 ferrous sulfate (IRON) 325 mg (65 mg iron) tablet Take 325 mg by mouth daily with breakfast. cholecalciferol (VITAMIN D-3) 2,000 unit tablet Take 2,000 Units by mouth once daily. OTC NUTRITIONAL SUPPLEMENT White kidney palacios OTC NUTRITIONAL SUPPLEMENT Bladder formula COMPOUNDED PRESCRIPTION Regamol 500mg Take 1 tablet once daily. 1 Each 0 ARIPiprazole (ABILIFY) 5 mg tablet Take 1 tablet by mouth once daily. albuterol HFA (VENTOLIN HFA) 90 mcg/actuation inhaler Inhale 2 Puffs as instructed every 4 hours as needed. 1 Inhaler 1 traZODone (DESYREL) 100 mg tablet Take 100 mg by mouth daily at bedtime. DULoxetine (CYMBALTA) 30 mg capsule Take 30 mg by mouth once daily. c.vinegr/ap.pect/gymn/B6/min32 (APPLE CIDER VINEGAR DIET ORAL) Take 1 capsule by mouth once daily. cyanocobalamin, vitamin B-12, (VITAMIN B12 ORAL) Take 1 capsule by mouth once daily. dfmyundk-zqo-DT-lycopen-lutein (CENTRUM SILVER MEN) 300-600-300 mcg tab Take 1 tablet by mouth once daily. aspirin, enteric coated (ASPIRIN, ENTERIC COATED) 81 mg EC tablet Take 81 mg by mouth once daily. acetaminophen (TYLENOL) 325 mg cap Take by mouth. No current facility-administered medications for this visit. 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 Annie Lewis MD This note was generated with voice recognition software and may contain errors, including spelling, grammar, syntax and misrecognition of what was dictated, that are not fully corrected. [facility] 10-14-2024 Note Discharge Instructions Thank you for allowing [facility] to assist you with your healthcare needs. The following is important discharge information regarding your hospital visit. Diagnosis from Today's Visit COPD exacerbation What to Do Next Instructions from Your Care Team Take prednisone as prescribed. Use inhaler. Follow-up with your primary care provider. Return to emergency department if experience worsening symptoms or any other acute concern. No qualifying data available. Post Acute Orders No qualifying data available. You Need to Schedule the Following Appointments Follow Up with JANNET CONTRERAS When:Within 2-4 days Where:[address] [facility] [place] [address]- [phone] Follow Up with Go to emergency room if symptoms worsen When:Within 2-4 days Allergies NKA Medications Please ask your primary doctor or pharmacist before taking any other medication not listed, including over the counter drugs, herbal medications, vitamins and or supplements as they may interact with your home medications. What How Much When Why Instructions Last Dose New albuterol (albuterol MDI (90 mcg/ inh) CFC free inhalation aerosol) 2 puff(s) by inhalation Every 6 hours as needed for as needed for wheezing Printed Prescription New predniSONE (predniSONE 50 mg oral tablet) 1 tab(s) by mouth Once a day Duration: 5 Days Take with food Printed Prescription Unchanged acetaminophen (Tylenol) by mouth Unchanged aspirin Unchanged budesonide-formoterol (Symbicort 160 mcg-4.5 mcg/ inh Inhaler) 2 puff(s) by inhalation Two (2) times a day Duration: 90 Days Unchanged buPROPion (BuPROPion (Eqv-Wellbutrin SR) 150 mg/ 12 hours oral tablet, extended release) 1 tab(s) by mouth Two (2) times a day Duration: 90 Days Unchanged dulaglutide (Trulicity Pen 0.75 mg/ 0.5 mL subcutaneous solution) 0.5 Milliliter Subcutaneous Every week Unchanged dulaglutide (Trulicity Pen 1.5 mg/ 0.5 mL subcutaneous solution) 0.5 Milliliter Subcutaneous Every week Type 2 diabetes mellitus rotate injection sites Unchanged DULoxetine (DULoxetine 60 mg oral delayed release capsule) 1 cap by mouth Once a day Duration: 90 Days Unchanged fluticasone/ umeclidinium/ vilanterol (Trelegy Ellipta 100 mcg-62.5 mcg-25 mcg/ inh inhalation powder) 1 puff(s) by inhalation Once a day COPD without exacerbation at the same time every day Unchanged hydrOXYzine (hydrOXYzine hydrochloride 50 mg oral tablet) 1 tab(s) by mouth Every day as needed for as needed for anxiety Anxiety Unchanged loratadine (Claritin 24 Hour Allergy 10 mg oral tablet) 1 tab(s) by mouth Once a day Duration: 90 Days Unchanged losartan (losartan 50 mg oral tablet) 1 tab(s) by mouth Once a day Duration: 90 Days Unchanged metFORMIN (metFORMIN 1000 mg oral tablet (IR)) 1 tab(s) by mouth Two (2) times a day Duration: 90 Days Unchanged omeprazole (omeprazole 20 mg oral delayed release capsule) 1 cap by mouth Once a day Duration: 90 Days Unchanged rosuvastatin (rosuvastatin 20 mg oral tablet) 1 tab(s) by mouth Once a day Duration: 90 Days Unchanged zinc sulfate (Zinc) Please take this list to your next doctor s visit. Bring all medications you take, including over the counter medications, herbals and other supplements with you to your doctor s visit. Patients and families are reminded to discard old lists and to update any records with all medication providers or retail pharmacies. Medication Leaflets prednisone (PRED wilver sonberna Rivera What is the most important information I should know about prednisone? You should not use prednisone if you have a fungal infection anywhere in your body. You should not stop using prednisone suddenly. Follow your doctor's instructions about tapering your dose. What is prednisone? Prednisone is a steroid that reduces inflammation in the body, and also suppresses your immune system. Prednisone is used to treat many different conditions such as hormonal disorders, skin diseases, arthritis, lupus, psoriasis, allergic conditions, ulcerative colitis, Crohn's disease, eye diseases, lung diseases, asthma, tuberculosis, blood cell disorders, kidney disorders, leukemia, lymphoma, multiple sclerosis, organ transplant rejection, swelling from a brain tumor or injury. Prednisone may also be used for purposes not listed in this medication guide. What should I discuss with my healthcare provider before taking prednisone? You should not use prednisone if you are allergic to it, or if you have a fungal infection anywhere in your body. Steroid medication can weaken your immune system, making it easier for you to get an infection or worsening an infection you already have. Tell your doctor about any illness or infection you've had within the past several weeks. Tell your doctor if you have ever had: heart problems, high blood pressure, or a heart attack; glaucoma or cataracts; herpes infection of the eyes; past or present tuberculosis; a parasite infection that causes diarrhea (such as threadworms); any illness that causes diarrhea; underactive thyroid; diabetes; a stomach ulcer, diverticulitis; a colostomy or ileostomy; osteoporosis or low bone mineral density (steroid medication can increase your risk of bone loss); low levels of calcium or potassium in your blood; cirrhosis or other liver disease; mental illness or psychosis; or a muscle disorder such as myasthenia gravis. Long-term use of steroids may lead to bone loss (osteoporosis), especially if you smoke or drink alcohol, if you do not exercise, or if you do not get enough vitamin D or calcium in your diet. It is not known whether this medicine will harm an unborn baby. Tell your doctor if you are or plan to become . You should not breastfeed while using prednisone. How should I take prednisone? Follow all directions on your prescription label and read all medication guides or instruction sheets. Your doctor may occasionally change your dose. Use the medicine exactly as directed. Prednisone is taken daily or every other day, depending on the condition being treated. You may need to take the medicine at a certain time of day. Follow your doctor's instructions about when and how often to take this medicine. Take with food if prednisone upsets your stomach. Measure liquid medicine carefully. Use the dosing syringe provided, or use a medicine dose-measuring device (not a kitchen spoon). Swallow the delayed-release tablet whole and do not crush, chew, or break it. Prednisone can weaken (suppress) your immune system, and you may get an infection more easily. Call your doctor if you have signs of infection (fever, weakness, cold or flu symptoms, skin sores, diarrhea, frequent or recurring illness). If you have major surgery or a severe injury or infection, your prednisone dose needs may change. Make sure any doctor caring for you knows you are using this medicine. If you use this medicine long-term, you may need medical tests and vision exams. In case of emergency, wear or carry medical identification to let others know you use a steroid. You should not stop using prednisone suddenly. Follow your doctor's instructions about tapering your dose. Store at room temperature away from moisture, heat, and light. What happens if I miss a dose? Take the medicine as soon as you can, but skip the missed dose if it is almost time for your next dose. Do not take two doses at one time. What happens if I overdose? Seek emergency medical attention or call the Poison Help line at . High doses or long-term use of prednisone can lead to thinning skin, easy bruising, changes in body fat (especially in your face, neck, back, and waist), increased acne or facial hair, menstrual problems, impotence, or loss of interest in sex. What should I avoid while taking prednisone? Do not receive a 'live' vaccine while using prednisone. The vaccine may not work as well and may not fully protect you from disease. Live vaccines include measles, mumps, rubella (MMR), polio, rotavirus, typhoid, yellow fever, varicella (chickenpox), zoster (shingles), and nasal flu (influenza) vaccine. Avoid being near people who are sick or have infections. Call your doctor for preventive treatment if you are exposed to chickenpox or measles. These conditions can be serious or even fatal in people who are using steroid medicine. Avoid drinking alcohol. What are the possible side effects of prednisone? Get emergency medical help if you have signs of an allergic reaction: hives; difficult breathing; swelling of your face, lips, tongue, or throat. Call your doctor at once if you have: muscle pain or weakness; blurred vision, tunnel vision, eye pain, or seeing halos around lights; severe depression, changes in personality, unusual thoughts or behavior; bloody or tarry stools, coughing up blood or vomit that looks like coffee grounds; swelling, rapid weight gain, feeling short of breath; irregular heartbeats; severe headache, pounding in your neck or ears; decreased adrenal gland hormones--muscle weakness, tiredness, diarrhea, nausea, menstrual changes, skin discoloration, craving salty foods, and feeling light-headed; or low potassium level--leg cramps, constipation, irregular heartbeats, fluttering in your chest, increased thirst or urination, numbness or tingling, muscle weakness or limp feeling. Prednisone can affect growth in children. Tell your doctor if your child is not growing at a normal rate while using this medicine. Common side effects may include: weight gain (especially in your face or your upper back and torso); increased appetite; mood changes, trouble sleeping; changes in your menstrual periods; problems with memory or thought; muscle or joint pain; weakness; headache, dizziness, spinning sensation; nausea, bloating, loss of appetite; slow wound healing; or acne, increased sweating, thinning skin, bruising, pinpoint spots under your skin. This is not a complete list of side effects and others may occur. Call your doctor for medical advice about side effects. You may report side effects to FDA at 9-224-JLR-7142. What other drugs will affect prednisone? Sometimes it is not safe to use certain medications at the same time. Some drugs can affect your blood levels of other drugs you take, which may increase side effects or make the medications less effective. Tell your doctor about all your current medicines. Many drugs can affect prednisone, especially: bupropion; cyclosporine; digoxin; ketoconazole; an antibiotic; control pills or hormone replacement therapy; a diuretic or 'water pill'; insulin or oral diabetes medicine; a blood thinner--warfarin, Coumadin, Jantoven; or NSAIDs (nonsteroidal anti-inflammatory drugs)--aspirin, ibuprofen (Advil, Motrin), naproxen (Aleve), celecoxib, diclofenac, indomethacin, meloxicam, and others. This list is not complete and many other drugs may affect prednisone. This includes prescription and tcbx-bvq-somxyfq medicines, vitamins, and herbal products. Not all possible drug interactions are listed here. Where can I get more information? Your pharmacist can provide more information about prednisone. Remember, keep this and all other medicines out of the reach of children, never share your medicines with others, and use this medication only for the indication prescribed. Every effort has been made to ensure that the information provided by [employer]. [employer]') is accurate, up-to-date, and complete, but no guarantee is made to that effect. Drug information contained herein may be time sensitive. [employer] information has been compiled for use by healthcare practitioners and consumers in the [place] and therefore [employer] does not warrant that uses outside of the [place] are appropriate, unless specifically indicated otherwise. [employer]'s drug information does not endorse drugs, diagnose patients or recommend therapy. [employer] drug information is an informational resource designed to assist licensed healthcare practitioners in caring for their patients and/or to serve consumers viewing this service as a supplement to, and not a substitute for, the expertise, skill, knowledge and judgment of healthcare practitioners. The absence of a warning for a given drug or drug combination in no way should be construed to indicate that the drug or drug combination is safe, effective or appropriate for any given patient. [employer] does not assume any responsibility for any aspect of healthcare administered with the aid of information [employer] provides. The information contained herein is not intended to cover all possible uses, directions, precautions, warnings, drug interactions, allergic reactions, or adverse effects. If you have questions about the drugs you are taking, check with your doctor, nurse or pharmacist. Copyright 6808-7024 [employer]. Version: 10.. Revision Date: 05/31/2018. albuterol inhalation (al BUE ter ol) ProAir Digihaler, ProAir RespiClick, Ventolin HFA What is the most important information I should know about albuterol inhalation? Use only as directed. Tell your doctor if you use other medicines or have other medical conditions or allergies. What is albuterol inhalation? Albuterol inhalers are used in adults and children at least 4 years old to to treat or prevent narrowing and swelling inside the lungs (bronchospasm) that may cause breathing problems. Albuterol inhalers are also used to prevent breathing problems while exercising. Albuterol inhalation solution is used to treat acute bronchospasm attacks in children at least 2 years old with asthma. Albuterol inhalation may also be used for purposes not listed in this medication guide. What should I discuss with my healthcare provider before using albuterol inhalation? You should not use this medicine if you are allergic to albuterol inhalation. Do not use albuterol inhalation powder (ProAir RespiClick or ProAir Digihaler) if you are allergic to lactose or milk proteins. Tell your doctor if you have ever had: heart problems, high blood pressure; a thyroid disorder; seizures; if you have used an MAO inhibitor in the past 14 days, such as isocarboxazid, linezolid, methylene blue injection, phenelzine, or tranylcypromine; diabetes; or low blood levels of potassium. If you are , your name may be listed on a registry to track the effects of albuterol inhalation on the baby. Tell your doctor if you are or plan to become . It is not known whether albuterol inhalation will harm an unborn baby. However, having uncontrolled asthma during may increase the risk of premature , low weight, or eclampsia (dangerously high blood pressure that can lead to medical problems in both mother and baby). The benefit of preventing bronchospasm may outweigh any risks to the baby. Do not allow a young child to use albuterol inhalation without help from an adult. How should I use albuterol inhalation? Follow the directions on your prescription label and read all medication guides or instruction sheets. Use the medicine exactly as directed. Do not use the medicine more often than prescribed. Your dose needs may change if you switch to a different brand, strength, or form of this medicine. Avoid medication errors by using exactly as directed on the label, or as prescribed by your doctor. The effects of albuterol inhalation last about 4 to 6 hours. To prevent exercise-induced bronchospasm, use this medicine 15 to 30 minutes before you exercise. Talk with your doctor if you need to time your dosing around any planned activities. Read and carefully follow any instructions for preparing and using the medicine for the first time and for following doses. Ask your doctor or pharmacist if you do not understand these instructions. Your dose needs may change due to surgery, illness, stress, or a recent asthma attack. Do not change your dose or stop using asthma medication without your doctor's advice. Tell your doctor if your medicine seems to stop working. Call your doctor if your symptoms do not improve, or if they get worse. Keep the cover on your inhaler closed when not in use. Store away from open flame or high heat. Do not puncture or burn an empty canister. Do not take apart an inhaler device, wash, or put any part of your inhaler in water. Follow all storage and cleaning instructions provided with your inhaler. Your pharmacist can provide more information about how to store this medicine. Get your prescription refilled before you run out of medicine completely. Always use the new inhaler device provided. Store unused albuterol solution vials in the foil pouch at room temperature away from moisture, heat and light. Call your pharmacist if the medicine looks cloudy, has changed colors or has particles in it. Albuterol inhalation solution is stable for only a certain number of days or weeks after being removed from the foil pouch. Throw away any medicine not used within that time. Talk to your pharmacist if you have any questions. What happens if I miss a dose? Use the medicine as soon as you can, but skip the missed dose if it is almost time for your next dose. Do not use two doses at one time. What happens if I overdose? Seek emergency medical attention or call the Poison Help line at . An overdose of albuterol can be fatal. Overdose symptoms may include dry mouth, tremors, chest pain, fast heartbeats, nausea, general ill feeling, seizure, feeling light-headed or fainting. What should I avoid while using albuterol inhalation? Avoid using other fast-acting rescue medications or asthma medications with albuterol inhalation unless you doctor tells you to. Avoid getting this medicine in your eyes. What are the possible side effects of albuterol inhalation? Get emergency medical help if you have signs of an allergic reaction: hives, difficult breathing, swelling of your face, lips, tongue, or throat. Albuterol inhalation may increase the risk of asthma-related or hospitalization. Use only the prescribed dose and follow all instructions for safe use. Call your doctor at once if you have: wheezing, choking, or other breathing problems after using this medicine; chest pain, fast heart rate, pounding heartbeats or fluttering in your chest; severe headache, pounding in your neck or ears; high blood sugar--increased thirst, increased urination, dry mouth, fruity breath odor; or low blood potassium--leg cramps, constipation, irregular heartbeats, fluttering in your chest, increased thirst or urination, numbness or tingling, muscle weakness or limp feeling. Common side effects may include: chest pain, fast or pounding heartbeats; pain and burning when you urinate; upset stomach, vomiting; dizziness; tremors or shaking, nervousness; headache, back pain, body aches; or cough, sore throat, sinus pain, runny or stuffy nose. This is not a complete list of side effects and others may occur. Call your doctor for medical advice about side effects. You may report side effects to FDA at 1-053-UBK-0325. What other drugs will affect albuterol inhalation? Tell your doctor about all your other medicines, especially: any other inhaled medicines or bronchodilators such as ipratropium o tiotropium; digoxin; epinephrine; a diuretic ('water pill') an antidepressant--amitriptyline, desipramine, imipramine, doxepin, nortriptyline, and others; a beta nicholas--atenolol, carvedilol, labetalol, metoprolol, nadolol, nebivolol, propranolol, sotalol, and others; or an MAO inhibitor--isocarboxazid, linezolid, methylene blue injection, phenelzine, tranylcypromine, and others. This list is not complete. Other drugs may affect albuterol inhalation, including prescription and icet-qzu-dexewxs medicines, vitamins, and herbal products. Not all possible drug interactions are listed here. Where can I get more information? Your doctor or pharmacist can provide more information about albuterol inhalation. Remember, keep this and all other medicines out of the reach of children, never share your medicines with others, and use this medication only for the indication prescribed. Every effort has been made to ensure that the information provided by [employer] is accurate, up-to-date, and complete, but no guarantee is made to that effect. Drug information contained herein may be time sensitive. [employer] information has been compiled for use by healthcare practitioners and consumers in the [place] and therefore [employer] does not warrant that uses outside of the [place] are appropriate, unless specifically indicated otherwise. [employer] drug information does not endorse drugs, diagnose patients or recommend therapy. [employer] drug information is an informational resource designed to assist licensed healthcare practitioners in caring for their patients and/or to serve consumers viewing this service as a supplement to, and not a substitute for, the expertise, skill, knowledge and judgment of healthcare practitioners. The absence of a warning for a given drug or drug combination in no way should be construed to indicate that the drug or drug combination is safe, effective or appropriate for any given patient. [employer] does not assume any responsibility for any aspect of healthcare administered with the aid of information [employer] provides. The information contained herein is not intended to cover all possible uses, directions, precautions, warnings, drug interactions, allergic reactions, or adverse effects. If you have questions about the drugs you are taking, check with your doctor, nurse or pharmacist. Copyright 7179-1028 [employer]. Version: .. Revision Date: 10/16/2023. Education Materials COPD Flare You have had a flare-up of your COPD. COPD (chronic obstructive pulmonary disease) is a common lung disease. It causes your airways to get irritated and narrower. This makes it harder for you to breathe. Emphysema and chronic bronchitis are both types of COPD. This is a long-term (chronic) condition. This means you always have it. Sometimes it gets worse. When this happens, it is called a flare-up. Symptoms of COPD People with COPD may have symptoms most of the time. In a flare-up, your symptoms get worse. These symptoms may mean you are having a flare-up: Shortness of breath, shallow or rapid breathing, or wheezing that gets worse Lung infection Cough that gets worse More mucus, thicker mucus or mucus of a different color Tiredness, less energy, or trouble doing your normal activities Fever Chest tightness Your symptoms don t get better even when you use your normal medicines, inhalers, and nebulizer Trouble talking You feel confused Causes of flare-ups Unfortunately, a flare-up can happen even if you did everything right. And even if you followed your healthcare provider s instructions. Some causes of flare-ups are: Smoking or secondhand smoke Colds, the flu, or respiratory infections Air pollution Sudden change in the weather Dust, irritating chemicals, or strong fumes Not taking your medicines as prescribed Home care Here are some things you can do at home to treat a flare-up: Try not to panic. This makes it harder to breathe, and keeps you from doing the right things. Don t smoke or be around others who are smoking. Try to drink more fluids than normal during a flare-up, unless your healthcare provider has told you not to because of heart and kidney problems. More fluids can help loosen the mucus. Use your inhalers and nebulizer, if you have one, as you have been told to. If you were given antibiotics, take them until they are used up or your provider tells you to stop. It s important to finish the antibiotics, even though you feel better. This will make sure the infection has cleared. If you were given prednisone or another steroid, finish it even if you feel better. Preventing a flare-up Flare-ups happen. But the best way to treat one is to prevent it before it starts. Here are some pointers: Don t smoke or be around others who are smoking. Take your medicines as discussed with your healthcare provider. Talk with your provider about getting a flu shot every year. Also find out if you need a pneumonia shot. If there is a weather advisory warning to stay indoors, try to stay inside when possible. Try to eat healthy, exercise, and get plenty of sleep. Try to stay away from things that normally set you off. These include dust, chemical fumes, hairsprays, or strong perfumes. Follow-up care Follow up with your healthcare provider, or as advised. If a culture was done, you will be told if your treatment needs to be changed. You can call as directed for the results. If X-rays were done, you will be told of any new findings that may affect your care. Call 911 Call 911 if any of these occur: You have trouble breathing You feel confused or it s hard to wake you up You faint or lose consciousness You have a rapid heart rate You have new pain in your chest, arm, shoulder, neck, or upper back When to seek medical advice Call your healthcare provider right away if any of these occur: Wheezing or shortness of breath gets worse You need to use your inhalers more often than normal without relief Fever of 100.4 F (38 C) or higher, or as directed by your healthcare provider Coughing up lots of dark-colored or bloody mucus (sputum) Chest pain with each breath You don't start to get better within 24 hours Swelling of your ankles gets worse Dizziness or weakness [id number] [employer]. [address] [place] [address]. All rights reserved. This information is not intended as a substitute for professional medical care. Always follow your healthcare professional's instructions. Additional Information VACCINATE! IT SAVES LIVES! Members of the community who have not yet received the COVID-19 vaccine and would like to receive it can visit one of [facility] vaccine clinics. There are many vaccine clinic locations within the [facility]. For locations and available times, please visit [email or web address] It is important to note that some COVID mobile vaccine clinics are held outdoors and may be canceled in rainy or stormy conditions. To learn more about pediatric vaccinations (ages 5-11), we invite you to visit the [facility] webpage. [email or web address] To learn more about the COVID-19 vaccine, we invite you to visit the CDC website for a list of frequently asked questions. https://www.cdc.gov/coronavirus/ 2019-ncov/vaccines/faq.html [facility] Patient Portal Access Instructions: Stay connected with your healthcare team and access your personal medical information anytime with the [facility]. If you would like a full copy of your medical records please contact the [facility] Medical Records Department Monday through Monday between 8a.m. and 4:30p.m. Please follow the directions below to access the portal: 1.Access the email account you provided upon registration to the the [facility].2.Look for an invitation email from [facility].3.Open the email and access the invitation link: Accept Invitation to [facility].Fill in the required moreno to create your account. Sign into [email or web address] with your username and password that you created in the above steps to stay up to date. You can then view a summary of results, a summary of your visits, and the ability to download your summaries to your computer or send the information securely to a physician. Remember that your healthcare information is confidential, so carefully consider who you will allow to register on the [facility] Patient Portal for access to your information. You can also access the [facility] Patient Portal on the [email or web address]. Simply click on Health Records under Health Data and then click on the op5 logo. HOW TO SAFELY DISPOSE OF PRESCRIPTION MEDICATIONS Please use one of the following methods to safely dispose of your unused medications. 1.Use a drug disposal kit: the drug disposal pouch allows you to safely discard your old and unused drugs. Ask your nurse to give you one when you are discharged.2.Visit a local take-back location: Many local pharmacies and police departments have programs that collect old and unwanted prescription drugs. Call your local pharmacy or go to http://PeerMe.[employer]/7O1Jd9h to find one close to you.3.Make use of household items: Use cat litter or old coffee grounds to dispose medications if other options are not available. Mix your drugs with these household products, seal them in an airtight container and throw it into the garbage. Call [facility]: [phone] to be sure your drugs can be disposed of in this way. Some medicines may require a different approach.4.Never flush your medications down the toilet. IF YOU HAVE BEEN PRESCRIBED AN OPIOIDS FOR PAIN If you have been prescribed an opioid (such as hydrocodone, oxycodone or morphine), it is critical to understand the possible side effects and risks of opioid pain medications. Even when taken as directed, opioids can have several side effects including: Tolerance, meaning you might need to take more of a medication for the same pain relief. Nausea, vomiting and/or constipation. Sleepiness, dizziness, dry mouth, confusion, depression or itching. Physical dependence, meaning you have withdrawal symptoms when a medication is stopped ? this can develop within a few days. KNOW YOUR RESPONSIBILITIES It is important to know exactly how much and how often to take the opioid pain medications you are prescribed. Never take opioids in higher amounts or more often than prescribed. Do not combine opioids with alcohol or other drugs that cause drowsiness, such as benzodiazepines, also known as benzos, including diazepam and alprazolam, muscle relaxants or sleep aids. Never sell or share prescription opioids. This is illegal. Store opioids in a secure place and out of reach of others (including children, family, friends and visitors). The last page(s) of this document has been signed and retained as a CHART COPY Signatures Patient Education Materials COPD Flare Medication Leaflets prednisone, albuterol inhalation My discharge plan and instructions have been reviewed and explained to me and I,MARLINE KHAN understand my current condition and have read and understand these discharge instructions. I have received a written copy of the plan/instructions. If I have questions, I am aware that I should contact my doctor. 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 COPD (chronic obstructive pulmonary disease) is a common lung disease. It causes your airways to get irritated and narrower. This makes it harder for you to breathe. Emphysema and chronic bronchitis are both types of COPD. This is a long-term (chronic) condition. This means you always have it. Sometimes it gets worse. When this happens, it is called a flare-up. Symptoms of COPD People with COPD may have symptoms most of the time. In a flare-up, your symptoms get worse. These symptoms may mean you are having a flare-up: Shortness of breath, shallow or rapid breathing, or wheezing that gets worse Lung infection Cough that gets worse More mucus, thicker mucus or mucus of a different color Tiredness, less energy, or trouble doing your normal activities Fever Chest tightness Your symptoms don t get better even when you use your normal medicines, inhalers, and nebulizer Trouble talking You feel confused Causes of flare-ups Unfortunately, a flare-up can happen even if you did everything right. And even if you followed your healthcare provider s instructions. Some causes of flare-ups are: Smoking or secondhand smoke Colds, the flu, or respiratory infections Air pollution Sudden change in the weather Dust, irritating chemicals, or strong fumes Not taking your medicines as prescribed Home care Here are some things you can do at home to treat a flare-up: Try not to panic. This makes it harder to breathe, and keeps you from doing the right things. Don t smoke or be around others who are smoking. Try to drink more fluids than normal during a flare-up, unless your healthcare provider has told you not to because of heart and kidney problems. More fluids can help loosen the mucus. Use your inhalers and nebulizer, if you have one, as you have been told to. If you were given antibiotics, take them until they are used up or your provider tells you to stop. It s important to finish the antibiotics, even though you feel better. This will make sure the infection has cleared. If you were given prednisone or another steroid, finish it even if you feel better. Preventing a flare-up Flare-ups happen. But the best way to treat one is to prevent it before it starts. Here are some pointers: Don t smoke or be around others who are smoking. Take your medicines as discussed with your healthcare provider. Talk with your provider about getting a flu shot every year. Also find out if you need a pneumonia shot. If there is a weather advisory warning to stay indoors, try to stay inside when possible. Try to eat healthy, exercise, and get plenty of sleep. Try to stay away from things that normally set you off. These include dust, chemical fumes, hairsprays, or strong perfumes. Follow-up care Follow up with your healthcare provider, or as advised. If a culture was done, you will be told if your treatment needs to be changed. You can call as directed for the results. If X-rays were done, you will be told of any new findings that may affect your care. Call 911 Call 911 if any of these occur: You have trouble breathing You feel confused or it s hard to wake you up You faint or lose consciousness You have a rapid heart rate You have new pain in your chest, arm, shoulder, neck, or upper back When to seek medical advice Call your healthcare provider right away if any of these occur: Wheezing or shortness of breath gets worse You need to use your inhalers more often than normal without relief Fever of 100.4 F (38 C) or higher, or as directed by your healthcare provider Coughing up lots of dark-colored or bloody mucus (sputum) Chest pain with each breath You don't start to get better within 24 hours Swelling of your ankles gets worse Dizziness or weakness [id number] [employer]. [address] [place] [address]. All rights reserved. This information is not intended as a substitute for professional medical care. Always follow your healthcare professional's instructions. 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 HISTORY: ORDERING SYSTEM PROVIDED HISTORY: Reason for Exam: coug, sob FINDINGS: The heart is normal in size and there is no vascular congestion present. No infiltrate or pleural fluid seen. No acute osseous finding. IMPRESSION: No acute process. 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 COMPLAINT: Colorectal cancer screening HISTORY OF PRESENT ILLNESS: Personal history of colon polyps REVIEW OF SYSTEMS: Constitutional: denies weight loss Cardiovascular:denies chest pain, palpitations Respiratory:denies shortness of breath Gastrointestinal:no abd pain Musculoskeletal: no arthralgias Skin: no rashes ACTIVE PROBLEMS: (15) Anxiety (20154735) BMI 35.0-35.9,adult (835390270) Colon cancer screening (286636457) COPD without exacerbation (363544268) Depression (02475015) Former smoker (14667334) GERD (gastroesophageal reflux disease) (979364819) Hyperlipidemia (00766607) Hypertension (6532196593) Knee pain, chronic, left (89922470) Pneumothorax (77712896) Screening for lung cancer (074855845) Screening for prostate cancer (617104562) Type 2 diabetes mellitus (385755961) Wellness examination (538304487) MEDICATIONS: Active Inpt Meds: None Active PRN Meds: None One Time Meds: None Active IV Meds: Sodium Chloride 0.9% intravenous solution 1,000 mL (NS 1,000 mL) Start: 09/23/24 6:55:00 EDT, Rate: 20 mL/hr, 09/23/24 6:55:00 EDT ALLERGIES: (1) NKA FAMILY HISTORY: SOCIAL HISTORY: PHYSICAL EXAM: VITALS: No Data Available 24 Hr Tmax: No Data Available 36 Hr Tmax: No Data Available Vital Signs are the last 5 in the past 48 hours. Weights display the last 5 within 7 days. Initial Wt: No Data Available Current Wt: No Data Available physical exam alert and oriented cardio; regular without murmur pulm; clear abd; soft, nontender LABS: No 36hr Lab Data DIAGNOSTICS: IMPRESSION: Personal history of colon polyps PLAN: Colonoscopy as discussed in the office Future Appointments Appointment Date:01/29/2025 11:30:00 AM Scheduled Provider:JANNET CONTRERAS Location:[facility] Appointment Type: OV Future Scheduled Tests Laboratory* A1C Hemoglobin 01/31/25 * Lipid Profile 01/31/25 * Albumin/Creatinine Ratio, Random Urine 01/31/25 * Albumin/Creatinine Ratio, Random Urine 08/06/24 * Albumin/Creatinine Ratio, Random Urine 02/26/24 * Complete Metabolic Panel 01/31/25 [facility] 07-21-2025 Hospital Discharge instructions Patient Education 09/23/2024 07:52:41 Moderate Conscious Sedation, Adult, Care After Moderate Conscious Sedation, Adult, Care After These instructions provide you with information about caring for yourself after your procedure. Your health care provider may also give you more specific instructions. Your treatment has been plannedaccording to current medical practices, but problems sometimes occur. Call your health care provider if you have any problems or questions after your procedure. What can I expect after the procedure? After your procedure, it is common: To feel sleepy for several hours. To feel clumsy and have poor balance for several hours. To have poor judgment for several hours. To vomit if you eat too soon. Follow these instructions at home: For at least 24 hours after the procedure: Do not: ?Participate in activities where you could fall or become injured. ?Drive. ?Use heavy machinery. ?Drink alcohol. ?Take sleeping pills or medicines that cause drowsiness. ?Make important decisions or sign legal documents. ?Take care of children on your own. Rest. Eating and drinking Follow the diet recommended by your health care provider. If you vomit: ?Drink water, juice, or soup when you can drink without vomiting. ?Make sure you have little or no nausea before eating solid foods. General instructions Have a responsible adult stay with you until you are awake and alert. Take kknz-zdb-skqbxqf and prescription medicines only as told by your health care provider. If you smoke, do not smoke without supervision. Keep all follow-up visits as told by your health care provider. This is important. Contact a health care provider if: You keep feeling nauseous or you keep vomiting. You feel light-headed. You develop a rash. You have a fever. Get help right away if: You have trouble breathing. This information is not intended to replace advice given to you by your health care provider. Make sure you discuss any questions you have with your health care provider. Document Released: 12/11/2013 Document Revised: 02/02/2018 Document Reviewed: 06/11/2016 [employer] Patient Education 2020 [employer]. Follow Up Care 09/12/2024 08:57:55 With:JANNET CONTRERAS Address: [address] [place] [address]- [phone] When: Unknown [facility] 07-21-2025 Summary of episode note Discharge Instructions Thank you for allowing [facility] to assist you with your healthcare needs. The following is importantdischarge information regarding your hospital visit. Your Care Team JANNET CONTRERAS What to do next Instructions From Your Doctor Colonoscopy in the next 3 months with modified prep Scheduled Follow-Up Appointments Appointment Type When With Where Contact Information StatusPC OV 01/29/2025 11:30 AM EST JANNET CONTRERAS [facility] Confirmed Follow Up Appointments Follow Up with JANNET CONTRERAS Where:[address] [place] [address] [phone] The Following Activity and Diet Have Been Ordered for You Discharge Activity - Ordered -- Driving Restricted, No driving until tomorrow, 09/23/24 6:55:00 EDT Discharge Return to Work, School, or Sports (Discharge Return to status) - Ordered -- May return to: work, 09/23/24 6:55:00 EDT Discharge Diet - Ordered -- Type of Diet: Regular Diet, 09/23/24 6:55:00 EDT Allergies NKA Medications Please ask your primary doctor or pharmacist before taking any other medication not listed, including over the counter drugs, herbal medications, vitamins and or supplements as they may interact withyour home medications. What How Much When Why Instructions Last Dose Unchanged acetaminophen (Tylenol) by mouth Unchanged aspirin Unchanged buPROPion (BuPROPion (Eqv-Wellbutrin SR) 150 mg/ 12 hours oral tablet, extended release) 1 tab(s) by mouth Two (2) times a day Duration: 90 Days Unchanged dulaglutide (Trulicity Pen 0.75 mg/ 0.5 mL subcutaneous solution) 0.5 Milliliter Subcutaneous Every week Unchanged dulaglutide (Trulicity Pen 1.5 mg/ 0.5 mL subcutaneous solution) 0.5 Milliliter Subcutaneous Every week Type 2 diabetes mellitus rotate injection sites Unchanged DULoxetine (DULoxetine 60 mg oral delayed release capsule) 1 cap by mouth Once a day Duration: 90 Days Unchanged fluticasone/ umeclidinium/ vilanterol (Trelegy Ellipta 100 mcg-62.5 mcg-25 mcg/ inh inhalation powder) 1 puff(s) by inhalation Once a day COPD without exacerbation at the same time every day Unchanged hydrOXYzine (hydrOXYzine hydrochloride 50 mg oral tablet) 1 tab(s) by mouth Every day as needed for as needed for anxiety Anxiety Unchanged loratadine (Claritin 24 Hour Allergy 10 mg oral tablet) 1 tab(s) by mouth Once a day Duration: 90 Days Unchanged losartan (losartan 50 mg oral tablet) 1 tab(s) by mouth Once a day Duration: 90 Days Unchanged metFORMIN (metFORMIN 1000 mg oral tablet (IR)) 1 tab(s) by mouth Two (2) times a day Duration: 90 Days Unchanged omeprazole (omeprazole 20 mg oral delayed release capsule) 1 cap by mouth Once a day Duration: 90 Days Unchanged rosuvastatin (rosuvastatin 20 mg oral tablet) 1 tab(s) by mouth Once a day Duration: 90 Days Unchanged zinc sulfate (Zinc) Please take this list to your next doctor s visit. Bring all medications you take, including over the counter medications, herbals and other supplements with you to your doctor s visit. Patients and families are reminded to discard old lists and to update any records with all medication providers or retail pharmacies. Education Materials Moderate Conscious Sedation, Adult, Care After These instructions provide you with information about caring for yourself after your procedure. Your health care provider may also give you more specific instructions. Your treatment has been plannedaccording to current medical practices, but problems sometimes occur. Call your health care provider if you have any problems or questions after your procedure. What can I expect after the procedure? After your procedure, it is common: To feel sleepy for several hours. To feel clumsy and have poor balance for several hours. To have poor judgment for several hours. To vomit if you eat too soon. Follow these instructions at home: For at least 24 hours after the procedure: Do not: ? Participate in activities where you could fall or become injured. ? Drive. ? Use heavy machinery. ? Drink alcohol. ? Take sleeping pills or medicines that cause drowsiness. ? Make important decisions or sign legal documents. ? Take care of children on your own. Rest. Eating and drinking Follow the diet recommended by your health care provider. If you vomit: ? Drink water, juice, or soup when you can drink without vomiting. ? Make sure you have little or no nausea before eating solid foods. General instructions Have a responsible adult stay with you until you are awake and alert. Take wram-vpa-xzrcrtk and prescription medicines only as told by your health care provider. If you smoke, do not smoke without supervision. Keep all follow-up visits as told by your health care provider. This is important. Contact a health care provider if: You keep feeling nauseous or you keep vomiting. You feel light-headed. You develop a rash. You have a fever. Get help right away if: You have trouble breathing. This information is not intended to replace advice given to you by your health care provider. Make sure you discuss any questions you have with your health care provider. Document Released: 12/11/2013 Document Revised: 02/02/2018 Document Reviewed: 06/11/2016 [employer] Patient Education 2020 [employer] Additional Information VACCINATE! IT SAVES LIVES! Members of the community who have not yet received the COVID-19 vaccine and would like to receive it can visit one of [facility] vaccine clinics. There are many vaccine clinic locations within the [facility]. For locations and available times, please visit https://gettheshot.coronavirus.[place].gov/. It is important to note that some COVID mobile vaccine clinics are held outdoors and may be canceled in rainy or stormy conditions. To learn more about pediatric vaccinations (ages 5-11), we invite you to visit the [facility] webpage. [email or web address]/[email or web address] [email or web address] learn more about the COVID-19 vaccine, we invite you to visit the CDC website for a list of frequently asked questions.https://www.cdc.gov/coronavirus/2019-ncov/vaccines/faq.html [facility] Patient Portal Access Instructions: Stay connected with your healthcare team and access your personal medical information anytime with the [facility] Patient Portal. Please follow the directions below to create your [facility] account: 1.Access the email account you provided upon registration to the hospital/physician office.2.Look for an invitation email from [facility].3.Open the email and access the invitation link: AcceptInvitation to [facility].4.Fill in the required moreno to create your account. To access your account, visit [email or web address]. Click the blue button labeled Access Patient Portal and then log in with the username and password that you created in the steps above. You will be able to view your test results, lab results, a summary of your visits, upcoming appointments and more. There is also a convenient messaging option where you can send secure messages to your p [employer] System[employer]. In addition, you will have the ability to download any documents or summaries to your computer and/or send the information securely to a physician. Remember that your healthcare information is confidential, so carefully consider who you will allowto register on the [facility] Patient Portal for access to your information. You can also access the [facility] Patient Portal on the [facility] [employer] [facility]. Simply click on Patient Portal and then log into your account. If you would like to receive a full copy of your medical records, please contact the [facility] Medical Records Department by calling [phone], Monday through Monday between 8 a.m. and 4:30 p.m. HOW TO SAFELY DISPOSE OF PRESCRIPTION MEDICATIONS Please use one of the following methods to safely dispose of your unused medications. 1.Use a drug disposal kit: the drug disposal pouch allows you to safely discard your old and unuseddrugs. Ask your nurse to give you one when you are discharged.2.Visit a local take-back location: Many local pharmacies and police departments have programs that collect old and unwanted prescriptiondrugs. Call your local pharmacy or go to http://bit.ly/4H9Ix6a to find one close to you.3.Make use of household items: Use cat litter or old coffee grounds to dispose medications if other options arenot available. Mix your drugs with these household products, seal them in an airtight container andthrow it into the garbage. Call [facility]: [phone] to be sure your drugs can be disposed of in this way. Some medicines may require a different approach.4.Never flush your medications down the toilet. IF YOU HAVE BEEN PRESCRIBED AN OPIOID FOR PAIN If you have been prescribed an opioid (such as hydrocodone, oxycodone or morphine), it is critical to understand the possible side effects and risks of opioid pain medications. Even when taken as directed, opioids can have several side effects including: Tolerance, meaning you might need to take more of a medication for the same pain relief. Nausea, vomiting and/or constipation. Sleepiness, dizziness, dry mouth, confusion, depression or itching. Physical dependence, meaning you have withdrawal symptoms when a medication is stopped, can develop within a few days. KNOW YOUR RESPONSIBILITIES It is important to know exactly how much and how often to take the opioid pain medications you are prescribed. Never take opioids in higher amounts or more often than prescribed. Do not combine opioids with alcohol or other drugs that cause drowsiness, such as benzodiazepines, also known as benzos, including diazepam and alprazolam, muscle relaxants or sleep aids. Never sell or share prescription opioids. This is illegal. Store opioids in a secure place and out of reach of others (including children, family, friends and visitors). The last page of this document has been signed and retained as a CHART COPY. Signatures Patient Education Materials Moderate Conscious Sedation, Adult, Care After Medication Leaflets My discharge plan and instructions have been reviewed and explained to me and I,MARLINE KHANtand my current condition and have read and understand these discharge instructions. I have received a written copy of the plan/instructions. If I have questions, I am aware that I should contact my doctor. 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 Anesthesia MAC Estimated Blood Loss None Specimen(s) None Complications None Technique The patient was evaluated in the preoperative area and surgical consent was obtained. He was then brought to endoscopy and monitored on pulse oximetry, cardiac monitoring and placed on supplemental oxygen. He was placed in left lateral decubitus position and a surgical timeout was obtained. Sedation was provided by anesthesia. A digital exam was unremarkable. Colonoscope was inserted into the rectum at which time formed stool was noted. The scope was maneuvered through this region and sigmoid diverticulosis was noted. There is a significant amount of residual stool therefore the scope was then carefully retracted retroflexion view revealed residual stool. The scope was removed. Patient was then transferred to the recovery area in stable condition vital signs. Discharge summary: 1. Final Diagnosis: 1. Incomplete colonoscopy secondary to poor prep 2. Sigmoid diverticulosis 2. Outcome: Patient tolerated procedure well without complication 3. Disposition: Patient was discharged home to follow previous diet and medications 4. Follow-up care: Follow-up with primary care physician as scheduled. 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 Mental status: alert & oriented x 4. Respiratory function: respirations are non-labored. Respiratory support: none. CV function: Normal rate. Cardiovascular support: none. Pain. Nausea status: see nursing documentation of medications. Postoperative hydration status: within normal limits. Digitally Signed by ABDON KURTZ on 09/23/2024 07:49 AM [facility]07-21-2025 Anesthesiology Consult note Patient: MARLINE KHAN Age: 59 years Sex: Male : 1965 Associated Diagnoses: None Author: ABDON KURTZ Preoperative Information Time of last solid food intake: 09/23/2024 00:00:00 Time of last clear liquid intake: 09/23/2024 05:00:00 Anesthesia history Patient's history: negative. Family's history: negative. Health Status Allergies: Allergic Reactions (Selected) NKA, Allergies (1) ActiveSeverityReaction NKANone Documented Current medications: (Selected) Inpatient Medications Ordered NS 1,000 mL: 20 mL/hr, Intravenous Prescriptions Prescribed BuPROPion (Eqv-Wellbutrin SR) 150 mg/12 hours oral tablet, extended release: 150 mg, 1 tab(s), Oral, BID, for 90 day(s), 180 tab(s), 1 Refill(s) Claritin 24 Hour Allergy 10 mg oral tablet: 10 mg, 1 tab(s), Oral, qDay, for 90 day(s), 90 tab(s), 0 Refill(s) DULoxetine 60 mg oral delayed release capsule: 60 mg, 1 cap(s), Oral, qDay, for 90 day(s), 90 cap(s), 1 Refill(s) Trelegy Ellipta 100 mcg-62.5 mcg-25 mcg/inh inhalation powder: 1 puff(s), Inhalation, qDay, at the same time every day, 1 EA, 5 Refill(s) Trulicity Pen 0.75 mg/0.5 mL subcutaneous solution: 0.75 mg, 0.5 mL, Subcutaneous, qWeek, 2 mL, 2 Refill(s) Trulicity Pen 1.5 mg/0.5 mL subcutaneous solution: 1.5 mg, 0.5 mL, Subcutaneous, qWeek, rotate injection sites, 2 mL, 5 Refill(s) hydrOXYzine hydrochloride 50 mg oral tablet: 50 mg, 1 tab(s), Oral, Daily, PRN: as needed for anxiety, 30 tab(s), 1 Refill(s) losartan 50 mg oral tablet: 50 mg, 1 tab(s), Oral, qDay, for 90 day(s), 90 tab(s), 1 Refill(s) metFORMIN 1000 mg oral tablet (IR): 1,000 mg, 1 tab(s), Oral, BID, for 90 day(s), 180 tab(s), 1 Refill(s) omeprazole 20 mg oral delayed release capsule: 20 mg, 1 cap(s), Oral, qDay, for 90 day(s), 90 cap(s), 1 Refill(s) rosuvastatin 20 mg oral tablet: 20 mg, 1 tab(s), Oral, qDay, for 90 day(s), 90 tab(s), 1 Refill(s) Documented Medications Documented Tylenol: Oral, 0 Refill(s) Zinc: 0 Refill(s) aspirin: 0 Refill(s), Medications (1) Active Scheduled: (0) Continuous: (1) NS (0.9% nacl) 1,000 mL 1,000 mL, Intravenous, 20 mL/hr PRN: (0) Problem list: Medical Anxiety / SNOMED CT 09614438 / Confirmed BMI 35.0-35.9,adult / SNOMED CT 272704179 / Confirmed COPD without exacerbation / SNOMED CT 290226370 / Confirmed Depression / SNOMED CT 94974271 / Confirmed Former smoker / SNOMED CT 53284486 / Confirmed GERD (gastroesophageal reflux disease) / SNOMED CT 677755147 / Confirmed Hyperlipidemia / SNOMED CT 72677589 / Confirmed Hypertension / SNOMED CT 2495630191 / Confirmed Knee pain, chronic, left / SNOMED CT 24131205 / Confirmed Screening for prostate cancer / SNOMED CT 361412308 / Confirmed Wellness examination / SNOMED CT 212324338 / Confirmed Colon cancer screening / SNOMED CT 201251185 / Confirmed Screening for lung cancer / SNOMED CT 090944438 / Confirmed Pneumothorax / SNOMED CT 23089619 / Confirmed Type 2 diabetes mellitus / SNOMED CT 099844270 / Confirmed, Active Problems (15) Anxiety BMI 35.0-35.9,adult Colon cancer screening COPD without exacerbation Depression Former smoker GERD (gastroesophageal reflux disease) Hyperlipidemia Hypertension Knee pain, chronic, left Pneumothorax Screening for lung cancer Screening for prostate cancer Type 2 diabetes mellitus Wellness examination Histories Past Medical History: Active Pneumothorax ([id number]) Knee pain, chronic, left ([id number]) Family History: Diabetes mellitus Sister Procedure history: Jaw (surface region) ([id number]). Comments: 09/22/2016 9:07 KAYLIE CARRILLO wired for fx Chest ([id number]). Comments: 09/22/2016 9:09 KAYLIE CARRILLO chest tube for pneumo Colonoscopy ([id number]). Social History: Social & Psychosocial Habits Alcohol 09/11/2024Risk Assessment: High Risk 09/11/2024 Use: Never 09/11/2024 Use: Past Comment: last drink 1 year ago - 02/03/2017 12:39 - Myrtle Burch RN Employment/School 09/11/2024 Status: Unemployed Substance Abuse 09/11/2024Risk Assessment: Denies Substance Abuse 09/11/2024 Use: Never Tobacco 09/11/2024 Tobacco Use: Former smoker, quit more Nutrition/Health 09/11/2024 Caffeine intake amount: Diet pop 2 servings per day Physical Examination Vital Signs 09/23/2024 7:07 EDT Temperature Temporal Artery 35.5 DegC Apical Heart Rate 91 bpm Peripheral Pulse Rate 93 bpm Respiratory Rate 17 br/min Systolic Blood Pressure Non-Invasive 134 mmHg Diastolic Blood Pressure Non-Invasive 91 mmHg DC Vital Signs (last 24 hrs) Last Charted Temp Wiegtoef82.5 DegC (SEP 23 07:07) Heart Rate Mkxaye60 bpm (SEP 23 07:07) ITU468 mmHg (SEP 23 07:07) DBPH 91 mmHg (SEP 23 07:07) BMI37.35 (SEP 23 07:07) Measurements from flowsheet : Measurements 09/23/2024 7:07 EDT Height 188 cm Admission Weight 132 kg [place] Body Weight 82.24 kg BSA Admission 2.55 Body Mass Index 37.35 kg/m2 Pain assessment: Pain Assessment 09/23/2024 7:07 EDT Primary Pain Intensity 0 Pain Scale Type 0-10 Pain scale . General: Alert and oriented. Airway: Normal temporomandibular joint mobility, Normal mouth, Normal neck range of motion. Mallampati classification: III (soft palate, base of uvula visible). Dentition Evaluation: Denies loose/chipped teeth. Respiratory: Respirations are non-labored. Cardiovascular: Normal rate. Neurologic: Alert, Oriented. Review / Management Results review: No qualifying data available , Lab results 09/23/2024 7:44 EDT SN - Cul - Culture Type No Specimen per Surgeon SN - Cul - Kind Specimen 09/23/2024 7:43 EDT SN - Proc - Anesthesia Type MAC SN - Proc - EBL 0 mL SN - Proc - Actual Procedure COLONOSCOPY 09/23/2024 7:42 EDT SN - PP - Body Position Lateral Right Side-up Standard Intra-op 09/23/2024 7:42 EDT SN - GCD - Post-operative Diagnosis SCREENING SN - GCD - Case Level OPD Level 3 09/23/2024 7:42 EDT SN - CAt - Case Attendee SN - CAt - Case Attendee SN - CAt - Case Attendee SN - CAt - Case Attendee SN - CAt - Case Attendee SN - CAt - Case Attendee SN - CAt - Case Attendee SN - CAt - Case Attendee SN - CAt - Role Performed Primary Surgeon SN - CAt - Role Performed Senior Application Security Consultant 1 SN - CAt - Role Performed TOOLS DEVELOPER SN - CAt - Role Performed Waste Water Worker 09/23/2024 7:19 EDT Continuous IV Infusions ns Hand Right 09/23/2024 22 gauge Peripheral IV Activity: Insert new site Peripheral IV Dressing Condition: Clean, Dry, Intact Peripheral IV Dressing Activity: Applied, Transparent dressing Peripheral IV Line Status/Patency: Flushes easily Peripheral IV Line Care: Secured with tape Peripheral IV Site Condition: No complications Peripheral IV Equipment: Extension set Peripheral IV Number of Attempts: 1 09/23/2024 7:18 EDT Sodium Chloride 0.9% Begin Bag 1,000 mL mL 09/23/2024 7:10 EDT Urinary Elimination Voiding, no difficulties IV Present Present Allergies No Anesthesia Extension Set Applied Yes Supervisor Histology On Yes Colon Prep Results Excellent Consent Form Signed Yes Patient Dressed In Hospital gown History & Physical Update On Chart Yes History & Physical On Chart Yes Bowel Prep Completed Yes Pre-op Carbohydrate Drink Yes Positioning Repositions self NPO Status Maintained, Less than 8 hours Standard Safety ID band on, Bed in low position, Wheels locked Patient ID Band on and Verified Yes Implants Verified Yes Pacemaker/AICD Verified No Site Verified by Patient/Family Yes Anesthesia Consent Signed Yes Last Fluid Intake 09/23/2024 5:30 Last Food Intake 09/22/2024 7:11 09/23/2024 7:07 EDT Designated Person #1 We May Share PHI Juan SHAREP Designated Person #1 Relationship Significant other Height 188 cm Admission Weight 132 kg [place] Body Weight 82.24 kg BSA Admission 2.55 Body Mass Index 37.35 kg/m2 Temperature Temporal Artery 35.5 DegC Apical Heart Rate 91 bpm Peripheral Pulse Rate 93 bpm Respiratory Rate 17 br/min Systolic Blood Pressure Non-Invasive 134 mmHg Diastolic Blood Pressure Non-Invasive 91 mmHg HI Primary Pain Intensity 0 Pain Scale Type 0-10 Pain scale Oxygen Therapy Room air Oxygen Saturation 95 % Status N/A Extremity Movement Equal Characteristics of Speech Clear Level of Consciousness Alert Affect/Behavior Appropriate, Calm, Cooperative Orientation Oriented x 4 Sensory Deficits None Infectious Disease Symptoms Patient states no symptoms Infectious Disease Recent Exposure No Alcohol and Drug Use No Employee of Institutional Living No Health Care Employee No History of Exposure to TB No History of Positive Chest X-Ray for TB No History of Positive TB Skin Test No Homeless No Known Immunosuppression No Recent Immigrant No Resident of Institutional Living No Bloody Sputum No Fatigue No Fever No Loss of Appetite No Night Sweats No Persistent Cough > 3 Weeks No Weight Loss No Barriers to Learning None evident Teaching Method Explanation Preferred Spoken Language Estonian Preferred Written Language Estonian Patient's Current Physicians DFP Discharge To, Anticipated Home independently Prev Test Positive/Diagnosis w/COVID-19 No Current Quarantine/Isolated any Illness No Any Contact with Sick Animals/Birds No Traveled Anywhere in Last 30 Days Yes Travel Where Within [facility] State(s) RN RECRUITMENT N/A Personal Devices, Patient Valuables None Admission Note-Nursing Procedure/Therapy Intake 09/23/2024 7:06 T [place] History and Physical . Assessment and Plan [place] [employer] Anesthesiologists (ASA) physical status classification: Class III. Anesthetic Preoperative Plan Anesthetic technique: MAC. Informed consent: signed by patient. Digitally Signed by ABDON KURTZ on 09/23/2024 07:48 AM [facility]07-21-2025 Note [place] ADMISSION HISTORY AND PHYSICIAL CHIEF COMPLAINT: Colorectal cancer screening HISTORY OF PRESENT ILLNESS: Personal history of colon polyps REVIEW OF SYSTEMS: Constitutional: denies weight loss Cardiovascular:denies chest pain, palpitations Respiratory:denies shortness of breath Gastrointestinal:no abd pain Musculoskeletal: no arthralgias Skin: no rashes ACTIVE PROBLEMS: (15) Anxiety (23036478) BMI 35.0-35.9,adult (786105697) Colon cancer screening (625244823) COPD without exacerbation (965470709) Depression (18384198) Former smoker (32042402) GERD (gastroesophageal reflux disease) (537603694) Hyperlipidemia (65951350) Hypertension (8790926300) Knee pain, chronic, left (89181382) Pneumothorax (75362698) Screening for lung cancer (635001759) Screening for prostate cancer (230079102) Type 2 diabetes mellitus (675294824) Wellness examination (754141671) MEDICATIONS: Active Inpt Meds: None Active PRN Meds: None One Time Meds: None Active IV Meds: Sodium Chloride 0.9% intravenous solution 1,000 mL (NS 1,000 mL) Start: 09/23/24 6:55:00 EDT, Rate:20 mL/hr, 09/23/24 6:55:00 EDT ALLERGIES: (1) NKA FAMILY HISTORY: SOCIAL HISTORY: PHYSICAL EXAM: VITALS: No Data Available 24 Hr Tmax: No Data Available 36 Hr Tmax: No Data Available Vital Signs are the last 5 in the past 48 hours. Weights display the last 5 within 7 days. Initial Wt: No Data Available Current Wt: No Data Available physical exam alert and oriented cardio; regular without murmur pulm; clear abd; soft, nontender LABS: No 36hr Lab Data DIAGNOSTICS: IMPRESSION: Personal history of colon polyps PLAN: Colonoscopy as discussed in the office Digitally Signed by ZINA ESTEVES DO on 09/23/2024 07:07 AM [facility]07-02-2025 Evaluation note* Diagnosis Onset Date Resolution Status Admit Date COPD (chronic obstructive pulmonary disease) chronic September 04 10:55am Nicotine dependence in remission chr onic September 04, 2024 10:55am [facility] Work Phone: [phone]) 398-873907-21-2024 Hospital Discharge instructions Patient Education 09/24/2023 09:35:12 Head Injury with Sleep Monitoring (Adult) Head Injury with Sleep Monitoring (Adult) You have a head injury. It does not appear serious at this time. But symptoms of a more serious problem, such as mild brain injury (concussion), or bruising or bleeding in the brain, may appear later. For this reason, you and someone caring for you will need to watch for the symptoms listed below. Once at home, also be sure to follow any care instructions you re given. Home care Watch for the following symptoms Someone must stay with you for the next 24 hours (or longer, if directed). If you fall asleep, thisperson should wake you up every 2 hours, or as directed, to check your symptoms. This is called sleep monitoring. Symptoms to watch for include: Headache Nausea or vomiting Dizziness Sensitivity to light or noise Unusual sleepiness or grogginess Trouble falling asleep Personality changes Vision changes Memory loss Confusion Trouble walking or clumsiness Loss of consciousness (even for a short time) Inability to be awakened Stiff neck Weakness or numbness in any part of the body Seizures Bruising behind the ears or around the eyes If you develop any of these symptoms, seek emergency medical care right away. If none of these symptoms are noted during the first 24 hours, keep watching for symptoms for the next day or so. Ask your provider if someone should stay with you during this time. General care If you were prescribed medicines for pain, use them as directed. Don t use other pain medicines without checking with your provider first. To help reduce swelling and pain, apply a cold source to the injured area for up to 20 minutes at atime. Do this as often as directed. Use a cold pack or bag of ice wrapped in a thin towel. Never apply a cold source directly to the skin. If you have cuts or scrapes as a result of your injury, care for them as directed. For the next 24 hours (or longer, if instructed): oDon t drink alcohol or use sedatives or other medicines that make you sleepy. oDon t drive or operate machinery. oDon t do anything strenuous, such as heavy lifting or straining. oLimit tasks that require concentration. This includes reading, using a smartphone or computer, watching TV, and playing video games. oDon t return to sports or other activity that could result in another head injury. Follow-up care Follow up with your healthcare provider, or as directed. If imaging tests were done, they will be reviewed by a doctor. You will be told the results and any new findings that may affect your care. When to seek medical advice Call your healthcare provider right away if any of these occur: Pain doesn t get better or worsens New or increased swelling or bruising Fever of 100.4 F (38 C) or higher, or as directed by your provider Redness, warmth, bleeding, or drainage from the injured area Any depression or bony abnormality in the injured area Fluid drainage or bleeding from the nose or ears Bruising behind the ears or around the eyes Lethargy or excessive sleepiness [id number] [employer]. [address] [place] [address], [place] [address]. All rights reserved. This information is not intended as a substitute for professional medical care. Always follow [facility] professional's instructions. 09/24/2023 09:34:26 Facial Fracture Facial Fracture You have a broken bone, or fracture, in your face. This may be a small crack in the bone. Or it maybe a major break, with the bone moved out of place. Depending on where the break is, you may have pain when you chew. You may also have nasal congestion, sinus pain, and nose bleeding. During the first 24 hours after injury, you may have swelling or bruising where the break is, or around your eyes. A blow to the face strong enough to cause a broken bone may also cause a concussion or more serious brain injury. Home care Use an ice pack on the injured area for no more than 15 to 20 minutes at a time. Do this every 1 to2 hours for the first 24 to 48 hours. Then use the ice pack as needed to ease pain and swelling. Tomake an ice pack, put ice cubes in a plastic bag that seals at the top. Wrap the bag in a clean, thin towel or cloth. Never put ice or an ice pack directly on the skin. You may use fqrl-jhz-qjxkznt pain medicine to control pain, unless another pain medicine was prescribed. Talk with your provider before using this medicine if you have chronic liver or kidney diseaseor a history of gastrointenstinal ulcers. Sleep with your head raised on 2 or more pillows to ease swelling. If you have facial pain when eating, don t eat crunchy or chewy foods. A softer diet will be more comfortable for the first 2 to 3 weeks. If you were given antibiotics to prevent an infection, take them as directed until you have finished the prescription. If your nose bleeds, sit up and lean forward. Pinch your nostrils together for 10 to 15 minutes. Ifthe bleeding doesn t stop, keep pinching your nostrils and call your healthcare provider. Don t blow your nose for 12 hours after the bleeding stops. This will allow a strong blood clot to form. Don t pick your nose. Special note on concussions If you had any symptoms of a concussion today, don t return to sports or any activity that could result in another head injury. These are symptoms of a concussion: Nausea Vomiting Dizziness Confusion Headache Memory loss Loss of consciousness Wait until all of your symptoms are gone and your provider says it s OK to resume your activity. Having a second head injury before you fully recover from the first one can lead to serious brain injury. Follow-up care Follow up with your healthcare provider in 1 week, or as advised. This is to make sure the bone is healing as it should. If you had X-rays or CT scans taken, you will be told of any new findings that may affect your care. When to seek medical advice Call your healthcare provider right away if any of these occur: Swelling or pain in your face that gets worse Redness, warmth, or pus draining from the injured area Fever of 100.4 F (38 C) or higher, or as directed by your healthcare provider Chills Double vision Nausea Call 911 Call 911 if you have: Repeated vomiting Severe headache or dizziness Headache or dizziness that gets worse Abnormal drowsiness, or you are unable to wake up as usual Confusion or change in behavior or speech Convulsion, or seizure [id number] [employer]. [address] [place] [address], [place] [address]. All rights reserved. This information is not intended as a substitute for professional medical care. Always follow yourhealthcare professional's instructions. 09/24/2023 09:34:02 Ankle Sprain (Adult) Ankle Sprain (Adult) An ankle sprain is a stretching or tearing of the ligaments that hold the ankle joint together. There are no broken bones. An ankle sprain is a common injury for both children and adults. It happens when the ankle turns, twists, or rolls in an awkward way. This can be caused by a sports injury. Or it can happen from doing something as simple as stepping on an uneven surface. Ligaments are made of tough connective tissue. Normally, ligaments stretch a certain amount and then go back to their normal place. A sprain happens when a ligament is forced to stretch more than thenormal amount. A severe sprain can actually tear the ligaments. If you have a severe sprain, you may have felt or heard something like a pop when you were injured. Ankle sprains are given a grade depending on whether they are mild, moderate, or severe: Grade 1 sprain. A mild sprain with minor stretching and damage to the ligament. Grade 2 sprain. A moderate sprain where the ligament is partly torn. Grade 3 sprain. The most severe kind of sprain. The ligament is completely torn. Most sprains take about 4 to 6 weeks to heal. A severe sprain can take several months to recover. Your healthcare provider may order X-rays to be sure you don t have a fracture, or broken bone. The injured area will feel sore. Swelling and pain may make it hard to walk. You may need crutches if walking is painful. Or your provider may have you use a cast boot or air splint. This will dependon the grade of ankle sprain that you have. Home care For a Grade 1 sprain, use RICE (rest, ice, compression, and elevation): Rest your ankle. Don t walk on it. Ice should be used right away to help control swelling. Place an ice pack over the injured area for20 minutes. Do this every 3 to 6 hours for the first 24 to 48 hours. Keep using ice packs to ease pain and swelling as needed. To make an ice pack, put ice cubes in a plastic bag that seals at the top. Wrap the bag in a clean, thin towel or cloth. Never put ice or an ice pack directly on the skin. The ice pack can be put right on the cast, bandage, or splint. As the ice melts, be careful that thecast, bandage, or splint doesn t get wet. If you have a boot, open it to apply an ice pack, unless told otherwise by your provider. Compression devices help to control swelling. They also keep the ankle from moving and support yourinjured ankle. These devices include dressings, bandages, and wraps. Elevate or raise your ankle above the level of your heart when sitting or lying down. This is very important for the first 48 hours. Follow the RICE guidelines for a Grade 2 sprain. This type of sprain will take longer to heal. Yourprovider may have you wear a splint, cast, or brace to keep your ankle from moving. If you have a Grade 3 sprain, you are at risk for long-term ankle instability. In rare cases, surgery may be needed. Your provider may have you wear a short leg cast or a walking boot for 2 to 3 weeks. After 48 hours, it may be helpful to apply heat for 20 minutes several times a day. You can do thiswith a heating pad or warm compress. Or you may want to go back and forth between using ice and heat. Never apply heat directly to the skin. Always wrap the heating pad or warm compress in a clean, thin towel or cloth. You may use myod-sgh-bexphak pain medicine (NSAIDS or nonsteroidal anti- inflammatory drugs) to control pain, unless another pain medicine was prescribed. Talk with your provider before using these medicines if you have chronic liver or kidney disease, or have ever had a stomach ulcer or gastrointestinal bleeding. Follow any rehabilitation exercises your provider gives you. These can help you be more flexible and improve your balance and coordination. This is helpful in preventing long-term ankle problems. Prevention To help prevent ankle sprains, it s important to have good strength, balance, and flexibility. Be sure to: Always warm up before you exercise or do something very active Be careful when walking or running on uneven or cracked surfaces Wear shoes that are in good condition and fit well Listen to your body s signals to slow down when you are in pain or tired Follow-up care Any X-rays you had today don t show any broken bones, breaks, or fractures. Sometimes fractures dont show up on the first X-ray. Bruises and sprains can sometimes hurt as much as a fracture. These injuries can take time to heal completely. If your symptoms don t get better or they get worse, talk with your healthcare provider. You may need a repeat X-ray. Follow up with your healthcare provider, or as advised. Check for any warning signs listed below. When to seek medical advice Call your healthcare provider right away if any of these occur: Fever of 100.4 F (38 C) or higher, or as directed by your healthcare provider Chills The injury doesn t seem to be healing The swelling comes back The cast or splint has a bad smell The plaster cast or splint gets wet or soft The fiberglass cast or splint gets wet and does not dry for 24 hours The pain or swelling increases, or redness appears Your toes become cold, blue, numb, or tingly The skin is discolored (looks blue, purple, or gustafson), has blisters, or is irritated You re-injure your ankle [phone] [employer]. [address] [place] [address]. All rights reserved. This information is not intended as a substitute for professional medical care. Always follow yourhealthcare professional's instructions. Follow Up Care 09/24/2023 07:53:27 With:[facility] [phone] Address:Unknown When:3-7 days Comments:regarding R ankle sprain, if needed With:[facility] Address: [address] [place] [phone] Business (1) When:3-7 days Comments:regarding orbital blowout fracture With:ROXANNE CLARK Address: [address] [place] [phone] [facility] (1) When:2-4 days [facility] 07-21-2024 Note Discharge Instructions Thank you for allowing [facility] to assist you with your healthcare needs. The following is importantdischarge information regarding your hospital visit. Diagnosis from Today's Visit Closed blow-out fracture of left orbital floor Head injury Sprain of right ankle What to Do Next Instructions from Your Care Team No qualifying data available. Post Acute Orders No qualifying data available. You Need to Schedule the Following Appointments Follow Up with [place] [phone] When:Within 3-7 days Additional Information: regarding R ankle sprain, if needed Follow Up with [facility] When:Within 3-7 days Where:[address] [place] [phone]- Business (1) Additional Information: regarding orbital blowout fracture Follow Up with ROXANNE CLARK When:Within 2-4 days Where:[address] [address] [place] [address] [phone] Business (1) Allergies NKA Medications Please ask your primary doctor or pharmacist before taking any other medication not listed, including over the counter drugs, herbal medications, vitamins and or supplements as they may interact withyour home medications. What How Much When Why Instructions Last Dose New acetaminophen-oxyCODONE (Percocet 5 mg-325 mg oral tablet) 1 tab(s) by mouth Every 6 hours as needed for for pain Closed blow-out fracture of left orbital floor Duration: 2 Days Printed Prescription Unchanged loratadine (Claritin 24 Hour Allergy 10 mg oral tablet) 1 tab(s) by mouth Once a day Please take this list to your next doctor s visit. Bring all medications you take, including over the counter medications, herbals and other supplements with you to your doctor s visit. Patients and families are reminded to discard old lists and to update any records with all medication providers or retail pharmacies. Education Materials Head Injury with Sleep Monitoring (Adult) You have a head injury. It does not appear serious at this time. But symptoms of a more serious problem, such as mild brain injury (concussion), or bruising or bleeding in the brain, may appear later. For this reason, you and someone caring for you will need to watch for the symptoms listed below. Once at home, also be sure to follow any care instructions you re given. Home care Watch for the following symptoms Someone must stay with you for the next 24 hours (or longer, if directed). If you fall asleep, thisperson should wake you up every 2 hours, or as directed, to check your symptoms. This is called sleep monitoring. Symptoms to watch for include: Headache Nausea or vomiting Dizziness Sensitivity to light or noise Unusual sleepiness or grogginess Trouble falling asleep Personality changes Vision changes Memory loss Confusion Trouble walking or clumsiness Loss of consciousness (even for a short time) Inability to be awakened Stiff neck Weakness or numbness in any part of the body Seizures Bruising behind the ears or around the eyes If you develop any of these symptoms, seek emergency medical care right away. If none of these symptoms are noted during the first 24 hours, keep watching for symptoms for the next day or so. Ask your provider if someone should stay with you during this time. General care If you were prescribed medicines for pain, use them as directed. Don t use other pain medicines without checking with your provider first. To help reduce swelling and pain, apply a cold source to the injured area for up to 20 minutes at atime. Do this as often as directed. Use a cold pack or bag of ice wrapped in a thin towel. Never apply a cold source directly to the skin. If you have cuts or scrapes as a result of your injury, care for them as directed. For the next 24 hours (or longer, if instructed): oDon t drink alcohol or use sedatives or other medicines that make you sleepy. oDon t drive or operate machinery. oDon t do anything strenuous, such as heavy lifting or straining. oLimit tasks that require concentration. This includes reading, using a smartphone or computer, watching TV, and playing video games. oDon t return to sports or other activity that could result in another head injury. Follow-up care Follow up with your healthcare provider, or as directed. If imaging tests were done, they will be reviewed by a doctor. You will be told the results and any new findings that may affect your care. When to seek medical advice Call your healthcare provider right away if any of these occur: Pain doesn t get better or worsens New or increased swelling or bruising Fever of 100.4 F (38 C) or higher, or as directed by your provider Redness, warmth, bleeding, or drainage from the injured area Any depression or bony abnormality in the injured area Fluid drainage or bleeding from the nose or ears Bruising behind the ears or around the eyes Lethargy or excessive sleepiness [id number] [employer]. [address] [place] [address]. All rights reserved. This information is not intended as a substitute for professional medical care. Always follow yourhealthcare professional's instructions. Facial Fracture You have a broken bone, or fracture, in your face. This may be a small crack in the bone. Or it maybe a major break, with the bone moved out of place. Depending on where the break is, you may have pain when you chew. You may also have nasal congestion, sinus pain, and nose bleeding. During the first 24 hours after injury, you may have swelling or bruising where the break is, or around your eyes. A blow to the face strong enough to cause a broken bone may also cause a concussion or more serious brain injury. Home care Use an ice pack on the injured area for no more than 15 to 20 minutes at a time. Do this every 1 to2 hours for the first 24 to 48 hours. Then use the ice pack as needed to ease pain and swelling. Tomake an ice pack, put ice cubes in a plastic bag that seals at the top. Wrap the bag in a clean, thin towel or cloth. Never put ice or an ice pack directly on the skin. You may use sngl-ogr-wopethj pain medicine to control pain, unless another pain medicine was prescribed. Talk with your provider before using this medicine if you have chronic liver or kidney diseaseor a history of gastrointenstinal ulcers. Sleep with your head raised on 2 or more pillows to ease swelling. If you have facial pain when eating, don t eat crunchy or chewy foods. A softer diet will be more comfortable for the first 2 to 3 weeks. If you were given antibiotics to prevent an infection, take them as directed until you have finished the prescription. If your nose bleeds, sit up and lean forward. Pinch your nostrils together for 10 to 15 minutes. Ifthe bleeding doesn t stop, keep pinching your nostrils and call your healthcare provider. Don t blow your nose for 12 hours after the bleeding stops. This will allow a strong blood clot to form. Don t pick your nose. Special note on concussions If you had any symptoms of a concussion today, don t return to sports or any activity that could result in another head injury. These are symptoms of a concussion: Nausea Vomiting Dizziness Confusion Headache Memory loss Loss of consciousness Wait until all of your symptoms are gone and your provider says it s OK to resume your activity. Having a second head injury before you fully recover from the first one can lead to serious brain injury. Follow-up care Follow up with your healthcare provider in 1 week, or as advised. This is to make sure the bone is healing as it should. If you had X-rays or CT scans taken, you will be told of any new findings that may affect your care. When to seek medical advice Call your healthcare provider right away if any of these occur: Swelling or pain in your face that gets worse Redness, warmth, or pus draining from the injured area Fever of 100.4 F (38 C) or higher, or as directed by your healthcare provider Chills Double vision Nausea Call 911 Call 911 if you have: Repeated vomiting Severe headache or dizziness Headache or dizziness that gets worse Abnormal drowsiness, or you are unable to wake up as usual Confusion or change in behavior or speech Convulsion, or seizure [id number] [employer] [place] [address]. All rights reserved. This information is not intended as a substitute for professional medical care. Always follow yourhealthcare professional's instructions. Ankle Sprain (Adult) An ankle sprain is a stretching or tearing of the ligaments that hold the ankle joint together. There are no broken bones. An ankle sprain is a common injury for both children and adults. It happens when the ankle turns, twists, or rolls in an awkward way. This can be caused by a sports injury. Or it can happen from doing something as simple as stepping on an uneven surface. Ligaments are made of tough connective tissue. Normally, ligaments stretch a certain amount and then go back to their normal place. A sprain happens when a ligament is forced to stretch more than thenormal amount. A severe sprain can actually tear the ligaments. If you have a severe sprain, you may have felt or heard something like a pop when you were injured. Ankle sprains are given a grade depending on whether they are mild, moderate, or severe: Grade 1 sprain. A mild sprain with minor stretching and damage to the ligament. Grade 2 sprain. A moderate sprain where the ligament is partly torn. Grade 3 sprain. The most severe kind of sprain. The ligament is completely torn. Most sprains take about 4 to 6 weeks to heal. A severe sprain can take several months to recover. Your healthcare provider may order X-rays to be sure you don t have a fracture, or broken bone. The injured area will feel sore. Swelling and pain may make it hard to walk. You may need crutches if walking is painful. Or your provider may have you use a cast boot or air splint. This will dependon the grade of ankle sprain that you have. Home care For a Grade 1 sprain, use RICE (rest, ice, compression, and elevation): Rest your ankle. Don t walk on it. Ice should be used right away to help control swelling. Place an ice pack over the injured area for20 minutes. Do this every 3 to 6 hours for the first 24 to 48 hours. Keep using ice packs to ease pain and swelling as needed. To make an ice pack, put ice cubes in a plastic bag that seals at the top. Wrap the bag in a clean, thin towel or cloth. Never put ice or an ice pack directly on the skin. The ice pack can be put right on the cast, bandage, or splint. As the ice melts, be careful that thecast, bandage, or splint doesn t get wet. If you have a boot, open it to apply an ice pack, unless told otherwise by your provider. Compression devices help to control swelling. They also keep the ankle from moving and support yourinjured ankle. These devices include dressings, bandages, and wraps. Elevate or raise your ankle above the level of your heart when sitting or lying down. This is very important for the first 48 hours. Follow the RICE guidelines for a Grade 2 sprain. This type of sprain will take longer to heal. Yourprovider may have you wear a splint, cast, or brace to keep your ankle from moving. If you have a Grade 3 sprain, you are at risk for long-term ankle instability. In rare cases, surgery may be needed. Your provider may have you wear a short leg cast or a walking boot for 2 to 3 weeks. After 48 hours, it may be helpful to apply heat for 20 minutes several times a day. You can do thiswith a heating pad or warm compress. Or you may want to go back and forth between using ice and heat. Never apply heat directly to the skin. Always wrap the heating pad or warm compress in a clean, thin towel or cloth. You may use lysz-fhp-hqhpnio pain medicine (NSAIDS or nonsteroidal anti- inflammatory drugs) to control pain, unless another pain medicine was prescribed. Talk with your provider before using these medicines if you have chronic liver or kidney disease, or have ever had a stomach ulcer or gastrointestinal bleeding. Follow any rehabilitation exercises your provider gives you. These can help you be more flexible and improve your balance and coordination. This is helpful in preventing long-term ankle problems. Prevention To help prevent ankle sprains, it s important to have good strength, balance, and flexibility. Be sure to: Always warm up before you exercise or do something very active Be careful when walking or running on uneven or cracked surfaces Wear shoes that are in good condition and fit well Listen to your body s signals to slow down when you are in pain or tired Follow-up care Any X-rays you had today don t show any broken bones, breaks, or fractures. Sometimes fractures dont show up on the first X-ray. Bruises and sprains can sometimes hurt as much as a fracture. These injuries can take time to heal completely. If your symptoms don t get better or they get worse, talk with your healthcare provider. You may need a repeat X-ray. Follow up with your healthcare provider, or as advised. Check for any warning signs listed below. When to seek medical advice Call your healthcare provider right away if any of these occur: Fever of 100.4 F (38 C) or higher, or as directed by your healthcare provider Chills The injury doesn t seem to be healing The swelling comes back The cast or splint has a bad smell The plaster cast or splint gets wet or soft The fiberglass cast or splint gets wet and does not dry for 24 hours The pain or swelling increases, or redness appears Your toes become cold, blue, numb, or tingly The skin is discolored (looks blue, purple, or gustafson), has blisters, or is irritated You re-injure your ankle [id number] [employer]. [address] [place] [address]. All rights reserved. This information is not intended as a substitute for professional medical care. Always follow yourhealthcare professional's instructions. Additional Information VACCINATE! IT SAVES LIVES! Members of the community who have not yet received the COVID-19 vaccine and would like to receive it can visit one of [facility] vaccine clinics. There are many vaccine clinic locations within the [facility]. For locations and available times, please visit www.gettheshot.coronavirus.[place].gov/. It is important to note that some COVID mobile vaccine clinics are held outdoors and may be canceled in rainy or stormy conditions. To learn more about pediatric vaccinations (ages 5-11), we invite you to visit the [facility] webpage. https://www.[facility].org/pages/3009-Tzogi-Emhnkxwnesn-Sgyvnwalxu-Ucxve-Izs stions.htmlTo learn more about the COVID-19 vaccine, we invite you to visit the CDC website for a list of frequently asked questions. https://www.cdc.gov/coronavirus/2019-ncov/vaccines/faq.html [facility] Patient Portal Access Instructions: Stay connected with your healthcare team and access your personal medical information anytime with the [facility] Patient Portal. If you would like a full copy of your medical records please contact the [facility] Medical Records Department Monday through Monday between 8a.m. and 4:30p.m. Please follow the directions below to access the portal: 1.Access the email account you provided upon registration to the the [facility].2.Look for an invitation email from [facility].3.Open the email and access the invitation link: Accept Invitation to [facility].Fill in the required moreno to create your account. Sign into www.[employer] with your username and password that you created in the above steps to stay up to date. You can then view a summary of results, a summary of your visits, and the ability to download your summaries to your computer or send the information securely to a physician. Remember that your healthcare information is confidential, so carefully consider who you will allow to register on the [facility] Patient Portal for access to your information. You can also access the [facility] Patient Portal on the [facility]. Simply click on Health Records under [employer] and then click on the op5 logo. HOW TO SAFELY DISPOSE OF PRESCRIPTION MEDICATIONS Please use one of the following methods to safely dispose of your unused medications. 1.Use a drug disposal kit: the drug disposal pouch allows you to safely discard your old and unuseddrugs. Ask your nurse to give you one when you are discharged.2.Visit a local take-back location: Many local pharmacies and police departments have programs that collect old and unwanted prescriptiondrugs. Call your local pharmacy or go to http://bit.ly/7S5Vi7t to find one close to you.3.Make use of household items: Use cat litter or old coffee grounds to dispose medications if other options arenot available. Mix your drugs with these household products, seal them in an airtight container andthrow it into the garbage. Call [facility]: [phone] to be sure your drugs can be disposed of in this way. Some medicines may require a different approach.4.Never flush your medications down the toilet. IF YOU HAVE BEEN PRESCRIBED AN OPIOIDS FOR PAIN If you have been prescribed an opioid (such as hydrocodone, oxycodone or morphine), it is critical to understand the possible side effects and risks of opioid pain medications. Even when taken as directed, opioids can have several side effects including: Tolerance, meaning you might need to take more of a medication for the same pain relief. Nausea, vomiting and/or constipation. Sleepiness, dizziness, dry mouth, confusion, depression or itching. Physical dependence, meaning you have withdrawal symptoms when a medication is stopped ? this can develop within a few days. KNOW YOUR RESPONSIBILITIES It is important to know exactly how much and how often to take the opioid pain medications you are prescribed. Never take opioids in higher amounts or more often than prescribed. Do not combine opioids with alcohol or other drugs that cause drowsiness, such as benzodiazepines, also known as benzos,including diazepam and alprazolam, muscle relaxants or sleep aids. Never sell or share prescriptionopioids. This is illegal. Store opioids in a secure place and out of reach of others (including children, family, friends and visitors). The last page(s) of this document has been signed and retained as a CHART COPY Signatures Patient Education Materials Head Injury with Sleep Monitoring (Adult) Facial Fracture Ankle Sprain (Adult) Medication Leaflets My discharge plan and instructions have been reviewed and explained to me and I,MARLINE KHANtand my current condition and have read and understand these discharge instructions. I have received a written copy of the plan/instructions. If I have questions, I am aware that I should contact my doctor. 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 Multiplanar reformatted images are provided for review. Automated exposure control, iterative reconstruction, and/or weight based adjustment of the mA/kV was utilized to reduce the radiation dose to as low as reasonably achievable. COMPARISON: None HISTORY: ORDERING SYSTEM PROVIDED HISTORY: Reason for Exam: INJURY FINDINGS: FACIAL BONES: There is an inferior orbital wall blowout fracture with multiple fragments which are depressed, this measures 1.2 in the transverse dimension by 2 cm in the AP dimension, there is 6 mm of depression, there are no visible trapped intraorbital contents but the inferior rectus muscle is displaced inferiorly. There is blood in the left maxillary sinus. There is left orbital soft tissue swelling and some soft tissue air but no orbital hematoma. ORBITAL CONTENTS: The globes appear intact. The extraocular muscles, optic nerve sheath complexes and lacrimal glands appear unremarkable. No retrobulbar hematoma or mass is seen. SINUSES: There is no evidence of acute sinusitis, such as air fluid level. The mastoid air cells are clear. SOFT TISSUES: No superficial facial soft tissue swelling is seen. IMPRESSION: Inferior left orbital wall blowout fracture and soft tissue injury. Interpreted by: Nicky Ramey MD Preliminary Report By: Nicky Ramey MD Electronically signed By Nicky Ramey MD Dictated Date: 09/24/2023 8:45:53 AM Prelim Date: 09/24/2023 8:50:47 AM Sign Date: 09/24/2023 8:50:47 AM Ordering Provider: [facility]07-21-2024 Note ORIGINAL EXAMINATION: CT OF THE HEAD WITHOUT CONTRAST 09/24/2023 8:37 am TECHNIQUE: CT of the head was performed without the administration of intravenous contrast. Automated exposure control, iterative reconstruction, and/or weight based adjustment of the mA/kV was utilized to reduce the radiation dose to as low as reasonably achievable. COMPARISON: None. HISTORY: ORDERING SYSTEM PROVIDED HISTORY: Reason for Exam: INJURY FINDINGS: BRAIN/VENTRICLES: There is no acute intracranial hemorrhage, mass effect or midline shift. No abnormal extra-axial fluid collection. The gustafson-white differentiation is maintained without evidence of an acute infarct. There is no evidence of hydrocephalus. ORBITS: The visualized portion of the orbits demonstrate no acute abnormality. SINUSES: The visualized paranasal sinuses and mastoid air cells demonstrate no acute abnormality. SOFT TISSUES/SKULL: No acute abnormality of the visualized skull or soft tissues. IMPRESSION: No acute intracranial abnormality. Interpreted by: Nicky Ramey MD Preliminary Report By: Nikcy Ramey MD Electronically signed By Nicky Ramey MD Dictated Date: 09/24/2023 8:45:12 AM Prelim Date: 09/24/2023 8:45:37 AM Sign Date: 09/24/2023 8:45:37 AM Ordering Provider: [facility]07-21-2024 Note ORIGINAL EXAMINATION: THREE XRAY VIEWS OF THE RIGHT ANKLE 09/24/2023 8:36 am COMPARISON: None HISTORY: ORDERING SYSTEM PROVIDED HISTORY: Reason for Exam: injury FINDINGS: There is a tiny osseous fragment at the tip of the medial malleolus. No additional fractures or dislocation. There are mild scattered degenerative change, including calcaneal enthesopathy. There is soft tissue swelling about the ankle. No unexpected radiopaque foreign body. IMPRESSION: Question tiny avulsion fracture off the tip of the medial malleolus. Soft tissue swelling. Interpreted by: Rebeka Whalen MD Preliminary Report By: Rebeka Whalen MD Electronically signed By Rebeka Whalen MD Dictated Date: 09/24/2023 8:48:36 AM Prelim Date: 09/24/2023 8:51:21 AM Sign Date: 09/24/2023 8:51:21 AM Ordering Provider: [facility]11-26-2020 Evaluation + Plan note Future Appointments Appointment Date:09/11/2024 02:00:00 PM Scheduled Provider: Location:[facility] Appointment Type:GI OV Consult Appointment Date:01/29/2025 11:30:00 AM Scheduled Provider:JANNET CONTRERAS Location:[facility] Appointment Type:PC OV Future Scheduled Tests Laboratory* A1C Hemoglobin 01/31/25 * Lipid Profile 01/31/25 * Albumin/Creatinine Ratio, Random Urine 01/31/25 * Albumin/Creatinine Ratio, Random Urine 08/06/24 * Albumin/Creatinine Ratio, Random Urine 02/26/24 * Complete Metabolic Panel 01/31/25 [facility] Evaluation + Plan note No data available for this section [facility] Evaluation + Plan note Future Appointments Appointment Date:04/29/2024 10:00:00 AM Scheduled Provider:JANNET CONTRERAS Location:[facility] Appointment Type:PC OV Future Scheduled Tests Laboratory* Albumin/Creatinine Ratio, Random Urine 02/26/24 [facility] Evaluation + Plan note Future Appointments Appointment Date:07/31/2024 03:00:00 PM Scheduled Provider:JANNET CONTRERAS Location:[facility] Appointment Type:PC Wellness Annual Future Scheduled Tests Laboratory* Albumin/Creatinine Ratio, Random Urine 08/06/24 * Albumin/Creatinine Ratio, Random Urine 02/26/24 [facility] Evaluation + Plan note Future Appointments Appointment Date:01/29/2025 11:30:00 AM Scheduled Provider:JANNET CONTRERAS Location:[facility] Appointment Type:PC OV Future Scheduled Tests Laboratory* A1C Hemoglobin 01/31/25 * Lipid Profile 01/31/25 * Albumin/Creatinine Ratio, Random Urine 01/31/25 * Albumin/Creatinine Ratio, Random Urine 08/06/24 * Albumin/Creatinine Ratio, Random Urine 02/26/24 * Complete Metabolic Panel 01/31/25 [facility] Evaluation note* Diagnosis Onset Date Resolution Status Anxiety and depression chron ic Hypertension chronic Type 2 diabetes mellitus chr onic Anxiety and depression chron ic Hypertension chronic Type 2 diabetes mellitus chr onic [facility] Work Phone: Evaluation note* Diagnosis Onset Date Resolution Status Hypertension chronic Type 2 diabetes mellitus chr onic Tobacco use noneactive [facility] Work Phone: Evaluation note* Diagnosis Onset Date Resolution Status Hypertension chronic Type 2 diabetes mellitus chr onic Bilateral primary osteoarthritis of knee acute COPD (chronic obstructive pulmonary disease) chronic Bilateral primary osteoarthritis of knee acute [facility] Work Phone: Evaluation note* Diagnosis Onset Date Resolution Status Admit Date COPD (chronic obstructive pulmonary disease) chronic September 04 10:55am [facility] Work Phone: Hospital Discharge instructionsAmbulatory Orders* Podiatry Location: None Selected [facility] Work Phone: Hospital Discharge instructions No data available for this section [facility] Progress note No data available for this section [facility] Reason for referral (narrative)No reason for referral [facility] Work [facility] Summary Purpose Family History No Family History Records Found Relationship Condition Age at Onset Recorded Date/T tao father Diabetes mellitus Unknown Alcohol abuse Unknown Hypertension Unknown sister Diabetes mellitus Unknown Advance Directives No Advanced Directives Records FoundDocuments on File Type Date Recorded 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 ACP-Advance Directive ACP-Power of Instructor Physical Advance Directive Response Recorded Date/ Time Living Will No June 07, 2020 3:15pm Power of Instructor Physical No June 07 3:15pm Chief Complaint and Reason for Visit Chief Complaint 3 M FU 3 M FU PAIN IN RT KNEE Reason for Visit Anxiety and depressi on Hypertension Type 2 diabetes mellitus Anxiety and depression Hypertension Type 2 diabetes mellitus Chief Complaint 3 M FU Reason for Visit Hypertension Type 2 diabetes mellitus Tobacco use Chief Complaint SOB Shortness of breath fu leg issues BL KNEES Room 1 TYPE 2 DM, MORBID OBESITY Reason for Visit Hypertension Type 2 diabetes mellitus Bilateral primary osteoarthritis of knee COPD (chronic obstructive pulmonary disease) Bilateral primary osteoarthritis of knee Chief Complaint Admit Date COPD September 04, 2024 10:55 am Reason for Visit Admit Date COPD (chronic obstructive pulmonary dise ase) September 04, 2024 10:55am Chief Complaint Admit Date COPD September 04, 2024 10:55 am Chronic obstructive pulmonary disease Se ptember 2024 9:24am Reason for Visit Admit Date COPD (chronic obstructive pulmonary dise ase) September 04, 2024 10:55am Nicotine dependence in remission September 10:55am Additional Source Comments (unrecognized sect ion and content) No Status Records FoundNo Status Records FoundNo Status Records FoundNo Status Records FoundNo Status Records FoundNo Status Records FoundNo Status Records FoundNo Status Records FoundNo Status Records FoundNo Status Records FoundNo Status Records FoundNo Status Records FoundNo Status Records Found INFORMATION SOURCE (unrecogn ized section and content) DATE CREATED AUTHOR 08/28/2017 [facility] DATE CREATED AUTHOR AUTHOR'S ORGANIZ ATION 08/29/2017 [facility] [employer] [facility] [place] DATE CREATED AUTHOR AUTHOR'S ORGANIZ ATION 12/14/2017 [facility] DATE CREATED AUTHOR AUTHOR'S ORGANIZ ATION 12/30/2017 [facility] DATE CREATED AUTHOR AUTHOR'S ORGANIZ ATION 06/09/2018 [facility] DATE CREATED AUTHOR AUTHOR'S ORGANIZ ATION 07/10/2018 [facility] DATE CREATED AUTHOR AUTHOR'S ORGANIZ ATION 07/20/2019 [employer] DATE CREATED AUTHOR AUTHOR'S ORGANIZ ATION 04/02/2020 [facility] DATE CREATED AUTHOR AUTHOR'S ORGANIZ ATION 07/13/2020 [facility] DATE CREATED AUTHOR AUTHOR'S ORGANIZ ATION 09/26/2023 [facility] ([place] DATE CREATED AUTHOR AUTHOR'S ORGANIZ ATION 12/09/2024 [facility] DATE CREATED AUTHOR AUTHOR'S ORGANIZ ATION 12/31/2024 [facility] DATE CREATED AUTHOR AUTHOR'S ORGANIZ ATION 01/10/2025 [facility] Goals (unrecognized section and content) Goals may be documented in a n alternate sectionGoals may be documented in an alternate sectionGoals may be documented in an alternate section No data available for this section No data available for this section No data available for this section No data available for this sectionGoals may be documented in an alternate section No data available for this section No data available for this sectionGoals may be documented in an alternate section Care Teams (unrecognized sec tion and content) Team Status: Active Member Role Status Dates Dr. Alexandre Don MD Family Provider Active Dr. Alexandre Don MD Primary Care Provider Active Team Status: Inactive Member Role Status Dates Dr. Alexanrde Don MD Primary Care Provider, Refer ring Provider Active Roxanne Clark NP, PRODUCTION CONTROL PEGBOARD CLERK-C Attending Provider Active Team Status: Active Member Role Status Dates Dr. Alexandre Don MD Primary Care Provider Active LUKE Goins Referring Provider, Other Provide r Active Dr. Washington Addison MD Attending Provider Active Team Status: Inactive Member Role Status Dates Dr. Alexandre Don MD Primary Care Provider, Refer ring Provider Active Dr. Abdon Joseph DO Attending Provider Active Team Status: Inactive Member Role Status Dates Dr. Alexandre Don MD Primary Care Provider Active Dr. Paul Rich MD Attending Provider Active Team Status: Inactive Member Role Status Dates Dr. Alexandre Don MD Primary Care Provider Active Martita Martinez PA Attending Provider, Referring Pro vider Active Team Status: Inactive Member Role Status Dates Dr. Alexandre Don MD Primary Care Provider Active Dr. Abdon Joseph DO Attending Provider, Referring Provider Active Team Status: Active Member Role/Relationship Status Dates Dr. Alexandre Don MD Family Provider Active Roxanne Clark VSC, PRODUCTION CONTROL PEGBOARD CLERK-C Primary Care Provider Active Team Status: Inactive Member Role/Relationship Status Dates Roxanne Clark VSC, PRODUCTION CONTROL PEGBOARD CLERK-C Primary Care Provider Active Start: September 04, 2024 End: September 04, 2024 Roxanne COREYC, PRODUCTION CONTROL PEGBOARD CLERK-C Referring Provider Active S tart: September 04, 2024 End: September 04, 2024 Dr. Juliocesar Quinones DO Attending Provider Active S tart: September 04, 2024 End: September 04, 2024 Team Status: Active Member Role/Relationship Status Dates JANNET CONTRERAS NP-Brisa Primary care physician Active Team Status: Inactive Member Role/Relationship Status Dates Roxanne Clark VSC, PRODUCTION CONTROL PEGBOARD CLERK-C Primary care physician Active Start: September 04, 2024 End: September 04, 2024 Roxanne Clark VSC, PRODUCTION CONTROL PEGBOARD CLERK-C Referring Provider Active S tart: September 04, 2024 End: September 04, 2024 Dr. Juliocesar Quinones DO Attending physician Active Start: September 04, 2024 End: September 04, 2024 Team Status: Inactive Member Role/Relationship Status Dates Dr. Juliocesar Quinones DO Attending physician Active Start: December 02, 2024 End: December 02, 2024 Dr. Juliocesar Quinones DO Referring Provider Active S tart: December 02, 2024 End: December 02, 2024 FERNANDA FUENTES Primary care physician Active Start: December 02, 2024 End: December 02, 2024 FOR RECORDS PERTAINING TO PATIENTS WHO ARE OR HAVE BEEN ENROLLED IN A CHEMICAL DEPENDENCY/SUBSTANCEABUSE PROGRAM, SOME INFORMATION MAY BE OMITTED. This clinical summary was aggregated from multiple sources. Caution should be exercised in using it in the provision of clinical care. This summary normalizes information from multiple sources, and as a consequence, information in this document may materially change the coding, format and clinical context of patient data. In addition, data may be omitted in some cases. CLINICAL DECISIONS SHOULD BE BASED ON THE PRIMARY CLINICAL RECORDS. [facility] [employer] [facility]. provides no warranty or guarantee of the accuracy or completeness of information in this document.
[2025-01-18 14:22] LABS: BETA-HYDROXYBUTYRATE 0.8 mmol/L (0.0-0.3)
[2025-01-18 14:53] LABS: AST(SGOT) 22 U/L (<=37); Alanine Aminotransfer ALT/SGPT 28 U/L (<=46); Albumin, Serum 4.2 g/dL (3.5-5.0); Alkaline Phosphatase 173 U/L (40-129); Anion Gap 15 (5-15); BUN 37 mg/dL (4-19); BUN/Creat Ratio 30.2 RATIO (10-20); Calcium,Total 10.2 mg/dL (7.6-11.0); Carbon Dioxide 21.6 mmol/L (21.0-32.0); Chloride 88 mmol/L (98-108); Estimated Creatinine Clearance 98.71 ml/min (50-250); Globulin 3.1 g/dL (2.2-4.2); Glucose 807 mg/dL (70-99); Potassium 5.6 mmol/L (3.3-5.1)
--- NOTE | 2025-01-18 15:09 | PCM.HP.STD ---
HPI - General General Date of Admission: 01/18/25 Date of Service: 01/18/25 HPI Narrative MARLINE KHAN, is a 59 M with a PMH as outlined who was admitted via the ED on 01/18/2025 with a complaint of generalised weakness, increased thirst and urination for 2 months prior to admission. HE is on metformin and says he also gets Trulicity once a week. He admits to frequency of urination and increased forgetfulness. He denied any fever, chills, nausea, vomiting or any other symptoms. He said he used to be on insulin but was taken off of it by his previous doctor and placed on the dulaglutide. He used to be on Mounjaro previously but that was switched to dulaglutide and he states he has been taking weekly short. He is also on metformin which he says he has been compliant with. Review of systems is otherwise negative. Vitals in the ED were blood pressure 132/77, pulse rate of 103, respiratory rate of 22 and temperature of 98.1 Fahrenheit. He was saturating at 96% on room air. CBC showed hemoglobin of 16 with WBC of 9.7 and platelets of 219. Chemistry showed sodium of 125 with potassium of 5.5 and bicarb of 21.6. Anion gap is 15. Creatinine is 1.21. He has been admitted to be managed for hyperglycemia with concerns for HHS in the setting of known type 2 diabetes mellitus. [facility] Medical History (Updated 01/18/25 @ 15:[address] Jj Garcias, DO) Depression Diabetes Former smoker Bilateral primary osteoarthritis of knee Chronic knee pain Hypertension Abscess Bipolar 1 disorder ADHD ADD (attention deficit disorder) Anxiety High cholesterol High blood pressure Alcohol abuse Vascular disease Blood clot in vein Back problem Arthritis Adrenal disorder Diverticulitis of duodenum EUA ligation of intershincteric tract Diverticular disease Home Medications ?Medication ?Instructions ?Recorded ?Last Taken ?Type aspirin 81 mg tablet,delayed 81 mg PO QDAY 08/22/17 01/17/25 History release (Yohan Low Dose Aspirin) blood sugar diagnostic (FreeStyle #100 ea 04/28/20 Unknown Rx Lite Strips) cane #1 ea 04/28/20 Unknown Rx Onetouch verio flex strips #200 ea 06/24/20 Unknown Rx tamsulosin 0.4 mg capsule (Flomax) 0.4 mg PO QHS #90 caps 10/01/20 01/17/25 Rx lancets 28 gauge (FreeStyle #200 ea 06/08/21 Unknown Rx Lancets) lancets 33 gauge (OneTouch Delica #200 ea 06/08/21 Unknown Rx Lancets) pen needle, diabetic 32 gauge x #200 ea 09/16/21 Unknown Rx rosuvastatin 20 mg tablet 20 mg PO DAILY #90 tabs 09/16/21 01/17/25 Rx losartan 50 mg tablet See Rx Instructions .Route 02/22/22 01/17/25 Rx .COMPLEX #90 tabs omeprazole 20 mg capsule,delayed See Rx Instructions .Route 08/04/22 01/17/25 Rx release .COMPLEX #90 caps metformin 1,000 mg tablet 1,000 mg PO BID #180 tabs 08/15/22 01/17/25 Rx bupropion HCl 150 mg tablet,12 hr 150 mg PO BID #180 TABLETS 08/16/22 01/17/25 Rx sustained-release dulaglutide 1.5 mg/0.5 mL 1.5 mg (0.5 mL) subcut QWEEK #2 mL 08/19/22 01/17/25 Rx subcutaneous pen injector duloxetine 60 mg capsule,delayed 60 mg PO QDAY 09/04/24 01/17/25 History release hydroxyzine HCl 50 mg tablet 50 mg PO QDAY PRN anxiety 09/04/24 01/17/25 History budesonide-formoterol HFA 160 2 puff inhalation BID 01/18/25 01/17/25 History mcg-4.5 mcg/actuation aerosol inhaler (Symbicort) dulaglutide subcut QWEEK 01/18/25 01/17/25 History Allergy/AdvReac Type Severity Reaction Status Date / Time No Known Allergies Allergy Verified 01/18/25 13:14 Family History Father Diabetes Alcohol abuse Hypertension Sister Diabetes Surgical History History of mandibular surgery Pneumothorax Eiwvvjr-og-sog Social History Smoking Status: Former smoker alcohol intake: current alcohol intake frequency: a few times a month substance use type: does not use ROS Constitutional Constitutional: Reports anorexia, fatigue, malaise and weakness; Denies chills or fever(s) Eyes Eyes: Denies change in vision ENT HEENT: Denies dysphagia or headache(s) Cardiovascular Cardiovascular: Denies chest pain, dyspnea on exertion, edema, lightheadedness, orthopnea, palpitations, paroxysmal nocturnal dyspnea, rapid heart rate or syncope Respiratory/Chest Respiratory/Chest: Denies cough, dyspnea, shortness of breath at rest or shortness of breath with exertion Gastrointestinal Gastrointestinal: Denies abdominal pain, diarrhea, nausea or vomiting Genitourinary Genitourinary: Reports urinary frequency; Denies burning urination, dysuria, hematuria, nocturia, urinary hesitancy or urinary incontinence Musculoskeletal Musculoskeletal: Denies arthralgias Neurologic Neurologic: Denies confusion, dizziness, focal weakness, headache(s), numbness, seizure-like activity, seizures or syncope Psychiatric Psychiatric: Denies anxiety Vital Signs Vital Signs Vital Signs: 01/18/25 13:14 01/18/25 13:34 Temperature 98.1 F Temperature Source Oral Pulse Rate 103 H Respiratory Rate 22 H Respiratory Pattern Normal Blood Pressure 132/77 H Blood Pressure Mean 95 Pulse Ox 96 Oxygen Delivery Method Room Air Weight Weight: 291 lb Body Mass Index (BMI) 35.4 Physical Exam HEENT normocephalic, head/scalp atraumatic and hearing grossly normal bilaterally HEENT Narrative: dry oral mucosa Mouth: oral and palatal mucosa normal Eyes EOMs intact bilaterally and conjunctivae normal Neck supple and no JVD Resp normal respiratory effort, no retractions, no use of accessory muscles and clear to auscultation bilaterally Cardio regular rate, regular rhythm, S1 normal heart sound, S2 normal heart sound and no murmurs GI normal to inspection, nondistended, normoactive bowel sounds, soft to palpation and non-tender Extremity normal to inspection, full ROM and no clubbing, cyanosis or edema Neuro oriented x3, CN's II-XII intact bilaterally, moves all extremities and no focal motor deficits Sensorium / Orientation: awake and alert Motor Exam: strength 5/5 throughout Psych Psych Narrative: flat affect Results Lab / Micro Data 01/18/25 13:45 01/18/25 16:12 Labs: Laboratory Results - last 24 hr 01/18/25 13:34: POC Glucose > 500 H* 01/18/25 13:45: WBC 9.7, RBC 5.72, Hgb 16.0, Hct 45.8, MCV 80.1, MCH 28.0, MCHC 34.9, RDW Std Deviation 36.5, RDW Coeff of Lauro 12.7, Plt Count 219, MPV 11.1, Immature Gran % (Auto) 0.700, Neut % (Auto) 66.7, Lymph % (Auto) 18.2 L, [place] % (Auto) 9.2, Eos % (Auto) 4.7, Baso % (Auto) 0.5, Absolute Neuts (auto) 6.4, Absolute Lymphs (auto) 1.76, Nucleated RBC % 0, Sodium 125 L, Potassium 5.6 H, Chloride 88 L, Carbon Dioxide 21.6, Anion Gap 15, BUN 37 H, Creatinine 1.21 H, Estim Creat Clear Calc 98.71, Est GFR (MDRD) Non-Af 69, BUN/Creatinine Ratio 30.2 H, Glucose 807 H*, Calcium 10.2, Total Bilirubin 0.46, AST 22, ALT 28, Alkaline Phosphatase 173 H, Total Protein 7.2, Albumin 4.2, Globulin 3.1, Albumin/Globulin Ratio 1.4, b-Hydroxybutyric mmol/L 0.8 H 01/18/25 13:50: Urine Color Yellow, Urine Clarity Clear, Urine pH 6.0, Ur Specific [place] 1.010, Urine Protein Negative, Urine Glucose (UA) 1000 H, Urine Ketones 5 H, Urine Occult Blood Negative, Urine Nitrite Negative, Urine Bilirubin Negative, Urine Urobilinogen Normal, Ur Leukocyte Esterase Negative, Urine RBC 0 SEEN, Urine WBC 0 SEEN, Ur Squamous Epith Cells 0 SEEN, Urine Bacteria 0 SEEN, Urine Mucus 0 SEEN Assessment & Plan Assessment/Plan (1) Hyponatremia: (2) Dehydration: (3) Hyperglycemia: (4) Hyperkalemia: PLAN: Plan #Acute hyperglycemia in a known type II diabetic with concern for HHS. Patient's blood sugar is 827. Anion gap is 15 and bicarb is 21. He is therefore not in DKA. Patient admitted with a complaint of nausea and increased thirst and frequency of urination. He does appear to be going into HHS. Will check A1c. He is on dulaglutide shot weekly as well as metformin. Admit to ICU. Hydrate aggressively with IV fluids and give insulin drip for HHS Monitor BMP every 4 hourly. Once blood sugars are less than 250 will switch to long-acting insulin. Replace electrolytes as per protocol. #Hyponatremia: There is likely pseudo hypohyponatremia in light of the HHS. Should improve as blood sugars improve. #Hyperkalemia: Potassium is 5.6 though sample was hemolyzed. Will recheck and monitor. #History of COPD: Not in exacerbation. On breathing treatments bronchodilators. #GERD: On PPI #Hypertension: On losartan. #Depression: On bupropion and duloxetine #BPH: on flomax #Hyperlipidemia: on statin DVT prophylaxis: heparin Code status:full code Patient counseled extensively about different types of CODE STATUS including full code, DNR CCA and DNR CCA. Patient elects to be full code. Total atha-nd-ywpd time 16 minutes. Charges/Coding Visit Charges Inpatient E&M: 55214 Init Hosp L3 Procedures Hospitalists Procedures: 29171 Advncd Care Plan 30 Min
--- OUTSIDE RECORDS SUMMARY | 2025-01-18 16:04 | XMS RPT_ITS | CCD ---
Author Organization [facility] CliniSymd Care Team Providers Care Car Changer Name Role Phone JACK AGUIAR Unavailable Unavailable JCAK AGUIAR Unavailable Unavailable WILVER ORONA Unavailable Unavailable [...] Provider Dr. Alexandre Don Referring Provider Clark NETWORK SERVICES PROJECT MANAGER, NETWORK SERVICES PROJECT MANAGER-C Roxanne Attending Provider Dr. Abdon Joseph Attending Provider Dr. Paul Rich Attending Provider [phone]([facility])[phone] ROXANNE CLARK Primary Care Physician Nuria PT, Verito Unavailable Unavailable CHRIS HERNANDEZ MD Attending Unavailable CLARK, SENIOR UX DESIGNER-C ROXANNE Primary Care Unavailable BEN ANATOMIC PATHOLOGIST-BATTERY CHARGER TESTER, JANNET Primary Care Physician Clark NETWORK SERVICES PROJECT MANAGER-C, Roxanne Primary Care Provider Clark NETWORK SERVICES PROJECT MANAGER-C, Roxanne Referring Provider 1([facility])[phone] Juliocesar Quinones DO Attending Provider [phone] John NETWORK SERVICES PROJECT MANAGER-C, Roxanne Primary Care Physician 1([facility])[phone] Dr. Juliocesar Quinones DO Attending Physician 1([facility])[phone] Dr. Juliocesar Quinones DO Referring Provider 1([facility])[phone] BEN NETWORK SERVICES PROJECT MANAGER-C, JANNET Primary Care Physician BEN ANATOMIC PATHOLOGIST-BATTERY CHARGER TESTER, JANNET Primary Care Unavai lable ZINA ESTEVES DO Attending Unavailable BEN ANATOMIC PATHOLOGIST-BATTERY CHARGER TESTER, JANNET Primary Care Unavai lable [facility] , JANNET Attending Unavailable ZINA ESTEVES DO Attending Unavailable BEN ANATOMIC PATHOLOGIST-BATTERY CHARGER TESTER, JANNET Primary Care Unavai lable BEN ANATOMIC PATHOLOGIST-BATTERY CHARGER TESTER, JANNET Attending Unavai lable BEN ANATOMIC PATHOLOGIST-BATTERY CHARGER TESTER, JANNET Primary Care Unavai lable BEN ANATOMIC PATHOLOGIST-BATTERY CHARGER TESTER, JANNET Attending Unavai lable BEN ANATOMIC PATHOLOGIST-BATTERY CHARGER TESTER, JANNET Primary Care Unavai lable BEN ANATOMIC PATHOLOGIST-BATTERY CHARGER TESTER, JANNET Attending Unavai lable BEN ANATOMIC PATHOLOGIST-BATTERY CHARGER TESTER, JANNET Primary Care Unavai lable ANNIE LEWIS [...] QUEtiapine; Translations: [QUETIAPINE FUMARATE] Drug Allergy 12-15-2017 [facility], [place] Medications Current Medications Medication Drug Class(es) Dates Sig (Normalized) Sig (Original) 0.5 ML tirzepatide 10 MG/ML Auto-Injector [Mounjaro] (1 source) Start: 02-26-2024 inject 1 dose by subcutaneous injection every week Mounjaro 5 mg/0.5 mL subcutaneous solution Dose : 5 mg =, Subcutaneous, qWeek, rotate injection sites, # 2 mL, 1 Refill(s), Pharmacy: [facility], 192.7, cm, 02/26/24 9:56:00 EST, Height, kg, [...] Date: 09/24/23 Stop Date: 09/26/23 Status: Ordered [id number] 200 actuat albuterol 0.09 mg/actuat metered dose [...] BID, # 180 tab(s), 1 Refill(s), Pharmacy: [facility], 188, cm, 07/31/24 14:53:00 EDT, Height, kg, [...] BID, # 180 tab(s), 1 Refill(s), Pharmacy: [facility], 188, cm, 07/31/24 14:53:00 EDT, Height, kg, 07/31/24 14:53:00 EDT, Dosing Weight Start Date: 07/31/24 Stop Date: 01/27/25 Status: Ordered Quantity: 180.0 Unit: tab(s) Repeat number: 2 Start: 05-06-2024 End: 08-04-2024 BuPROPion (Eqv-Wellbutrin SR ) 150 mg/12 hours oral tablet, extended release Dose : 150 mg = 1 tab(s), Oral, BID, # 180 tab(s), 0 Refill(s), Pharmacy: [facility], 190, cm, 05/06/24 10:11:00 EST, Height, kg, 05/06/24 10:11:00 EST, Dosing Weight Start Date: 05/06/24 Stop Date: 08/04/24 Status: Ordered Quantity: 180.0 Unit: tab(s) Repeat number: 1 Start: 02-26-2024 End: 05-26-2024 BuPROPion (Eqv-Wellbutrin SR ) 150 mg/12 hours oral tablet, extended release Dose : 150 mg = 1 tab(s), Oral, BID, # 180 tab(s), 0 Refill(s), Pharmacy: [facility], 192.7, cm, 02/26/24 9:56:00 EST, Height, kg, [...] Daily, # 90 cap(s), 0 Refill(s), Pharmacy: [facility], 192.7, cm, 02/26/24 9:56:00 EST, Height, kg, [...] anxiety, # 30 tab(s), 1 Refill(s), Pharmacy: [facility], Anxiety, 190, cm, 05/06/24 10:11:00 EST, Height, kg, 05/06/24 10:11:00 EST, Dosing Weight Start Date: 05/06/24 Status: Ordered Quantity: 30.0 Unit: tab(s) Repeat number: 2 Indications: Anxiety disorder, unspecified; Start: 02-26-2024 hydrOXYzine hy drochloride 50 mg oral tablet Dose : 50 mg = 1 tab(s), Oral, Daily, PRN as needed for anxiety, # 30 tab(s), 1 Refill(s), Pharmacy: [facility], Anxiety, 192.7, cm, 02/26/24 9:56:00 EST, Height, [...] qDay, # 90 tab(s), 0 Refill(s), Pharmacy: [facility], 192.7, cm, 02/26/24 9:56:00 EST, Height, kg, [...] aerosol inhaler (1 source) Start: 09-04-2024 Mometasone-Formot ru (Dulera) 100-5 mcg/actuation HFA aerosol inhaler Active [...] see Order Comments for use directions, Pharmacy: [facility], Smoker, 192.7, cm, 02/26/24 9:56:00 EST, [...] day(s), # 7 patch(es), 0 Refill(s), Pharmacy: [facility], Smoker, 192.7, cm, 02/26/24 9:56:00 EST, [...] BID, # 10.3 gram(s), 5 Refill(s), Pharmacy: [facility], 188, cm, 09/23/24 7:07:00 EDT, Height, kg, [...] day, # 1 EA, 5 Refill(s), Pharmacy: [facility], COPD without exacerbation, 188, cm, 09/23/24 7:07:00 [...] day, # 1 EA, 5 Refill(s), Pharmacy: [facility], COPD without exacerbation, 188, cm, 09/23/24 7:07:00 [...] day, # 1 EA, 5 Refill(s), Pharmacy: [facility], COPD without exacerbation, 190, cm, 05/06/24 [...] day, # 1 EA, 5 Refill(s), Pharmacy: [facility], COPD without exacerbation, 192.7, cm, 02/26/24 [...] sites, # 2 mL, 5 Refill(s), Pharmacy: [facility], Type 2 diabetes mellitus, 188, [...] 2 mL, 2 Refill(s), 0.5 mL/Pen, Pharmacy: [facility], 188, cm, 07/31/24 14:53:00 EDT, Height, kg, [...] take 1 tablet by mouth once daily Melox/Doxepin/Wheeling nta/Dextro/Lid (5 sources) Start: 02-28-2018 End: 11-07-2018 [...] (with meals) Indications: DM 0 Active nystatin [id number] unt/ml / triamcinolone acetonide 1 mg/ml topical [...] 04-07-2017 01-24-2020 Episodic Other aftercare (1 source) custodial (current) use of aspirin Onset: 08-01-2017 Episodic [...] KNEE PROBLEMS/CAR Onset: 12-18-2016 Unclassified (5 sources) [facility] 10-04-2021 Comment on above: 11/26/2015 Unclassified (5 sources) ligation of intershincteric tract 10-04-2021 Results Test Name Value Interpretation Reference Range Facility [facility] 12-30-2024 CNOV Office Visit (GRAY ) MARLINE KHAN ([id number]) 1965 M Date Time Provider Department 12/30/24 [...] Sebaceous, hx/infection Diverticulitis Duodenal ulcer Dr. 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 Salmeron (Neurology) Tobacco use [...] Take 1 capsule by mouth once daily. axxjoaua-vlc-DP-lycopen-lutein (CENTRUM SILVER MEN) 300-600-300 mcg tab Take [...] symptoms [N40.1, N13.8] Order(s):UA DIP, URINE (POC) [4104810] Order #: [id number]. #:[id number] PROSTATE SPECIFIC ANTIGEN, FREE AND TOTAL [SQPSATF] Order #: [id number] FUTURE Prescriptions as of 12/30/2024 - simvastatin [...] Bladder formula - (more content not included)... [facility] XR CHEST 1 VIEWon 10-14-2024 XR CHEST [...] 10/14/2024 11:22:24 AM Ordering Provider: JANNET MEHTA [facility] Pulmonary Visit Reporton Pulmonary Visit Report [facility] of [address] [place] [address] OFFICE VISIT Date of Service: 09/04/24 MR#: [id number] Acct: [id number] Name: MARLINE KHAN Rep #: [id number] : 1965 Provider: Dr. Juliocesar Quinones DO Age/Sex: 59/M Location[place] [facility] [place] Status: Signed Assessment and Plan Assessment and [...] CAT scan of his chest completed at [facility] within the last 1 month, which apparently [...] of COPD. 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 He does not currently keep any animals [...] a CT scan of his chest through [facility], which apparently demonstrated a small, 3 to [...] Visit Reasons: COPD Chief Complaint: bilateral knees Pipeline Inspector Required: No Accompanied by: Self Allergies No [...] 0 09/04/ (more content not included)... Normal [facility] CT THORAX SCREENING W/O CONT RASTon 08-21-2024 [...] ORDERING SYSTEM PROVIDED HISTORY: Reason for Exam: 40-nygh-pdgh history. 6FT 2IN 290LB WHITE MALE. FORMER [...] 08/21/2024 9:04:02 AM Ordering Provider: JANNET CONTRERAS [facility] .GFRon 07-30-2024 Estimated Glomerular Filtration Rate 80 ml/min/1.73sqm [facility] Comment on above: Result Comment: Stages [...] #### C MP, GFR, LIPID, A1C #### [address] [address] A1Con 07-30-2024 Glucose [Mass/Vol] 137 mg/dL Normal [facility] Comment on above: Result Comment: Sharyn mated Average Glucose calculated by equation ((28.7xA1C)-46.7) Estimated average glucose (eAG) is a calculated value from Hemoglobin A1C and is guest relations representative of the average blood glucose level in the last 2-3 month period. Normal range: less than 114 mg/dL Performed By: #### C MP, GFR, LIPID, A1C #### [address] [address] HbA1c (Bld) [Mass fraction] 6.4 % Normal 4.3-6.4 [facility] Comment on above: Performed By: #### C MP, GFR, LIPID, A1C #### [address] [address] CMPon 07-30-2024 Albumin Level 3.6 G/dL Normal 3.5-5.0 [facility] Comment on above: Performed By: #### C MP, GFR, LIPID, A1C #### [address] [address] Albumin/Globulin [Mass ratio] 1.1 {ratio} Normal 1.1-2.5 [facility] Comment on above: Performed By: #### C MP, GFR, LIPID, A1C #### [address] [address] ALP [Catalytic activity/Vol] 135 U/L Normal 40-135 [facility] Comment on above: Performed By: #### C MP, GFR, LIPID, A1C #### [address] [address] ALT [Catalytic activity/Vol] 23 U/L Normal 16-63 [facility] Comment on above: Performed By: #### C MP, GFR, LIPID, A1C #### [address] [address] AST [Catalytic activity/Vol] 13 U/L Normal 10-40 [facility] Comment on above: Performed By: #### C MP, GFR, LIPID, A1C #### [address] [address] Bili Total 0.2 mg/dL Normal 0.2-1.0 [facility] Comment on above: Result Comment: Use of this assay is not recommended for patients undergoing treatment with eltrombopag due to the potential for falsely elevated results. Performed By: #### C MP, GFR, LIPID, A1C #### [address] [address] BUN/Creatinine Ratio 21 ratio Normal 7-27 [facility] Comment on above: Performed By: #### C MP, GFR, LIPID, A1C #### [address] [address] Calcium [Mass/Vol] 9.4 mg/dL Normal 8.4-10.2 [facility] Comment on above: Performed By: #### C MP, GFR, LIPID, A1C #### [address] [address] Chloride [Moles/Vol] 106 mmol/L Normal 98-107 [facility] Comment on above: Performed By: #### C MP, GFR, LIPID, A1C #### [address] [address] CO2 [Moles/Vol] 25 mmol/L Normal 22-29 [facility] Comment on above: Performed By: #### C MP, GFR, LIPID, A1C #### [address] [address] Creatinine [Mass/Vol] 1.08 mg/dL Normal 0.67-1.17 [facility] Comment on above: Performed By: #### C MP, GFR, LIPID, A1C #### [address] [address] Electrolyte Balance 10.0 mEq/L Normal 4.0-15.0 [facility] Comment on above: Performed By: #### C MP, GFR, LIPID, A1C #### [address] [address] Globulin 3.4 G/dL Normal 2.7-4.4 [facility] Comment on above: Performed By: #### C MP, GFR, LIPID, A1C #### [address] [address] Glucose [Mass/Vol] 114 mg/dL High 70-105 [facility] Comment on above: Performed By: #### C MP, GFR, LIPID, A1C #### [address] [address] Potassium [Moles/Vol] 4.3 mmol/L Normal 3.5-5.1 [facility] Comment on above: Performed By: #### C MP, GFR, LIPID, A1C #### [address] [address] Sodium [Moles/Vol] 141 mmol/L Normal 136-145 [facility] Comment on above: Performed By: #### C MP, GFR, LIPID, A1C #### [facility] [address] [place], [place] [address] Total Protein 7.0 G/dL Normal 6.4-8.2 [facility] Comment on above: Performed By: #### C MP, GFR, LIPID, A1C #### [facility] [address] [place], [place] [address] Urea nitrogen [Mass/Vol] 23 mg/dL High 7-18 [facility] Comment on above: Performed By: #### C MP, GFR, LIPID, A1C #### [facility] [address] [place], [place] [address] LABORATORYOrdered By: SYSTEM SYSTEM on 07-30-2024 Albumin [...] calculated value from Hemoglobin A1C and is guest relations representative of the average blood glucose level [...] 07-30-2024 Cholesterol [Mass/Vol] 179 mg/dL Normal 0-200 [facility] Comment on above: Result Comment: Chol esterol Reference Interval: Less than 200 Desirable 200-239 Borderline high risk 240 and above High risk Performed By: #### C MP, GFR, LIPID, A1C #### [address] [address] Cholesterol in HDL [Mass/Vol] 50 mg/dL Normal 40-60 [facility] Comment on above: Performed By: #### C MP, GFR, LIPID, A1C #### [address] [address] Cholesterol in LDL [Mass/Vol] 80 mg/dL Normal 0-130 [facility] Comment on above: Performed By: #### C MP, GFR, LIPID, A1C #### [address] [address] Triglyceride [Mass/Vol] 246 mg/dL High 0-150 [facility] Comment on above: Result Comment: Trig lyceride Reference Interval: Less than 150 Normal 150-199 Borderline high risk 200-499 High risk 500 or higher Very high risk Performed By: #### C MP, GFR, LIPID, A1C #### [address] [address] .GFRon 02-26-2024 GFR 70 ml/min/1.73sqm Normal [facility] Comment on above: Result Comment: GFR [...] #### L IPID, GFR, PSA, CMP #### [address] [address] GFR Non- 58 ml/min/1.73sqm Normal [facility] Comment on above: Result Comment: GFR [...] #### L IPID, GFR, PSA, CMP #### [address] [address] CMPon 02-26-2024 Albumin Level 3.9 G/dL Normal 3.5-5.0 [facility] Comment on above: Performed By: #### L IPID, GFR, PSA, CMP #### [address] [address] Albumin/Globulin [Mass ratio] 1.1 {ratio} Normal 1.1-2.5 [facility] Comment on above: Performed By: #### L IPID, GFR, PSA, CMP #### [address] [address] ALP [Catalytic activity/Vol] 158 U/L High 40-135 [facility] Comment on above: Performed By: #### L IPID, GFR, PSA, CMP #### [address] [address] ALT [Catalytic activity/Vol] 21 U/L Normal 16-63 [facility] Comment on above: Performed By: #### L IPID, GFR, PSA, CMP #### [address] [address] AST [Catalytic activity/Vol] 10 U/L Normal 10-40 [facility] Comment on above: Performed By: #### L IPID, GFR, PSA, CMP #### [address] [address] Bili Total 0.6 mg/dL Normal 0.2-1.0 [facility] Comment on above: Result Comment: Use of this assay is not recommended for patients undergoing treatment with eltrombopag due to the potential for falsely elevated results. Performed By: #### L IPID, GFR, PSA, CMP #### [place] [address] BUN/Creatinine Ratio 16 ratio Normal 7-27 [facility] Comment on above: Performed By: #### L IPID, GFR, PSA, CMP #### [address] [address] Calcium [Mass/Vol] 9.4 mg/dL Normal 8.4-10.2 [facility] Comment on above: Performed By: #### L IPID, GFR, PSA, CMP #### [address] [address] Chloride [Moles/Vol] 101 mmol/L Normal 98-107 [facility] Comment on above: Performed By: #### L IPID, GFR, PSA, CMP #### [address] [address] CO2 [Moles/Vol] 22 mmol/L Normal 22-29 [facility] Comment on above: Performed By: #### L IPID, GFR, PSA, CMP #### [address] [address] Creatinine [Mass/Vol] 1.28 mg/dL Normal 0.70-1.30 [facility] Comment on above: Result Comment: Test ing performed on Siemens Dimension EXL analyzer using a modified kinetic Tanya technique. Performed By: #### L IPID, GFR, PSA, CMP #### [address] [address] Electrolyte Balance 11.0 mEq/L Normal 4.0-15.0 [facility] Comment on above: Performed By: #### L IPID, GFR, PSA, CMP #### [address] [address] Globulin 3.5 G/dL Normal [facility] Comment on above: Performed By: #### L IPID, GFR, PSA, CMP #### [address] [address] Glucose [Mass/Vol] 219 mg/dL High 70-105 [facility] Comment on above: Performed By: #### L IPID, GFR, PSA, CMP #### [address] [address] Potassium [Moles/Vol] 4.5 mmol/L Normal 3.5-5.1 [facility] Comment on above: Performed By: #### L IPID, GFR, PSA, CMP #### [address] [address] Sodium [Moles/Vol] 134 mmol/L Low 136-145 [facility] Comment on above: Performed By: #### L IPID, GFR, PSA, CMP #### [address] [address] Total Protein 7.4 G/dL Normal 6.4-8.2 [facility] Comment on above: Performed By: #### L IPID, GFR, PSA, CMP #### [address] [address] Urea nitrogen [Mass/Vol] 20 mg/dL High 7-18 [facility] Comment on above: Performed By: #### L IPID, GFR, PSA, CMP #### [address] [address] LABORATORYOrdered By: SYSTEM SYSTEM on 02-26-2024 Albumin [...] analyzer using a modified kinetic Tanya technique. Electrolyte Balance 11.0 mEq/L Normal 4.0 [...] 02-26-2024 Cholesterol [Mass/Vol] 189 mg/dL Normal 0-200 [facility] Comment on above: Result Comment: Chol esterol Reference Interval: Less than 200 Desirable 200-239 Borderline high risk 240 and above High risk Performed By: #### L IPID, GFR, PSA, CMP #### [address] [address] Cholesterol in HDL [Mass/Vol] 61 mg/dL High 40-60 [facility] Comment on above: Performed By: #### L IPID, GFR, PSA, CMP #### [address] [address] Cholesterol in LDL [Mass/Vol] 96 mg/dL Normal 0-130 [facility] Comment on above: Performed By: #### L IPID, GFR, PSA, CMP #### [address] [address] Triglyceride [Mass/Vol] 160 mg/dL High 0-150 [facility] Comment on above: Result Comment: Trig lyceride Reference Interval: Less than 150 Normal 150-199 Borderline high risk 200-499 High risk 500 or higher Very high risk Performed By: #### L IPID, GFR, PSA, CMP #### [address] [address] PSAon 02-26-2024 Prostate Specific Antigen 0.91 ng/mL Normal 0.00-4.00 [facility] Comment on above: Performed By: #### L IPID, GFR, PSA, CMP #### [address] [address] [address] HEAD OR BRAIN W/O CONTRAS Ton [...] 09/24/2023 8:45:37 AM Ordering Provider: CHRIS HERNANDEZ [facility] [place] MAXILLOFACIAL W/O CONTRAS Ton 09-24-2023 CT [...] 09/24/2023 8:50:47 AM Ordering Provider: CHRISLIDA HERNANDEZ [facility] XR ANKLE MINIMUM 3 VIEWS RIG HTon [...] 09/24/2023 8:51:21 AM Ordering Provider: CHRIS HERNANDEZ [facility] Laboratory - Hematology and Cell countson 07-01-2022 HbA1c (Bld) [Mass fraction] 6.8 % 4.2-6.3 [facility] Laboratory - Hematology and Cell countson 02-24-2022 HbA1c (Bld) [Mass fraction] 6.1 % 4.2-6.3 [facility] Absolute lymphocyte counton 09-16-2021 Lymphocytes Auto (Unsp spec) [#/Vol] 1.61 10*3/uL 0.83-4.51 [facility] Work Phone: Basophil percentageon 2021 Basophils/100 WBC (Bld) 0.3 % 0-1 [facility] Work Phone: Bilirubin [Mass/Vol] 0.30 mg/dL 0.20-1.00 [facility] Work Phone: Comment on above: For patients on eltr ombopag therapy, use of Dimension Morgan TBIL is not recommended. Chloride [Moles/Vol] 108 mmol/L 98-107 [facility] Work Phone: Cholesterol [Mass/Vol] 153 mg/dL <200 [facility] Work Phone: Comment on above: <200 mg/dL Desirable 200-240 mg/dL Borderline >240 mg/dL High Risk Eosinophils/100 WBC (Bld) 2.2 % 0-5 [facility] Work Phone: Glucose [Mass/Vol] 107 mg/dL 74-106 [facility] Work Phone: Comment on above: Fasting Glucose resu lt from 100 to 125 mg/dL suggests IMPAIRED HOMEOSTASIS per A.D.A. criteria. Neutrophils (Bld) [#/Vol] 6.4 10*3/uL 2.0-7.7 [facility] Work Phone: Neutrophils/100 WBC (Bld) 71.4 % 47-70 [facility] Work Phone: Potassium [Moles/Vol] 4.2 mmol/L 3.5-5.1 [facility] Work Phone: Protein [Mass/Vol] 7.4 g/dL 6.4-8.2 [facility] Work Phone: Sodium [Moles/Vol] 140 mmol/L 136-145 [facility] Work Phone: Triglyceride [Mass/Vol] 144 mg/dL <199 [facility] Work Phone: Comment on above: The drugs N-Acetylcy steine and Metamizole may falsely depress this assay.Serum Triglycerides Reference Interval Normal <150 mg/dL Borderline high 150 - 199 mg/dL High 200 - 499 mg/dL Very High > or = 500 mg/dL WBC (Bld) [#/Vol] 9.0 10*3/uL 4.4-11.0 [facility] Work Phone: Blood erythrocytes count (nu mber/volume)on 09-16-2021 RBC (Bld) [#/Vol] 5.86 10*6/uL 4.6-6.2 [facility] Work Phone: Blood hemoglobin measurement (mass/volume)on 09-16-2021 Hemoglobin (Bld) [Mass/Vol] 16.3 g/dL 13.0-16.5 [facility] Work Phone: Blood lymphocytes/100 leukoc yteson 09-16-2021 Lymphocytes/100 WBC (Bld) 18.0 % 19-41 [facility] Work Phone: Blood monocytes/100 leukocyt eson 09-16-2021 Monocytes/100 WBC (Bld) 7.7 % 0-10 [facility] Work Phone: Blood platelet mean volumeon 09-16-2021 Platelet mean volume (Bld) [Entitic vol] 11.8 fL 6.2-12.0 [facility] Work Phone: Determination of erythrocyte mean corpuscular volume (MCV)on 09-16-2021 MCV (RBC) [Entitic vol] 84.3 fL 80-94 [facility] Work Phone: Hematocrit Auto (Bld) [Volum e fraction]on 09-16-2021 Hematocrit (Bld) [Volume fraction] 49.4 % 40-54 [facility] Work Phone: Laboratory - Chemistry and C hemistry - challengeon 09-16-2021 ALP [Catalytic activity/Vol] 111 U/L 45-117 [facility] Work Phone: ALT [Catalytic activity/Vol] 37 U/L 16-61 [facility] Work Phone: CO2 [Moles/Vol] 27.0 mmol/L 21.0-32.0 [facility] Work Phone: Globulin (S) [Mass/Vol] 3.8 g/dL 2.2-4.2 [facility] Work Phone: Urea nitrogen/Creatinin e [Mass ratio] 19.6 mg/mg 10-20 [facility] Work Phone: Laboratory - Hematology and Cell countson 09-16-2021 Erythrocyte distribution width (RBC) [Entitic vol] 41.0 fL 35.1-43.9 [facility] Work Phone: Erythrocyte distribution width (RBC) [Ratio] 13.2 % 11.6-14.6 [facility] Work Phone: Immature granulocytes/100 WBC (Bld) 0.400 % 0.0-0.9 [facility] Work Phone: Comment on above: IG% - Immature Granu locytes (promyelocytes, myelocytes and metamyelocytes) > 1% indicates that a LEFT SHIFT is Present. MCH (RBC) [Entitic mass] 27.8 pg 27.0-32.0 [facility] Work Phone: Nucleated RBC/100 WBC (Bld) [Ratio] 0 % 0-5 [facility] Work Phone: HbA1c (Bld) [Mass fraction] 5.7 % 4.2-6.3 [facility] Work Phone: MCHC Auto (RBC) [Mass/Vol]on 09-16-2021 MCHC (RBC) [Mass/Vol] 33.0 g/dL 32-36 [facility] Work Phone: No Panel Informationon 09-16 Estimated GFR (MDRD) Amer 98 mL/min >60 [facility] Work Phone: Comment on above: GFR Calc Estimated GFR (MDRD) Non-Af Amer 81 mL/min >60 [facility] Work Phone: Comment on above: Non- GFR Calc Thyroid Stimulating Hormone (TSH) 1.03 uIU/mL 0.358-3.74 [facility] Work Phone: Platelets bldon 09-16-2021 Platelets (Bld) [#/Vol] 188 10*3/uL 150-450 [facility] Work Phone: Serum or plasma albumin donna urement (mass/volume)on 09-16-2021 Albumin [Mass/Vol] 3.6 g/dL 3.2-5.0 [facility] Work Phone: Serum or plasma albumin/glob ulin mass ratioon 09-16-2021 Albumin/Globulin [Mass ratio] 0.9 {ratio} 0.9-2.4 [facility] Work Phone: Serum or plasma calcium donna urement (mass/volume)on 09-16-2021 Calcium [Mass/Vol] 9.3 mg/dL 8.5-10.1 [facility] Work Phone: Serum or plasma cholesterol in HDL measurement (mass/volume)on 09-16-2021 Cholesterol in HDL [Mass/Vol] 54 mg/dL >40 [facility] Work Phone: Comment on above: The drugs N-Acetylcy steine and Metamizole may falsely depress this assay. Reference Range HDL <40 mg/dL Low HDL Cholesterol HDL >or= 60 mg/dL High HDL Cholesterol Serum or plasma cholesterol in VLDL measurement (mass/volume)on 09-16-2021 Cholesterol in VLDL [Mass/Vol] 29 mg/dL 5-40 [facility] Work Phone: Serum or plasma creatinine m easurement (mass/volume)on 09-16-2021 Creatinine [Mass/Vol] 1.02 mg/dL 0.70-1.30 [facility] Work Phone: Comment on above: The validity of the calculated GFR & GFRAA in patients over 70 years has not been determined. Clinical correlation is essential. Serum or plasma low density lipoprotein (LDL) cholesterol measurement (mass/volume)on 09-16-2021 Cholesterol in LDL [Mass/Vol] 70 mg/dL 0-130 [facility] Work Phone: Serum or plasma urea nitroge n measurement (mass/volume)on 09-16-2021 Urea nitrogen [Mass/Vol] 20 mg/dL 7-18 [facility] Work Phone: Thin prep Papanicolaou smear with manual screeningon 09-16-2021 Thin prep Papanicolaou smear with manual screening 16 U/L 15-37 [facility] Work Phone: Thin prep Papanicolaou smear with manual screening 5 5-15 [facility] Work Phone: Laboratory - Hematology and Cell countson 06-08-2021 HbA1c (Bld) [Mass fraction] 5.8 % 4.2-6.3 [facility] Work Phone: KNEE CMPLT, 4 OR MORE VIEWSo n 09-03-2019 KNEE CMPLT, 4 OR MORE VIEWS Patient Name: MARLINE KHAN STUDY: KNEE; COMPLT, 4 OR MORE VIEWS; Right; 09/03/2019 1:27 pm INDICATION: pain. ACCESSION NUMBER(S): [id number] ORDERING CLINICIAN: NICK BRADSHAW FINDINGS: Right knee weightbearing four views moderate medial joint space narrowing as well as patellofemoral arthritis no signs of fracture dislocation or other bony abnormalities Electronically signed by: NICK BRADSHAW MD [facility] 07-19-2019 [employer] (FAMPWS) MARLINE KHAN ([id number]) 1965 M Date Time Provider Department 07/19/19 ISHMAEL SALVADOR) [facility] During your visit today, we recorded the following information about you: Nicolasa Ward RN 07/19/2019 12:07 PM Signed Pt called, verified by name and birthdate. Pt wanted to make apt with nutritional therapist and wanted to know if he had referral. Verified referral is in [facility]. Transferred pt to PSR to make apt Nicolasa Ward RN Allergies As of Date: 07/19/2019 Noted Allergy Reaction SEROQUEL (QUETIAPINE FUMARATE) 12/15/2017 14 - Other: See Comments Comments: Drowsy Date Reviewed: 01/02/2019 Reviewed by: Gloria Melo Ma - Fully Assessed Reason for Visit: Patient Question [8197] Prescriptions as of 07/19/2019 Sig: OMEPRAZOLE 20 [...] Take 1 capsule by mouth once * [id number] ACID 300 M* Take 1 tablet by [...] by NICOLASA WARD RN on 07/19/19 Normal [facility] Established Visit (Orthopaed ic Surgery)on 07-09-2019 [...] MANUEL = N; Administered by: Amarilis Lai WIRE COATING MACHINE OPERATOR: 07/09/2019 12:50:00 PM; Last Updated By: Amarilis Lai; 07/09/2019 12:50:24 PM Signatures Electronically signed by : Nick Bradshaw MD; Jul 09 2019 1:12PM EST (Author) Normal [employer] Initial Visit (Orthopaedic S urgery)on 07-02-2019 Initial [...] grammatical areas may persist related to the [employer] software Nick Bradshaw MD Active Problems Knee [...] MANUEL = N; Administered by: Amarilis Lai WIRE COATING MACHINE OPERATOR: 07/02/2019 12:52:00 PM; Last Updated By: Amarilis Lai; 07/02/2019 12:52:51 PM Signatures Electronically signed by : Nick Bradshaw MD; Jul 02 2019 1:11PM EST (Author) Normal [employer] Established Visit (Orthopaed ic Surgery)on 06-25-2019 Established [...] MANUEL = N; Administered by: Amarilis Lai WIRE COATING MACHINE OPERATOR: 06/25/2019 12:57:00 PM; Last Updated By: Amarilis Lai; 06/25/2019 12:58:16 PM Signatures Electronically signed by : Nick Bradshaw MD; Jun 25 2019 1:01PM EST (Author) Normal [employer] CNCOon 11-30-2017 CNCO Letter Text Wilver corey MDPelham Primary [id number] [facility], [address] [place] [address] [phone] (fax)Member of [facility] and [facility] Employer11/30/2017Abhenry Tanner [id number] [facility] [address] [id number] are sending this letter in regards to your missed patient appointmentscheduled with Dr. Orona on November 30.Please contact our office at Option 1 (for appointmentrescheduling)Thank you,[facility] Normal [facility] Basic Metabolic Panelon 05-2 Anion gap molar conc 13 mmol/L Normal 10-20 [facility] Comment on above: Performed By: #### 1 [id number] #### [facility] [address] [place] [address] Calcium mass conc 9.3 mg/dL Normal 8.6-10.3 [facility] Healthcare Comment on above: Performed By: #### 1 [id number] #### [facility] [address] [place] [address] Chloride molar conc 106 mmol/L Normal 98-107 [facility] Healthcare Comment on above: Performed By: #### 1 [id number] #### [facility] [address] [place] [address] Creatinine mass conc 0.96 mg/dL Normal 0.50-1.30 [facility] Comment on above: Performed By: #### 1 [id number] #### [facility] [address] [place] [address] GFR/1.73 sq M.predicted MDRD vol rate/area mL/min/{1.73_m2} Normal [facility] Healthcare Comment on above: Result Comment: Inte rpretation for Chronic Kidney Disease: Stages 1&2 >60 Healthy or potential kidney damage. Mild decrease of GFR. Stage 3 30-59 Moderate decrease of GFR. Stage 4 15-29 Severe decrease of GFR. Stage 5 <15 Kidney failure or on dialysis. Performed By: #### 1 [id number] #### [facility] [address] [place] [address] Glucose mass conc 85 mg/dL Normal 70-100 [facility] Comment on above: Performed By: #### 1 [id number] #### [facility] [address] [place] [address] HCO3 molar conc (Bld) 25 mmol/L Normal 21-32 [facility] Comment on above: Performed By: #### 1 [id number] #### [facility] [address] [place] [address] Potassium molar conc 4.0 mmol/L Normal 3.5-5.1 [facility] Comment on above: Performed By: #### 1 [id number] #### [facility] [address] [place] [address] Sodium molar conc 140 mmol/L Normal 136-145 [facility] Comment on above: Performed By: #### 1 [id number] #### [facility] [address] [place] [address] Urea nitrogen mass conc 17 mg/dL Normal 6-23 [facility] Comment on above: Performed By: #### 1 [id number] #### [facility] [address] [place] [address] Urea nitrogen/Creatinin e mass ratio 18 mg/mg Normal 5-25 [facility] Comment on above: Performed By: #### 1 [id number] #### [facility] [address] [place] [address] CBC With Differentialon - Basophils #/vol (Bld) 0.04 10*3/uL Normal 0.01-0.09 [facility] Comment on above: Performed By: #### 2 [id number] #### [facility] [address] [place] [address] Basophils/100 WBC (Bld) 0.4 % Normal 0.0-1.3 [facility] Comment on above: Performed By: #### 2 [id number] #### [facility] [address] [place] [address] Eosinophils #/vol (Bld) 0.17 10*3/uL Normal 0.01-0.46 [facility] Comment on above: Performed By: #### 2 [id number] #### [facility] [address] [place] [address] Eosinophils/100 WBC (Bld) 1.6 % Normal 0.0-6.7 [facility] Comment on above: Performed By: #### 2 [id number] #### [facility] [address] [place] [address] Erythrocyte distribution width Ratio (RBC) 13.8 % Normal 12.0-15.4 [facility] Comment on above: Performed By: #### 2 [id number] #### [facility] [address] [place] [address] Hematocrit Volume Fraction (Bld) 49.1 % Normal 38.4-54.9 [facility] Comment on above: Performed By: #### 2 [id number] #### [facility] [address] [place] [address] Hemoglobin mass conc (Bld) 16.5 g/dL Normal 12.8-17.7 [facility] Healthcare Comment on above: Performed By: #### 2 [id number] #### [facility] [address] [place] [address] Imm Grans Absolute 0.06 10*3/uL Normal 0.00-0.21 [facility] Comment on above: Performed By: #### 2 [id number] #### [facility] [address] [place] [address] Immature granulocytes #/vol (Bld) 0.6 % Normal [facility] Comment on above: Performed By: #### 2 [id number] #### [facility] [address] [place] [address] Lymphocytes #/vol (Bld) 1.85 10*3/uL Normal 0.40-2.84 [facility] Comment on above: Performed By: #### 2 [id number] #### [facility] [address] [place] [address] Lymphocytes/100 WBC (Bld) 17.3 % Normal 9.4-41.1 [facility] Comment on above: Performed By: #### 2 [id number] #### [facility] [address] [place] [address] MCH Entitic mass (RBC) 27.9 pg Normal 27.5-32.9 [facility] Healthcare Comment on above: Performed By: #### 2 [id number] #### [facility] [address] [place] [address] MCHC mass conc (RBC) 33.6 g/dL Normal 30.5-35.4 [facility] Healthcare Comment on above: Performed By: #### 2 [id number] #### [facility] [address] [place] [address] MCV Entitic volume (RBC) 83.1 fL Low 83.3-98.2 [facility] Healthcare Comment on above: Performed By: #### 2 [id number] #### [facility] [address] [place] [address] Monocytes #/vol (Bld) 0.99 10*3/uL Normal 0.25-1.33 [facility] Comment on above: Performed By: #### 2 [id number] #### [facility] [address] [place] [address] Monocytes/100 WBC (Bld) 9.3 % Normal 3.0-16.2 [facility] Comment on above: Performed By: #### 2 [id number] #### [facility] [address] [place] [address] Neutrophils Absolute 7.56 10*3/uL High 2.22-7.53 [facility] Healthcare Comment on above: Performed By: #### 2 [id number] #### [facility] [address] [place] [address] Neutrophils/100 WBC (Bld) 70.8 % Normal 46.2-79.1 [facility] Comment on above: Performed By: #### 2 [id number] #### [facility] [address] [place] [address] NRBC Absolute 0.00 10*3/uL Normal [facility] Comment on above: Performed By: #### 2 [id number] #### [facility] [address] [place] [address] NRBC Automated 0.0 /100{WBCs} Normal [facility] Comment on above: Performed By: #### 2 [id number] #### [facility] [address] [place] [address] Platelet mean volume Entitic volume (Bld) 11.4 fL Normal 9.9-12.1 [facility] Comment on above: Performed By: #### 2 [id number] #### [facility] [address] [place] [address] Platelets #/vol (Bld) 211 10*3/uL Normal 155-404 [facility] Comment on above: Performed By: #### 2 [id number] #### [facility] [address] [place] [address] RBC #/vol (Bld) 5.91 10*6/uL Normal 4.08-6.37 [facility] Comment on above: Performed By: #### 2 [id number] #### [facility] [address] [place] [address] RDW SD 41.8 fL Normal 39.3-48.6 [facility] Comment on above: Performed By: #### 2 [id number] #### [facility] [address] [place] [address] WBC #/vol (Bld) 10.7 10*3/uL Normal 4.2-11.0 [facility] Comment on above: Performed By: #### 2 [id number] #### [facility] [address] [place] [address] Culture, Blood Bacterialon 0 08-01-2017 Culture, Blood Bacterial BILL#: [id number] : 67 AGE: SEX: M AMBULATORY SOURCE: Blood COLLECTED: 08/01/17 18:21 ANTIBIOTICS AT JOSE.: RECEIVED : 08/01/17 23:26 SITE: SAME SOURCE R E S U L T S BLOOD CULTURE, BACTERIAL FINAL 08/06/17 23:42 No Growth at 1 days No Growth at 2 days No Growth at 3 days No Growth at 4 days NO GROWTH - FINAL REPORT Normal [facility] Healthcare Comment on above: Performed By: #### C XBLB #### [facility] [address] [place] [address] Culture, Blood Bacterial BILL#: [id number] : 67 AGE: SEX: M AMBULATORY SOURCE: Blood COLLECTED: 08/01/17 17:10 ANTIBIOTICS AT JOSE.: RECEIVED : 08/01/17 23:26 SITE: SAME SOURCE R E S U L T S BLOOD CULTURE, BACTERIAL FINAL 08/06/17 23:42 No Growth at 1 days No Growth at 2 days No Growth at 3 days No Growth at 4 days NO GROWTH - FINAL REPORT Normal [facility] Comment on above: Performed By: #### C XBLB #### [facility] [address] [place] [address] D Dimeron 08-01-2017 D Dimer 252 ng/mL FEU Normal =500 [facility] Comment on above: Result Comment: NOTE NEW [...] outpatients suspected of DVT or PE. Per automatic door mechanic's instructions for use, a value of less than 500 ng/mL (FEU) may help to exclude DVT and/or PE in outpatients when the assay is used with a clinical pretest probability assessment. Performed By: #### D DIMR #### [facility] [address] [place] [address] ESR, Westergrenon 08-01-2017 ESR, Westergren 1 mm/h Normal 0-15 [facility] Comment on above: Performed By: #### 2 [id number] #### [facility] [address] [place] [address] KNEE 3 VIEWS LTon 08-01-2017 KNEE 3 VIEWS LT DATE OF EXAM: Aug 01 2017 5:32PM CLINICAL HISTORY/ Patient Name: MARLINE KHAN STUDY: KNEE 3 VIEWS LT; 08/01/2017 5:32 pm INDICATION: Non Trauma. Pain across the left knee anteriorly. COMPARISON: 01/23/2015 ACCESSION NUMBER(S): [id number] ORDERING CLINICIAN: RACHELLE LANDAVERDE FINDINGS: There is a small knee effusion, not significantly changed from 01/23/2015. No acute fracture or malalignment. There is mild tricompartmental osteoarthrosis, slightly progressed. CONCLUSION: IMPRESSION: Minimal progression of tricompartmental osteoarthrosis without acute osseous abnormality. Normal [facility] Uric Acidon 08-01-2017 Urate mass conc 6.7 mg/dL Normal 4.0-7.5 [facility] Comment on above: Performed By: #### 1 [id number] #### [facility] [address] [place] [address] ANES [place] 04-07-2017 ANES POST HNO ID: [id number] thor: Joe BenavidezSerruize: AnesthesiologyAuthor Type: AnesthesiologistType: Anesthesia [...] 07, 2017 : 1:05 PM PAGER/CONTACT #: [phone] [facility] ANES PREOPon 04-07-2017 ANES PREOP HNO ID: [id number] thor: Joe BenavidezService: AnesthesiologyAuthor Type: AnesthesiologistType: Anesthesia [...] 47.8 03/31/2017Potassium 4.4 03/31/2017ANES DOS/PREOP NOTE: Vitals: 385584WD: 147/93Pulse: 96Resp: 18Temp: 36.5 ?C (97.7 ?F)TempSrc: Temporal ArterySpO2: 97%Weight: 131.6 kg (290 lb 3.2 oz)Height: 193 cm (6' 3.98)ACTIVE PROBLEM LISTVaricose Symptomatic [454.8]Unspecified Venous (Peripheral) InsufficiencyCallus of FootTear of Pcl (Posterior Cruciate Ligament) of KneeMedial Meniscus TearNon Morbid ObesityBipolar Disorder (Hcc)Tobacco UseSyncopeOsteoarthritisInsomni aPAST MEDICAL HISTORYDiagnosis Date- Abnormal foot finding Podiatry- Bipolar disorder (HCC) Was previously seen at [facility] in [place]- Cyst of skin Sebaceous, hx/infection- Diverticulitis- Jsiason-uc-twf- HSV (herpes simplex virus) infection type 1/2- Insomnia- Non morbid obesity 04/03/2017- Osteoarthritis- Periodontal disease Digital Strategy Manager- Syncope Dr. Salmeron (Neurology)- Tobacco use- Varicose veins Dr. Ferreira ([facility] Surgeon-[facility])PAST SURGICAL HISTORYProcedure Laterality Date- [...] April 07, 2017 : 8:42 AM CSN: [id number] [facility] NURSING PROGon 04-07-2017 NURSING PROG HNO ID: [id number] Author: Damien (Rn) KAYLIE Sheehan Service: Nursing Author Type: Registered Nurse Type: Nursing Progress Note Filed: 04/07/2017 8:06 AM Note Text: Pt ready for procedure. [facility] OPERATIVE NOon 04-07-2017 OPERATIVE NO HNO ID: [id number] thor: Jack Whitleye: Orthopaedic SurgeryAuthor Type: PhysicianType: Operative ReportFiled: 04/07/2017 10:44 AMNote Text:OPERATIVE/PROCEDURE REPORTLOG ID: [id number]/Procedure Date: 04/07/2017Incision/Procedure Start Time: 9:47 AMIncision Close/Procedure End Time: 10:30 AMSurgeon(s)/Proceduralist(s) and Masonry Inspector(s):Surgeon(s) and Role: * Jack Aguiar - PrimaryPhysician Masonry Inspector: Yaz Gunderson) VishalRegistered Nurse Legal File Clerk: Alix (Rn) BARBARA Carrrocedure(s):left knee, arthroscopic medial [...] 07, 2017 : 10:37 AM PAGER/CONTACT #: [facility] PLAN OF CAREon 04-07-2017 PLAN OF CARE HNO ID: [id number] thor: Adele Hinton (Model Maker Plaster)Service: (none)Author Type: TechnicianType: Plan of CareFiled: 04/07/2017 12:07 PMNote Text:PROJECTOR BOOTH OPERATOR BEDSIDE DELIVERY SURVEY1. Patient to use [facility] Bedside Delivery - YES2. If fax, patient would like us to fax prescriptions to [facility]. Pharmacy: b. Location: c. Phone:3. Insurance card on file - YES4. Credit card for payment - YESPHARMACY BEDSIDE DELIVERY SERVICEPatient Name: Marline KhanMRN: [id number] marked outpatient medications were Filled at: [facility] and delivered tothe patient's bedside to pharm [...] provider to review them with you.Adele Hinton (Model Maker Plaster)PAGER: [phone] 2017 12:07 PM Normal [facility] PT EDon 04-07-2017 PT ED HNO ID: [id number] thor: Patricia (Rn) Ryan, RNService: (none)Author Type: [...] CareSUPPLEMENTAL MATERIAL: NoneREFERRAL (RECOMMENDATION): NoneElectronically Signed By: Patriica Davis, RN, BSN [facility] PT ED HNO ID: [id number] thor: Damien JohnsonRn) YG Sheehanervice: NursingAuthor Type: Registered NurseType: Patient EducationFiled: 04/07/2017 8:06 AMNote Text:PRE OP LEARNING ASSESSMENTPROCEDURE/SURGERY: SURGERY: Left knee arthroscopyREADINESS TO LEARNCOGNITIVE ABILITY: Alert and orientedMOTIVATION TO LEARN: EagerFAMILY SUPPORT: High - Very involved in pt carePATIENT LEARNS BEST BY: Written Instruction - Hand-outsVerbal InstructionFACTORS AFFECTING LEARNING: NonePHYSICAL LIMITATIONS AFFECTING LEARNING: NoneElectronically Signed By: Damien Sheehan RN In Department: [facility] NURSING PROGon 04-03-2017 NURSING PROG HNO ID: [id number] thor: Ramila English (Rn) YG Reyeservice: (none)Author Type: Registered NurseType: Nursing Progress NoteFiled: 04/03/2017 11:52 AMNote Text:PACC Nurse Progress NoteHistory AND Physical:PACC Visit Date: 03/31/17Labs Within Last 6 Months:CBC: Date 03/31/17BMP/CMP: Date 03/31/17Imaging Within Last 12 Months:MRIX-rayCardiac Testing:N/ANarrative:BMI 35Pre-op Considerations:N/AChart Check:Teena Reyes RNJanuary 2017 11:50 AM [facility] HOSPon 03-23-2017 HOSP Patient:Ab Khan AMRN: Height:6' [...] 3.7HEMA* 47.8 % 03/31/2017 51.0 39.0Progress Notes ([facility]):Ishmael Salvador MD 04/05/2017 1:43 PM SignedChief ComplaintPatient presents with:Jett Tanner Erin is a 51 year old male who presents here today for establishcare visit. Patient was previously seeing PCP at [facility]. Lastappointment was 2-3 months ago. Prior to that was seen in [place] by Dr. Smallwood.Was also seen yesterday by LENA Peña Podlogaugust for complaint of weight gain andwas advised to work on improved diet and exercise, referred to rehab nursing tech, andordered thyroid studies.Patient has history of bipolar disorder and was being seen at the [facility], but has not been seen in years. Was on Invega and Depakote, but is nottaking now. Denies manic symptoms, patient states symptoms were typicallydepression. Denies thoughts of harming self or others at this time. 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 Salmeron (Neurology)- Tobacco use- Varicose veins Dr. Ferreira ([facility] Surgeon-[facility])Previous Surgical HistoryPAST SURGICAL HISTORYProcedure [...] Wt 127.9 kg (282 lb) BMI 35.01 kg/s2Wrjouud Appearance: Well appearing, alert, in no acute [...] 1.00 - 4.00 k/uL 1.31Mono% % 9.7Abs [place] <0.87 k/uL 0.74Eosin% % 2.8Abs Eosin <0.46 [...] unspecified syncope type - ICD9: 780.2, ICD10: [id number] per neurology.6. Osteoarthritis of both knees, unspecified osteoarthritis type - ICD9: 715.96,ICD10: M17.0Following up with ortho.7. Insomnia, unspecified type - ICD9: 780.52, ICD10: G47.00Continue trazodone PRN.8. Varicose veins of both lower extremities - ICD9: 454.9, ICD10: I83.93Patient states he has compression stockings at home, will be using them after hehas surgery on knee.Ishmael Salvador, MDProgress Notes ([facility]):Mariana Ramoslogaugust, SLY 04/04/2017 10:41 AM [...] (HCC) JOSY- Cyst of skin Sebaceous, hx/infection- Gdlacor-gf-nov- Former smoker 01/18- HSV (herpes simplex virus) infection type 1/2- Non morbid obesity 04/03/2017- Periodontal disease Digital Strategy Manager- Syncope Dr. Salmeron (Neurology)- Varicose veins Dr. Ferreira ([facility] Surgeon-[facility])ALLERGIES Review of patient's allergies [...] symptoms occur. Patientagreeable to treatment plan. Normal [facility] ED DOCon 12-18-2016 ED DOC PHYSICIAN ASSESSMENT R ECORDS: FlexChartDataEvent Time: 12/18/2016 10:25Status: [facility] [[id number]]Mid-Le nicole Chart (V2b)51 / M / 1965Chart created at 12/18/2016 10:17 by Mg VillalobosChart closed at 12/18/2016 10:23Entry in Emergency Department at 12/18/2016 09:26,departure at 12/18/2016 10:31Patient Name: Marline Khan Record Number: [id number]: 12/18/2016 10:17Entered Department at: 12/18/2016 09:26 Patient [...] of years ago. He was seen at [facility] at that time. He apparently had a chesttube with that. Hes had chronic left knee pain since. Heabelinoieves is had x-rays done but he does notrecall if he had an MRI of his knee done. He denies any [facility] PATIENT NAME: MARLINE KHAN [id number] [facility] [address] Alcazar MEDICAL REC #: [id number], [place] [address] DEPARTMENT CHART EMERGENCY DEPARTMENT PHYSICIANrecent injury. He [...] and posterior tibialis pulses were2/4 and equal. [facility] PATIENT NAME: MARLINE KHAN A[address] MEDICAL REC #: [id number], [place] [address] DEPARTMENT CHART EMERGENCY DEPARTMENT PHYSICIANImaging Study Obtained:KNEE (COMPLETE) LTRadiology: Interpreted by Radiologist.no acute abnormality. Joint effusion..Medical Decision MakingPatient was given Black for pain. I did review his OARRSreport. Patient was getting routine narcoticprescriptions up until late spring. He was seeing a Dr.Malak kamaljit Melissa for pain management. He has anappointment on Monday with outcomes specialist. I willwrite for a few pain [...] Easley on 12/18/201616:46.: FlexChartDataEvent Time: 12/18/2016 11:00Status: [facility] [[id number]]Attend ing Physician *[facility] PATIENT NAME: MARLINE KHAN [address] [facility] [address] Al[address]azar MEDICAL REC #: [id number], [place] [address] DEPARTMENT CHART EMERGENCY DEPARTMENT [id number] / M / 1965Addendum (V2b)Chart created at 12/18/2016 10:25 by Sagar EasleyChart closed at 12/18/2016 10:26Entry in Emergency Department at 12/18/2016 09:26Patient Name: Marline Khan Record Number: [id number]: 12/18/2016 10:25Entered Department at: 12/18/2016 09:26 Patient [...] 11:00: Discharge ReportEvent Time: 12/18/2016 10:25Status: Draft [facility] PATIENT NAME: MARLINE KHAN [address] MEDICAL REC #: [id number], [place] [address] DEPARTMENT CHART EMERGENCY DEPARTMENT PHYSICIANReasons to Return [...] get your prescriptions filled.EKG and Radiology Results:A welfare investigator or radiologist will review any EKG orradiology [...] that theyare aware and can make suggestions [facility] PATIENT NAME: MARLINE KHAN A[address] [facility] [address] Al[address]azar MEDICAL REC #: [id number], [place] [address] DEPARTMENT CHART EMERGENCY DEPARTMENT PHYSICIANDIAGNOSIS:chronic left knee pain with joint effusion on x-rayINSTRUCTIONS:follow-up with outcomes specialist on Monday asscheduled. continue using your [...] area6) Minor pain may also be treated obnwvsrs-hsr-gngzokf ibuprofen (if you are not) or acetaminophen; you should avoid aspirin unlessyou are taking this medication for anotherreason7) You must use all of your regular medications plusall the medications that were given to youtoday [facility] PATIENT NAME: MARLINE KHAN A[address] [facility] [address] Al[address]azar MEDICAL REC #: [id number], [place] [address] DEPARTMENT CHART EMERGENCY DEPARTMENT PHYSICIANIf you had [...] doneBrand: Anexsia, Anolor DH5, Bancap HC, Dolacet, Vlubyi86/650, Lorcet HD, Lorcet Plus, Lortab, Efreie74, Lortab 5/500, Lortab 7.5/500, Lortab Elixir, Black,T-Gesic, Vicodin, Vicodin ES, Vicodin HP, ZydoneWhat is [...] doctormay recommend a gradual reduction in dose. [facility] PATIENT NAME: MARLINE KHAN A[address] MEDICAL REC #: [id number], [place] [address] DEPARTMENT CHART EMERGENCY DEPARTMENT PHYSICIANAvoid alcohol while [...] hydrocodone. Together,acetaminophen and hydrocodone are used to tbegxdntmmcamrw-pa-hafkgi pain.Acetaminophen and hydrocodone may also be used [...] be able to take acetaminophen and hydrocodone, [facility] PATIENT NAME: MARLINE KHAN A[address] [facility] [address] Al[address]azar MEDICAL REC #: [id number], [place] [address] DEPARTMENT CHART EMERGENCY DEPARTMENT PHYSICIANor you may [...] doctormay recommend a gradual reduction in dose. [facility] PATIENT NAME: MARLINE KHAN A[address] MEDICAL REC #: [id number], [place] [address] DEPARTMENT CHART EMERGENCY DEPARTMENT PHYSICIANAcetaminophen and hydrocodone [...] doctor.Use caution when driving, operating machinery, or [facility] PATIENT NAME: MARLINE KHAN A[address] [facility] [address] Al[address]azar MEDICAL REC #: [id number], [place] [address] DEPARTMENT CHART EMERGENCY DEPARTMENT PHYSICIANperforming other hazardous activities. Hydrocodone maycause drowsiness or dizziness. If you experience drowsinessor dizziness, avoid these activities.Other products may also contain acetaminophen, crxoevawtjwzpu-oei-ovmdadw pain, fever, cold, and allergymedications. Do not [...] your doctor about any side effect that [facility] PATIENT NAME: MARLINE KHAN A[address] [facility] [address] Al[address]azar MEDICAL REC #: [id number], [place] [address] DEPARTMENT CHART EMERGENCY DEPARTMENT PHYSICIANseems unusual or [...] your doctor.Other products may also contain acetaminophen, cqzpjbafigsqae-qzl-hncmyog pain, fever, cold, and allergymedications. Do not take any other products that containacetaminophen without first talking to yourdoctor. Too much acetaminophen can be dangerous.Drugs other than those listed here may also interact withacetaminophen and hydrocodone. Talk to yourdoctor and pharmacist before taking any prescription qmzpmi-nfp-ocmxeye medicines, including vitamins,minerals, and herbal products.Where can [...] such as your family doctor or pain [facility] PATIENT NAME: MARLINE KHAN [address] [facility] [address] Al[address]azar MEDICAL REC #: [id number], [place] [address] DEPARTMENT CHART EMERGENCY DEPARTMENT PHYSICIANmanagement specialist. Because [...] narcotic or other controlledsubstance, we check the [place] Automated Rx ReportingSystem (OARRS) or a similar database that tracks yournarcotic and other controlled substance *[facility] PATIENT NAME: MARLINE KHAN A[address] [facility] [address] Al[address]azar MEDICAL REC #: [id number], [place] [address] DEPARTMENT CHART EMERGENCY DEPARTMENT PHYSICIANprescriptions.9. For your [...] these prescriptions that you must filland start taking:Black 5 mg-325 mg tablet, count:12, Dose = 1, count:12,q8h, count:12, Number of Refills = 0, count:12My signature below indicates that I have received andunderstand the oral instructions regarding mymedical problem. I also acknowledge receipt of this written [facility] PATIENT NAME: MARLINE KHAN A[address] MEDICAL REC #: [id number], [place] [address] DEPARTMENT CHART EMERGENCY DEPARTMENT PHYSICIANinstruction sheet including a list of majortests and procedures ordered during my visit. I willarrange for follow-up care as indicated by theseinstructions and referrals.This signed original will be kept in my medical record.Your signature below indicates consent for Case Managementto contact communitymemorial hospitalcare providers in [facility] to meet your ongoing healthcare needs. This willallow forcontinuity of care once you leave theC[facility] Centerrlawrence [facility] hospitalcy Department. This exchange of informationwillinclude, but not be limited to, disclosure of yourpatient information and possible release ofrecords. D EMOGRAPHICS Emergisoft Patient: MARLINE Woodardglenn: MDOB: 1965Age: 51 yrAccount No: [id number]: [id number] Date: 12/18/2016Address: [address] [facility] K39Qyqzois: [place] [address] MQRVSO RATION ED Number: [id number]: Marital Status: SFinancial Class: CAIDHMO TRIA GE Priority: 4 - Semi UrgentComplaint: Knee pain: InjuryStated Complaint: LEFT KNEE PAIN AND NO REPORTEDINJURY PAIN FOR THE PAST 2 WEEKSArrival Date: 12/18/2016 09:26Triage Date: 12/18/2016 09:29Mode of Arrival: *Privately Owned VehicleTransfer From: * Home [facility] PATIENT NAME: MARLINE KHAN [address] [facility] [address] [facility] MEDICAL REC #: [id number], [place] [address] DEPARTMENT CHART EMERGENCY DEPARTMENT PHYSICIANWC: Rossuage: EnglishTransport: [...] DGPSurgery: PNEUMOTHORAX 12/18/2016 09:34 DGPPAST SOCIAL HIST [facility] PATIENT NAME: MARLINE KHAN A[address] MEDICAL REC #: [id number], [place] [address] DEPARTMENT CHART EMERGENCY DEPARTMENT PHYSICIANSocial History: Behavior age appropriate 12/18/201609:34 DGPSocial History: Communicates without ociwkamjou27/15/2017 09:34 DGPSocial History: Lives with family or [...] 10:19 Primary DOC Guide - A. 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 [facility] MEDICAL REC #: [id number], [place] [address] DEPARTMENT CHART EMERGENCY DEPARTMENT [id number]: 97 Room Air Temp: 98.00 F - Kghclfwr52/15/2017 09:34 DGPVS-Pain Time: 12/18/2016 09:29 Pain Level: [...] Mg VillalobosCompleted Time: 12/18/2016 10:10 By Mg VlilalobosNotalison Time: 12/18/2016 09:57 RANKnee series (left) 12/18/2016 [...] pain with joint effusionon x-ray 12/18/2016 10:25 [facility] PATIENT NAME: MARLINE KHAN A[address] MEDICAL REC #: [id number], [place] [address] DEPARTMENT CHART EMERGENCY DEPARTMENT PHYSICIANDisposition: Time: 12/18/2016 10:23Discharge Time: 12/18/2016 10:31Type: DischargeCondition: Stable for admission/discharge/transferaft er emergency evaluation/treatment Category: *NOTAPPLICABLEReferral: 12/18/2016 10:25Admit Physician: . Other PRESCR IPTIONS Norc o 5 mg-325 mg tablet 12/18/2016 10:23SI q8h painDispense: 12 / Refills: NORA RGES SIGNATURE========= Sagar CARBONE [facility] PATIENT NAME: MARLINE KHAN A[address] [facility] [address] [facility] MEDICAL REC #: [id number], [place] [address] DEPARTMENT CHART EMERGENCY DEPARTMENT PHYSICIAN Normal [facility] ED Documentation This is a preliminar y report only, as the practitioner review and authentication has not occurred. [facility] KNEE COMP 4 OR MORE [...] FREY M.D. Signed By: ELENA FREY M.D. [facility] Vital Signs Date Time Vital Sign Value Performing Clinician Edwardo husain 09-04-2024 06:56-0400 Body height 193.04 cm Roxanne Clark NETWORK SERVICES PROJECT MANAGER-C Work Phone: 9([phone] [place] [address] 09-04-2024 06:56-0400 Body mass index (BMI) [Ratio] 36.2 kg/m2 Roxanne Clark NETWORK SERVICES PROJECT MANAGER-C Work Phone: 7(683)[phone] [place] [address] 09-04-2024 06:56-0400 Body temperature 97.4 [degF] Roxanne Clark NETWORK SERVICES PROJECT MANAGER-C Work Phone: 4([phone])[phone] [place] [address] 09-04-2024 06:56-0400 Body weight 135.17 kg Roxanne Clark NETWORK SERVICES PROJECT MANAGER-C Work Phone: 7(256)268-671724 [place] [address] 09-04-2024 06:56-0400 Diastolic blood pressure 72 mm[Hg] Roxanne Clark NETWORK SERVICES PROJECT MANAGER-C Work Phone: 1([phone])554-290824 [place] [address] 09-04-2024 06:56-0400 Heart rate 90 /min Roxanne Clark NETWORK SERVICES PROJECT MANAGER-C Work Phone: 6(167)896-974124 [place] [address] 09-04-2024 06:56-0400 Respiratory rate 18 /min Roxanne Clark NETWORK SERVICES PROJECT MANAGER-C Work Phone: 8(141)260-712224 [place] [address] 09-04-2024 06:56-0400 SaO2% (BldA) [Mass fraction] 95 % Roxanne Clark NETWORK SERVICES PROJECT MANAGER-C Work Phone: 3(769)965-834924 [place] [address] 09-04-2024 06:56-0400 Systolic blood pressure 145 mm[Hg] Roxanne Clark NETWORK SERVICES PROJECT MANAGER-C Work Phone: 3(086)181-887924 [place] [address] 09-24-2023 07:55-0400 Blood Pressure Cuff Size CHRIS HERNANDEZ MD [facility] 09-24-2023 07:55-0400 Blood Pressure Location CHRIS HERNANDEZ MD [facility] 09-24-2023 07:55-0400 Blood Pressure Method CHRIS HERNANDEZ MD [facility] 09-24-2023 07:55-0400 Body temperature 98.6 [degF] CHRIS HERNANDEZ MD [facility] 09-24-2023 07:55-0400 Diastolic Blood Pressure Non-Invasive 90 mm[Hg] CHRIS HERNANDEZ MD [facility] 09-24-2023 07:55-0400 Heart rate 98 /min CHRIS HERNANDEZ MD [facility] 09-24-2023 07:55-0400 Respiratory rate 16 /min CHRIS HERNANDEZ MD [facility] 09-24-2023 07:55-0400 Systolic Blood Pressure Non-Invasive 135 mm[Hg] CHRIS HERNANDEZ MD [facility] 09-13-2022 14:46-0400 Body height 193.[address] Alexandre Don Work Phone: [facility] 09-13-2022 14:46-0400 Body weight 153.[address] Alexandre Don Work Phone: [facility] 08-15-2022 13:04-0400 Body mass index (BMI) [Ratio] 41.2 kg/m2 Dr. Alexandre Don Work Phone: [facility] 08-15-2022 13:04-0400 Body weight 153.[address] Alexandre Don Work Phone: [facility] 07-28-2022 15:39-0400 Body mass index (BMI) [Ratio] 41.1 kg/m2 Dr. Alexandre Don Work Phone: [facility] 07-28-2022 15:39-0400 Body temperature 96.4 [degF] Dr. Alexandre Don Work Phone: [facility] 07-28-2022 15:39-0400 Body weight 153.[address] Alexandre Don Work Phone: [facility] 07-28-2022 15:39-0400 Diastolic blood pressure 80 mm[Hg] Dr. Alexandre Don Work Phone: [facility] 07-28-2022 15:39-0400 Heart rate 102 /min Dr. Alexandre Don Work Phone: [facility] 07-28-2022 15:39-0400 Respiratory rate 16 /min Dr. Alexandre Don Work Phone: [facility] 07-28-2022 15:39-0400 SaO2% (BldA) [Mass fraction] 96 % Dr. Alexandre Don Work Phone: [facility] 07-28-2022 15:39-0400 Systolic blood pressure 120 mm[Hg] Dr. Alexandre Don Work Phone: [facility] 07-01-2022 13:03-0400 Body mass index (BMI) [Ratio] 41.2 kg/m2 Dr. Alexandre Don Work Phone: [facility] 07-01-2022 13:03-0400 Body temperature 95.6 [degF] Dr. Alexandre Don Work Phone: [facility] 07-01-2022 13:03-0400 Body weight 153.[address] Alexandre Don Work Phone: [facility] 07-01-2022 13:03-0400 Diastolic blood pressure 76 mm[Hg] Dr. Alexandre Don Work Phone: [facility] 07-01-2022 13:03-0400 Heart rate 104 /min Dr. Alexandre Don Work Phone: [facility] 07-01-2022 13:03-0400 Respiratory rate 18 /min Dr. Alexandre Don Work Phone: [facility] 07-01-2022 13:03-0400 SaO2% (BldA) [Mass fraction] 96 % Dr. Alexandre Don Work Phone: [facility] 07-01-2022 13:03-0400 Systolic blood pressure 124 mm[Hg] Dr. Alexandre Don Work Phone: [facility] 02-24-2022 11:03-0500 Body temperature 96.6 [degF] Dr. Alexandre Don Work Phone: [facility] 02-24-2022 11:03-0500 Body weight 144.[address] Alexandre Don Work Phone: [facility] 02-24-2022 11:03-0500 Diastolic blood pressure 84 mm[Hg] Dr. Alexandre Don Work Phone: [facility] 02-24-2022 11:03-0500 Heart rate 87 /min Dr. Alexandre Don Work Phone: [facility] 02-24-2022 11:03-0500 Respiratory rate 16 /min Dr. Alexandre Don Work Phone: [facility] 02-24-2022 11:03-0500 SaO2% (BldA) [Mass fraction] 93 % Dr. Alexandre Don Work Phone: [facility] 02-24-2022 11:03-0500 Systolic blood pressure 116 mm[Hg] Dr. Alexandre Don Work Phone: [facility] 09-16-2021 09:39-0400 Body height 193.[address] Alexandre Don Work Phone: [facility] Work Phone: 09-16-2021 09:39-0400 Body mass index (BMI) [Ratio] 39 kg/m2 Dr. Alexandre Don Work Phone: [facility] Work Phone: 09-16-2021 09:39-0400 Body temperature 97.5 [degF] Dr. Alexandre Don Work Phone: [facility] Work Phone: 09-16-2021 09:39-0400 Body weight 145.[address] Alexandre Don Work Phone: [facility] Work Phone: 09-16-2021 09:39-0400 Diastolic blood pressure 84 mm[Hg] Dr. Alexandre Don Work Phone: [facility] Work Phone: 09-16-2021 09:39-0400 Heart rate 71 /min Dr. Alexandre Don Work Phone: [facility] Work Phone: 09-16-2021 09:39-0400 Respiratory rate 14 /min Dr. Alexandre Don Work Phone: [facility] Work Phone: 09-16-2021 09:39-0400 SaO2% (BldA) [Mass fraction] 96 % Dr. Alexandre Don Work Phone: [facility] Work Phone: 09-16-2021 09:39-0400 Systolic blood pressure 122 mm[Hg] Dr. Alexandre Don Work Phone: [facility] Work Phone: 06-08-2021 10:05-0400 Body mass index (BMI) [Ratio] 39 kg/m2 Dr. Alexandre Don Work Phone: [facility] Work Phone: 06-08-2021 10:05-0400 Body temperature 96.9 [degF] Dr. Alexandre Don Work Phone: [facility] Work Phone: 06-08-2021 10:05-0400 Body weight 145.[address] Alexandre Don Work Phone: [facility] Work Phone: 06-08-2021 10:05-0400 Diastolic blood pressure 70 mm[Hg] Dr. Alexandre Don Work Phone: [facility] Work Phone: 06-08-2021 10:05-0400 Heart rate 71 /min Dr. Alexandre Don Work Phone: [facility] Work Phone: 06-08-2021 10:05-0400 Respiratory rate 14 /min Dr. Alexandre Don Work Phone: [facility] Work Phone: 06-08-2021 10:05-0400 SaO2% (BldA) [Mass fraction] 96 % Dr. Alexandre Don Work Phone: [facility] Work Phone: 06-08-2021 10:05-0400 Systolic blood pressure 116 mm[Hg] Dr. Alexandre Don Work Phone: [facility] Work Phone: Encounters Encounter Date Encounter Type Care Provider Facility Start: 01-21-2025 ambulatory JANNET Carson y:[facility] Start: 12-30-2024 End: 12-30-2024 ambulatory ANNIE LEWIS Facility:[id number] Start: 12-02-2024 End: 12-02-2024 ambulatory Roxanne Clark NETWORK SERVICES PROJECT MANAGER-C Work Phone: -Pulmonary Services/Neurology Start: 12-02-2024 End: 12-02-[address] Juliocesar Quinones DO -Pulmonary Services/Neurology Work Phone: Start: 12-02-2024 End: 12-02-2024 ambulatory JANNET BEN Facility:[facility] Start: 11-28-2024 ambulatory JANNET ETANKIT R ANATOMIC PATHOLOGIST-BATTERY CHARGER TESTER Facility:[facility] Start: 10-14-2024 End: 10-14-2024 Emergency department patient visit JANNET MEHTA DO [facility] Start: 09-23-2024 End: 09-23-2024 ambulatory ZINA ESTEVES DO Facility:[facility] Start: 09-23-2024 End: 09-23-2024 Minor Procedure ZINA ESTEVES DO [facility] Start: 09-04-2024 End: 09-04-[address] Juliocesar Quinones DO -[facility] Work Phone: Start: 09-04-2024 End: 09-04-2024 ambulatory Roxanne Clark NETWORK SERVICES PROJECT MANAGER-C Work Phone: -[facility] Start: 08-19-2024 End: 08-19-2024 ambulatory JANNET BEN ANATOMIC PATHOLOGIST-BATTERY CHARGER TESTER Facility:[facility] Start: 08-19-2024 End: 08-19-2024 Patient encounter procedure JANNET BEN ANATOMIC PATHOLOGIST-BATTERY CHARGER TESTER [facility] Start: 07-30-2024 End: 07-30-2024 ambulatory JANNET BEN ANATOMIC PATHOLOGIST-BATTERY CHARGER TESTER Facility:[facility] Start: 07-30-2024 End: 07-30-2024 Patient encounter procedure JANNET BEN ANATOMIC PATHOLOGIST-BATTERY CHARGER TESTER [facility] Start: 02-26-2024 End: 02-26-2024 ambulatory JANNET CONTRERAS ANATOMIC PATHOLOGIST-BATTERY CHARGER TESTER Facility:[facility] Start: 02-26-2024 End: 02-26-2024 Patient encounter procedure JANNET CONTRERAS APRN-BATTERY CHARGER TESTER [facility] Start: 09-24-2023 End: 09-24-2023 Emergency department patient visit CHRIS HERNANDEZ MD [facility] Start: 09-13-2022 End: 10-03-[address] Alexandre Don Work Phone: [facility] Work Phone: Start: 09-13-2022 End: 10-03-[address] [facility] Work Phone: Start: 08-15-2022 End: 08-15-[address] Alexandre Don Work Phone: [facility] Work Phone: Start: 07-28-2022 End: 07-28-[address] Alexandre Don Work Phone: [facility] Internal Medicine Work Phone: Start: 07-01-2022 End: 07-01-[address] Alexandre Don Work Phone: [facility] Internal Medicine Work Phone: Start: 06-14-2022 Non-patient / Non-visit Dr. Alexandre Don Work Phone: [facility] Start: 06-14-2022 End: 04-11-[address] Alexandre Don Work Phone: [facility]-Pulmonary Services/Neurology Work Phone: Start: 02-24-2022 End: 02-24-[address] Alexandre Don Work Phone: [facility] Internal Medicine Start: 09-17-[address] Alexandre Don Work Phone: [facility]-Radiology, [facility] Start: 09-16-2021 End: 09-16-[address] Alexandre Don Work Phone: [facility] Internal [facility] Start: 06-08-2021 End: 06-08-[address] Alexandre Don Work Phone: [facility] Internal [facility] Start: 04-29-2020 End: 04-29-2020 Subsequent hospital visit by physician Ryann Lai Work Phone: [facility] Start: 02-26-2020 End: 02-26-2020 Subsequent hospital visit by physician Ryann Lai Work Phone: [facility] Start: 12-18-2019 End: 12-18-2019 Subsequent hospital visit by physician [facility]ada [facility] Start: 06-21-2018 Patient encounter procedure Nick Caroaden Bradshaw Facility:[facility] Start: 05-29-2018 Patient encounter procedure NICK BRADSHAW Facility:8 Start: 02-13-2018 Patient encounter procedure NICK BRADSHAW Facility:8 Start: 11-30-2017 Patient encounter WILVER Brooke lity:[facility] Start: 08-01-2017 End: 08-01-2017 Emergency department patient visit NO FAMILY DOCTOR NO FAMILY DOCTOR Facility:[facility] Start: 08-01-2017 Patient encounter procedure Badon Mary AliceDavidmaddie Joness Facility:[id number] Start: 04-07-2017 End: 04-07-2017 Ambulatory [facility] Start: 12-18-2016 Emergency department patient visit Facility:[facility] Procedures Date Procedure Procedure Detail Performing Clinician [...] - Td) DTaP/Tdap/Td vaccine (2 - Td) [place], [place] Start: 09-11-2024 Measurement of respiratory function [facility] Start: 08-15-2022 Patient referral [facility] Work Phone: Start: 07-28-2022 Patient referral [facility] Work Phone: Start: 02-24-2022 Patient referral [facility] Work Phone: Start: 09-16-2021 Patient referral [facility] Work Phone: Start: 05-15-2020 End: 05-15-2020 Office Visit 05/15/2020 Office Visit Weight Management Ryann Lai MD [address] [place] [address] [phone] [facility] Start: 04-01-2020 End: 04-01-2020 Office Visit 04/01/2020 Office Visit Weight Management Ryann Lai MD [address] [place] [address] [phone] [facility] Start: 11-05-2019 Influenza vaccination Flu vaccine (# 1) [place], [place] Start: 2016 Screening for malign ant neoplasm of colon Colon cancer screen colonoscopy [place], [place] Start: 2016 Shingles Vaccine (1 of 2) Shingles Vaccine (1 of 2) [place], [place] Start: 2006 Diabetes screen Diabetes screen [place], [place] Start: 1985 DTaP/Tdap/Td vaccine (1 - Tdap) DTaP/Tdap/Td vaccine (1 - Tdap) [place], [place] Start: 1981 HIV screening HIV screen [place], [place] Start: 1976 Lipid panel Lipid screen [place], [place] Start: 1966 Creatinine measurement Creatinine mo nitoring [place], [place] Start: 1966 Hepatitis C screening Hepatitis C sc reen [place], [place] Start: 1966 Potassium monitoring Potassium monit oring [place] Measurement of respiratory function [facility] Work Phone: Measurement of respiratory function [facility] Patient referral [facility] Work Phone: Walking distance 6 minutes [facility] Walking distance 6 minutes [facility] Immunizations Immunization Date Immunization Notes Care Provider Alice silverman 07-31-2024 zoster vaccine recombinant; Translations: [Shingrix] JANNET CONTRERAS ANATOMIC PATHOLOGIST-BATTERY CHARGER TESTER [facility] 12-21-2021 influenza, injectabl e, quadrivalent, preservative free Roxanne Clark NETWORK SERVICES PROJECT MANAGER-Brisa Work Phone: [facility] 12-21-2021 influenza, seasonal, injectable Dr. Alexandre Don Work Phone: [facility] 06-20-[address] Alexandre Don Work Phone: [facility] 01-26-2021 Covid (Moderna) Dr. Valentina Don Work Phone: [facility] 07-01-2020 Covid (Pfizer) Dr. Alexandre Don Work Phone: [facility] 06-10-2020 Covid (Pfizer) Dr. Alexandre Don Work Phone: [facility] 11-20-2018 influenza virus vacc ine, unspecified formulation [facility] [place] 12-15-2017 influenza virus vacc ine, unspecified formulation [facility] [place] 02-13-2017 Influenza, injectabl e, Madin Tomales Canine Kidney, preservative free, quadrivalent [facility] 01-18-2017 Influenza Vaccine, unspecified formulation [facility] [place] 01-18-2017 influenza virus vacc ine, unspecified formulation [facility] [place] 01-12-2016 influenza virus vacc ine, unspecified formulation [facility] [place] 02-12-2015 tetanus toxoid, redu mya diphtheria toxoid, and acellular pertussis vaccine, adsorbed [facility] 02-11-2015 Influenza Vaccine, unspecified formulation [facility] [place] 02-11-2015 influenza virus vacc ine, unspecified formulation [facility] [place] 02-11-2015 pneumococcal polysaccharide vaccine, 23 valent [facility] Payers Date Payer Category Payer Self-pay [id number] 2023 Unknown [id number] 2023 Medicaid [id number] 2023 Unknown [id number] 2022 Medicaid [id number] 2015 Unknown [id number] 1965 Unknown [id number] 2.16.8 40.1.744624.3.579.2.355 1966 Unknown [id number] 2.16.8 40.1.478039.3.579.2.355 1966 Unknown [id number] 2.16.8 40.1.724918.3.579.2.355 1966 Unknown [id number] 2.16. 840.1.992001.3.579.2.356 1966 Unknown [id number] 2.16. 840.1.428631.3.579.2.356 1966 Unknown [id number] 2.16.8 40.1.974001.3.579.2.627 1966 Unknown [id number] 2.16. 840.1.348122.3.579.2.627 1966 Unknown [id number] 2.16. 840.1.692735.3.579.2.627 1966 Unknown [id number] 2.16. 840.1.232458.3.579.2.627 1966 Unknown [id number] 2.16. 840.1.401604.3.579.2.627 1966 Unknown [id number] 2.16.8 40.1.969159.3.579.2.627 1966 Unknown [id number] 2.16.8 40.1.655259.3.579.2.627 Unknown [id number] 2.16.8 40.1.410497.3.579.2.462 Unknown [id number] 2.16.8 40.1.769525.3.579.2.462 Unknown [id number] 2.16.8 40.1.340961.3.579.2.462 Social History Date Type Detail Facility Start: 12-18-2019 End: 02-26-2020 Tobacco smoking status NHIS Current every day smoker [place], [place] History of tobacco use Cigarette Smoker [place] Start: 12-18-2019 End: 02-26-2020 Cigarettes smoked current (pack per day) - Reported [place], [place] Start: 12-18-2019 End: 02-26-2020 Tobacco use and exposure Never used [facility] DEBORAH HIDALGO Start: 12-18-2019 End: 02-26-2020 Alcohol intake Ex-drinker (finding) [facility] Nawaf HIDALGO Y Sex Assigned At Not on file [facility] DEBORAH HIDALGO Start: 09-16-2021 End: 08-15-2022 Tobacco smoking status NHIS Unknown if ever smoked [facility] Start: 06-07-[address] [facility] Start: 06-07-2020 Spouse/ Signif icant Other [facility] Start: 06-07-[address] [facility] Start: 1965 Sex Assigned At Male W [facility] Tobacco Nicotine Use: Va ping Product in Last 90 Days. Type: Electronic Cigarettes (Vaping). Ready to change: Yes. [facility] Sexual Orientation [facility] Start: 08-29-2018 Sex Male (finding) [facility] Start: 08-15-2022 End: 07-31-2024 Tobacco smoking status Ex-smoker (finding) [facility] Sex Male [facility] Medical Equipment Procedure Code Equipment Code [...] Assessment Result Facility 09-24-2023 Functional Status Independent [facility] 09-24-2023 Functional Status Ambulation in [place], Ambulation in Room [facility] Mental Status Date Assessment Result Facility 09-24-2023 Mental Status Orientation Oriented x 4 [facility] 09-24-2023 [facility] [place] [facility] Clinical Notes 01-30-2020 to 12-30-2024 Note Date & Type Note Facility 12-30-2024 Note HNO ID: [id number] Author: ANNIE LEWIS MD Service: ? Author [...] Sebaceous, hx/infection Diverticulitis Duodenal ulcer Dr. 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 Salmeron (Neurology) Tobacco use [...] Take 1 capsule by mouth once daily. holseuss-fgw-OF-lycopen-lutein (CENTRUM SILVER MEN) 300-600-300 mcg tab Take [...] was dictated, that are not fully corrected. [facility] 10-14-2024 Note Discharge Instructions Thank you for [...] JANNET CONTRERAS When:Within 2-4 days Where:[address] [facility] [place] [address]- [phone] Follow Up with Go to emergency room [...] may report side effects to FDA at [phone]-KUN-8515. What other drugs will affect prednisone? Sometimes [...] may affect prednisone. This includes prescription and muds-eui-zeojgga medicines, vitamins, and herbal products. Not all [...] to ensure that the information provided by [employer]. ('Multum') is accurate, up-to-date, and complete, but no guarantee is made to that effect. Drug information contained herein may be time sensitive. Knovel information has been compiled for use by healthcare practitioners and consumers in the [place] and therefore Knovel does not warrant that uses outside of the [place] are appropriate, unless specifically indicated otherwise. Knovel's drug information does not endorse drugs, diagnose patients or recommend therapy. Corimmuns drug information is an informational resource designed [...] effective or appropriate for any given patient. Knovel does not assume any responsibility for any aspect of healthcare administered with the aid of information Knovel provides. The information contained herein is not intended to cover all possible uses, directions, precautions, warnings, drug interactions, allergic reactions, or adverse effects. If you have questions about the drugs you are taking, check with your doctor, nurse or pharmacist. Copyright 8601-2536 [employer]. Version: 10.. Revision Date: 05/31/2018. albuterol inhalation [...] may report side effects to FDA at [phone]-LYM-9847. What other drugs will affect albuterol inhalation? [...] may affect albuterol inhalation, including prescription and qyuz-dmz-agjuqcg medicines, vitamins, and herbal products. Not all [...] to ensure that the information provided by [employer]. ('Multum') is accurate, up-to-date, and complete, but no guarantee is made to that effect. Drug information contained herein may be time sensitive. Knovel information has been compiled for use by healthcare practitioners and consumers in the [place] and therefore Knovel does not warrant that uses outside of the [place] are appropriate, unless specifically indicated otherwise. Corimmuns drug information does not endorse drugs, diagnose patients or recommend therapy. Corimmuns drug information is an informational resource designed [...] effective or appropriate for any given patient. Knovel does not assume any responsibility for any aspect of healthcare administered with the aid of information Knovel provides. The information contained herein is not intended to cover all possible uses, directions, precautions, warnings, drug interactions, allergic reactions, or adverse effects. If you have questions about the drugs you are taking, check with your doctor, nurse or pharmacist. Copyright 2858-0154 [employer]. Version: .. Revision Date: 10/16/2023. Education Materials [...] your ankles gets worse Dizziness or weakness 6891-1472 [employer]. [address] [place] [address]. All rights reserved. This information is not intended as a substitute for professional medical care. Always follow your healthcare professional's instructions. Additional Information VACCINATE! IT SAVES LIVES! Members of the community who have not yet received the COVID-19 vaccine and would like to receive it can visit one of [facility] vaccine clinics. There are many vaccine clinic locations within the [facility]. For locations and available times, please visit [email or web address] [email or web address] It is important to note that some COVID mobile vaccine clinics are held outdoors and may be canceled in rainy or stormy conditions. To learn more about pediatric vaccinations (ages 5-11), we invite you to visit the [facility] webpage. [email or web address]://www.[email or web address].org/p ages/5980-Svhce-Roqlzkljmnu-Freq vglpal-Wwovm-Enhinyrdj.html To learn more about the COVID-19 vaccine, we invite you to visit the CDC website for a list of frequently asked questions. https://www.cdc.gov/coronavirus/ 2019-ncov/vaccines/faq.html [facility] Patient Portal Access Instructions: Stay connected with your healthcare team and access your personal medical information anytime with the [facility]OP[facility]COM[facility] Patient Portal. If you would like a full copy of your medical records please contact the [facility] Medical Records Department Monday through Monday between 8a.m. and 4:30p.m. Please follow the directions below to access the portal: 1.Access the email account you provided upon registration to the [facility].2.Look for an invitation email from [facility].3.Open the email and access the invitation link: Accept Invitation to [facility]4.Fill in the required moreno to create your account. Sign into www.[employer] with your username and password that you [...] you will allow to register on the App[employer]able Patient Portal for access to your information. You can also access the [facility] Patient Portal on the [employer]. Simply click on Health Records under Health Data and then click on the PingMe logo. HOW TO SAFELY DISPOSE OF PRESCRIPTION [...] Call your local pharmacy or go to http://[email or web address].[email or web address] to find one close to you.3.Make use of household items: Use cat litter or old coffee grounds to dispose medications if other options are not available. Mix your drugs with these household products, seal them in an airtight container and throw it into the garbage. Call [facility]: [phone] to be sure your drugs can be [...] aware that I should contact my doctor. 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 [address] [place] [address]. All rights reserved. This information is not intended as a substitute for professional medical care. Always follow your healthcare professional's instructions. Follow Up Care 10/14/2024 09:07:58 With:JANNET CONTRERAS ANATOMIC PATHOLOGIST-BATTERY CHARGER TESTER Address: [address] [place] [address] [place] [address]- [phone] When:2-4 days With:Go to emergency room if symptoms worsen Address:Unknown When:2-4 days [facility] 10-14-2024 Note Exam Date Time Procedure Performing Provider Status 10/14/24 10:58 AM XR Chest 1 View NICKY SUTTON MD; [facility] (Verified) [id number] ORIGINAL EXAMINATION: ONE XRAY VIEW OF THE [...] 11:22:24 AM Ordering Provider: JANNET MEHTA [facility]07-21-2025 Evaluation + Plan noteExtracted from: Title:Clinical Document Author:ZINA ESTEVES ate:09/23/24 [facility] ADMISSION HISTORY AN D PHYSICIAL CHIEF COMPLAINT: Colorectal cancer screening HISTORY OF PRESENT ILLNESS: Personal history of colon polyps REVIEW OF SYSTEMS: Constitutional: denies weight loss Cardiovascular:denies chest pain, palpitations Respiratory:denies shortness of breath Gastrointestinal:no abd pain Musculoskeletal: no arthralgias Skin: no rashes ACTIVE PROBLEMS: (15) Anxiety (22236450) BMI 35.0-35.9,adult (393784670) Colon cancer screening (349451640) COPD without exacerbation (758095456) Depression (31163467) Former smoker (62886876) GERD (gastroesophageal reflux disease) (421772154) Hyperlipidemia (05802118) Hypertension (0131101627) Knee pain, chronic, left (77450396) Pneumothorax (62338511) Screening for lung cancer (234925455) Screening for prostate cancer (027590584) Type 2 diabetes mellitus (414737939) Wellness examination (093034553) MEDICATIONS: Active Inpt Meds: None Active PRN [...] Appointment Date:01/29/2025 11:30:00 AM Scheduled Provider:JANNET CONTRERAS Location:[facility] Appointment Type: OV Future Scheduled Tests Laboratory* A1C Hemoglobin 01/31/25 * Lipid Profile 01/31/25 * Albumin/Creatinine Ratio, Random Urine 01/31/25 * Albumin/Creatinine Ratio, Random Urine 08/06/24 * Albumin/Creatinine Ratio, Random Urine 02/26/24 * Complete Metabolic Panel 01/31/25 [facility] 07-21-2025 Hospital Discharge instructions Patient Education [...] until you are awake and alert. Take vcxt-tyf-yguqicj and prescription medicines only as told by [...] 12/11/2013 Document Revised: 02/02/2018 Document Reviewed: 06/11/2016 Fl[employer] Stone Patient Education 2020 [employer]. Follow Up Care 09/12/2024 08:57:55 With:JANNET CONTRERAS Address: [address] [place] [address]- [phone] When: Unknown [facility] 07-21-2025 Summary of episode note Discharge Instructions Thank you for allowing [facility] to assist you with your healthcare needs. The following is importantdischarge information regarding your hospital visit. Your Care Team JANNET CONTRERAS What to do next Instructions From Your Doctor Colonoscopy in the next 3 months with modified prep Scheduled Follow-Up Appointments Appointment Type When With Where Contact Information StatusPC OV 01/29/2025 11:30 AM EST JANNET CONTRERAS [facility] Confirmed Follow Up Appointments Follow Up with JANNET CONTRERAS Where:[address] [place] [address] [phone] The Following Activity and Diet Have Been [...] until you are awake and alert. Take vqye-egd-atgpbnz and prescription medicines only as told by [...] 12/11/2013 Document Revised: 02/02/2018 Document Reviewed: 06/11/2016 Fl[employer] Stone Patient Education 2020 [employer]. Additional Information VACCINATE! IT SAVES LIVES! Members of the community who have not yet received the COVID-19 vaccine and would like to receive it can visit one of [facility] vaccine clinics. There are many vaccine clinic locations within the [facility]. For locations and available times, please visit [email or web address] It is important to note that some COVID mobile vaccine clinics are held outdoors and may be canceled in rainy or stormy conditions. To learn more about pediatric vaccinations (ages 5-11), we invite you to visit the [facility] webpage. https://www.[email or web address].org/pages/8461-Tiglz-Homimrbrypq-Hoffidvegg-Jvgdh-Ict stions.htmlTo learn more about the COVID-19 vaccine, we invite you to visit the CDC website for a list of frequently asked questions.https://www.cdc.gov/coronavirus/2019-ncov/vaccines/faq.html [facility] Patient Portal Access Instructions: Stay connected with your healthcare team and access your personal medical information anytime with the [facility] Patient Portal. Please follow the directions below to create your [facility] account: 1.Access the email account you provided upon registration to the hospital/physician office.2.Look for an invitation email from [facility].3.Open the email and access the invitation link: AcceptInvitation to [employer].4.Fill in the required moreno to create your account. To access your account, visit [email or web address] State Propulsiont. Click the blue button labeled Access Patient Portal and then log in with the username and password that you created in the steps above. You will be able to view your test results, lab results, a summary of your visits, upcoming appointments and more. There is also a convenient messaging option where you can send secure messages to your p Trakavider. In addition, you will have the ability to download any documents or summaries to your computer and/or send the information securely to a physician. Remember that your healthcare information is confidential, so carefully consider who you will allowto register on the [facility] Patient Portal for access to your information. You can also access the [facility] Patient Portal on the [facility] sapna. Simply click on Patient Portal and then log into your account. If you would like to receive a full copy of your medical records, please contact the [facility] Medical Records Department by calling [phone], Monday through Monday between 8 a.m. and [...] Call your local pharmacy or go to http://bit.ly/3U5Dk1s to find one close to you.3.Make use of household items: Use cat litter or old coffee grounds to dispose medications if other options arenot available. Mix your drugs with these household products, seal them in an airtight container andthrow it into the garbage. Call [facility]: [phone] to be sure your drugs can be [...] aware that I should contact my doctor. 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: Date/Time: Relationship to Patient: Witness Name/Signature: Date/Time: [facility]07-21-2025 Note Indication for Surgery Personal history of [...] ZINA ESTEVES DO on 09/23/2024 07:49 AM [facility]07-21-2025 Anesthesiology Consult note Patient: MARLINE KHAN Age: 59 years Sex: Male : 1965 Associated Diagnoses: None Author: ABDON KURTZ ANATOMIC PATHOLOGIST-PLUMBER ASSISTANT Assessment Postanesthesia assessment Vitals: Vital signs from [...] by ABDON KURTZ on 09/23/2024 07:49 AM [facility]07-21-2025 Anesthesiology Consult note Patient: MARLINE KHAN Age: [...] Problem list: Medical Anxiety / SNOMED CT 36087407 / Confirmed BMI 35.0-35.9,adult / SNOMED CT 079748193 / Confirmed COPD without exacerbation / SNOMED CT 644122476 / Confirmed Depression / SNOMED CT 62564718 / Confirmed Former smoker / SNOMED CT 22518421 / Confirmed GERD (gastroesophageal reflux disease) / SNOMED CT 279175594 / Confirmed Hyperlipidemia / SNOMED CT 43047053 / Confirmed Hypertension / SNOMED CT 3247108038 / Confirmed Knee pain, chronic, left / SNOMED CT 08034627 / Confirmed Screening for prostate cancer / SNOMED CT 168969059 / Confirmed Wellness examination / SNOMED CT 616658391 / Confirmed Colon cancer screening / SNOMED CT 449582848 / Confirmed Screening for lung cancer / SNOMED CT 523888036 / Confirmed Pneumothorax / SNOMED CT 01610223 / Confirmed Type 2 diabetes mellitus / SNOMED CT 133941633 / Confirmed, Active Problems (15) Anxiety BMI 35.0-35.9,adult Colon cancer screening COPD without exacerbation Depression Former smoker GERD (gastroesophageal reflux disease) Hyperlipidemia Hypertension Knee pain, chronic, left Pneumothorax Screening for lung cancer Screening for prostate cancer Type 2 diabetes mellitus Wellness examination Histories Past Medical History: Active Pneumothorax (58306110) Knee pain, chronic, left (60627807) Family History: Diabetes mellitus Sister Procedure history: Jaw (surface region) (392833003). Comments: 09/22/2016 9:07 KAYLIE CARRILLO wired for fx Chest (76096506). Comments: 09/22/2016 9:09 KAYLIE CARRILLO chest tube for pneumo Colonoscopy (735878856). Social History: Social & Psychosocial Habits Alcohol [...] mmHg Diastolic Blood Pressure Non-Invasive 91 mmHg RI Vital Signs (last 24 hrs) Last Charted Temp Tafntsqi24.5 DegC (SEP 23 07:07) Heart Rate Enlihm08 bpm (SEP 23 07:07) VOC550 mmHg (SEP 23 07:07) DBPH 91 mmHg (SEP 23 07:07) BMI37.35 (SEP 23 07:07) Measurements from flowsheet : Measurements 09/23/2024 7:07 EDT Height 188 cm Admission Weight 132 kg [place] Body Weight 82.24 kg BSA Admission 2.55 [...] Surgeon SN - CAt - Role Performed Shot Core Drill Operator Helper 1 SN - CAt - Role Performed PLUMBER ASSISTANT SN - CAt - Role Performed Advertising Manager 09/23/2024 7:19 EDT Continuous IV Infusions ns [...] Allergies No Anesthesia Extension Set Applied Yes Dietary Services Manager On Yes Colon Prep Results Excellent Consent [...] Person #1 We May Share PHI Juan SHARPE Designated Person #1 Relationship Significant other Height 188 cm Admission Weight 132 kg [place] Body Weight 82.24 kg BSA Admission 2.55 [...] evident Teaching Method Explanation Preferred Spoken Language Arabic Preferred Written Language Arabic Patient's Current Physicians DFP Discharge To, Anticipated Home independently Prev Test Positive/Diagnosis w/COVID-19 No Current Quarantine/Isolated any Illness No Any Contact with Sick Animals/Birds No Traveled Anywhere in Last 30 Days Yes Travel Where Within [facility] State(s) GEOPHYSICAL PROSPECTING PERMIT AGENT N/A Personal Devices, Patient Valuables None Admission Note-Nursing Procedure/Therapy Intake 09/23/2024 7:06 T [place] History and Physical . Assessment and Plan [place] Society of Anesthesiologists (ASA) physical status classification: Class III. Anesthetic Preoperative Plan Anesthetic technique: MAC. Informed consent: signed by patient. Digitally Signed by ABDON KURTZ on 09/23/2024 07:48 AM [facility]07-21-2025 Note [facility] ADMISSION HISTORY AND PHYSICIAL CHIEF COMPLAINT: Colorectal cancer screening HISTORY OF PRESENT ILLNESS: Personal history of colon polyps REVIEW OF SYSTEMS: Constitutional: denies weight loss Cardiovascular:denies chest pain, palpitations Respiratory:denies shortness of breath Gastrointestinal:no abd pain Musculoskeletal: no arthralgias Skin: no rashes ACTIVE PROBLEMS: (15) Anxiety (32943094) BMI 35.0-35.9,adult (186034024) Colon cancer screening (708139204) COPD without exacerbation (291588119) Depression (11614295) Former smoker (00124349) GERD (gastroesophageal reflux disease) (523491037) Hyperlipidemia (53720763) Hypertension (8766323248) Knee pain, chronic, left (75471004) Pneumothorax (51925215) Screening for lung cancer (165288998) Screening for prostate cancer (720139218) Type 2 diabetes mellitus (372393532) Wellness examination (443169446) MEDICATIONS: Active Inpt Meds: None Active PRN [...] ZINA ESTEVES DO on 09/23/2024 07:07 AM [facility]07-02-2025 Evaluation note* Diagnosis Onset Date Resolution Status Admit Date COPD (chronic obstructive pulmonary disease) chronic September 04 10:55am Nicotine dependence in remission chr onic September 04, 2024 10:55am [facility] Work Phone: 1(402) 577-114907-21-2024 Hospital Discharge instructions Patient Education 09/24/2023 09:35:12 [...] around the eyes Lethargy or excessive sleepiness 3337-9204 [employer]. [address] [place] [address], [place] [address]. All rights reserved. This information is not intended as a substitute for professional medical care. Always follow [facility] hospital[facility] professional's instructions. 09/24/2023 09:34:26 Facial Fracture Facial [...] directly on the skin. You may use mxyl-yae-ixriczo pain medicine to control pain, unless another [...] in behavior or speech Convulsion, or seizure 0135-0111 [employer]. [address] [place] [address], [place] [address]. All rights reserved. This information is not [...] thin towel or cloth. You may use lrpk-onh-vrjdqbq pain medicine (NSAIDS or nonsteroidal anti- inflammatory [...] or is irritated You re-injure your ankle [phone] [employer]. [address] [place] [address]. All rights reserved. This information is not intended as a substitute for professional medical care. Always follow yourhealthcare professional's instructions. Follow Up Care 09/24/2023 07:53:27 With:[facility] [phone] Address:Unknown When:3-7 days Comments:regarding R ankle sprain, if needed With:[facility] Address: [address] [place] [phone] Business (1) When:3-7 days Comments:regarding orbital blowout fracture With:ROXANNE CLARK Address: [address] [place] [phone] [facility] (1) When:2-4 days [facility] 07-21-2024 Note Discharge Instructions Thank you for allowing [facility] to assist you with your healthcare needs. The following is importantdischarge information regarding your hospital visit. Diagnosis from Today's Visit Closed blow-out fracture of left orbital floor Head injury Sprain of right ankle What to Do Next Instructions from Your Care Team No qualifying data available. Post Acute Orders No qualifying data available. You Need to Schedule the Following Appointments Follow Up with [place] [phone] When:Within 3-7 days Additional Information: regarding R ankle sprain, if needed Follow Up with [facility] When:Within 3-7 days Where:[address] [place] [phone] Business (1) Additional Information: regarding orbital blowout fracture Follow Up with ROXANNE CLARK When:Within 2-4 days Where:[address] [place] [address] [place] [address] [phone] Business (1) Allergies NKA Medications Please ask [...] around the eyes Lethargy or excessive sleepiness [phone] [employer]. [address] [place] [address]. All rights reserved. This information is not [...] directly on the skin. You may use bwtx-hhx-hxygjoc pain medicine to control pain, unless another [...] in behavior or speech Convulsion, or seizure 0315-[address] [employer] [place] [address]. All rights reserved. This information is not [...] thin towel or cloth. You may use fgqt-luo-kolpisa pain medicine (NSAIDS or nonsteroidal anti- inflammatory [...] or is irritated You re-injure your ankle [phone] [employer]. [address] [place] [address]. All rights reserved. This information is not intended as a substitute for professional medical care. Always follow yourhealthcare professional's instructions. Additional Information VACCINATE! IT SAVES LIVES! Members of the community who have not yet received the COVID-19 vaccine and would like to receive it can visit one of [facility] vaccine clinics. There are many vaccine clinic locations within the [facility]. For locations and available times, please visit [email or web address]/. It is important to note that some COVID mobile vaccine clinics are held outdoors and may be canceled in rainy or stormy conditions. To learn more about pediatric vaccinations (ages 5-11), we invite you to visit the [facility] webpage. https://www.[email or web address].org/pages/4589-Fanjj-Lqxobfvkioa-Gtenzhnqvv-Vgnkl-Oks stions.htmlTo learn more about the COVID-19 vaccine, we invite you to visit the CDC website for a list of frequently asked questions. https://www.cdc.gov/coronavirus/2019-ncov/vaccines/faq.html [facility] Patient Portal Access Instructions: Stay connected with your healthcare team and access your personal medical information anytime with the [employer] Patient Portal. If you would like a full copy of your medical records please contact the [facility] Medical Records Department Monday through Monday between 8a.m. and 4:30p.m. Please follow the directions below to access the portal: 1.Access the email account you provided upon registration to the [facility].2.Look for an invitation email from [facility].3.Open the email and access the invitation link: Accept Invitation to [employer]4.Fill in the required moreno to create your account. Sign into www.[employer] with your username and password that you [...] you will allow to register on the [employer] Patient Portal for access to your information. You can also access the [employer] Patient Portal on the [email or web address] sapna. Simply click on Health Records under [employer] and then click on the [employer] logo. HOW TO SAFELY DISPOSE OF PRESCRIPTION [...] Call your local pharmacy or go to http://bit.ly/6F4Jr9q to find one close to you.3.Make use of household items: Use cat litter or old coffee grounds to dispose medications if other options arenot available. Mix your drugs with these household products, seal them in an airtight container andthrow it into the garbage. Call [facility]: [phone] to be sure your drugs can be [...] aware that I should contact my doctor. 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: Date/Time: Relationship to Patient: Witness Name/Signature: Date/Time: [facility]07-21-2024 Note ORIGINAL EXAMINATION: CT OF THE FACE [...] Sign Date: 09/24/2023 8:50:47 AM Ordering Provider: [facility]07-21-2024 Note ORIGINAL EXAMINATION: CT OF THE HEAD [...] Sign Date: 09/24/2023 8:45:37 AM Ordering Provider: [facility]07-21-2024 Note ORIGINAL EXAMINATION: THREE XRAY VIEWS OF [...] Sign Date: 09/24/2023 8:51:21 AM Ordering Provider: [facility]11-26-2020 Evaluation + Plan note Future Appointments Appointment Date:09/11/2024 02:00:00 PM Scheduled Provider: Location:[facility] Appointment Type:GI OV Consult Appointment Date:01/29/2025 11:30:00 AM Scheduled Provider:JANNET CONTRERAS Location:[facility] Appointment Type:PC OV Future Scheduled Tests Laboratory* A1C Hemoglobin 01/31/25 * Lipid Profile 01/31/25 * Albumin/Creatinine Ratio, Random Urine 01/31/25 * Albumin/Creatinine Ratio, Random Urine 08/06/24 * Albumin/Creatinine Ratio, Random Urine 02/26/24 * Complete Metabolic Panel 01/31/25 [facility] Evaluation + Plan note No data available for this section [facility] Evaluation + Plan note Future Appointments Appointment Date:04/29/2024 10:00:00 AM Scheduled Provider:JANNET CONTRERAS Location:[facility] Appointment Type:PC OV Future Scheduled Tests Laboratory* Albumin/Creatinine Ratio, Random Urine 02/26/24 [facility] Evaluation + Plan note Future Appointments Appointment Date:07/31/2024 03:00:00 PM Scheduled Provider:JANNET CONTRERAS Location:[facility] Appointment Type:PC Wellness Annual Future Scheduled Tests Laboratory* Albumin/Creatinine Ratio, Random Urine 08/06/24 * Albumin/Creatinine Ratio, Random Urine 02/26/24 [facility] Evaluation + Plan note Future Appointments Appointment Date:01/29/2025 11:30:00 AM Scheduled Provider:JANNET CONTRERAS Location:[facility] Appointment Type:PC OV Future Scheduled Tests Laboratory* A1C Hemoglobin 01/31/25 * Lipid Profile 01/31/25 * Albumin/Creatinine Ratio, Random Urine 01/31/25 * Albumin/Creatinine Ratio, Random Urine 08/06/24 * Albumin/Creatinine Ratio, Random Urine 02/26/24 * Complete Metabolic Panel 01/31/25 [facility] Evaluation note* Diagnosis Onset Date Resolution Status Anxiety and depression chron ic Hypertension chronic Type 2 diabetes mellitus chr onic Anxiety and depression chron ic Hypertension chronic Type 2 diabetes mellitus chr onic [facility] Work Phone: Evaluation note* Diagnosis Onset Date Resolution Status Hypertension chronic Type 2 diabetes mellitus chr onic Tobacco use noneactive [facility] Work Phone: Evaluation note* Diagnosis Onset Date Resolution Status Hypertension chronic Type 2 diabetes mellitus chr onic Bilateral primary osteoarthritis of knee acute COPD (chronic obstructive pulmonary disease) chronic Bilateral primary osteoarthritis of knee acute [facility] Work Phone: Evaluation note* Diagnosis Onset Date Resolution Status Admit Date COPD (chronic obstructive pulmonary disease) chronic September 04 10:55am [facility] Work Phone: Hospital Discharge instructionsAmbulatory Orders* Podiatry Location: None Selected [facility] Work Phone: Hospital Discharge instructions No data available for this section [facility] Progress note No data available for this section [facility] Reason for referral (narrative)No reason for referral [facility]: Summary Purpose Family History No Family History Records Found Relationship Condition Age at Onset Recorded Date/T tao father Diabetes mellitus Unknown Alcohol abuse Unknown Hypertension Unknown sister Diabetes mellitus Unknown Advance Directives No Advanced Directives Records FoundDocuments on File Type Date Recorded Patient Lining Mechanic Expl anation ACP-Advance Directive ACP-Power of Under Ground Miner Advance Directive Response Recorded Date/ Time Living Will No June 07, 2020 3:15pm Power of Under Ground Miner No June 07 3:15pm Chief Complaint and [...] section and content) DATE CREATED AUTHOR 08/28/2017 [facility] DATE CREATED AUTHOR AUTHOR'S ORGANIZ ATION 08/29/2017 [facility] DATE CREATED AUTHOR AUTHOR'S ORGANIZ ATION 12/14/2017 [facility] DATE CREATED AUTHOR AUTHOR'S ORGANIZ ATION 12/30/2017 [facility] DATE CREATED AUTHOR AUTHOR'S ORGANIZ ATION 06/09/2018 [facility] DATE CREATED AUTHOR AUTHOR'S ORGANIZ ATION 07/10/2018 [facility] DATE CREATED AUTHOR AUTHOR'S ORGANIZ ATION 07/20/2019 [employer] DATE CREATED AUTHOR AUTHOR'S ORGANIZ ATION 04/02/2020 [facility] DATE CREATED AUTHOR AUTHOR'S ORGANIZ ATION 07/13/2020 [facility] DATE CREATED AUTHOR AUTHOR'S ORGANIZ ATION 09/26/2023 [facility] ([place]) DATE CREATED AUTHOR AUTHOR'S ORGANIZ ATION 12/09/2024 [facility] DATE CREATED AUTHOR AUTHOR'S ORGANIZ ATION 12/31/2024 [facility] DATE CREATED AUTHOR AUTHOR'S ORGANIZ ATION 01/10/2025 [facility] Goals (unrecognized section and content) Goals [...] Refer ring Provider Active Roxanne Clark NP, NETWORK SERVICES PROJECT MANAGER-C Attending Provider Active Team Status: Active Member Role Status Dates Dr. Alexandre Don MD Primary Care Provider Active LUKE Goins Referring Provider, Other Provide r Active Dr. Washington Addison MD Attending Provider Active Team Status: Inactive Member Role Status Dates Dr. Alexandre Dno MD Primary Care Provider, Refer ring Provider [...] MD Family Provider Active Roxanne Clark VSC, NETWORK SERVICES PROJECT MANAGER-C Primary Care Provider Active Team Status: Inactive Member Role/Relationship Status Dates Roxanne Clark VSC, NETWORK SERVICES PROJECT MANAGER-C Primary Care Provider Active Start: September 04, 2024 End: September 04, 2024 Roxanne COREYC, NETWORK SERVICES PROJECT MANAGER-C Referring Provider Active S tart: September 04, 2024 End: September 04, 2024 Dr. Juliocesar Quinones DO Attending Provider Active S tart: September 04, 2024 End: September 04, 2024 Team Status: Active Member Role/Relationship Status Dates JANNET CONTRERAS NP-Brisa Primary care physician Active Team Status: Inactive Member Role/Relationship Status Dates Roxanne Clark VSC, NETWORK SERVICES PROJECT MANAGER-C Primary care physician Active Start: September 04, 2024 End: September 04, 2024 Roxanne Clark VSC, NETWORK SERVICES PROJECT MANAGER-C Referring Provider Active S tart: September 04, [...] BE BASED ON THE PRIMARY CLINICAL RECORDS. [facility] [employer] [facility]. provides no warranty or guarantee of the accuracy or completeness of information in this document.
--- NOTE | 2025-01-18 16:13 | ED.RN ---
ATTEMPTED TO CALL REPORT TO ICU NO NURSE AVAILABLE AT THIS TIME.
--- NOTE | 2025-01-18 16:53 | ED.RN ---
1635: REPORT CALLED TO ICU NURSE BLADIMIR AT THIS TIME. NO FURTHER QUESTIONS BY THE RECEIVING NURSE
[2025-01-18 17:05] LABS: Glucose 513 mg/dL (70-99)
[2025-01-18] MEDS: Insulin Lispro 100 UNIT in 0.9% Normal Saline (100mL Bag) 99 ML 13.2 UNIT CONT INF (17:20)
[2025-01-18] MEDS: Insulin Glargine-YFGN 100 UNIT/ML Pen 10 UNIT SC (19:42)
[2025-01-18] MEDS: Albuterol 2.5 MG/3 ML VIAL.NEB. INHALATION (20:07)
[2025-01-18] MEDS: Budesonide Respules 0.5 MG/2 ML AMPUL.NEB. INHALATION (20:08)
[2025-01-18 21:20] LABS: Anion Gap 11 (5-15); BUN 30 mg/dL (4-19); BUN/Creat Ratio 32.4 RATIO (10-20); Calcium,Total 10.0 mg/dL (7.6-11.0); Carbon Dioxide 25.9 mmol/L (21.0-32.0); Chloride 100 mmol/L (98-108); Estimated Creatinine Clearance 125.44 ml/min (50-250); Glucose 215 mg/dL (70-99); Potassium 4.0 mmol/L (3.3-5.1)
[2025-01-18] MEDS: buPROPion (SR) 150 MG Tablet.SA PO (21:46)
[2025-01-18] MEDS: 0.9% Saline Lock 10 ML Syringe IV (21:47)
[2025-01-19] VITALS (12 sets, daily range): BP systolic 102–145; BP diastolic 71–86; PULSE 75–96; RESP 12–19; TEMP 36.4–36.7; O2SAT 91–100; BMI 36.3
[2025-01-19 05:59] LABS: Hematocrit 44.6 % (40-54); Hemoglobin 15.5 g/dL (13.0-16.5); Immature Granulocytes Count 0.080 X10^3/uL (0.0-0.0); Mean Corp Hgb Conc 34.8 g/dL (32-36); Mean Corpuscular Volume 80.9 fL (80-94); Mean Platelet Vol. 11.0 fl (6.2-12.0); NRBC Flagged by Analyzer 0 % (0-5); Platelet Count 212 K/mm3 (150-450); RBC Distribution Width CV 12.8 % (11.6-14.6); RBC Distribution Width SD 37.2 fl (35.1-43.9); Red Blood Count 5.51 M/mm3 (4.6-6.2); White Blood Count 9.1 K/mm3 (4.4-11.0)
[2025-01-19 06:30] LABS: Anion Gap 11 (5-15); BUN 26 mg/dL (4-19); BUN/Creat Ratio 30.1 RATIO (10-20); Calcium,Total 9.4 mg/dL (7.6-11.0); Carbon Dioxide 25.6 mmol/L (21.0-32.0); Chloride 100 mmol/L (98-108); Estimated Creatinine Clearance 139.05 ml/min (50-250); Glucose 282 mg/dL (70-99); Potassium 4.3 mmol/L (3.3-5.1)
[2025-01-19] MEDS: Aspirin E.C. 81 MG Tablet PO (08:39)
[2025-01-19] MEDS: buPROPion (SR) 150 MG Tablet.SA PO (08:40)
[2025-01-19] MEDS: FLU VACCINE 2025-26(6MOS UP) 45 MCG/0.5 ML SYRINGE IM (08:58)
[2025-01-19] MEDS: Albuterol 2.5 MG/3 ML VIAL.NEB. INHALATION (09:52)
[2025-01-19] MEDS: Budesonide Respules 0.5 MG/2 ML AMPUL.NEB. INHALATION (09:52)
--- NOTE | 2025-01-19 11:25 | DS.PCM_ITS ---
Providers Date of Admission: 01/18/25 Date of Discharge: 01/19/25 Primary Care Physician: Dr. David Carmichael MD Reason For Visit: HHS Diagnosis Discharge Diagnosis (1) Hyponatremia: Status: Acute Code(s): E87.1 - Hypo-osmolality and hyponatremia (2) Dehydration: Status: Acute Code(s): E86.0 - Dehydration (3) Hyperglycemia: Status: Acute Code(s): R73.9 - Hyperglycemia, unspecified (4) Hyperkalemia: Status: Acute Code(s): E87.5 - Hyperkalemia Plan #Acute hyperglycemia in a known type II diabetic with concern for HHS. * Patient's blood sugar is 827. Anion gap is 15 and bicarb is 21. He is therefore not in DKA. * Patient admitted with a complaint of nausea and increased thirst and frequency of urination. He does appear to be going into HHS. * Will check A1c. He is on dulaglutide shot weekly as well as metformin. * Admit to ICU. Hydrate aggressively with IV fluids and give insulin drip for HHS * Monitor BMP every 4 hourly. Once blood sugars are less than 250 will switch to long-acting insulin. * Replace electrolytes as per protocol. #Hyponatremia: There is likely pseudo hypohyponatremia in light of the HHS. Should improve as blood sugars improve. #Hyperkalemia: Potassium is 5.6 though sample was hemolyzed. Will recheck and monitor. #History of COPD: Not in exacerbation. On breathing treatments bronchodilators. #GERD: On PPI #Hypertension: On losartan. #Depression: On bupropion and duloxetine #BPH: on flomax #Hyperlipidemia: on statin DVT prophylaxis: heparin Code status:full code * Patient counseled extensively about different types of CODE STATUS including full code, DNR CCA and DNR CCA. * Patient elects to be full code. * Total stpr-vb-[id number] time 16 minutes. Medications at Discharge Home Medications aspirin 81 mg tablet,delayed release (Yohan Low Dose Aspirin) 81 mg PO QDAY 08/22/17 blood sugar diagnostic (FreeStyle Lite Strips) #100 ea 04/28/20 cane #1 ea 04/28/20 Onetouch verio flex strips #200 ea 06/24/20 tamsulosin 0.4 mg capsule (Flomax) 0.4 mg PO QHS #90 caps 10/01/20 lancets 28 gauge (FreeStyle Lancets) #200 ea 06/08/21 lancets 33 gauge (OneTouch Delica Lancets) #200 ea 06/08/21 pen needle, diabetic 32 gauge x #200 ea 09/16/21 rosuvastatin 20 mg tablet 20 mg PO DAILY #90 tabs 09/16/21 losartan 50 mg tablet See Rx Instructions .Route .COMPLEX #90 tabs 02/22/22 omeprazole 20 mg capsule,delayed release See Rx Instructions .Route .COMPLEX #90 caps 08/04/22 metformin 1,000 mg tablet 1,000 mg PO BID #180 tabs 08/15/22 bupropion HCl 150 mg tablet,12 hr sustained-release 150 mg PO BID #180 TABLETS 08/16/22 dulaglutide 1.5 mg/0.5 mL subcutaneous pen injector 1.5 mg (0.5 mL) subcut QWEEK #2 mL 08/19/22 duloxetine 60 mg capsule,delayed release 60 mg PO QDAY 09/04/24 hydroxyzine HCl 50 mg tablet 50 mg PO QDAY PRN anxiety 09/04/24 budesonide-formoterol HFA 160 mcg-4.5 mcg/actuation aerosol inhaler (Symbicort) 2 puff inhalation BID 01/18/25 insulin aspart U-100 100 unit/mL (3 mL) subcutaneous pen 10 unit (0.1 mL) subcut TID #15 mL 01/19/25 insulin glargine 100 unit/mL (3 mL) subcutaneous pen (Lantus Solostar U-100 Insulin) 10 unit (0.1 mL) subcut BID #15 mL 01/19/25 Hospital Course Operations None Procedures None Summary of Care Provided Minutes Spent on Discharge: 44 Hospital Course: MARLINE HKAN, is a 59 M with a PMH as outlined who was admitted via the ED on 01/18/2025 with a complaint of generalised weakness, increased thirst and urination for 2 months prior to admission. HE is on metformin and says he also gets Trulicity once a week. He admits to frequency of urination and increased forgetfulness. He denied any fever, chills, nausea, vomiting or any other symptoms. He said he used to be on insulin but was taken off of it by his previous doctor and placed on the dulaglutide. He used to be on Mounjaro previously but that was switched to dulaglutide and he states he has been taking weekly short. He is also on metformin which he says he has been compliant with. Review of systems is otherwise negative. Vitals in the ED were blood pressure 132/77, pulse rate of 103, respiratory rate of 22 and temperature of 98.1 Fahrenheit. He was saturating at 96% on room air. CBC showed hemoglobin of 16 with WBC of 9.7 and platelets of 219. Chemistry showed sodium of 125 with potassium of 5.5 and bicarb of 21.6. Anion gap is 15. Creatinine is 1.21. He was admitted to be managed for hyperglycemia with concerns for HHS in the setting of known type 2 diabetes mellitus. He was placed on insulin drip. His blood sugars trended downwards and he was placed on subcu Lantus 10 units twice daily. His A1c came back elevated at 11.6. He was therefore counseled that he would need long-acting insulin. He was therefore discharged on 01/19/2025 on subcu Lantus 10 units twice daily and subcu insulin lispro 10 units 3 times daily. He was given a prescription for pens and pen needles and strips and alcohol wipes also. He was also given a prescription for glucometer. He is to follow-up with his primary care doctor within 1 week and was referred to endocrinology to see to establish care for his diabetes. He was to check his sugars before and after meals. Patient was seen and examined prior to discharge. He had no complaints and was agreeable to being discharged home. His blood sugars are normalized. He denied any lightheadedness or dizziness or increased urination. Review of systems otherwise negative. Labs and vitals reviewed. Home medication reviewed and reconciled. Physical Exam Const alert, oriented x3 and no apparent distress General Appearance: cooperative and comfortable Orientation / Consciousness: awake HEENT normocephalic, head/scalp atraumatic and hearing grossly normal bilaterally Mouth: oral and palatal mucosa normal Eyes EOMs intact bilaterally and conjunctivae normal Neck supple and no JVD Resp normal respiratory effort, no retractions, no use of accessory muscles and clear to auscultation bilaterally Cardio regular rate, regular rhythm, S1 normal heart sound, S2 normal heart sound and no murmurs GI normal to inspection, nondistended, normoactive bowel sounds, soft to palpation and non-tender Extremity normal to inspection, full ROM and no clubbing, cyanosis or edema Skin no rashes or lesions noted Neuro oriented x3, CN's II-XII intact bilaterally, moves all extremities and no focal motor deficits Sensorium / Orientation: awake and alert Motor Exam: strength 5/5 throughout Psych Psych Narrative: flat affect Weight / BMI Weight Weight: 292 lb 8.854 oz Body Mass Index (BMI) 36.3 ABG / Lab / Microbiology Data 01/19/25 05:38 01/19/25 05:38 Laboratory: Laboratory Results - last 24 hr 01/18/25 13:34: POC Glucose > 500 H* 01/18/25 13:45: WBC 9.7, RBC 5.72, Hgb 16.0, Hct 45.8, MCV 80.1, MCH 28.0, MCHC 34.9, RDW Std Deviation 36.5, RDW Coeff of Lauro 12.7, Plt Count 219, MPV 11.1, Immature Gran % (Auto) 0.700, Neut % (Auto) 66.7, Lymph % (Auto) 18.2 L, [place] % (Auto) 9.2, Eos % (Auto) 4.7, Baso % (Auto) 0.5, Absolute Neuts (auto) 6.4, Absolute Lymphs (auto) 1.76, Nucleated RBC % 0, Sodium 125 L, Potassium 5.6 H, C hloride 88 L, Carbon Dioxide 21.6, Anion Gap 15, BUN 37 H, Creatinine 1.21 H, Estim Creat Clear Calc 98.71, Est GFR (MDRD) Non-Af 69, BUN/Creatinine Ratio 30.2 H, Glucose 807 H*, Hemoglobin A1c 11.6 H, Calcium 10.2, Total Bilirubin 0.46, AST 22, ALT 28, Alkaline Phosphatase 173 H, Total Protein 7.2, Albumin 4.2, Globulin 3.1, Albumin/Globulin Ratio 1.4, b-Hydroxybutyric mmol/L 0.8 H 01/18/25 13:50: Urine Color Yellow, Urine Clarity Clear, Urine pH 6.0, Ur Specific [place] 1.010, Urine Protein Negative, Urine Glucose (UA) 1000 H, Urine Ketones 5 H, Urine Occult Blood Negative, Urine Nitrite Negative, Urine Bilirubin Negative, Urine Urobilinogen Normal, Ur Leukocyte Esterase Negative, Urine RBC 0 SEEN, Urine WBC 0 SEEN, Ur Squamous Epith Cells 0 SEEN, Urine Bacteria 0 SEEN, Urine Mucus 0 SEEN 01/18/25 16:12: Glucose 513 H* 01/18/25 17:19: POC Glucose 360 H 01/18/25 18:12: POC Glucose 185 H 01/18/25 19:18: POC Glucose 192 H 01/18/25 20:18: POC Glucose 215 H 01/18/25 20:38: Sodium 137, Potassium 4.0, Chloride 100, Carbon Dioxide 25.9, Anion Gap 11, BUN 30 H, Creatinine 0.94, Estim Creat Clear Calc 125.44, Est GFR (MDRD) Non-Af 94, BUN/Creatinine Ratio 32.4 H, Glucose 215 H, Calcium 10.0 01/18/25 21:17: POC Glucose 222 H 01/19/25 00:27: POC Glucose 236 H 01/19/25 05:38: WBC 9.1, RBC 5.51, Hgb 15.5, Hct 44.6, MCV 80.9, MCH 28.1, MCHC 34.8, RDW Std Deviation 37.2, RDW Coeff of Lauro 12.8, Plt Count 212, MPV 11.0, Immature Gran % (Auto) 0.900, Neut % (Auto) 54.8, Lymph % (Auto) 27.0, [place] % (Auto) 9.9, Eos % (Auto) 7.1 H, Baso % (Auto) 0.3, Absolute Neuts (auto) 5.0, Absolute Lymphs (auto) 2.45, Nucleated RBC % 0, Sodium 136, Potassium 4.3, Chloride 100, Carbon Dioxide 25.6, Anion Gap 11, BUN 26 H, Creatinine 0.85, Estim Creat Clear Calc 139.05, Est GFR (MDRD) Non-Af 101, BUN/Creatinine Ratio 30.1 H, Glucose 282 H, Calcium 9.4 01/19/25 07:35: POC Glucose 288 H 01/19/25 11:15: POC Glucose 344 H D/C Instructions Discharge Activity: Return to Normal Activity Weight Bearing Status: Weight bearing as tolerated Call your doctor if you observe: Fever of 101 or Higher, Shortness of breath, Dizziness, Swelling in the ankles and Chest pain DC O2, CPAP, BIPAP Needs Home O2 Discharge instructions: No DC home with Oxygen: No Meaningful Use Info Meaningful Use Meaningful Use Diagnoses (Choose all that apply): None applicable Discharge Plan Admission Admit Date/Time: 01/18/25 15:32 Primary Reason for Your Visit: [facility] Attending Provider: Antonina Mason Primary Care Provider: David Carmichael Instructions Patient Instructions: High Blood Sugar (Hyperglycemia), Understanding Type 2 Diabetes Discharge Orders/Prescriptions Prescriptions: New insulin glargine [Lantus Solostar U-100 Insulin] 100 unit/mL (3 mL) insulin pen 10 unit subcut BID Qty: 15 2RF insulin aspart U-100 100 unit/mL (3 mL) insulin pen 10 unit subcut TID Qty: 15 2RF Continued aspirin [Yohan Low Dose Aspirin] 81 mg tablet,delayed release (DR/EC) 81 mg PO QDAY (DME) FreeStyle Lite Strips Strip See Rx Instructions .MEDSUPPLY Qty: 100 3RF Rx Instructions: check blood glucose daily for type 2 DM (DME) cane Device See Rx Instructions .ROUTE .MEDSUPPLY Qty: 1 0RF Rx Instructions: As directed (DME) Onetouch verio flex strips See Rx Instructions .Route .MEDSUPPLY Qty: 200 3RF Rx Instructions: Check blood glucose 3 - 4 x daily (DME) lancets [FreeStyle Lancets] 28 gauge misc See Rx Instructions .MEDSUPPLY Qty: 200 3RF Rx Instructions: check blood glucose daily for type 2 DM (DME) lancets [OneTouch Delica Lancets] 33 gauge misc See Rx Instructions .ROUTE .MEDSUPPLY Qty: 200 3RF Rx Instructions: Check Blood Glucose 3 - 4x daily (DME) pen needle, diabetic 32 gauge x /32 needle 1 ea MC BID Qty: 200 3RF Rx Instructions: use with insulin twice a day rosuvastatin 20 mg tablet 20 mg PO DAILY Qty: 90 3RF hydroxyzine HCl 50 mg tablet 50 mg PO QDAY PRN (Reason: anxiety) duloxetine 60 mg capsule,delayed release(DR/EC) 60 mg PO QDAY budesonide-formoterol [Symbicort] 160-4.5 mcg/actuation HFA aerosol inhaler 2 puff inhalation BID tamsulosin [Flomax] 0.4 mg capsule 0.4 mg PO QHS Qty: 90 1RF losartan 50 mg tablet See Rx Instructions .ROUTE .COMPLEX Qty: 90 1RF Dose Instruction: take 1 tablet by mouth once daily Rx Instructions: take 1 tablet by mouth once daily omeprazole 20 mg capsule,delayed release(DR/EC) See Rx Instructions .ROUTE .COMPLEX Qty: 90 0RF Dose Instruction: take 1 capsule by mouth daily Rx Instructions: take 1 capsule by mouth daily metformin 1,000 mg tablet 1,000 mg PO BID Qty: 180 3RF bupropion HCl 150 mg tablet sustained-release 12 hr 150 mg PO BID Qty: 180 0RF dulaglutide 1.5 mg/0.5 mL pen injector 1.5 mg SC QWEEK Qty: 2 3RF Discontinued dulaglutide [Trulicity] subcut QWEEK Patient Comments: PT UNSURE OF STRENGTH Referrals / Follow Up: David Carmichael MD [Primary Care Provider, Medical] - Within 1 Week Pascual Velazquez MD [Med Staff - Courtesy Staff, Endocrinology] - Within 1 Month Referral Note: see to establish care for diabetes mellitus JANNET CONTRERAS, [employer] [Non-Staff, Family Practice] - Within 1 Week Disposition Disposition (needs filled in before D/C Order can be placed): Home, Self Care Charges/Coding Visit Charges Inpatient E&M: 85836 Disch Hosp >30min
== END 2025-01-19 12:50 | disposition home or self-care (01) ==
LOC: ED 15:01 → ICU 01-19 11:24
PROVIDERS: Family Medicine; Admitting Provider Student in an Organized Health Care Education/Training Program; Emergency Provider Emergency Medicine; PCP Internal Medicine; Visit Provider Student in an Organized Health Care Education/Training Program
DX: E11.65 Type 2 diabetes mellitus with hyperglycemia (principal); J44.9 Chronic obstructive pulmonary disease, unspecified; E87.1 Hypo-osmolality and hyponatremia; I10 Essential (primary) hypertension; F32.A Depression, unspecified; E87.5 Hyperkalemia; K21.9 Gastro-esophageal reflux disease without esophagitis; E78.00 Pure hypercholesterolemia, unspecified; E86.0 Dehydration; Z87.891 Personal history of nicotine dependence; Z79.82 Long term (current) use of aspirin; Z79.85 Long-term (current) use of injectable non-insulin antidiabetic drugs; Z79.899 Other long term (current) drug therapy; Z79.84 Long term (current) use of oral hypoglycemic drugs; Z23 Encounter for immunization; Z79.51 Long term (current) use of inhaled steroids; N40.0 Benign prostatic hyperplasia without lower urinary tract symptoms
CPT/HCPCS: 80048; 80053; 81001; 82010; 82947; 82962; 83036; 85025; 93005; 94640; 96361; 96365; 96366; 96372; 99221; 99284; A4216; G0378

== ENCOUNTER → 2025-01-21 | Outpatient (CLI) | payer MEDICAID, SELFPAY ==
[2025-01-21 13:06] VITALS: PULSE 100; PULSE 104; PULSE 107; PULSE 113; PULSE 118; PULSE 120; PULSE 99; O2SAT 92; O2SAT 93; O2SAT 94; O2SAT 95
--- NOTE | 2025-01-24 11:38 | PCM.PSN.6M ---
PSN 6 Minute Walk Test 6 Minute Walk Test 6 Minute Walk Test: 6 Minute Walk Test PSN:6-Minute Walk Test Start: 01/21/25 13:05 Freq: Status: Active Protocol: [id number] Document 01/21/25 13:06 [facility] (Rec: 01/21/25 13:11 [facility] [id number]) 6 Minute Walk Test Date Performed 01/21/25 Time Performed 12:45 Height 6 ft 3 in Weight: 291 lb Weight in Pounds 291.[address]: Juliocesar Quinones Assistive device None used: Pre-test Oxygen Delivery Room Air Method Pulse Ox (%) 92 Pulse Rate (60-100 107 H beats/min) Dyspnea Brina Scale ( 4 0-10) Exertion Brina Scale 9 (6-20) Reported Symptoms Increased Work of Breathing 1st minute Oxygen Delivery Room Air Method Pulse Ox (%) 93 Pulse Rate (60-100 100 beats/min) Dyspnea Brina Scale ( 5 0-10) Number of Rests 1 Taken Reported Symptoms Increased Work of Breathing 2nd minute Oxygen Delivery Room Air Method Pulse Ox (%) 94 Pulse Rate (60-100 104 H beats/min) Dyspnea Brina Scale ( 5 0-10) Number of Rests 0 Taken Reported Symptoms Increased Work of Breathing 3rd minute Oxygen Delivery Room Air Method Pulse Ox (%) 93 Pulse Rate (60-100 113 H beats/min) Dyspnea Brina Scale ( 6 0-10) Number of Rests 1 Taken Reported Symptoms Increased Work of Breathing 4th minute Oxygen Delivery Room Air Method Pulse Ox (%) 93 Pulse Rate (60-100 118 H beats/min) Dyspnea Brina Scale ( 6 0-10) Number of Rests 1 Taken Reported Symptoms Increased Work of Breathing 5th minute Oxygen Delivery Room Air Method Pulse Ox (%) 92 Pulse Rate (60-100 113 H beats/min) Dyspnea Brina Scale ( 6 0-10) Number of Rests 1 Taken Reported Symptoms Increased Work of Breathing 6th minute Oxygen Delivery Room Air Method Pulse Ox (%) 93 Pulse Rate (60-100 120 H beats/min) Dyspnea Brina Scale ( 6 0-10) Number of Rests 0 Taken Reported Symptoms Increased Work of Breathing Post-test Oxygen Delivery Room Air Method Pulse Ox (%) 95 Pulse Rate (60-100 99 beats/min) Dyspnea Brina Scale ( 4 0-10) Exertion Brina Scale 9 (6-20) Reported Symptoms Increased Work of Breathing Full Laps Walked 8 Partial Lap, Number 7 of Tiles Walked Total Distance 479 Walked (ft) Interpretation Interpretation: The patient ambulated 479 feet over the course of 6 minutes beginning on room air without assistive devices. Pretesting oxygen saturation was noted to be 92% on room air. With ambulation, the tsering oxygen saturation was 92%. Although there was evidence of impaired walk distance, there was no significant exertional oxygen desaturation. Recommendations Recommendations: There is no indication for the use of supplemental oxygen at this time.
== END | disposition home or self-care (01) ==
LOC: PSN 12:36
PROVIDERS: PCP Internal Medicine; Referring Provider Internal Medicine Critical Care Medicine; Visit Provider Internal Medicine Critical Care Medicine
DX: J44.9 Chronic obstructive pulmonary disease, unspecified (principal)
CPT/HCPCS: 94618